=== PATIENT | female | born 1955 | race Caucasian/White ===

== ENCOUNTER → 2017-07-31 | Outpatient (CLI) | payer OTHER ==
--- NOTE | 2017-07-31 10:17 | US ---
EXAMINATION TYPE: US thyroid st tissue head/neck DATE OF EXAM: 07/31/2017 COMPARISON: NONE CLINICAL HISTORY: E04.1 Thyroid Nodule. GLAND SIZE: Right Lobe: 2.4 x 0.8 x 1.2 cm Overall Parenchyma: heterogenous Left Lobe: 3.1 x 1.2 x 1.1 cm Overall Parenchyma: heterogeneous Isthmus Thickness: 0.3 cm NODULES RIGHT: # of nodules measured on right: 1 1. 1.2 X 0.8 x 0.9 cm echogenic solid nodule at the mid pole with well-defined margins; with a soft tissue rim outside the calcification. This nodule is wider than tall and shows intranodular vascula rity. Prior size: no prior LEFT: # of nodules measured on left: 1 1. 0.4 X 0.4 x 0.1 cm echogenic solid nodule at the lower pole with poorly defined margins; with a soft tissue rim outside the calcification. This nodule is calcification and shows no intranodular va scularity. Prior size: no prior ISTHMUS: # of nodules measured in the isthmus: 0 1 Bilateral neck scanned, no evidence of lymphadenopathy. IMPRESSION: Bilateral small thyroid nodules. The largest on the right measures 1.2 x 0.8 x 0.7 cm.
[2017-07-31 11:04] LABS: T4, Free (Free Thyroxine) 0.8 ng/dL (0.78-2.19)
== END | disposition home or self-care (01) ==
LOC: RADUSWWP 09:44
PROVIDERS: ATTEND Obstetrics & Gynecology
DX: E04.2 Nontoxic multinodular goiter (principal)
CPT/HCPCS: 36415; 76536; 84439; 84443

== ENCOUNTER 2017-09-30 12:04 | Emergency (ER) | payer OTHER ==
[2017-09-30 13:35] LABS: Basophils % (A) 0 %; Eosinophils # (A) 0.1 k/uL (0-0.7); Eosinophils % (A) 2 %; HCT 39.9 % (34.0-46.0); HGB 14.4 gm/dL (11.4-16.0); Lymphocytes # (A) 0.7 k/uL (1.0-4.8); Lymphocytes % (A) 10 %; MCH 29.5 pg (25.0-35.0); MCV 81.7 fL (80.0-100.0); Monocytes # (A) 0.2 k/uL (0-1.0); Monocytes % (A) 3 %; Neutrophils # (A) 5.7 k/uL (1.3-7.7); Neutrophils % (A) 84 %; Platelet Count 287 k/uL (150-450); RBC 4.88 m/uL (3.80-5.40); RDW 13.4 % (11.5-15.5); WBC 6.8 k/uL (3.8-10.6)
[2017-09-30 13:36] LABS: Appearance,Urine Clear (Clear); Bilirubin,Urine Negative (Negative); Blood,Urine Negative (Negative); Color,Urine Yellow; Glucose,Urine (UA) Negative (Negative); Ketones,Urine Negative (Negative); Leukocyte Esterase,Urine Negative (Negative); Nitrite,Urine Negative (Negative); Protein,Urine Negative (Negative); Specific Gravity,Urine 1.006 (1.001-1.035); Urobilinogen,Urine <2.0 mg/dL (<2.0)
[2017-09-30 13:45] LABS: Albumin 4.5 g/dL (3.5-5.0); Calcium 10.5 mg/dL (8.4-10.2); Potassium 4.6 mmol/L (3.5-5.1); Total Bilirubin 0.4 mg/dL (0.2-1.3); Total Protein 7.3 g/dL (6.3-8.2)
[2017-09-30] MEDS ORDERED: ACETAMINOPHEN TAB 500 MG TAB PO STA (13:50)
--- NOTE | 2017-09-30 14:12 | CT ---
EXAMINATION TYPE: CT soft tissue neck wo con DATE OF EXAM: 09/30/2017 COMPARISON: NONE HISTORY: Patient complains of upper lip swelling. CT DLP: 450.7 mGycm CONTRAST: CT scan of the neck is performed without contrast. Lack of contrast limits evaluation. Contrast enhanced CT of the neck was performed from the skull base through the lung apices. Mild soft tissue swelling adjacent to the left maxilla. No definite bony destructive process or absce ss. Lack of contrast limits evaluation. AIRWAY: The supraglottic, glottic, and subglottic portions of the airway appear patent and free of mass. SALIVARY GLANDS: The submandibular and parotid glands are free of mass or inflammatory process. THYROID GLAND: No nodules or masses seen. LYMPH NODES: No adenopathy seen greater than 1cm. LUNG APICES: No nodule or mass is seen. OTHER: Vascular structures are patent. No significant degenerative change of the cervical spine. N o abscess seen. IMPRESSION: Mild soft tissue swelling adjacent to the left maxilla. No definite bony destructive process or absce ss. Lack of contrast limits evaluation.
[2017-09-30 14:39] VITALS: BP 132/68; PULSE 84; RESP 18; TEMP 98.4
--- NOTE | 2017-09-30 14:41 | ED ---
ENT HPI - General Chief complaint: Dental/Oral Stated complaint: Lip Swelling Time Seen by Provider: 09/30/17 13:13 Source: patient, RN notes reviewed Mode of arrival: ambulatory Limitations: no limitations - History of Present Illness Initial comments: This a 62-year-old female presents emergency Department chief complaint of facial swelling. Patient states this started earlier this morning approximately 12 hours ago. Patient was seen and [facility] at that time she states it was over her left mandibular region. She states she was given Benadryl, steroids. She states that has not helped and seen worsen. She states she still is swelling to the left mandible region but also her upper lip. She denies any difficulty breathing difficulty swallowing denies any tongue swelling. Patient states that she does take an YONY inhibitor but states she's been taken for several months. Patient did not take it today. Patient denies any chest pain from his breath nausea vomiting diarrhea constipation. Patient does have a fever did not know she had a fever at home. - Related Data Home Medications Medication Instructions Recorded Confirmed Cranberry Fruit Extract [Cranberry] 1,000 mg PO DAILY 08/03/15 09/30/17 Furosemide 40 mg PO DAILY 08/03/15 09/30/17 Gemfibrozil 600 mg PO HS 08/03/15 09/30/17 Mycophenolate Mofetil [Cellcept] 1,000 mg PO BID 08/03/15 09/30/17 Omeprazole 20 mg PO DAILY 08/03/15 09/30/17 Potassium Chloride [Klor-Con 10] 20 meq PO 08/03/15 09/30/17 Potassium Chloride [Klor-Con 10] 30 meq PO [facility] 08/03/15 09/30/17 Simvastatin 20 mg PO 08/03/15 09/30/17 Spironolactone 25 mg PO DAILY 08/03/15 09/30/17 sulfaSALAzine [Azulfidine] 1,500 mg PO BID 08/03/15 09/30/17 Sirolimus [Rapamune] 5 mg PO DAILY 08/17/15 09/30/17 Biotin 5 mg PO DAILY 08/22/15 09/30/17 Lisinopril [Prinivil] 5 mg PO DAILY 09/30/17 09/30/17 diphenhydrAMINE HCL [Benadryl] 25 mg PO Q4H PRN 09/30/17 09/30/17 Previous Rx's Medication Instructions Recorded Aspirin 81 mg PO DAILY #0 08/31/15 Clindamycin HCl 300 mg PO Q6HR #40 cap 09/30/17 Allergies Allergy/AdvReac Type Severity Reaction Status Date / Time No Known Allergies Allergy Verified 09/30/17 13:24 Review of Systems ROS Statement: Those systems with pertinent positive or pertinent negative responses have been documented in the HPI. ROS Other: All systems not noted in ROS Statement are negative. Past Medical History Past Medical History: Diabetes Mellitus, Deep Vein Thrombosis (DVT), GERD/Reflux , Hyperlipidemia, Renal Disease Additional Past Medical History / Comment(s): COLITIS History of Any Multi-Drug Resistant Organisms: None Reported Past Surgical History: Cholecystectomy, Hernia Repair, Tubal Ligation Additional Past Surgical History / Comment(s): KIDNEY TRANSPLANT left. DIALYSIS PORT PLACEMENT AND REMOVAL Past Anesthesia/Blood Transfusion Reactions: No Reported Reaction Past Psychological History: Anxiety Smoking Status: Former smoker Past Alcohol Use History: Occasional Past Drug Use History: None Reported - Past Family History Mother Family Medical History: Myocardial Infarction ([place]) Father Additional Family Medical History / Comment(s): UNK HEART PROBLEMS General Exam Limitations: no limitations General appearance: alert, in no apparent distress Head exam: Present: atraumatic, normocephalic, normal inspection Eye exam: Present: normal appearance, PERRL, EOMI. Absent: scleral icterus, conjunctival injection, periorbital swelling ENT exam: Present: mucous membranes moist, TM's normal bilaterally, normal external ear exam. Absent: normal oropharynx (There is some left mandibular, left maxillary swelling noted along with upper lip swelling, left lower dental fracture) Neck exam: Present: normal inspection, full ROM. Absent: tenderness, meningismus, lymphadenopathy Respiratory exam: Present: normal lung sounds bilaterally. Absent: respiratory distress, wheezes, rales, rhonchi, stridor Cardiovascular Exam: Present: regular rate, normal rhythm, normal heart sounds. Absent: systolic murmur, diastolic murmur, rubs, gallop, clicks Skin exam: Present: warm, dry, intact, normal color. Absent: rash Course Vital Signs 09/30/17 12:47 Temperature 101.3 F H Pulse Rate 104 H Respiratory 20 Rate Blood Pressure 109/73 O2 Sat by Pulse 97 Oximetry Medical Decision Making - Medical Decision Making 62-year-old female presented for facial swelling. Patient appears to have a dental infection. Patient had CT without contrast secondary to renal transplant. There is no evidence of localized abscess. She'll be started on antibiotics. Patient advised to follow-up with oral surgery. Patient does take YONY inhibitor though this is felt less likely is secondary she's been taken for several months. Though she'll discontinue it at this time and follow- up for further direction. - Lab Data Result diagrams: 09/30/17 13:13 09/30/17 13:13 Lab Results 09/30/17 09/30/17 09/30/17 Range/Units 13:13 13:13 13:13 WBC 6.8 (3.8-10.6) k/uL RBC 4.88 (3.80-5.40) m/uL Hgb 14.4 (11.4-16.0) gm/dL Hct 39.9 (34.0-46.0) % MCV 81.7 (80.0-100.0) fL MCH 29.5 (25.0-35.0) pg MCHC 36.0 (31.0-37.0) g/dL RDW 13.4 (11.5-15.5) % Plt Count 287 (150-450) k/uL Neutrophils % 84 % Lymphocytes % 10 % Monocytes % 3 % Eosinophils % 2 % Basophils % 0 % Neutrophils # 5.7 (1.3-7.7) k/uL Lymphocytes # 0.7 L (1.0-4.8) k/uL Monocytes # 0.2 (0-1.0) k/uL Eosinophils # 0.1 (0-0.7) k/uL Basophils # 0.0 (0-0.2) k/uL Sodium 141 (137-145) mmol/L Potassium 4.6 (3.5-5.1) mmol/L Chloride 101 (98-107) mmol/L Carbon Dioxide 24 (22-30) mmol/L Anion Gap 16 mmol/L BUN 14 (7-17) mg/dL Creatinine 0.85 (0.52-1.04) mg/dL Est GFR (CKD-EPI)AfAm 85 (>60 ml/min/1.73 sqM) Est GFR (CKD-EPI)NonAf 73 (>60 ml/min/1.73 sqM) Glucose 176 H (74-99) mg/dL Plasma Lactic Acid Adriano 1.3 (0.7-2.0) mmol/L Calcium 10.5 H (8.4-10.2) mg/dL Total Bilirubin 0.4 (0.2-1.3) mg/dL AST 13 L (14-36) U/L ALT 21 (9-52) U/L Alkaline Phosphatase 65 (38-126) U/L Total Protein 7.3 (6.3-8.2) g/dL Albumin 4.5 (3.5-5.0) g/dL Urine Color Urine Appearance (Clear) Urine pH (5.0-8.0) Ur Specific Burton (1.001-1.035) Urine Protein (Negative) Urine Glucose (UA) (Negative) Urine Ketones (Negative) Urine Blood (Negative) Urine Nitrite (Negative) Urine Bilirubin (Negative) Urine Urobilinogen (<2.0) mg/dL Ur Leukocyte Esterase (Negative) 09/30/17 Range/Units 13:13 WBC (3.8-10.6) k/uL RBC (3.80-5.40) m/uL Hgb (11.4-16.0) gm/dL Hct (34.0-46.0) % MCV (80.0-100.0) fL MCH (25.0-35.0) pg MCHC (31.0-37.0) g/dL RDW (11.5-15.5) % Plt Count (150-450) k/uL Neutrophils % % Lymphocytes % % Monocytes % % Eosinophils % % Basophils % % Neutrophils # (1.3-7.7) k/uL Lymphocytes # (1.0-4.8) k/uL Monocytes # (0-1.0) k/uL Eosinophils # (0-0.7) k/uL Basophils # (0-0.2) k/uL Sodium (137-145) mmol/L Potassium (3.5-5.1) mmol/L Chloride (98-107) mmol/L Carbon Dioxide (22-30) mmol/L Anion Gap mmol/L BUN (7-17) mg/dL Creatinine (0.52-1.04) mg/dL Est GFR (CKD-EPI)AfAm (>60 ml/min/1.73 sqM) Est GFR (CKD-EPI)NonAf (>60 ml/min/1.73 sqM) Glucose (74-99) mg/dL Plasma Lactic Acid Adriano (0.7-2.0) mmol/L Calcium (8.4-10.2) mg/dL Total Bilirubin (0.2-1.3) mg/dL AST (14-36) U/L ALT (9-52) U/L Alkaline Phosphatase (38-126) U/L Total Protein (6.3-8.2) g/dL Albumin (3.5-5.0) g/dL Urine Color Yellow Urine Appearance Clear (Clear) Urine pH 5.0 (5.0-8.0) Ur Specific Burton 1.006 (1.001-1.035) Urine Protein Negative (Negative) Urine Glucose (UA) Negative (Negative) Urine Ketones Negative (Negative) Urine Blood Negative (Negative) Urine Nitrite Negative (Negative) Urine Bilirubin Negative (Negative) Urine Urobilinogen <2.0 (<2.0) mg/dL Ur Leukocyte Esterase Negative (Negative) Disposition Clinical Impression: Facial swelling, Dental infection Disposition: HOME SELF-CARE Condition: Stable Instructions: Dental Abscess (ED) Additional Instructions: Please return to the Emergency Department if symptoms worsen or any other concerns. Prescriptions: Clindamycin HCl 300 mg PO Q6HR #40 cap Referrals: None,Stated [Primary Care Provider] - 1-2 days Jared Forbes DDS [STAFF PHYSICIAN] - 1-2 days Time of Disposition: 14:41
== END 2017-09-30 14:52 | disposition home or self-care (01) ==
LOC: EC 12:04
DX: K04.7 Periapical abscess without sinus (principal); K21.9 Gastro-esophageal reflux disease without esophagitis; E78.5 Hyperlipidemia, unspecified; Z86.718 Personal history of other venous thrombosis and embolism; Z94.0 Kidney transplant status; Z79.899 Other long term (current) drug therapy
CPT/HCPCS: 36415; 70490; 80053; 81003; 83605; 85025; 99284

== ENCOUNTER → 2017-10-09 | Outpatient (CLI) | payer OTHER ==
--- NOTE | 2017-10-10 11:40 | MM ---
Reason for exam: screening (asymptomatic). Last mammogram was performed 1 year and 6 months ago. History: Patient is postmenopausal. Took hormonal contraceptives for 10 years beginning at age 19. Took estrogen for 6 months beginning at age 49. Physical Findings: A clinical breast exam by your physician is recommended on an annual basis and results should be correlated with mammographic findings. MG Screening Mammo w CAD Bilateral CC and MLO view(s) were taken. Prior study comparison: April 16, 2016, right breast MG diagnostic mammo RT w CAD. August 11, 2015, bilateral MG screening mammo w CAD. The breast tissue is almost entirely fat. Finding: There are typically benign skin, grouped/clustered calcifications in the outer quadrant, middle position. No significant changes in finding since April 16, 2016 and August 11, 2015. ASSESSMENT: Benign, BI-RAD 2 RECOMMENDATION: Routine screening mammogram of both breasts in 1 year.
== END | disposition home or self-care (01) ==
LOC: RADMAMWWP 09:47
PROVIDERS: ATTEND Family Medicine
DX: Z12.31 Encounter for screening mammogram for malignant neoplasm of breast (principal)
CPT/HCPCS: 77067

== ENCOUNTER 2018-09-05 17:48 | Inpatient (IN) | payer OTHER ==
[2018-09-05] MEDS: MORPHINE SULFATE 4 MG/ML SYRINGE IVP PRN (20:39)
[2018-09-05] MEDS ORDERED: HYDROmorphone 0.5 MG/0.5 ML SYRINGE IVP PRN (20:48)
[2018-09-05] MEDS ORDERED: NALOXONE 0.4 MG/ML 10 ML VIAL IVP PRN (20:48)
[2018-09-05] MEDS ORDERED: diphenhydrAMINE 25 MG CAP PO PRN (20:49)
[2018-09-05] MEDS ORDERED: NALOXONE 0.4 MG/ML 1 ML VIAL IV PRN (20:51)
[2018-09-05] MEDS ORDERED: sulfaSALAzine 500 MG TAB PO SCH (21:00)
[2018-09-05] MEDS ORDERED: ACETAMINOPHEN TAB 500 MG TAB PO PRN (22:00)
[2018-09-05] MEDS ORDERED: TEMAZEPAM 15 MG CAP PO PRN (22:00)
[2018-09-05] MEDS ORDERED: HYDROcodone/APAP 5-325MG 1 EACH TAB PO PRN (22:00)
[2018-09-05] MEDS ORDERED: hydrALAZINE HCL 20 MG/ML 1 ML VIAL IVP PRN (22:02)
[2018-09-05 22:05] VITALS: BMI 28.8
[2018-09-05] MEDS: sulfaSALAzine 500 MG TAB PO SCH (22:32)
[2018-09-05] MEDS: MYCOPHENOLATE MOFETIL 500 MG TAB PO SCH (22:33)
[2018-09-05] MEDS: FENOFIBRATE 160 MG TAB PO SCH (22:33)
[2018-09-05] MEDS: HEPARIN SODIUM,PORCINE 5,000 UNIT/ML 1 ML VIAL SQ SCH (22:37)
[2018-09-05] MEDS: ATORVASTATIN 10 MG TAB PO SCH (22:48)
[2018-09-05] MEDS: PANTOPRAZOLE 40 MG/10 ML VIAL IVP SCH (23:53)
[2018-09-06 00:05] LABS: ALT 28 U/L (9-52); AST 10 U/L (14-36); Albumin 3.6 g/dL (3.5-5.0); Alkaline Phosphatase 60 U/L (38-126); Amylase 47 U/L (30-110); Anion Gap 8 mmol/L; Blood Urea Nitrogen 8 mg/dL (7-17); Calcium 9.7 mg/dL (8.4-10.2); Carbon Dioxide 26 mmol/L (22-30); Chloride 107 mmol/L (98-107); Glucose 138 mg/dL (74-99); Lipase 61 U/L (23-300); Potassium 4.3 mmol/L (3.5-5.1); Sodium 141 mmol/L (137-145); Total Bilirubin 0.6 mg/dL (0.2-1.3); Total Protein 5.9 g/dL (6.3-8.2)
[2018-09-06] MEDS: POTASSIUM CHLORIDE ER 20 MEQ TAB.ER PO SCH ×2 (00:09→20:33)
[2018-09-06] MEDS: MORPHINE SULFATE 4 MG/ML SYRINGE IVP PRN (00:33)
[2018-09-06] MEDS ORDERED: LORazepam 2 MG/ML INJ IV PRN (00:40)
[2018-09-06] MEDS: HYDROmorphone 0.5 MG/0.5 ML SYRINGE IVP PRN ×4 (02:26→17:02)
[2018-09-06] MEDS: ONDANSETRON 4 MG/2 ML VIAL IVP PRN ×2 (02:59→08:24)
[2018-09-06] MEDS ORDERED: PANTOPRAZOLE 40 MG TABLET PO SCH (07:30)
[2018-09-06] MEDS: SPIRONOLACTONE 25 MG TAB PO SCH (08:20)
[2018-09-06] MEDS: POTASSIUM CHLORIDE ER 10 MEQ TAB.ER.PRT PO SCH (08:20)
[2018-09-06] MEDS: ASPIRIN 81 MG PO SCH (08:20)
[2018-09-06] MEDS: MYCOPHENOLATE MOFETIL 500 MG TAB PO SCH ×2 (08:21→20:33)
[2018-09-06] MEDS: FUROSEMIDE 40 MG TAB PO SCH (08:21)
[2018-09-06] MEDS: sulfaSALAzine 500 MG TAB PO SCH ×2 (08:22→20:33)
[2018-09-06] MEDS: PANTOPRAZOLE 40 MG/10 ML VIAL IVP SCH ×2 (08:23→20:33)
[2018-09-06] MEDS: HEPARIN SODIUM,PORCINE 5,000 UNIT/ML 1 ML VIAL SQ SCH ×2 (08:23→20:32)
[2018-09-06 08:25] LABS: Basophils % (A) 0 %; Eosinophils # (A) 0.1 k/uL (0-0.7); Eosinophils % (A) 1 %; HCT 42.8 % (34.0-46.0); HGB 13.8 gm/dL (11.4-16.0); Lymphocytes # (A) 0.6 k/uL (1.0-4.8); Lymphocytes % (A) 5 %; MCHC 32.1 g/dL (31.0-37.0); MCV 90.4 fL (80.0-100.0); Mean Platelet Volume 7.7; Monocytes # (A) 0.8 k/uL (0-1.0); Monocytes % (A) 6 %; Neutrophils # (A) 11.7 k/uL (1.3-7.7); Neutrophils % (A) 88 %; Platelet Count 320 k/uL (150-450); RBC 4.74 m/uL (3.80-5.40); RDW 14.7 % (11.5-15.5); WBC 13.3 k/uL (3.8-10.6)
[2018-09-06] MEDS: SIROLIMUS 1 MG PO SCH (08:51)
[2018-09-06] MEDS ORDERED: SIROLIMUS PO SCH (09:00)
--- NOTE | 2018-09-06 09:59 | P.GSCN ---
History of Present Illness Consult date: 09/06/18 Reason for Consult: Bowel obstruction History of present illness: Patient is known to our service. Patient underwent repair of an incarcerated recurrent incisional hernia in August 2015. That was repaired with an underlay mesh. Following that the patient developed a bowel obstruction a few weeks post discharge. This resolved on its own. Patient states she also had a perforated ulcer over the last several years although that is not documented in the computer records here at our hospital. She went to the hospital yesterday complaining of nausea vomiting and abdominal pain. CAT scan was performed which showed recurrent small bowel obstruction. Patient still feels quite nauseated. Last bowel movement yesterday. White blood cell count slightly elevated. She is afebrile. No fevers. Patient also has a kidney transplant left pelvis from 14 years ago that is still functioning. Review of Systems The patient denies any acute changes in vision or hearing, no dysphagia or odynophagia, no chest pain or shortness of breath, no dysuria or hematuria, no headache, no runny nose, no rectal bleeding or melena, no unexplained weight loss Past Medical History Past Medical History: Diabetes Mellitus, Deep Vein Thrombosis (DVT), GERD/Reflux , Hyperlipidemia, Renal Disease Additional Past Medical History / Comment(s): COLITIS History of Any Multi-Drug Resistant Organisms: None Reported Past Surgical History: Cholecystectomy, Hernia Repair, Tubal Ligation Additional Past Surgical History / Comment(s): KIDNEY TRANSPLANT left. DIALYSIS PORT PLACEMENT AND REMOVAL Past Anesthesia/Blood Transfusion Reactions: No Reported Reaction Past Psychological History: Anxiety Smoking Status: Former smoker Past Alcohol Use History: Occasional Past Drug Use History: None Reported - Past Family History Mother Family Medical History: Myocardial Infarction ([place]) Father Additional Family Medical History / Comment(s): UNK HEART PROBLEMS Medications and Allergies Home Medications Medication Instructions Recorded Confirmed Type Cranberry Fruit Extract [Cranberry] 1,000 mg PO DAILY 08/03/15 09/06/18 History Furosemide 40 mg PO DAILY 08/03/15 09/06/18 History Gemfibrozil 600 mg PO HS 08/03/15 09/06/18 History Mycophenolate Mofetil [Cellcept] 1,000 mg PO BID 08/03/15 09/06/18 History Omeprazole 20 mg PO DAILY 08/03/15 09/06/18 History Potassium Chloride [Klor-Con 10] 20 meq PO HS 08/03/15 09/06/18 History Potassium Chloride [Klor-Con 10] 30 meq PO QAM 08/03/15 09/06/18 History Simvastatin 20 mg PO HS 08/03/15 09/06/18 History Spironolactone 25 mg PO DAILY 08/03/15 09/06/18 History Sirolimus [Rapamune] 5 mg PO DAILY 08/17/15 09/06/18 History Biotin 5 mg PO DAILY 08/22/15 09/06/18 History Aspirin 81 mg PO DAILY #0 08/31/15 09/06/18 Rx ALPRAZolam [Xanax] 0.25 mg PO DAILY PRN 09/06/18 09/06/18 History Ferrous Sulfate [Feosol] 325 mg PO BID 09/06/18 09/06/18 History Meclizine [Antivert] 25 mg PO DAILY PRN 09/06/18 09/06/18 History sulfaSALAzine [Azulfidine] 2,000 mg PO BID 09/06/18 09/06/18 History Allergies Allergy/AdvReac Type Severity Reaction Status Date / Time lisinopril Allergy Anaphylaxis Verified 09/06/18 08:20 Surgical - Exam Vital Signs Temp Pulse Resp BP Pulse Ox 97.9 F 93 18 126/70 95 09/05/18 00:15 09/05/18 00:15 09/05/18 00:15 09/05/18 00:15 09/05/18 00:15 Physical exam: General: Well-developed, well-nourished HEENT: Normocephalic, sclerae nonicteric Abdomen: Mild distention, mild tenderness Extremities: No edema Neuro: Alert and oriented Results - Labs 09/06/18 07:03 09/05/18 22:44 Abnormal Lab Results - Last 24 Hours (Table) 09/05/18 09/06/18 Range/Units 22:44 07:03 WBC 13.3 H (3.8-10.6) k/uL Neutrophils # 11.7 H (1.3-7.7) k/uL Lymphocytes # 0.6 L (1.0-4.8) k/uL Glucose 138 H (74-99) mg/dL AST 10 L (14-36) U/L Total Protein 5.9 L (6.3-8.2) g/dL Diabetes panel 09/05/18 Range/Units 22:44 Sodium 141 (137-145) mmol/L Potassium 4.3 (3.5-5.1) mmol/L Chloride 107 (98-107) mmol/L Carbon Dioxide 26 (22-30) mmol/L BUN 8 (7-17) mg/dL Creatinine 0.68 (0.52-1.04) mg/dL Glucose 138 H (74-99) mg/dL Calcium 9.7 (8.4-10.2) mg/dL AST 10 L (14-36) U/L ALT 28 (9-52) U/L Alkaline Phosphatase 60 (38-126) U/L Total Protein 5.9 L (6.3-8.2) g/dL Albumin 3.6 (3.5-5.0) g/dL Calcium panel 09/05/18 Range/Units 22:44 Calcium 9.7 (8.4-10.2) mg/dL Albumin 3.6 (3.5-5.0) g/dL Pituitary panel 09/05/18 Range/Units 22:44 Sodium 141 (137-145) mmol/L Potassium 4.3 (3.5-5.1) mmol/L Chloride 107 (98-107) mmol/L Carbon Dioxide 26 (22-30) mmol/L BUN 8 (7-17) mg/dL Creatinine 0.68 (0.52-1.04) mg/dL Glucose 138 H (74-99) mg/dL Calcium 9.7 (8.4-10.2) mg/dL Adrenal panel 09/05/18 Range/Units 22:44 Sodium 141 (137-145) mmol/L Potassium 4.3 (3.5-5.1) mmol/L Chloride 107 (98-107) mmol/L Carbon Dioxide 26 (22-30) mmol/L BUN 8 (7-17) mg/dL Creatinine 0.68 (0.52-1.04) mg/dL Glucose 138 H (74-99) mg/dL Calcium 9.7 (8.4-10.2) mg/dL Total Bilirubin 0.6 (0.2-1.3) mg/dL AST 10 L (14-36) U/L ALT 28 (9-52) U/L Alkaline Phosphatase 60 (38-126) U/L Total Protein 5.9 L (6.3-8.2) g/dL Albumin 3.6 (3.5-5.0) g/dL Assessment and Plan (1) SBO (small bowel obstruction) Narrative/Plan: Patient with recurrent small bowel obstruction likely on the basis of intra- abdominal adhesions. Will place nasogastric tube at this time. Repeat abdominal x-rays tomorrow. Current Visit: No Status: Acute Code(s): K56.69 - OTHER INTESTINAL OBSTRUCTION * DO NOT USE * SNOMED Code(s): 700557312
--- NOTE | 2018-09-06 12:05 | P.HPIM ---
History of Present Illness H&P Date: 09/06/18 Chief Complaint: Abdominal pain This very pleasant 61-year-old female past medical history significant for abdominal surgery in 2016 where she underwent repair of incarcerated recurrent incisional hernia. She said that she was okay until yesterday when she started having pain in the belly which are generalized, all over, it was worsening. She came into the hospital for further urology management. She said that she also started to have nausea vomiting yesterday. She said that she had one bowel movement yesterday morning. She otherwise does not complain of any chest pain, racing heart, no cough, shortness of breath, no tingling numbness of any extremities, no itch or rash, she does not complain of any headache, no loss of vision or blurry vision, no itch no rash. ER course-vitals show temperature 98.4 pulse 82 respiration 18 blood pressure 148/79 satting 98% on room air. Labwork was initial sodium 140 potassium 4.3 bun 8 creatinine 0.68 lipase 61 WBC 13.3 hemoglobin 13.8 platelets 320. Computed tomography scan of the belly showed small obstruction. Patient had NG tube placed and hooked to low intermittent suction. Patient was admitted to the hospitalist service for further evaluation and management with surgery consult Review of Systems All systems: negative Past Medical History Past Medical History: Diabetes Mellitus, Deep Vein Thrombosis (DVT), GERD/Reflux , Hyperlipidemia, Renal Disease Additional Past Medical History / Comment(s): COLITIS History of Any Multi-Drug Resistant Organisms: None Reported Past Surgical History: Cholecystectomy, Hernia Repair, Tubal Ligation Additional Past Surgical History / Comment(s): KIDNEY TRANSPLANT left. DIALYSIS PORT PLACEMENT AND REMOVAL Past Anesthesia/Blood Transfusion Reactions: No Reported Reaction Past Psychological History: Anxiety Smoking Status: Former smoker Past Alcohol Use History: Occasional Past Drug Use History: None Reported - Past Family History Mother Family Medical History: Myocardial Infarction ([place]) Father Additional Family Medical History / Comment(s): UNK HEART PROBLEMS Medications and Allergies Home Medications Medication Instructions Recorded Confirmed Type Cranberry Fruit Extract [Cranberry] 1,000 mg PO DAILY 08/03/15 09/06/18 History Furosemide 40 mg PO DAILY 08/03/15 09/06/18 History Gemfibrozil 600 mg PO HS 08/03/15 09/06/18 History Mycophenolate Mofetil [Cellcept] 1,000 mg PO BID 08/03/15 09/06/18 History Omeprazole 20 mg PO DAILY 08/03/15 09/06/18 History Potassium Chloride [Klor-Con 10] 20 meq PO HS 08/03/15 09/06/18 History Potassium Chloride [Klor-Con 10] 30 meq PO QAM 08/03/15 09/06/18 History Simvastatin 20 mg PO HS 08/03/15 09/06/18 History Spironolactone 25 mg PO DAILY 08/03/15 09/06/18 History Sirolimus [Rapamune] 5 mg PO DAILY 08/17/15 09/06/18 History Biotin 5 mg PO DAILY 08/22/15 09/06/18 History Aspirin 81 mg PO DAILY #0 08/31/15 09/06/18 Rx ALPRAZolam [Xanax] 0.25 mg PO DAILY PRN 09/06/18 09/06/18 History Ferrous Sulfate [Feosol] 325 mg PO BID 09/06/18 09/06/18 History Meclizine [Antivert] 25 mg PO DAILY PRN 09/06/18 09/06/18 History sulfaSALAzine [Azulfidine] 2,000 mg PO BID 09/06/18 09/06/18 History Allergies Allergy/AdvReac Type Severity Reaction Status Date / Time lisinopril Allergy Anaphylaxis Verified 09/06/18 08:20 Physical Exam Vitals: Vital Signs Temp Pulse Resp BP Pulse Ox 09/06/18 08:00 18 09/06/18 07:00 98.1 F 88 18 132/80 93 L 09/05/18 20:20 98.4 F 82 18 148/79 98 Intake and Output 09/05/18 09/06/18 09/06/18 22:59 06:59 14:59 Intake Total 675 Output Total 1000 Balance 675 -1000 Intake: IV 675 0.9 @75 675 Output: Gastric Drainage 1000 Other: Weight 86.183 kg On exam, alert and oriented x3. HEENT: Conjunctivae normal. eyes normal. NECK: No JVD. No thyroid enlargement. No LNs CARDIOVASCULAR: S1, S2 positive RESPIRATION: Breath sounds diminished in the bases. No rhonchi or crackles. No bronchial breathing. ABDOMEN: Soft, tender. No guarding. no masses palpable. No ascites, No hepatosplenomegaly.bowel sounds feeble. LEGS: No edema. no swelling NERVOUS SYSTEM: Cranial N 2-12 grossly normal. Moves all 4 limbs. No focal deficits. No sensory deficit. No signs of cerebellar dysfucntion. Skin: no ulcer no rash Results CBC & Chem 7: 09/06/18 07:03 09/05/18 22:44 Labs: Abnormal Lab Results - Last 24 Hours (Table) 09/05/18 09/06/18 Range/Units 22:44 07:03 WBC 13.3 H (3.8-10.6) k/uL Neutrophils # 11.7 H (1.3-7.7) k/uL Lymphocytes # 0.6 L (1.0-4.8) k/uL Glucose 138 H (74-99) mg/dL AST 10 L (14-36) U/L Total Protein 5.9 L (6.3-8.2) g/dL Thrombosis Risk Factor Assmnt - Choose All That Apply Each Factor Represents 1 point: Obesity (BMI >25) Each Risk Factor Represents 2 Points: Age 61-74 years Each Risk Factor Represents 3 Points: History of DVT/PE Other congenital or acquired thrombophilia - If yes, enter type in comment: No Thrombosis Risk Factor Assessment Total Risk Factor Score: 6 Thrombosis Risk Factor Assessment Level: High Risk Assessment and Plan Assessment: - Small bowel obstruction - History of previous abdominal surgery - History of kidney transplant - History of diabetes mellitus - History of hyperlipidemia - History of DVT - GERD Plan - We'll admit the patient to [facility] with telemetry - Patient will be nothing by mouth, NG tube hooked lower abdomen suction. - Patient surgery recommendations regarding management of small bowel obstruction - Pain control - We'll start her on gentle fluid hydration - Patient can resume home medications when able to - DVT and GI prophylaxis - We will order for lab work in the morning - Expected length of stay is more than 2 midnights - full code Time with Patient: Greater than 30
--- NOTE | 2018-09-06 13:47 | CT ---
EXAMINATION TYPE: CT abdomen pelvis wo con DATE OF EXAM: 09/06/2018 COMPARISON: December 24, 2015 HISTORY: 62-year-old female bowel obstruction CT DLP: 680.7 mGycm. Automated exposure control for dose reduction was used. TECHNIQUE: Contiguous axial scanning of the abdomen and pelvis without IV contrast. Coronal and sagit tatiana reconstructions performed. FINDINGS: Heart normal size without pericardial effusion. Coronary vessel calcifications are present. Strandy a telectasis in the lower lungs without pleural effusion. Tiny hiatal hernia. Noncontrast appearance of the liver, adrenal glands, spleen, and pancreas show no gross abnormality. Marked fluid distention of the stomach. Proximal and mid small bowel loops show variable dilatation w ith some severely dilated loops measuring up to 5.8 cm. Air-fluid levels throughout. Transition point identified at the anterior infraumbilical midline, refer to axial image 58 just deep to the surgerized anterior abdominal wall. Mild mesenteric edema and mild pelvic free fluid. No free air is identified. Mild perihepatic ascites . Atretic [place] kidneys. Left lower quadrant transplant not assessed without contrast. Bladder not distended. Uterus and ovaries visualized. No evident pelvic or abdominal lymphadenopathy identified. Bones: Degenerative changes of the hips. Right L5 hemisacralization. Right sacral alar bone [place] st able. Advanced degenerative disc disease throughout with facet arthropathy and grade 1 anterolisthesi s at L2-L3. Variable spinal canal stenoses mid to lower lumbar spine and moderate to severe foraminal narrowing at L3-L4 and L4-L5. IMPRESSION: 1. High-grade small bowel obstruction. Transition point anterior midline infraumbilical region just deep to the surgerized anterior abdominal wall. Small bowel loops are dilated severely up to 5.8 cm. 2. Trace perihepatic and mild pelvic ascites fluid likely reactive. No free air.
[2018-09-06] MEDS: SODIUM CHLORIDE 0.9% 1,000 ML IV SCH (15:42)
[2018-09-06 16:12] LABS: Amorphous Sediment,Urine Rare /hpf; Appearance,Urine Cloudy (Clear); Bilirubin,Urine Negative (Negative); Blood,Urine Negative (Negative); Color,Urine Dark Yellow; Glucose,Urine (UA) Trace (Negative); Ketones,Urine Negative (Negative); Leukocyte Esterase,Urine Large (Negative); Mucus,Urine Many /hpf; Nitrite,Urine Negative (Negative); PH, Urine 5.5 (5.0-8.0); Protein,Urine 1+ (Negative); RBC,Urine 6 /hpf (0-5); Specific Gravity,Urine 1.028 (1.001-1.035); Squamous Epithelial Cell,Urine 5 /hpf (0-4); Urobilinogen,Urine <2.0 mg/dL (<2.0); WBC,Urine 106 /hpf (0-5)
[2018-09-06 16:53] LABS: Glucose,Whole Blood 114 mg/dL (75-99)
[2018-09-06] MEDS: ATORVASTATIN 10 MG TAB PO SCH (20:32)
[2018-09-06] MEDS: FENOFIBRATE 160 MG TAB PO SCH (20:32)
[2018-09-07] MEDS: ALPRAZolam 0.25 MG TAB PO PRN ×2 (01:38→12:43)
[2018-09-07] MEDS: HYDROmorphone 0.5 MG/0.5 ML SYRINGE IVP PRN ×5 (05:28→21:25)
--- NOTE | 2018-09-07 07:16 | XR ---
EXAMINATION TYPE: XR abdomen 2V DATE OF EXAM: 09/07/2018 6:42 AM CLINICAL HISTORY: Follow-up for small bowel obstruction. TECHNIQUE: Upright and supine images of the abdomen is obtained. COMPARISON: CT dated 09/06/2018 FINDINGS: Centralized air-fluid levels are seen within the dilated small bowel. Small bowel measures up to 5.3 cm, slightly decreased in size from the prior of 5.8 cm. Enteric tube is present with its f enestrated portion at the gastroesophageal junction and should be advanced at least 5 cm for optimal placement. Surgical clips are noted in the right upper quadrant. No pneumoperitoneum is present. Exte nsive degenerative changes are seen of the lumbosacral junction. Lung bases are well aerated. IMPRESSION: Persistent radiographic findings of a small bowel obstruction however caliber of the smal l bowel has slightly decreased in the interim from 5.8 cm to 5.3 cm. Enteric tube should be advanced approximate 5 cm for optimal placement.
[2018-09-07] MEDS: FUROSEMIDE 40 MG TAB PO SCH (08:29)
[2018-09-07] MEDS: MYCOPHENOLATE MOFETIL 500 MG TAB PO SCH ×2 (08:29→21:21)
[2018-09-07] MEDS: sulfaSALAzine 500 MG TAB PO SCH ×2 (08:29→21:21)
[2018-09-07] MEDS: SPIRONOLACTONE 25 MG TAB PO SCH (08:29)
[2018-09-07] MEDS: POTASSIUM CHLORIDE ER 10 MEQ TAB.ER.PRT PO SCH (08:29)
[2018-09-07] MEDS: PANTOPRAZOLE 40 MG/10 ML VIAL IVP SCH ×2 (08:30→21:21)
[2018-09-07] MEDS: ASPIRIN 81 MG PO SCH (08:30)
[2018-09-07] MEDS: SIROLIMUS 1 MG PO SCH (08:30)
[2018-09-07] MEDS: HEPARIN SODIUM,PORCINE 5,000 UNIT/ML 1 ML VIAL SQ SCH ×2 (08:30→21:20)
[2018-09-07 08:49] LABS: Basophils % (A) 1 %; Eosinophils # (A) 0.1 k/uL (0-0.7); Eosinophils % (A) 2 %; HGB 14.3 gm/dL (11.4-16.0); Lymphocytes # (A) 0.4 k/uL (1.0-4.8); Lymphocytes % (A) 6 %; MCH 28.8 pg (25.0-35.0); MCHC 31.8 g/dL (31.0-37.0); MCV 90.6 fL (80.0-100.0); Mean Platelet Volume 6.6; Monocytes # (A) 0.6 k/uL (0-1.0); Monocytes % (A) 7 %; Neutrophils # (A) 6.7 k/uL (1.3-7.7); Neutrophils % (A) 84 %; Platelet Count 300 k/uL (150-450); RBC 4.96 m/uL (3.80-5.40); RDW 14.8 % (11.5-15.5)
[2018-09-07 08:55] LABS: ALT 19 U/L (9-52); AST 10 U/L (14-36); Albumin 3.6 g/dL (3.5-5.0); Alkaline Phosphatase 55 U/L (38-126); Anion Gap 8 mmol/L; Blood Urea Nitrogen 12 mg/dL (7-17); Carbon Dioxide 27 mmol/L (22-30); Chloride 109 mmol/L (98-107); Glucose 136 mg/dL (74-99); Potassium 4.8 mmol/L (3.5-5.1); Sodium 144 mmol/L (137-145); Total Bilirubin 0.5 mg/dL (0.2-1.3)
--- NOTE | 2018-09-07 10:24 | P.PN ---
<Ping Martinez A - Last Filed: 09/07/18 10:18> Subjective Progress Note Date: 09/07/18 CHIEF COMPLAINT: Nausea, vomiting, abdominal pain HISTORY OF PRESENT ILLNESS: Patient examined this morning at the bedside. She reports passing flatus and having a small stool this morning. Patient is NPO, however nursing reports patient is drinking water from the sink in the bathroom. NG tube intact with 600cc output in cannister. Repeat abdominal xray this morning shows persistent findings of small bowel obstruction with small bowel dilation decreasing from 5.8 cm to 5.3 cm. NG tube to be advanced 5 cm per radiology dictation. Nursing aware and will advance NG. PHYSICAL EXAM: VITAL SIGNS: Currently stable. GENERAL: Well-developed in no acute distress. HEENT: NG tube intact with bilious drainage. No sclera icterus. Extraocular movements grossly intact. Moist buccal mucosa. Head is atraumatic, normocephalic. Hears conversational speech. No nasal drainage. NECK: Supple without lymphadenopathy. CHEST: Non-labored respirations and equal bilateral excursions. CARDIOVASCULAR: Regular rate with regular rhythm. Palpable 2+ radial pulses. ABDOMEN: Soft. Nondistended. Minimal tenderness upon palpation. MUSCULOSKELETAL: No clubbing, cyanosis or edema. NEUROLOGIC: No focal or lateralizing signs. Cranial nerves II through XII grossly intact. PSYCH: Appropriate affect. Alert and oriented to person, place and time. SKIN: Well perfused. Good skin turgor. ASSESSMENT: 1. Small bowel obstruction PLAN: Discussed patient case and xray results with Dr. Peraza this am. Continue NG to LIS. Continue NPO. Nursing to advance NG tube for optimal placement. Nurse practitioner note has been reviewed by physician. Signing provider agrees with the documented findings, assessment, and plan of care. Objective - Vital Signs Vital signs: Vital Signs Temp 98.8 F 09/07/18 07:00 Pulse 93 09/07/18 07:00 Resp 12 09/07/18 07:00 BP 128/81 09/07/18 07:00 Pulse Ox 93 L 09/07/18 07:00 Intake & Output 09/06/18 09/07/18 09/07/18 18:59 06:59 18:59 Intake Total 900 Output Total 1800 600 200 Balance -1800 300 -200 Intake: IV 900 0.9 @75 900 Output: Gastric Drainage 1800 600 200 Other: Voiding Method Toilet # Voids 2 - Labs CBC & Chem 7: 09/07/18 08:20 09/07/18 08:20 Labs: Abnormal Lab Results - Last 24 Hours (Table) 09/06/18 09/06/18 09/07/18 Range/Units 15:00 16:50 08:20 Lymphocytes # 0.4 L (1.0-4.8) k/uL Chloride (98-107) mmol/L Glucose (74-99) mg/dL POC Glucose (mg/dL) 114 H (75-99) mg/dL AST (14-36) U/L Total Protein (6.3-8.2) g/dL Urine Appearance Cloudy H (Clear) Urine Protein 1+ H (Negative) Urine Glucose (UA) Trace H (Negative) Ur Leukocyte Esterase Large H (Negative) Urine RBC 6 H (0-5) /hpf Urine WBC 106 H (0-5) /hpf Ur Squamous Epith Cells 5 H (0-4) /hpf Amorphous Sediment Rare H (None) /hpf Urine Mucus Many H (None) /hpf 09/07/18 Range/Units 08:20 Lymphocytes # (1.0-4.8) k/uL Chloride 109 H (98-107) mmol/L Glucose 136 H (74-99) mg/dL POC Glucose (mg/dL) (75-99) mg/dL AST 10 L (14-36) U/L Total Protein 6.0 L (6.3-8.2) g/dL Urine Appearance (Clear) Urine Protein (Negative) Urine Glucose (UA) (Negative) Ur Leukocyte Esterase (Negative) Urine RBC (0-5) /hpf Urine WBC (0-5) /hpf Ur Squamous Epith Cells (0-4) /hpf Amorphous Sediment (None) /hpf Urine Mucus (None) /hpf <Tramaine Peraza - Last Filed: 09/07/18 14:59> Subjective As above. Patient states her pain was minimal yesterday however the pain has come back today. She did have a small bowel movement. Today's x-rays still show persistent small bowel dilation. White blood cell count is normal. She is afebrile. We'll plan repeat abdominal x-rays tomorrow. Keep nasogastric tube to suction. Patient has been drinking from the sink apparently at times including a moderate volume device chips. I stressed to her to try to diminish the oral intake at this time. If the patient's pain increases further or persists may require laparotomy. Objective - Vital Signs Vital signs: Vital Signs Temp 98.8 F 09/07/18 07:00 Pulse 93 09/07/18 07:00 Resp 12 09/07/18 07:00 BP 128/81 09/07/18 07:00 Pulse Ox 93 L 09/07/18 07:00 Intake & Output 09/06/18 09/07/18 09/07/18 18:59 06:59 18:59 Intake Total 900 Output Total 1800 600 200 Balance -1800 300 -200 Intake: IV 900 0.9 @75 900 Output: Gastric Drainage 1800 600 200 Other: Voiding Method Toilet # Voids 2 - Labs CBC & Chem 7: 09/07/18 08:20 09/07/18 08:20 Labs: Abnormal Lab Results - Last 24 Hours (Table) 09/06/18 09/06/18 09/07/18 Range/Units 15:00 16:50 08:20 Lymphocytes # 0.4 L (1.0-4.8) k/uL Chloride (98-107) mmol/L Glucose (74-99) mg/dL POC Glucose (mg/dL) 114 H (75-99) mg/dL AST (14-36) U/L Total Protein (6.3-8.2) g/dL Urine Appearance Cloudy H (Clear) Urine Protein 1+ H (Negative) Urine Glucose (UA) Trace H (Negative) Ur Leukocyte Esterase Large H (Negative) Urine RBC 6 H (0-5) /hpf Urine WBC 106 H (0-5) /hpf Ur Squamous Epith Cells 5 H (0-4) /hpf Amorphous Sediment Rare H (None) /hpf Urine Mucus Many H (None) /hpf 09/07/18 Range/Units 08:20 Lymphocytes # (1.0-4.8) k/uL Chloride 109 H (98-107) mmol/L Glucose 136 H (74-99) mg/dL POC Glucose (mg/dL) (75-99) mg/dL AST 10 L (14-36) U/L Total Protein 6.0 L (6.3-8.2) g/dL Urine Appearance (Clear) Urine Protein (Negative) Urine Glucose (UA) (Negative) Ur Leukocyte Esterase (Negative) Urine RBC (0-5) /hpf Urine WBC (0-5) /hpf Ur Squamous Epith Cells (0-4) /hpf Amorphous Sediment (None) /hpf Urine Mucus (None) /hpf Assessment and Plan (1) SBO (small bowel obstruction) Current Visit: No Status: Acute Code(s): K56.69 - OTHER INTESTINAL OBSTRUCTION * DO NOT USE * SNOMED Code(s): 350945970
--- NOTE | 2018-09-07 11:21 | P.PN ---
Subjective Patient still complaining of abdominal pain. She said that it's not as bad yesterday but still having pain which is radiating to the back. She wants to eat Objective - Vital Signs Vital signs: Vital Signs Temp 98.8 F 09/07/18 07:00 Pulse 93 09/07/18 07:00 Resp 12 09/07/18 07:00 BP 128/81 09/07/18 07:00 Pulse Ox 93 L 09/07/18 07:00 Intake & Output 09/06/18 09/07/18 09/07/18 18:59 06:59 18:59 Intake Total 900 Output Total 1800 600 200 Balance -1800 300 -200 Intake: IV 900 0.9 @75 900 Output: Gastric Drainage 1800 600 200 Other: Voiding Method Toilet # Voids 2 - Exam On exam, alert and oriented x3. HEENT: Conjunctivae normal. eyes normal. NECK: No JVD. No thyroid enlargement. No LNs CARDIOVASCULAR: S1, S2 muffled. No murmur RESPIRATION: Breath sounds diminished in the bases. No rhonchi or crackles. No bronchial breathing. ABDOMEN: Soft, tenderness appreciated all over the belly. There is no rigidity but I felt like she is having slight rebound tenderness. Bowel sounds present in the left low quadrant and feeble rest of the quadrants LEGS: No edema. no swelling NERVOUS SYSTEM: Cranial N 2-12 grossly normal. Moves all 4 limbs. No focal deficits. No sensory deficit. No signs of cerebellar dysfucntion. Skin: no ulcer no rash - Labs CBC & Chem 7: 09/07/18 08:20 09/07/18 08:20 Labs: Abnormal Lab Results - Last 24 Hours (Table) 09/06/18 09/06/18 09/07/18 Range/Units 15:00 16:50 08:20 Lymphocytes # 0.4 L (1.0-4.8) k/uL Chloride (98-107) mmol/L Glucose (74-99) mg/dL POC Glucose (mg/dL) 114 H (75-99) mg/dL AST (14-36) U/L Total Protein (6.3-8.2) g/dL Urine Appearance Cloudy H (Clear) Urine Protein 1+ H (Negative) Urine Glucose (UA) Trace H (Negative) Ur Leukocyte Esterase Large H (Negative) Urine RBC 6 H (0-5) /hpf Urine WBC 106 H (0-5) /hpf Ur Squamous Epith Cells 5 H (0-4) /hpf Amorphous Sediment Rare H (None) /hpf Urine Mucus Many H (None) /hpf 09/07/18 Range/Units 08:20 Lymphocytes # (1.0-4.8) k/uL Chloride 109 H (98-107) mmol/L Glucose 136 H (74-99) mg/dL POC Glucose (mg/dL) (75-99) mg/dL AST 10 L (14-36) U/L Total Protein 6.0 L (6.3-8.2) g/dL Urine Appearance (Clear) Urine Protein (Negative) Urine Glucose (UA) (Negative) Ur Leukocyte Esterase (Negative) Urine RBC (0-5) /hpf Urine WBC (0-5) /hpf Ur Squamous Epith Cells (0-4) /hpf Amorphous Sediment (None) /hpf Urine Mucus (None) /hpf Assessment and Plan Assessment: - Small bowel obstruction - UTI - History of previous abdominal surgery - History of kidney transplant - History of diabetes mellitus - History of hyperlipidemia - History of DVT - GERD Plan - Continue by mouth an NG tube hooked to low intermittent suction as per surgery recommendations - Patient wants to eat and drink. She was explained that the treatment for small bowel obstruction at this stage is nothing by mouth an NG tube and that eating or drinking anything will make the symptoms worse - Pain control -Patient had a kidney transplant. She is on immunosuppressants which are on hold as the patient is nothing by mouth and has NG tube hooked to low intermittent suction. We might have to bring nephrology on board if she remains nothing by mouth for now to get the recommendations - Continue IV fluids - We'll monitor the patient Time with Patient: Greater than 30
[2018-09-07] MEDS ORDERED: ACETAMINOPHEN IV (For NPO) 1,000 MG in EMPTY BAG 1 BAG IVPB PRN (17:11)
[2018-09-07] MEDS: SODIUM CHLORIDE 0.9% 1,000 ML IV SCH (19:05)
[2018-09-07] MEDS: ATORVASTATIN 10 MG TAB PO SCH (21:20)
[2018-09-07] MEDS: FENOFIBRATE 160 MG TAB PO SCH (21:20)
[2018-09-07] MEDS: POTASSIUM CHLORIDE ER 20 MEQ TAB.ER PO SCH (21:21)
[2018-09-07] MEDS: ONDANSETRON 4 MG/2 ML VIAL IVP PRN (21:31)
[2018-09-08] MEDS: HYDROmorphone 0.5 MG/0.5 ML SYRINGE IVP PRN ×5 (02:12→18:48)
[2018-09-08] MEDS: ONDANSETRON 4 MG/2 ML VIAL IVP PRN (04:14)
[2018-09-08] MEDS: ALPRAZolam 0.25 MG TAB PO PRN (04:53)
[2018-09-08] MEDS: MYCOPHENOLATE MOFETIL 500 MG TAB PO SCH ×2 (08:36→20:24)
[2018-09-08] MEDS: PANTOPRAZOLE 40 MG/10 ML VIAL IVP SCH ×2 (08:36→20:24)
[2018-09-08] MEDS: FUROSEMIDE 40 MG TAB PO SCH (08:36)
[2018-09-08] MEDS: ASPIRIN 81 MG PO SCH (08:36)
[2018-09-08] MEDS: HEPARIN SODIUM,PORCINE 5,000 UNIT/ML 1 ML VIAL SQ SCH ×2 (08:36→20:23)
[2018-09-08] MEDS: POTASSIUM CHLORIDE ER 10 MEQ TAB.ER.PRT PO SCH (08:37)
[2018-09-08] MEDS: sulfaSALAzine 500 MG TAB PO SCH ×2 (08:38→20:25)
[2018-09-08] MEDS: SIROLIMUS 1 MG PO SCH (08:38)
[2018-09-08] MEDS: SPIRONOLACTONE 25 MG TAB PO SCH (08:38)
--- NOTE | 2018-09-08 09:22 | XR ---
2 view abdomen HISTORY: Small bowel obstruction 2 views of the abdomen on 3 images correlated to prior abdomen 09/07/2018 NG tube has withdrawn somewhat in the interval, distal tip is within the distal thoracic esophagus. S ubsegmental atelectatic changes are present at the lung bases. Multiple air-fluid levels are again no lawrence. There are overlying cardiac leads. No evident pneumoperitoneum. Surgical clips present in the up per abdomen. Small bowel loops show gaseous distention. Injection granuloma noted incidentally in the gluteal regions, possible vascular calcifications within the pelvis. IMPRESSION: Findings compatible with patient's history small bowel obstruction. NG tube has withdrawn somewhat in the interval. A [place] level critical message alert has been initiated for Joann Lockwood MD via the [employer] Critical Results System on 09/08/2018 9:20 AM. This message alert has been sent to Joann Lockwood MD v ia the preferences provided by the clinician for the receipt of Radiology Critical Findings. Message ID [id number].
--- NOTE | 2018-09-08 10:51 | P.PN ---
Addendum entered and electronically signed by Ping Martinez NP-C 09/08/18 10: 51: Notified by Nursing that patients NG has fallen out. Patient reports having a few small liquid mucus BMs this morning. Patient upset and does not want NG re- inserted. Ok to leave NG out until patient is re-evaluated this afternoon by Dr. Peraza. Patient is to remain NPO at this time. Original Note: <Ping Martinez - Last Filed: 09/08/18 10:51> Subjective Progress Note Date: 09/08/18 CHIEF COMPLAINT: Nausea, vomiting, abdominal pain HISTORY OF PRESENT ILLNESS: Patient examined this morning at the bedside. Patient denies passing flatus. Reports her pain is tolerable at this time. NG tube with 400cc output over last 12 hours. Patient continues to drink water when she has been instructed not to. XR continues to show evidence of bowel obstruction PHYSICAL EXAM: VITAL SIGNS: Currently stable. GENERAL: Well-developed in no acute distress. HEENT: NG tube intact with bilious drainage. No sclera icterus. Extraocular movements grossly intact. Moist buccal mucosa. Head is atraumatic, normocephalic. Hears conversational speech. No nasal drainage. NECK: Supple without lymphadenopathy. CHEST: Non-labored respirations and equal bilateral excursions. CARDIOVASCULAR: Regular rate with regular rhythm. Palpable 2+ radial pulses. ABDOMEN: Soft. Nondistended. Minimal tenderness upon palpation. MUSCULOSKELETAL: No clubbing, cyanosis or edema. NEUROLOGIC: No focal or lateralizing signs. Cranial nerves II through XII grossly intact. PSYCH: Appropriate affect. Alert and oriented to person, place and time. SKIN: Well perfused. Good skin turgor. ASSESSMENT: 1. Small bowel obstruction, partial high grade PLAN: Continue NG to LIS. Continue NPO. Patient instructed again regarding no water. Nurse practitioner note has been reviewed by physician. Signing provider agrees with the documented findings, assessment, and plan of care. Objective - Vital Signs Vital signs: Vital Signs Temp 97.7 F 09/08/18 07:00 Pulse 82 09/08/18 07:00 Resp 16 09/08/18 07:00 BP 128/84 09/08/18 07:00 Pulse Ox 92 L 09/08/18 07:00 Intake & Output 09/07/18 09/08/18 09/08/18 18:59 06:59 18:59 Intake Total 500 Output Total 1000 400 Balance -1000 100 Intake: Intake, IV Titration 500 Amount Sodium Chloride 0.9% 1, 500 000 ml @ 50 mls/hr IV . Q20H SIGIFREDO Rx#:[id number] Output: Gastric Drainage 1000 400 Other: Voiding Method Toilet # Voids 3 - Labs CBC & Chem 7: 09/07/18 08:20 09/07/18 08:20 <Tramaine Peraza - Last Filed: 09/08/18 16:50> Subjective As above. Patient's nasogastric tube came out earlier today. Patient says she feels better however has not had significant bowel function. Patient still has pain but improved from yesterday. Patient is very thirsty and is insisting she be allowed to drink this evening. Abdominal examination still reveals mild tenderness in still some mild distention present. At this time we will allow icewater only in relatively small volume. Will order small bowel series for tomorrow. If small bowel obstruction persists patient will require nasogastric tube replacement and probable laparotomy following that. Patient understands this plan and is in agreement. Objective - Vital Signs Vital signs: Vital Signs Temp 98.2 F 09/08/18 15:00 Pulse 90 09/08/18 15:00 Resp 16 09/08/18 15:00 BP 160/94 09/08/18 15:00 Pulse Ox 93 L 09/08/18 15:00 Intake & Output 09/07/18 09/08/18 09/08/18 18:59 06:59 18:59 Intake Total 500 Output Total 1000 400 Balance -1000 100 Intake: Intake, IV Titration 500 Amount Sodium Chloride 0.9% 1, 500 000 ml @ 50 mls/hr IV . Q20H SIGIFREDO Rx#:[id number] Output: Gastric Drainage 1000 400 Other: Voiding Method Toilet # Voids 3 # Bowel Movements 3 - Labs CBC & Chem 7: 09/07/18 08:20 09/08/18 10:34 Labs: Abnormal Lab Results - Last 24 Hours (Table) 09/08/18 Range/Units 10:34 Glucose 145 H (74-99) mg/dL Assessment and Plan (1) SBO (small bowel obstruction) Current Visit: No Status: Acute Code(s): K56.69 - OTHER INTESTINAL OBSTRUCTION * DO NOT USE * SNOMED Code(s): 482750217
[2018-09-08 11:15] LABS: Sodium 142 mmol/L (137-145)
[2018-09-08 11:17] LABS: Anion Gap 11 mmol/L; Blood Urea Nitrogen 14 mg/dL (7-17); Calcium 10.2 mg/dL (8.4-10.2); Carbon Dioxide 24 mmol/L (22-30); Chloride 107 mmol/L (98-107); Glucose 145 mg/dL (74-99); Potassium 4.3 mmol/L (3.5-5.1)
[2018-09-08] MEDS ORDERED: LORazepam 2 MG/ML INJ IV STA (14:31)
[2018-09-08] MEDS: SODIUM CHLORIDE 0.9% 1,000 ML IV SCH (14:46)
--- NOTE | 2018-09-08 15:13 | P.PN ---
Subjective Patient still complaining of abdominal pain. She said that it's not as bad yesterday but still having pain which is radiating to the back. She wants to eat 09/07/2018 Patient still complains abdominal pain. She is crying and anxious NG tube out as she pulled out while using the restroom Objective - Vital Signs Vital signs: Vital Signs Temp 97.7 F 09/08/18 07:00 Pulse 82 09/08/18 07:00 Resp 16 09/08/18 07:00 BP 128/84 09/08/18 07:00 Pulse Ox 92 L 09/08/18 07:00 Intake & Output 09/07/18 09/08/18 09/08/18 18:59 06:59 18:59 Intake Total 500 Output Total 1000 400 Balance -1000 100 Intake: Intake, IV Titration 500 Amount Sodium Chloride 0.9% 1, 500 000 ml @ 50 mls/hr IV . Q20H SIGIFREDO Rx#:[id number] Output: Gastric Drainage 1000 400 Other: Voiding Method Toilet # Voids 3 - Exam On exam, alert and oriented x3. HEENT: Conjunctivae normal. eyes normal. NECK: No JVD. No thyroid enlargement. No LNs CARDIOVASCULAR: S1, S2 muffled. No murmur RESPIRATION: Breath sounds diminished in the bases. No rhonchi or crackles. No bronchial breathing. ABDOMEN: Belly feels more tender today. She is afebrile bowel sounds there is rebound tenderness appreciated as well LEGS: No edema. no swelling NERVOUS SYSTEM: Cranial N 2-12 grossly normal. Moves all 4 limbs. No focal deficits. No sensory deficit. No signs of cerebellar dysfucntion. Skin: no ulcer no rash - Labs CBC & Chem 7: 09/07/18 08:20 09/08/18 10:34 Labs: Abnormal Lab Results - Last 24 Hours (Table) 09/08/18 Range/Units 10:34 Glucose 145 H (74-99) mg/dL Assessment and Plan Assessment: - Small bowel obstruction - UTI - History of previous abdominal surgery - History of kidney transplant - History of diabetes mellitus - History of hyperlipidemia - History of DVT - GERD Plan - Patient pulled out the NG tube. Dr. Peraza to come and see the patient - Continue pain control - Continue strict nothing by mouth for now - Continue maintenance fluids - We will follow up on the patient Time with Patient: Greater than 30
[2018-09-08] MEDS ORDERED: LORazepam 2 MG/ML INJ IV PRN (16:53)
[2018-09-08] MEDS: FENOFIBRATE 160 MG TAB PO SCH (20:23)
[2018-09-08] MEDS: ATORVASTATIN 10 MG TAB PO SCH (20:23)
[2018-09-08] MEDS: POTASSIUM CHLORIDE ER 20 MEQ TAB.ER PO SCH (20:24)
[2018-09-09] MEDS: HYDROmorphone 0.5 MG/0.5 ML SYRINGE IVP PRN ×5 (01:00→15:08)
[2018-09-09] MEDS: SODIUM CHLORIDE 0.9% 1,000 ML IV SCH ×2 (01:19→13:08)
--- NOTE | 2018-09-09 07:12 | XR ---
EXAMINATION TYPE: XR abdomen 2V DATE OF EXAM: 09/09/2018 CLINICAL HISTORY: Bowel obstruction progress study. TECHNIQUE: Supine and upright views of the abdomen are obtained. COMPARISON: Abdominal x-ray from yesterday and [address] abdomen and pelvis from 3 days ago. FINDINGS: There is interval removal lower superior retraction of nasogastric tube. There is some pauc ity of bowel gas redemonstrated. There are persistent gaseous dilated small bowel loops in the mid to lower abdomen which are slightly more prominent in size from older studies. Cholecystectomy clips ar e again seen. No pneumoperitoneum is evident. Patchy bibasilar atelectasis and/or infiltrate remains present. Degenerative spurring and disc space narrowing mid to lower lumbar spine is again seen. Vasc ular calcification overlies the pelvis. IMPRESSION: Findings consistent with nonresolving or not improving mid to distal small bowel obstruct ion noted as detailed above. Correlate clinically.
[2018-09-09] MEDS: ALPRAZolam 0.25 MG TAB PO PRN (07:44)
[2018-09-09] MEDS: PANTOPRAZOLE 40 MG/10 ML VIAL IVP SCH ×2 (07:45→21:33)
[2018-09-09] MEDS: HEPARIN SODIUM,PORCINE 5,000 UNIT/ML 1 ML VIAL SQ SCH ×2 (07:46→17:23)
[2018-09-09] MEDS: ONDANSETRON 4 MG/2 ML VIAL IVP PRN (07:58)
[2018-09-09] MEDS: MYCOPHENOLATE MOFETIL 500 MG TAB PO SCH ×2 (10:00→21:23)
[2018-09-09] MEDS: ASPIRIN 81 MG PO SCH (10:00)
[2018-09-09] MEDS: FUROSEMIDE 40 MG TAB PO SCH (10:00)
[2018-09-09] MEDS: sulfaSALAzine 500 MG TAB PO SCH ×2 (10:00→21:24)
[2018-09-09] MEDS: POTASSIUM CHLORIDE ER 10 MEQ TAB.ER.PRT PO SCH (10:00)
[2018-09-09] MEDS: SIROLIMUS 1 MG PO SCH (10:00)
[2018-09-09] MEDS: SPIRONOLACTONE 25 MG TAB PO SCH (10:00)
[2018-09-09 10:27] LABS: Basophils % (A) 0 %; Eosinophils # (A) 0.1 k/uL (0-0.7); Eosinophils % (A) 2 %; HCT 41.7 % (34.0-46.0); HGB 13.5 gm/dL (11.4-16.0); Lymphocytes # (A) 0.6 k/uL (1.0-4.8); Lymphocytes % (A) 10 %; MCH 28.8 pg (25.0-35.0); MCHC 32.4 g/dL (31.0-37.0); MCV 88.7 fL (80.0-100.0); Mean Platelet Volume 6.4; Monocytes # (A) 0.5 k/uL (0-1.0); Monocytes % (A) 8 %; Neutrophils # (A) 4.5 k/uL (1.3-7.7); Neutrophils % (A) 78 %; Platelet Count 324 k/uL (150-450); RBC 4.71 m/uL (3.80-5.40); RDW 14.4 % (11.5-15.5); WBC 5.8 k/uL (3.8-10.6)
[2018-09-09 10:39] LABS: ALT 18 U/L (9-52); AST 10 U/L (14-36); Albumin 3.6 g/dL (3.5-5.0); Alkaline Phosphatase 61 U/L (38-126); Anion Gap 12 mmol/L; Blood Urea Nitrogen 17 mg/dL (7-17); Calcium 10.1 mg/dL (8.4-10.2); Carbon Dioxide 27 mmol/L (22-30); Chloride 105 mmol/L (98-107); Glucose 136 mg/dL (74-99); Potassium 4.4 mmol/L (3.5-5.1); Sodium 144 mmol/L (137-145); Total Bilirubin 0.5 mg/dL (0.2-1.3); Total Protein 6.1 g/dL (6.3-8.2)
--- NOTE | 2018-09-09 12:37 | P.PN ---
<Ping Martinez A - Last Filed: 09/09/18 12:29> Subjective Progress Note Date: 09/09/18 CHIEF COMPLAINT: Nausea, vomiting, abdominal pain HISTORY OF PRESENT ILLNESS: Patient examined this morning at the bedside. Patient complains of abdominal pain and rating it 10/10. She reports nausea and an episode of emesis yesterday. She was unable to complete upper GI this morning secondary to nausea. Abdominal x-ray was completed revealing persistent gasous dilated small bowel loops in the mid to lower abdomen which are slightly more prominent in size compared to older studies. Findings consistent with non-resolving or not improving mid to distal small bowel obstruction. PHYSICAL EXAM: VITAL SIGNS: Currently stable. Patient crying and appears to be in obvious pain. GENERAL: Well-developed in no acute distress. HEENT: No sclera icterus. Extraocular movements grossly intact. Moist buccal mucosa. Head is atraumatic, normocephalic. Hears conversational speech. No nasal drainage. NECK: Supple without lymphadenopathy. CHEST: Non-labored respirations and equal bilateral excursions. CARDIOVASCULAR: Regular rate with regular rhythm. Palpable 2+ radial pulses. ABDOMEN: Soft. Distended. Tenderness upon palpation of all 4 quadrants. MUSCULOSKELETAL: No clubbing, cyanosis or edema. NEUROLOGIC: No focal or lateralizing signs. Cranial nerves II through XII grossly intact. PSYCH: Appropriate affect. Alert and oriented to person, place and time. SKIN: Well perfused. Good skin turgor. ASSESSMENT: 1. Small bowel obstruction, partial high grade PLAN: 1. NPO. No ice chips. 2. Re-insert NG tube to LIS 3. Patient to undergo exploratory laparotomy with possible bowel resection this afternoon with Dr. Peraza Nurse practitioner note has been reviewed by physician. Signing provider agrees with the documented findings, assessment, and plan of care. Objective - Vital Signs Vital signs: Vital Signs Temp 97.8 F 09/09/18 07:30 Pulse 86 09/09/18 07:30 Resp 16 09/09/18 07:30 BP 151/94 09/09/18 07:30 Pulse Ox 96 09/09/18 07:30 Intake & Output 09/08/18 09/09/18 09/09/18 18:59 06:59 18:59 Intake Total 600 500 Output Total 1050 Balance 600 -550 Intake: Intake, IV Titration 600 Amount Sodium Chloride 0.9% 1, 600 000 ml @ 50 mls/hr IV . Q20H [facility] Rx#:[id number] Oral 500 Output: Gastric Drainage 850 Emesis 200 Other: Voiding Method Toilet # Voids 2 # Bowel Movements 3 - Labs CBC & Chem 7: 09/09/18 10:05 09/09/18 10:05 Labs: Abnormal Lab Results - Last 24 Hours (Table) 09/09/18 09/09/18 Range/Units 10:05 10:05 Lymphocytes # 0.6 L (1.0-4.8) k/uL Glucose 136 H (74-99) mg/dL AST 10 L (14-36) U/L Total Protein 6.1 L (6.3-8.2) g/dL <Tramaine Peraza - Last Filed: 09/09/18 12:38> Subjective As above. Patient without return of bowel function. Started having vomiting again last night. Patient having more abdominal bloating and cramps today. We' ll hold off on small bowel series and proceed with exploratory laparotomy today. Risks of bleeding, infection, possible need for bowel resection, leak, abscess, hernia, recurrent obstruction, bowel injury, need for nasogastric tube , prolonged ileus reviewed. She understands and wishes to proceed. Objective - Vital Signs Vital signs: Vital Signs Temp 97.8 F 09/09/18 07:30 Pulse 86 09/09/18 07:30 Resp 16 09/09/18 07:30 BP 151/94 09/09/18 07:30 Pulse Ox 96 09/09/18 07:30 Intake & Output 09/08/18 09/09/18 09/09/18 18:59 06:59 18:59 Intake Total 600 500 Output Total 1050 Balance 600 -550 Intake: Intake, IV Titration 600 Amount Sodium Chloride 0.9% 1, 600 000 ml @ 50 mls/hr IV . Q20H [facility] Rx#:[id number] Oral 500 Output: Gastric Drainage 850 Emesis 200 Other: Voiding Method Toilet # Voids 2 # Bowel Movements 3 - Labs CBC & Chem 7: 09/09/18 10:05 09/09/18 10:05 Labs: Abnormal Lab Results - Last 24 Hours (Table) 09/09/18 09/09/18 Range/Units 10:05 10:05 Lymphocytes # 0.6 L (1.0-4.8) k/uL Glucose 136 H (74-99) mg/dL AST 10 L (14-36) U/L Total Protein 6.1 L (6.3-8.2) g/dL Assessment and Plan (1) SBO (small bowel obstruction) Current Visit: No Status: Acute Code(s): K56.69 - OTHER INTESTINAL OBSTRUCTION * DO NOT USE * SNOMED Code(s): 193451737
--- NOTE | 2018-09-09 16:00 | P.PN ---
Subjective Patient still complaining of abdominal pain. She said that it's not as bad yesterday but still having pain which is radiating to the back. She wants to eat 09/08/2018 Patient still complains abdominal pain. She is crying and anxious NG tube out as she pulled out while using the restroom 09/09/2018 Still having abdominal pain and having significant output through suction Objective - Vital Signs Vital signs: Vital Signs Temp 97.4 F L 09/09/18 14:39 Pulse 85 09/09/18 14:39 Resp 16 09/09/18 14:39 BP 145/87 09/09/18 14:39 Pulse Ox 94 L 09/09/18 14:39 Intake & Output 09/08/18 09/09/18 09/09/18 18:59 06:59 18:59 Intake Total 600 500 Output Total 1050 Balance 600 -550 Weight 86.183 kg Intake: Intake, IV Titration 600 Amount Sodium Chloride 0.9% 1, 600 000 ml @ 50 mls/hr IV . Q20H [facility] Rx#:[id number] Oral 500 Output: Gastric Drainage 850 Emesis 200 Other: Voiding Method Toilet # Voids 2 # Bowel Movements 3 - Exam On exam, alert and oriented x3. HEENT: Conjunctivae normal. eyes normal. NECK: No JVD. No thyroid enlargement. No LNs CARDIOVASCULAR: S1, S2 muffled. No murmur RESPIRATION: Breath sounds diminished in the bases. No rhonchi or crackles. No bronchial breathing. ABDOMEN: Belly feels more tender today. She is afebrile bowel sounds there is rebound tenderness appreciated as well LEGS: No edema. no swelling NERVOUS SYSTEM: Cranial N 2-12 grossly normal. Moves all 4 limbs. No focal deficits. No sensory deficit. No signs of cerebellar dysfucntion. Skin: no ulcer no rash - Labs CBC & Chem 7: 09/09/18 10:05 09/09/18 10:05 Labs: Abnormal Lab Results - Last 24 Hours (Table) 09/09/18 09/09/18 Range/Units 10:05 10:05 Lymphocytes # 0.6 L (1.0-4.8) k/uL Glucose 136 H (74-99) mg/dL AST 10 L (14-36) U/L Total Protein 6.1 L (6.3-8.2) g/dL Assessment and Plan Assessment: - Small bowel obstruction - UTI - History of previous abdominal surgery - History of kidney transplant - History of diabetes mellitus - History of hyperlipidemia - History of DVT - GERD Plan - Patient still nothing by mouth with NG tube hooked to low intermittent suction - General surgery service to take her for surgery today - Pain control - continue gentle fluid hydration Time with Patient: Less than 30
[2018-09-09] MEDS ORDERED: IV FLUID CONTINUATION 1,000 ML IV ONE (16:36)
[2018-09-09 16:39] LABS: Glucose,Whole Blood 102 mg/dL (75-99)
[2018-09-09] MEDS ORDERED: fentaNYL (PF) 50 MCG/ML 2 ML AMP IVP ONE (17:12)
[2018-09-09] MEDS ORDERED: MIDAZOLAM 2 MG/2 ML VIAL IVP ONE (17:13)
[2018-09-09] MEDS ORDERED: NALOXONE 0.4 MG/ML 1 ML VIAL IV PRN (17:29)
[2018-09-09] MEDS ORDERED: LIDOCAINE 1% INJ 10MG/ML (20 ML MDV) ONE (17:30)
[2018-09-09] MEDS ORDERED: SUCCINYLCHOLINE CHLORIDE 100 MG/5 ML SYR IV ONE (17:30)
[2018-09-09] MEDS ORDERED: PROPOFOL 10 MG/ML 20 ML VIAL IV ONE (17:30)
[2018-09-09] MEDS ORDERED: ROCURONIUM BROMIDE 10 MG/ML 10 ML VIAL IV ONE (17:30)
[2018-09-09] MEDS ORDERED: NEOSTIGMINE 1 MG/ML 10 ML VIAL ONE (17:30)
[2018-09-09] MEDS ORDERED: fentaNYL (PF) 50 MCG/ML 2 ML AMP ONE (17:30)
[2018-09-09] MEDS ORDERED: ceFAZolin 1,000 MG VIAL ONE (17:30)
[2018-09-09] MEDS ORDERED: GLYCOPYRROLATE 0.2 MG/ML 2 ML VIAL ONE (17:30)
[2018-09-09] MEDS ORDERED: MIDAZOLAM 2 MG/2 ML VIAL ONE (17:30)
[2018-09-09] MEDS ORDERED: PHENYLEPHRINE-0.9% NACL SYG 1 MG/10 ML SYRINGE ONE (17:30)
[2018-09-09] MEDS ORDERED: SODIUM CHLORIDE 0.9% 50 ML with ceFAZolin 2,000 MG IV ONE ×2 (17:40)
[2018-09-09] MEDS ORDERED: LACTATED RINGERS 1,000 ML IV ONE ×4 (18:12→18:38)
--- NOTE | 2018-09-09 19:20 | P.OP ---
Date of Procedure: 09/09/18 Procedure(s) Performed: PREOPERATIVE DIAGNOSIS: Small bowel obstruction POSTOPERATIVE DIAGNOSIS: Small bowel obstruction secondary to internal hernia/ adhesions PROCEDURE: Exploratory laparotomy with extensive lysis of adhesions SURGEON: Karmen EBL: 20 mL ANESTHESIA: General COMPLICATIONS: None OPERATIVE PROCEDURE: Patient placed in the operative table in the supine position. The patient was placed under general anesthesia. The abdomen was prepped and draped in usual sterile fashion. The patient's previous midline incision was re-incised using the scalpel. Dissection through the saphenous fat and fascia took place sharply. The patient's ventral ex mesh was divided sharply as well. The patient had adherent small bowel to the undersurface of the ventral ex mesh. This was able to be lysed using both blunt dissection and sharp dissection. For the most part these adhesions were flimsy however in certain areas they seem slightly more dense. A few small serosal tears were later identified in repaired using 3-0 GI silk Lambert sutures. The patient's proximal small bowel was significantly distended. This was followed at that time to a section in the proximal ileum where there was no internal herniation from a portion of the omentum that was adherent to the abdominal wall in the right lower quadrant. This was creating a narrowing of the bowel and a obstruction of moderate degree. This portion of fat/adhesion was lysed using electrocautery and this portion of fat was excised. The bowel was then followed distally to the ileocecal valve. No other abnormalities were identified. The distended proximal bowel was milked back to the stomach where the contents were evacuated. There was a total of 1.3 additional liters of succus evacuated. Again the small bowel was inspected and no additional serosal tears or enterotomies were seen. The abdomen was irrigated with saline. The fascia was then reapproximated using 3 separate double-stranded #1 PDS sutures. The saphenous tissues were closed using 3-0 Vicryl sutures. The skin was closed using franco. Sterile dressings were applied. DISPOSITION: Stable to recovery room
[2018-09-09] MEDS: ROPIVACAINE 250 MG, fentaNYL (PF) 1,250 MCG in SODIUM CHLORIDE 0.9% 175 ML EPIDURAL PRN (19:51)
[2018-09-09] MEDS: ATORVASTATIN 10 MG TAB PO SCH (21:22)
[2018-09-09] MEDS: FENOFIBRATE 160 MG TAB PO SCH (21:22)
[2018-09-09] MEDS: POTASSIUM CHLORIDE ER 20 MEQ TAB.ER PO SCH (21:24)
[2018-09-09 22:18] LABS: Appearance,Urine Clear (Clear); Bacteria,Urine Occasional /hpf; Bilirubin,Urine Negative (Negative); Blood,Urine Negative (Negative); Color,Urine Dark Yellow; Glucose,Urine (UA) Negative (Negative); Granular Casts,Urine 4 /lpf (0); Hyaline Casts,Urine 1 /lpf (0-2); Ketones,Urine 3+ (Negative); Leukocyte Esterase,Urine Negative (Negative); Mucus,Urine Occasional /hpf; Nitrite,Urine Negative (Negative); Protein,Urine 1+ (Negative); RBC,Urine 9 /hpf (0-5); Specific Gravity,Urine 1.032 (1.001-1.035); Squamous Epithelial Cell,Urine <1 /hpf (0-4); Urobilinogen,Urine <2.0 mg/dL (<2.0)
--- NOTE | 2018-09-10 06:10 | P.PN ---
Progress Note - Text Progress Note Date: 09/10/18 POD 1, catheter day 2 from ex lap. Epidural running at 5 mls. site clean dry, no lower ext weakness. no pruritis, no fever. NO prn Pain meds overnight. continue catheter, call anesthesia if you have any questions.
[2018-09-10] MEDS: SODIUM CHLORIDE 0.9% 1,000 ML IV SCH ×2 (06:15→15:54)
[2018-09-10 08:05] LABS: HCT 42.4 % (34.0-46.0); HGB 13.4 gm/dL (11.4-16.0); MCH 28.4 pg (25.0-35.0); MCHC 31.7 g/dL (31.0-37.0); MCV 89.5 fL (80.0-100.0); Mean Platelet Volume 7.1; Platelet Count 321 k/uL (150-450); RBC 4.74 m/uL (3.80-5.40); RDW 14.6 % (11.5-15.5); WBC 7.1 k/uL (3.8-10.6)
[2018-09-10 08:17] LABS: Blood Urea Nitrogen 13 mg/dL (7-17); Calcium 9.2 mg/dL (8.4-10.2); Carbon Dioxide 22 mmol/L (22-30); Glucose 120 mg/dL (74-99)
[2018-09-10] MEDS: ASPIRIN 81 MG PO SCH (08:17)
[2018-09-10] MEDS: MYCOPHENOLATE MOFETIL 500 MG TAB PO SCH ×2 (08:17→21:05)
[2018-09-10] MEDS: FUROSEMIDE 40 MG TAB PO SCH (08:17)
[2018-09-10] MEDS: POTASSIUM CHLORIDE ER 10 MEQ TAB.ER.PRT PO SCH (08:18)
[2018-09-10] MEDS: sulfaSALAzine 500 MG TAB PO SCH ×2 (08:18→21:06)
[2018-09-10] MEDS: SPIRONOLACTONE 25 MG TAB PO SCH (08:18)
[2018-09-10] MEDS: SIROLIMUS 1 MG PO SCH (08:18)
[2018-09-10 08:22] LABS: Anion Gap 11 mmol/L; Chloride 108 mmol/L (98-107); Potassium 3.9 mmol/L (3.5-5.1); Sodium 141 mmol/L (137-145)
[2018-09-10] MEDS: PANTOPRAZOLE 40 MG/10 ML VIAL IVP SCH ×2 (08:24→21:21)
[2018-09-10] MEDS: HEPARIN SODIUM,PORCINE 5,000 UNIT/ML 1 ML VIAL SQ SCH ×2 (08:24→21:21)
--- NOTE | 2018-09-10 12:03 | P.PN ---
<Ping Martinez A - Last Filed: 09/10/18 11:57> Subjective Progress Note Date: 09/10/18 CHIEF COMPLAINT: Nausea, vomiting, abdominal pain HISTORY OF PRESENT ILLNESS: Patient is status post exploratory laparotomy with extensive lysis of adhesions. POD #1. Patient reports she is feeling much better today. Abdominal pain is controlled with epidural. NG to LIS. Denies passing flatus. She is requesting something to drink. PHYSICAL EXAM: VITAL SIGNS: Currently stable. GENERAL: Well-developed in no acute distress. HEENT: NG to LIS. No sclera icterus. Extraocular movements grossly intact. Moist buccal mucosa. Head is atraumatic, normocephalic. Hears conversational speech. No nasal drainage. NECK: Supple without lymphadenopathy. CHEST: Non-labored respirations and equal bilateral excursions. CARDIOVASCULAR: Regular rate with regular rhythm. Palpable 2+ radial pulses. ABDOMEN: Soft. Non-distended. Dressing with small amount of drainage present. MUSCULOSKELETAL: No clubbing, cyanosis or edema. NEUROLOGIC: No focal or lateralizing signs. Cranial nerves II through XII grossly intact. PSYCH: Appropriate affect. Alert and oriented to person, place and time. SKIN: Well perfused. Good skin turgor. ASSESSMENT: 1. Small bowel obstruction, partial high grade 2. S/P exploratory laparotomy with extensive lysis of adhesions PLAN: 1. Pain control. Continue epidural and ariza. Remove POD #3. 2. Continue NPO until patient is passing flatus, then may begin liquids. Patient has mouth swabs at bedside. 3. Continue NG to LIS 4. Activity as tolerated 5. Incentive spirometry Nurse practitioner note has been reviewed by physician. Signing provider agrees with the documented findings, assessment, and plan of care. Objective - Vital Signs Vital signs: Vital Signs Temp 97.6 F 09/10/18 07:00 Pulse 83 09/10/18 07:00 Resp 20 09/10/18 07:00 BP 132/84 09/10/18 07:00 Pulse Ox 98 09/10/18 07:00 Intake & Output 09/09/18 09/10/18 09/10/18 18:59 06:59 18:59 Intake Total 2650 1000 Output Total 2345 500 Balance 305 500 Weight 86.183 kg Intake: IV 2150 0 Intake, IV Titration 1000 Amount Sodium Chloride 0.9% 1, 1000 000 ml @ 100 mls/hr IV . Q10H [facility] Rx#:[id number] Oral 500 Output: Gastric Drainage 2050 300 Urine 75 200 Emesis 200 Estimated Blood Loss 20 Other: Voiding Method Indwelling Catheter Indwelling Catheter # Bowel Movements 1 - Labs CBC & Chem 7: 09/10/18 07:11 09/10/18 07:11 Labs: Abnormal Lab Results - Last 24 Hours (Table) 09/09/18 09/09/18 09/10/18 Range/Units 16:36 21:44 07:11 Chloride 108 H (98-107) mmol/L Glucose 120 H (74-99) mg/dL POC Glucose (mg/dL) 102 H (75-99) mg/dL Urine Protein 1+ H (Negative) Urine Ketones 3+ H (Negative) Urine RBC 9 H (0-5) /hpf Urine Bacteria Occasional H (None) /hpf Urine Mucus Occasional H (None) /hpf <Tramaine Peraza - Last Filed: 09/10/18 18:57> Subjective As above. Patient doing better today. Pain improved. Keep nasogastric tube to suction. Possibly remove tomorrow. Recheck labs tomorrow. Ambulate. Objective - Vital Signs Vital signs: Vital Signs Temp 97.9 F 09/10/18 14:24 Pulse 83 09/10/18 14:24 Resp 16 09/10/18 14:24 BP 117/76 09/10/18 14:24 Pulse Ox 93 L 09/10/18 14:24 Intake & Output 09/09/18 09/10/18 09/10/18 18:59 06:59 18:59 Intake Total 2650 1000 Output Total 2345 500 1050 Balance 305 500 -1050 Weight 86.183 kg Intake: IV 2150 0 Intake, IV Titration 1000 Amount Sodium Chloride 0.9% 1, 1000 000 ml @ 100 mls/hr IV . Q10H [facility] Rx#:[id number] Oral 500 Output: Gastric Drainage 2050 300 750 Urine 75 200 300 Emesis 200 Estimated Blood Loss 20 Other: Voiding Method Indwelling Catheter Indwelling Catheter # Bowel Movements 1 - Labs CBC & Chem 7: 09/10/18 07:11 09/10/18 07:11 Labs: Abnormal Lab Results - Last 24 Hours (Table) 09/09/18 09/10/18 Range/Units 21:44 07:11 Chloride 108 H (98-107) mmol/L Glucose 120 H (74-99) mg/dL Urine Protein 1+ H (Negative) Urine Ketones 3+ H (Negative) Urine RBC 9 H (0-5) /hpf Urine Bacteria Occasional H (None) /hpf Urine Mucus Occasional H (None) /hpf Assessment and Plan (1) SBO (small bowel obstruction) Current Visit: No Status: Acute Code(s): K56.69 - OTHER INTESTINAL OBSTRUCTION * DO NOT USE * SNOMED Code(s): 294017080
--- NOTE | 2018-09-10 12:38 | P.PN ---
Subjective This is a pleasant 62 years old female who presents because of small bowel obstruction, she is a status post exploratory laparotomy with extensive lysis of adhesions. She is postop day #1. She still have NG tube with about thousand cc of dark fluid drained through the NG tube. She remains nothing by mouth. Her abdominal pain is controlled. She still have this. Patient had CAT scan which shows evidence of spinal stenosis however she denies recent history of back pain or gait difficulty. She has history of kidney transplant and she is on medicine. She's follow up with Dr. Lebron as an outpatient. Her PCP is Dr. Patel Objective - Vital Signs Vital signs: Vital Signs Temp 97.6 F 09/10/18 07:00 Pulse 83 09/10/18 07:00 Resp 20 09/10/18 07:00 BP 132/84 09/10/18 07:00 Pulse Ox 98 09/10/18 07:00 Intake & Output 09/09/18 09/10/18 09/10/18 18:59 06:59 18:59 Intake Total 2650 1000 Output Total 2345 500 500 Balance 305 500 -500 Weight 86.183 kg Intake: IV 2150 0 Intake, IV Titration 1000 Amount Sodium Chloride 0.9% 1, 1000 000 ml @ 100 mls/hr IV . Q10H [facility] Rx#:[id number] Oral 500 Output: Gastric Drainage 2050 300 500 Urine 75 200 Emesis 200 Estimated Blood Loss 20 Other: Voiding Method Indwelling Catheter Indwelling Catheter # Bowel Movements 1 - Exam -GENERAL: The patient is alert and oriented x3, not in any acute distress. NG tube in place HEENT: Pupils are equally reacting to light. EOMI. No scleral icterus. No conjunctival pallor. Normocephalic, atraumatic. No pharyngeal erythema. No thyromegaly. CARDIOVASCULAR: S1 and S2 present. No murmurs, rubs, or gallops. PULMONARY: Chest is clear to auscultation, no wheezing or crackles. -ABDOMEN: Soft, nontender, nondistended, normoactive bowel sounds. No palpable organomegaly. Midline incision closed with no surrounding cellulitis. MUSCULOSKELETAL: No joint swelling or deformity. EXTREMITIES: No cyanosis, clubbing, or pedal edema. NEUROLOGICAL: Gross neurological examination did not reveal any focal deficits. SKIN: No rashes. - Labs CBC & Chem 7: 09/10/18 07:11 09/10/18 07:11 Labs: Abnormal Lab Results - Last 24 Hours (Table) 09/09/18 09/09/18 09/10/18 Range/Units 16:36 21:44 07:11 Chloride 108 H (98-107) mmol/L Glucose 120 H (74-99) mg/dL POC Glucose (mg/dL) 102 H (75-99) mg/dL Urine Protein 1+ H (Negative) Urine Ketones 3+ H (Negative) Urine RBC 9 H (0-5) /hpf Urine Bacteria Occasional H (None) /hpf Urine Mucus Occasional H (None) /hpf Assessment and Plan Assessment: Small bowel obstruction, status post exploratory laparotomy and lysis of adhesions History of kidney transplant of therapy Spinal stenosis, asymptomatic Diabetes mellitus History of GERD Hyperlipidemia
[2018-09-10] MEDS: ATORVASTATIN 10 MG TAB PO SCH (21:04)
[2018-09-10] MEDS: FENOFIBRATE 160 MG TAB PO SCH (21:04)
[2018-09-10] MEDS: POTASSIUM CHLORIDE ER 20 MEQ TAB.ER PO SCH (21:05)
[2018-09-11] MEDS: SODIUM CHLORIDE 0.9% 1,000 ML IV SCH ×3 (04:06→21:19)
[2018-09-11] MEDS: PANTOPRAZOLE 40 MG/10 ML VIAL IVP SCH ×2 (10:03→21:23)
[2018-09-11] MEDS: ASPIRIN 81 MG PO SCH (10:03)
[2018-09-11] MEDS: HEPARIN SODIUM,PORCINE 5,000 UNIT/ML 1 ML VIAL SQ SCH ×2 (10:03→21:24)
[2018-09-11] MEDS: POTASSIUM CHLORIDE ER 10 MEQ TAB.ER.PRT PO SCH (10:03)
[2018-09-11] MEDS: SPIRONOLACTONE 25 MG TAB PO SCH (10:04)
[2018-09-11] MEDS: SIROLIMUS 1 MG PO SCH (10:04)
[2018-09-11] MEDS: FUROSEMIDE 40 MG TAB PO SCH (10:04)
[2018-09-11] MEDS: MYCOPHENOLATE MOFETIL 500 MG TAB PO SCH ×2 (10:04→21:25)
[2018-09-11] MEDS: sulfaSALAzine 500 MG TAB PO SCH ×2 (10:15→21:24)
[2018-09-11 10:26] LABS: Basophils % (A) 1 %; Eosinophils # (A) 0.2 k/uL (0-0.7); Eosinophils % (A) 3 %; HGB 12.7 gm/dL (11.4-16.0); Hypochromasia Slight; Lymphocytes # (A) 0.6 k/uL (1.0-4.8); Lymphocytes % (A) 9 %; MCH 28.2 pg (25.0-35.0); MCV 91.1 fL (80.0-100.0); Mean Platelet Volume 6.7; Monocytes # (A) 0.6 k/uL (0-1.0); Monocytes % (A) 9 %; Neutrophils # (A) 5.3 k/uL (1.3-7.7); Neutrophils % (A) 78 %; Platelet Count 329 k/uL (150-450); RDW 14.8 % (11.5-15.5); WBC 6.7 k/uL (3.8-10.6)
[2018-09-11 10:27] LABS: Anion Gap 13 mmol/L; Blood Urea Nitrogen 11 mg/dL (7-17); Calcium 9.4 mg/dL (8.4-10.2); Carbon Dioxide 21 mmol/L (22-30); Chloride 109 mmol/L (98-107); Glucose 120 mg/dL (74-99); Potassium 4.1 mmol/L (3.5-5.1); Sodium 143 mmol/L (137-145)
--- NOTE | 2018-09-11 11:42 | P.PN ---
<Ping Martinez A - Last Filed: 09/11/18 11:41> Subjective Progress Note Date: 09/11/18 CHIEF COMPLAINT: Nausea, vomiting, abdominal pain HISTORY OF PRESENT ILLNESS: Patient is status post exploratory laparotomy with extensive lysis of adhesions. POD #2. Patient denies pain at this time. She is passing flatus and had a small BM this morning. Tolerating ice chips. PHYSICAL EXAM: VITAL SIGNS: Currently stable. GENERAL: Well-developed in no acute distress. HEENT: NG to LIS. No sclera icterus. Extraocular movements grossly intact. Moist buccal mucosa. Head is atraumatic, normocephalic. Hears conversational speech. No nasal drainage. NECK: Supple without lymphadenopathy. CHEST: Non-labored respirations and equal bilateral excursions. CARDIOVASCULAR: Regular rate with regular rhythm. Palpable 2+ radial pulses. ABDOMEN: Soft. Non-distended. Dressing with small amount of drainage present. MUSCULOSKELETAL: No clubbing, cyanosis or edema. NEUROLOGIC: No focal or lateralizing signs. Cranial nerves II through XII grossly intact. PSYCH: Appropriate affect. Alert and oriented to person, place and time. SKIN: Well perfused. Good skin turgor. ASSESSMENT: 1. Small bowel obstruction, partial high grade 2. S/P exploratory laparotomy with extensive lysis of adhesions PLAN: 1. Pain control. Continue epidural and ariza. Remove POD #3. 2. Begin clear liquid diet 3. Discontinue NG tube 4. Activity as tolerated 5. Incentive spirometry Nurse practitioner note has been reviewed by physician. Signing provider agrees with the documented findings, assessment, and plan of care. Objective - Vital Signs Vital signs: Vital Signs Temp 98 F 09/11/18 07:27 Pulse 72 09/11/18 07:27 Resp 16 09/11/18 07:27 BP 124/77 09/11/18 07:27 Pulse Ox 94 L 09/11/18 07:27 Intake & Output 09/10/18 09/11/18 09/11/18 18:59 06:59 18:59 Output Total 1050 900 600 Balance -1050 -900 -600 Weight 86.183 kg Output: Gastric Drainage 750 400 600 Urine 300 500 Other: Voiding Method Indwelling Catheter Indwelling Catheter Indwelling Catheter - Labs CBC & Chem 7: 09/11/18 09:50 09/11/18 09:50 Labs: Abnormal Lab Results - Last 24 Hours (Table) 09/11/18 09/11/18 Range/Units 09:50 09:50 Lymphocytes # 0.6 L (1.0-4.8) k/uL Chloride 109 H (98-107) mmol/L Carbon Dioxide 21 L (22-30) mmol/L Glucose 120 H (74-99) mg/dL <AleishagalaTramaine - Last Filed: 09/11/18 15:23> Subjective As above. Patient doing well. She had a small bowel movement today. Nasogastric tube will be removed. She'll be started on clear liquids. Increase activity now. Objective - Vital Signs Vital signs: Vital Signs Temp 97.4 F L 09/11/18 14:51 Pulse 74 09/11/18 14:51 Resp 16 09/11/18 14:51 BP 147/84 09/11/18 14:51 Pulse Ox 94 L 09/11/18 14:51 Intake & Output 09/10/18 09/11/18 09/11/18 18:59 06:59 18:59 Output Total 1050 900 900 Balance -1050 -900 -900 Weight 86.183 kg Output: Gastric Drainage 750 400 600 Urine 300 500 300 Other: Voiding Method Indwelling Catheter Indwelling Catheter Indwelling Catheter - Labs CBC & Chem 7: 09/11/18 09:50 09/11/18 09:50 Labs: Abnormal Lab Results - Last 24 Hours (Table) 09/11/18 09/11/18 Range/Units 09:50 09:50 Lymphocytes # 0.6 L (1.0-4.8) k/uL Chloride 109 H (98-107) mmol/L Carbon Dioxide 21 L (22-30) mmol/L Glucose 120 H (74-99) mg/dL Assessment and Plan (1) SBO (small bowel obstruction) Current Visit: No Status: Acute Code(s): K56.69 - OTHER INTESTINAL OBSTRUCTION * DO NOT USE * [employer] TechnologyOMED Code(s): 205509844
--- NOTE | 2018-09-11 20:56 | P.PN ---
Progress Note - Text Progress Note Date: 09/11/18 Postoperative day #2 status post expected laparotomy/epidural catheter placed for postoperative analgesia, patient doing well epidural site okay, patient currently on combination of epidural infusion solution of Ropivacaine 0.0625% and fentanyl the infusion rate at 8 ml per hour , patient had no motor deficit epidural site okay , vital signs stable ,VAS 1 /10 , Assessment and plan= post operative day # 2 patient doing well ,pain well controlled , there is no anesthesia related complications
[2018-09-11] MEDS: ATORVASTATIN 10 MG TAB PO SCH (21:23)
[2018-09-11] MEDS: POTASSIUM CHLORIDE ER 20 MEQ TAB.ER PO SCH (21:23)
[2018-09-11] MEDS: FENOFIBRATE 160 MG TAB PO SCH (21:23)
[2018-09-12] MEDS: ROPIVACAINE 250 MG, fentaNYL (PF) 1,250 MCG in SODIUM CHLORIDE 0.9% 175 ML EPIDURAL PRN (00:29)
[2018-09-12] MEDS: ASPIRIN 81 MG PO SCH (08:37)
[2018-09-12] MEDS: PANTOPRAZOLE 40 MG/10 ML VIAL IVP SCH ×2 (08:38→22:03)
[2018-09-12] MEDS: SPIRONOLACTONE 25 MG TAB PO SCH (08:38)
[2018-09-12] MEDS: HEPARIN SODIUM,PORCINE 5,000 UNIT/ML 1 ML VIAL SQ SCH ×2 (08:38→22:04)
[2018-09-12] MEDS: FUROSEMIDE 40 MG TAB PO SCH (08:38)
[2018-09-12] MEDS: POTASSIUM CHLORIDE ER 10 MEQ TAB.ER.PRT PO SCH (08:38)
[2018-09-12] MEDS: MYCOPHENOLATE MOFETIL 500 MG TAB PO SCH ×2 (08:39→22:04)
[2018-09-12] MEDS: sulfaSALAzine 500 MG TAB PO SCH ×2 (08:39→22:03)
[2018-09-12] MEDS: SIROLIMUS 1 MG PO SCH (08:57)
[2018-09-12] MEDS ORDERED: HYDROcodone/APAP 7.5-325MG 1 EACH TAB PO PRN (09:16)
--- NOTE | 2018-09-12 09:16 | P.PN ---
Progress Note - Text Progress Note Date: 09/12/18 The patient is resting comfortably in her bed. She has had flatus. She is tolerating clears. On exam her vital signs are stable. Her abdomen soft. Incision site is clean dry tach. Status post lysis of adhesions. Patient's epidural catheter will be removed today. She will have her diet advanced. We dysphagia discharge home tomorrow.
[2018-09-12] MEDS: SODIUM CHLORIDE 0.9% 1,000 ML IV SCH ×2 (11:28→22:02)
--- NOTE | 2018-09-12 14:18 | P.PN ---
Subjective Progress Note Date: 09/11/18 Principal diagnosis: SBO status post exploratory laparotomy with extensive lysis of adhesions 62 years old female who presents because of small bowel obstruction, she is a status post exploratory laparotomy with extensive lysis of adhesions. She is postop day #2. She still have NG tube with about thousand cc of dark fluid drained through the NG tube. She remains nothing by mouth. Her abdominal pain is controlled. She still have this. Patient had CAT scan which shows evidence of spinal stenosis however she denies recent history of back pain or gait difficulty. She has history of kidney transplant and she is on medicine. Objective - Vital Signs Vital signs: Vital Signs Temp 98 F 09/11/18 07:27 Pulse 72 09/11/18 07:27 Resp 16 09/11/18 07:27 BP 124/77 09/11/18 07:27 Pulse Ox 94 L 09/11/18 07:27 Intake & Output 09/10/18 09/11/18 09/11/18 18:59 06:59 18:59 Output Total 1050 900 600 Balance -1050 -900 -600 Weight 86.183 kg Output: Gastric Drainage 750 400 600 Urine 300 500 Other: Voiding Method Indwelling Catheter Indwelling Catheter Indwelling Catheter - Exam -GENERAL: The patient is alert and oriented x3, not in any acute distress. NG tube in place HEENT: Pupils are equally reacting to light. EOMI. No scleral icterus. No conjunctival pallor. Normocephalic, atraumatic. No pharyngeal erythema. No thyromegaly. CARDIOVASCULAR: S1 and S2 present. No murmurs, rubs, or gallops. PULMONARY: Chest is clear to auscultation, no wheezing or crackles. -ABDOMEN: Soft, nontender, nondistended, normoactive bowel sounds. No palpable organomegaly. Midline incision closed with no surrounding cellulitis. MUSCULOSKELETAL: No joint swelling or deformity. EXTREMITIES: No cyanosis, clubbing, or pedal edema. NEUROLOGICAL: Gross neurological examination did not reveal any focal deficits. SKIN: No rashes - Labs CBC & Chem 7: 09/11/18 09:50 09/11/18 09:50 Labs: Abnormal Lab Results - Last 24 Hours (Table) 09/11/18 09/11/18 Range/Units 09:50 09:50 Lymphocytes # 0.6 L (1.0-4.8) k/uL Chloride 109 H (98-107) mmol/L Carbon Dioxide 21 L (22-30) mmol/L Glucose 120 H (74-99) mg/dL Assessment and Plan Assessment: Small bowel obstruction, status post exploratory laparotomy and lysis of adhesions History of kidney transplant of therapy Spinal stenosis, asymptomatic Diabetes mellitus History of GERD Hyperlipidemia This is a pleasant 62 years old female who presents with small bowel obstruction, status post bowel resection. Surgery team are following the case. Continue with NG tube. Continue with pain medication.Labs and medication were reviewed.. Continue same treatment. Continue with symptomatic treatment. Resume home medication. Monitor lytes and vitals. DVT and GI prophylaxis. Further recommendations of the clinical course of the patient DVT prophylaxis: Subcutaneous heparin GI Prophylaxis: Ppi Prognosis is guarded Time with Patient: Greater than 30
--- NOTE | 2018-09-12 14:20 | P.PN ---
Subjective Progress Note Date: 09/12/18 Principal diagnosis: SBO status post exploratory laparotomy with extensive lysis of adhesions 62 years old female who presents because of small bowel obstruction, she is a status post exploratory laparotomy with extensive lysis of adhesions. She is postop day #2. She still have NG tube with about thousand cc of dark fluid drained through the NG tube. She remains nothing by mouth. Her abdominal pain is controlled. She still have this. Patient had CAT scan which shows evidence of spinal stenosis however she denies recent history of back pain or gait difficulty. She has history of kidney transplant and she is on medicine. 09/12/2018 Patient is seen and evaluated in the room at bedside; patient is resting comfortably and reports having flatus; NG tube was discontinued yesterday and patient was started on clear liquid diet; patient is tolerating diet well Vital signs are reviewed and are stable Physical examination is unremarkable with dry and clean incision site Surgery is following and recommending to advance diet with anticipation of discharge possibly tomorrow Objective - Vital Signs Vital signs: Vital Signs Temp 98.3 F 09/12/18 07:00 Pulse 77 09/12/18 07:00 Resp 16 09/12/18 07:00 BP 147/87 09/12/18 07:00 Pulse Ox 97 09/12/18 07:00 Intake & Output 09/11/18 09/12/18 09/12/18 18:59 06:59 18:59 Intake Total 920 Output Total 900 Balance -900 920 Weight 86.183 kg Intake: Intake, IV Titration 400 Amount Sodium Chloride 0.9% 50 400 ml @ 0 mls/hr IV .STK-MED ONE with ceFAZolin 2,000 mg Rx#:[id number] Oral 520 Output: Gastric Drainage 600 Urine 300 Other: Voiding Method Indwelling Catheter Indwelling Catheter Indwelling Catheter - Exam -GENERAL: The patient is alert and oriented x3, not in any acute distress. NG tube in place HEENT: Pupils are equally reacting to light. EOMI. No scleral icterus. No conjunctival pallor. Normocephalic, atraumatic. No pharyngeal erythema. No thyromegaly. CARDIOVASCULAR: S1 and S2 present. No murmurs, rubs, or gallops. PULMONARY: Chest is clear to auscultation, no wheezing or crackles. -ABDOMEN: Soft, nontender, nondistended, normoactive bowel sounds. No palpable organomegaly. Midline incision closed with no surrounding cellulitis. MUSCULOSKELETAL: No joint swelling or deformity. EXTREMITIES: No cyanosis, clubbing, or pedal edema. NEUROLOGICAL: Gross neurological examination did not reveal any focal deficits. SKIN: No rashes - Labs CBC & Chem 7: 09/11/18 09:50 09/11/18 09:50 Assessment and Plan Assessment: Small bowel obstruction, status post exploratory laparotomy and lysis of adhesions History of kidney transplant of therapy Spinal stenosis, asymptomatic Diabetes mellitus History of GERD Hyperlipidemia This is a pleasant 62 years old female who presents with small bowel obstruction, status post bowel resection. Surgery team are following the case. Continue with NG tube. Continue with pain medication.Labs and medication were reviewed.. Continue same treatment. Continue with symptomatic treatment. Resume home medication. Monitor lytes and vitals. DVT and GI prophylaxis. Further recommendations of the clinical course of the patient DVT prophylaxis: Subcutaneous heparin GI Prophylaxis: Ppi Prognosis is guarded Time with Patient: Greater than 30
--- NOTE | 2018-09-12 19:15 | P.PN ---
Progress Note - Text Progress Note Date: 09/12/18 Postoperative day 3, and doing very well, epidural catheter discontinued, there is no anesthesia related complications
[2018-09-12] MEDS: ATORVASTATIN 10 MG TAB PO SCH (22:02)
[2018-09-12] MEDS: POTASSIUM CHLORIDE ER 20 MEQ TAB.ER PO SCH (22:02)
[2018-09-12] MEDS: FENOFIBRATE 160 MG TAB PO SCH (22:02)
[2018-09-13 03:58] VITALS: RESP 20
[2018-09-13 07:47] VITALS: BP 146/94; PULSE 83; TEMP 97.5
[2018-09-13] MEDS: SODIUM CHLORIDE 0.9% 1,000 ML IV SCH (08:58)
[2018-09-13] MEDS: FUROSEMIDE 40 MG TAB PO SCH (08:59)
[2018-09-13] MEDS: SPIRONOLACTONE 25 MG TAB PO SCH (08:59)
[2018-09-13] MEDS: ASPIRIN 81 MG PO SCH (08:59)
[2018-09-13] MEDS: POTASSIUM CHLORIDE ER 10 MEQ TAB.ER.PRT PO SCH (08:59)
[2018-09-13] MEDS: HEPARIN SODIUM,PORCINE 5,000 UNIT/ML 1 ML VIAL SQ SCH (08:59)
[2018-09-13] MEDS: PANTOPRAZOLE 40 MG/10 ML VIAL IVP SCH (08:59)
[2018-09-13] MEDS: SIROLIMUS 1 MG PO SCH (09:00)
[2018-09-13] MEDS: MYCOPHENOLATE MOFETIL 500 MG TAB PO SCH (09:01)
--- NOTE | 2018-09-13 11:53 | P.PN ---
Progress Note - Text Progress Note Date: 09/13/18 The patient is a well. She is tolerating her diet. She wants to go home. On exam her vital signs are stable. Her abdomen soft. Incision site is clean dry and intact. Status post lysis of adhesions for small bowel structure. Patient will be discharged home today. She'll follow-up Dr. Peraza next week.
== END 2018-09-13 14:24 | disposition home or self-care (01) | DRG 336 ==
LOC: 4SSUR 20:01
PROVIDERS: ADMIT Hospitalist; ATTEND Hospitalist
PROC: 0DNW0ZZ Release Peritoneum, Open Approach (ICD-10-PCS; principal; 2018-09-09 11:55)
DX: K56.51 Intestinal adhesions [bands], with partial obstruction (principal); N39.0 Urinary tract infection, site not specified; Z94.0 Kidney transplant status; E11.9 Type 2 diabetes mellitus without complications; E78.5 Hyperlipidemia, unspecified; F41.9 Anxiety disorder, unspecified; K21.9 Gastro-esophageal reflux disease without esophagitis; M48.00 Spinal stenosis, site unspecified; Z79.82 Long term (current) use of aspirin; Z79.899 Other long term (current) drug therapy; Z86.718 Personal history of other venous thrombosis and embolism; Z87.891 Personal history of nicotine dependence; Z90.49 Acquired absence of other specified parts of digestive tract; Z87.11 Personal history of peptic ulcer disease; Z88.8 Allergy status to other drugs, medicaments and biological substances; Z82.49 Family history of ischemic heart disease and other diseases of the circulatory system
CPT/HCPCS: 74019; 74176; 80048; 80053; 81001; 82150; 83605; 83690; 83735; 85025; 85027

== ENCOUNTER 2018-11-13 15:26 | Inpatient (IN) | payer OTHER ==
[2018-11-13] MEDS ORDERED: SODIUM CHLORIDE 0.9% 1,000 ML IV STA (16:03)
[2018-11-13] MEDS ORDERED: PANTOPRAZOLE 40 MG/10 ML VIAL IVP STA (16:03)
[2018-11-13] MEDS ORDERED: ONDANSETRON 4 MG/2 ML VIAL IVP STA (16:03)
[2018-11-13] MEDS ORDERED: MORPHINE SULFATE 4 MG/ML SYRINGE IV STA (16:03)
[2018-11-13 16:28] LABS: Appearance,Urine Clear (Clear); Basophils # (A) 0.1 k/uL (0-0.2); Basophils % (A) 1 %; Bilirubin,Urine Negative (Negative); Blood,Urine Negative (Negative); Color,Urine Yellow; Eosinophils # (A) 0.2 k/uL (0-0.7); Eosinophils % (A) 3 %; Glucose,Urine (UA) Negative (Negative); HCT 40.2 % (34.0-46.0); HGB 13.5 gm/dL (11.4-16.0); Ketones,Urine 1+ (Negative); Leukocyte Esterase,Urine Negative (Negative); Lymphocytes # (A) 0.9 k/uL (1.0-4.8); Lymphocytes % (A) 13 %; MCH 30.7 pg (25.0-35.0); MCHC 33.5 g/dL (31.0-37.0); MCV 91.7 fL (80.0-100.0); Mean Platelet Volume 7.1; Monocytes # (A) 0.5 k/uL (0-1.0); Monocytes % (A) 7 %; Neutrophils # (A) 5.4 k/uL (1.3-7.7); Neutrophils % (A) 75 %; Nitrite,Urine Negative (Negative); Platelet Count 346 k/uL (150-450); Protein,Urine Negative (Negative); RBC 4.39 m/uL (3.80-5.40); RDW 15.3 % (11.5-15.5); Urobilinogen,Urine <2.0 mg/dL (<2.0); WBC 7.3 k/uL (3.8-10.6)
[2018-11-13 16:41] LABS: ALT 22 U/L (9-52); AST 10 U/L (14-36); Albumin 4.4 g/dL (3.5-5.0); Alkaline Phosphatase 69 U/L (38-126); Amylase 65 U/L (30-110); Anion Gap 10 mmol/L; Blood Urea Nitrogen 13 mg/dL (7-17); Calcium 10.6 mg/dL (8.4-10.2); Carbon Dioxide 25 mmol/L (22-30); Chloride 103 mmol/L (98-107); Glucose 135 mg/dL (74-99); Lipase 152 U/L (23-300); Potassium 3.9 mmol/L (3.5-5.1); Sodium 138 mmol/L (137-145); Total Bilirubin 0.5 mg/dL (0.2-1.3); Total Protein 6.8 g/dL (6.3-8.2)
--- NOTE | 2018-11-13 17:04 | XR ---
EXAMINATION TYPE: XR abdomen acute w cxr DATE OF EXAM: 11/13/2018 COMPARISON: Abdomen x-ray 09/09/2018 HISTORY: Abdominal pain TECHNIQUE: Chest x-ray with supine and upright abdomen. FINDINGS: There is no heart failure nor confluent pneumonic infiltrate. There is minimal scarring or subsegment al atelectasis at the left lung base. Heart size is normal. There is some dilated gas and fluid-filled small bowel in the mid abdomen. Large bowel is not dilated . There is no sign of free air. There are clips in the right upper quadrant probably from cholecystec gustavo. IMPRESSION: Dilated small bowel suggestive of mechanical small bowel obstruction that is similar to last exam. Sm all bowel is slightly less dilated on today's exam. Minimal subsegmental atelectasis at the left lung base improved compared to last exam. Normal heart.
--- NOTE | 2018-11-13 17:08 | ED ---
Abdominal Pain HPI - General Chief Complaint: Abdominal Pain Stated Complaint: abdominal pain H/O Bowel obstruction Time Seen by Provider: 11/13/18 16:03 Source: patient, RN notes reviewed, old records reviewed Mode of arrival: ambulatory Limitations: no limitations - History of Present Illness Initial Comments: This is a 63-year-old female the ER for evaluation. Patient resents today for evaluation regards to severe abdominal pain abdominal pain with history of bowel obstruction and surgery. Patient has medical history positive for small bowel suction, surgeon is Dr. Garcia. Pain progressed and worsened throughout the day, patient is recent abdomen radiating to her back similar to prior bowel obstruction, mildly worse than prior bowel obstruction MD Complaint: abdominal pain -: hour(s) Location: epigastric Radiation: epigastric, back Migration to: no migration Severity: severe Severity scale (1-10): 9 Quality: stabbing, aching, sharp Consistency: constant Improves With: nothing Worsens With: nothing Context: recent surgery/procedure Associated Symptoms: nausea - Related Data Home Medications Medication Instructions Recorded Confirmed Cranberry Fruit Extract [Cranberry] 1,000 mg PO DAILY 08/03/15 09/06/18 Furosemide 40 mg PO DAILY 08/03/15 09/06/18 Gemfibrozil 600 mg PO 08/03/15 09/06/18 Mycophenolate Mofetil [Cellcept] 1,000 mg PO BID 08/03/15 09/06/18 Omeprazole 20 mg PO DAILY 08/03/15 09/06/18 Potassium Chloride [Klor-Con 10] 20 meq PO 08/03/15 09/06/18 Potassium Chloride [Klor-Con 10] 30 meq PO [facility] 08/03/15 09/06/18 Simvastatin 20 mg PO 08/03/15 09/06/18 Spironolactone 25 mg PO DAILY 08/03/15 09/06/18 Sirolimus [Rapamune] 5 mg PO DAILY 08/17/15 09/06/18 Biotin 5 mg PO DAILY 08/22/15 09/06/18 ALPRAZolam [Xanax] 0.25 mg PO DAILY PRN 09/06/18 09/06/18 Ferrous Sulfate [Feosol] 325 mg PO BID 09/06/18 09/06/18 Meclizine [Antivert] 25 mg PO DAILY PRN 09/06/18 09/06/18 sulfaSALAzine [Azulfidine] 2,000 mg PO BID 09/06/18 09/06/18 Previous Rx's Medication Instructions Recorded Aspirin 81 mg PO DAILY #0 08/31/15 HYDROcodone/APAP 7.5-325MG [Ruso 1 tab PO Q6HR PRN 3 Days #10 tab 09/13/18 7.5-325] Allergies Allergy/AdvReac Type Severity Reaction Status Date / Time lisinopril Allergy Anaphylaxis Verified 11/13/18 15:45 Review of Systems ROS Statement: Those systems with pertinent positive or pertinent negative responses have been documented in the HPI. ROS Other: All systems not noted in ROS Statement are negative. Past Medical History Past Medical History: Diabetes Mellitus, Deep Vein Thrombosis (DVT), GERD/Reflux, Hyperlipidemia, Renal Disease Additional Past Medical History / Comment(s): COLITIS History of Any Multi-Drug Resistant Organisms: None Reported Past Surgical History: Cholecystectomy, Hernia Repair, Tubal Ligation Additional Past Surgical History / Comment(s): KIDNEY TRANSPLANT left. DIALYSIS PORT PLACEMENT AND REMOVAL Past Anesthesia/Blood Transfusion Reactions: No Reported Reaction Past Psychological History: Anxiety Smoking Status: Former smoker Past Alcohol Use History: Occasional Past Drug Use History: None Reported - Past Family History Mother Family Medical History: Myocardial Infarction ([place]) Father Additional Family Medical History / Comment(s): UNK HEART PROBLEMS General Exam Limitations: no limitations General appearance: alert, in no apparent distress Head exam: Present: atraumatic, normocephalic, normal inspection Eye exam: Present: normal appearance, PERRL, EOMI. Absent: scleral icterus, conjunctival injection, periorbital swelling ENT exam: Present: normal exam, mucous membranes moist Neck exam: Present: normal inspection. Absent: tenderness, meningismus, lymphadenopathy Respiratory exam: Present: normal lung sounds bilaterally. Absent: respiratory distress, wheezes, rales, rhonchi, stridor Cardiovascular Exam: Present: regular rate, normal rhythm, normal heart sounds. Absent: systolic murmur, diastolic murmur, rubs, gallop, clicks GI/Abdominal exam: Present: soft, distended, tenderness, guarding (Voluntary), normal bowel sounds. Absent: rebound, rigid Extremities exam: Present: normal inspection, full ROM, normal capillary refill. Absent: tenderness, pedal edema, joint swelling, calf tenderness Back exam: Present: normal inspection Neurological exam: Present: alert, oriented X3, CN II-XII intact Psychiatric exam: Present: normal affect, normal mood Skin exam: Present: warm, dry, intact, normal color. Absent: rash Course Vital Signs 11/13/18 15:40 Temperature 98.6 F Pulse Rate 84 Respiratory 18 Rate Blood Pressure 127/78 O2 Sat by Pulse 97 Oximetry - Reevaluation(s) Reevaluation #1: 11/13/18 17:56 Medical record is reviewed with prior history of small bowel obstruction Reevaluation #2: 11/13/18 17:56 Patient is originally difficult to control, patient's pain is improved after second dose of pain medication Medical Decision Making - Medical Decision Making 63 female the ER with severe abdominal pain. Presenting with recurrent small bowel obstruction, will admit for surgical evaluation and treatment - Lab Data Result diagrams: 11/13/18 15:56 11/13/18 15:56 Lab Results 11/13/18 11/13/18 11/13/18 Range/Units 15:56 15:56 15:56 WBC 7.3 (3.8-10.6) k/uL RBC 4.39 (3.80-5.40) m/uL Hgb 13.5 (11.4-16.0) gm/dL Hct 40.2 (34.0-46.0) % MCV 91.7 (80.0-100.0) fL MCH 30.7 (25.0-35.0) pg MCHC 33.5 (31.0-37.0) g/dL RDW 15.3 (11.5-15.5) % Plt Count 346 (150-450) k/uL Neutrophils % 75 % Lymphocytes % 13 % Monocytes % 7 % Eosinophils % 3 % Basophils % 1 % Neutrophils # 5.4 (1.3-7.7) k/uL Lymphocytes # 0.9 L (1.0-4.8) k/uL Monocytes # 0.5 (0-1.0) k/uL Eosinophils # 0.2 (0-0.7) k/uL Basophils # 0.1 (0-0.2) k/uL Sodium 138 (137-145) mmol/L Potassium 3.9 (3.5-5.1) mmol/L Chloride 103 (98-107) mmol/L Carbon Dioxide 25 (22-30) mmol/L Anion Gap 10 mmol/L BUN 13 (7-17) mg/dL Creatinine 0.72 (0.52-1.04) mg/dL Est GFR (CKD-EPI)AfAm >90 (>60 ml/min/1.73 sqM) Est GFR (CKD-EPI)NonAf 90 (>60 ml/min/1.73 sqM) Glucose 135 H (74-99) mg/dL Plasma Lactic Acid Adriano 1.1 (0.7-2.0) mmol/L Calcium 10.6 H (8.4-10.2) mg/dL Total Bilirubin 0.5 (0.2-1.3) mg/dL AST 10 L (14-36) U/L ALT 22 (9-52) U/L Alkaline Phosphatase 69 (38-126) U/L Total Protein 6.8 (6.3-8.2) g/dL Albumin 4.4 (3.5-5.0) g/dL Amylase 65 (30-110) U/L Lipase 152 (23-300) U/L Urine Color Urine Appearance (Clear) Urine pH (5.0-8.0) Ur Specific [place] (1.001-1.035) Urine Protein (Negative) Urine Glucose (UA) (Negative) Urine Ketones (Negative) Urine Blood (Negative) Urine Nitrite (Negative) Urine Bilirubin (Negative) Urine Urobilinogen (<2.0) mg/dL Ur Leukocyte Esterase (Negative) 11/13/18 Range/Units 15:56 WBC (3.8-10.6) k/uL RBC (3.80-5.40) m/uL Hgb (11.4-16.0) gm/dL Hct (34.0-46.0) % MCV (80.0-100.0) fL MCH (25.0-35.0) pg MCHC (31.0-37.0) g/dL RDW (11.5-15.5) % Plt Count (150-450) k/uL Neutrophils % % Lymphocytes % % Monocytes % % Eosinophils % % Basophils % % Neutrophils # (1.3-7.7) k/uL Lymphocytes # (1.0-4.8) k/uL Monocytes # (0-1.0) k/uL Eosinophils # (0-0.7) k/uL Basophils # (0-0.2) k/uL Sodium (137-145) mmol/L Potassium (3.5-5.1) mmol/L Chloride (98-107) mmol/L Carbon Dioxide (22-30) mmol/L Anion Gap mmol/L BUN (7-17) mg/dL Creatinine (0.52-1.04) mg/dL Est GFR (CKD-EPI)AfAm (>60 ml/min/1.73 sqM) Est GFR (CKD-EPI)NonAf (>60 ml/min/1.73 sqM) Glucose (74-99) mg/dL Plasma Lactic Acid Adriano (0.7-2.0) mmol/L Calcium (8.4-10.2) mg/dL Total Bilirubin (0.2-1.3) mg/dL AST (14-36) U/L ALT (9-52) U/L Alkaline Phosphatase (38-126) U/L Total Protein (6.3-8.2) g/dL Albumin (3.5-5.0) g/dL Amylase (30-110) U/L Lipase (23-300) U/L Urine Color Yellow Urine Appearance Clear (Clear) Urine pH 7.0 (5.0-8.0) Ur Specific [place] 1.010 (1.001-1.035) Urine Protein Negative (Negative) Urine Glucose (UA) Negative (Negative) Urine Ketones 1+ H (Negative) Urine Blood Negative (Negative) Urine Nitrite Negative (Negative) Urine Bilirubin Negative (Negative) Urine Urobilinogen <2.0 (<2.0) mg/dL Ur Leukocyte Esterase Negative (Negative) - EKG Data -: EKG Interpreted by Me (EKG shows sinus rhythm rate of 83, CA 94, QRS 80, QTC 474) - Radiology Data Radiology results: report reviewed (X-ray abdomen series is positive for small bowel suction CT abdomen and pelvis positive for small bowel obstruction), image reviewed Disposition Clinical Impression: SBO (small bowel obstruction) Disposition: ADMITTED IP TO THIS [facility] Condition: Fair Is patient prescribed a controlled substance at d/c from ED?: No Referrals: Tramaine Peraza MD [Primary Care Provider] - 1-2 days
[2018-11-13] MEDS ORDERED: SODIUM CHLORIDE 0.9% 1,000 ML IV ONE (17:50)
[2018-11-13] MEDS ORDERED: HYDROmorphone 1 MG/ML 1 ML SYRINGE IVP STA (17:53)
[2018-11-13] MEDS ORDERED: ONDANSETRON 4 MG/2 ML VIAL IVP PRN (18:01)
--- NOTE | 2018-11-13 19:08 | CT ---
EXAMINATION TYPE: CT abdomen pelvis wo con DATE OF EXAM: 11/13/2018 COMPARISON: 09/06/2018 HISTORY: Abdominal pain radiating to back. CT DLP: 611.8 mGycm Automated exposure control for dose reduction was used. TECHNIQUE: Helical acquisition of images was performed from the lung bases through the pelvis. FINDINGS: There is subsegmental atelectasis at the lung bases. There is no pericardial effusion. There is no pl eural effusion. Stomach appears normal. There are clips from cholecystectomy. Liver shows no focal defect. The bile ducts are not dilated. Sp ricci appears normal. There is no evidence of pancreatic mass. There is no adrenal mass. There is severe renal cortical atrophy. There is transplant kidney in the p amelia on the left side. There is no hydronephrosis. There are some dilated fluid-filled loops of small bowel in the mid abdomen. The distal small bowel i s not dilated. There is apparent transition point in the lower mid abdomen in the midline. Distal sma ll bowel is essentially empty. The fecal pattern of the large bowel is fairly normal. There is no free fluid in the pelvis. Bladder distends smoothly. Uterus is anteverted. There is no as cites. There is no mesenteric edema. There is no sign of free air. There are spondylotic changes in the lumbar spine. There is a minimal L2-3 degenerative spondylolisth esis. There is no compression fracture. There is some osteosclerosis in the vertebral bodies consiste nt with chronic renal failure. IMPRESSION: DILATED SMALL BOWEL CONSISTENT WITH A MECHANICAL MID SMALL BOWEL OBSTRUCTION THAT IS SIMILAR TO THE O LD CT SCAN. THERE IS SIGNIFICANT CLEARING OF THE PATCHY ATELECTASIS AT THE LUNG BASES COMPARED TO OLD EXAM.
[2018-11-13] MEDS: HYDROmorphone 1 MG/ML 1 ML SYRINGE IVP PRN (21:22)
[2018-11-13] MEDS ORDERED: TEMAZEPAM 15 MG CAP PO PRN (23:38)
[2018-11-13] MEDS ORDERED: HYDROcodone/APAP 5-325MG 1 EACH TAB PO PRN (23:38)
[2018-11-13] MEDS ORDERED: ALPRAZolam 0.25 MG TAB PO PRN (23:38)
[2018-11-13] MEDS: MYCOPHENOLATE MOFETIL 500 MG TAB PO SCH (23:43)
[2018-11-14] MEDS: HYDROmorphone 1 MG/ML 1 ML SYRINGE IVP PRN ×6 (00:43→20:40)
[2018-11-14 07:39] LABS: Anion Gap 10 mmol/L; Blood Urea Nitrogen 12 mg/dL (7-17); Calcium 10.1 mg/dL (8.4-10.2); Carbon Dioxide 23 mmol/L (22-30); Chloride 108 mmol/L (98-107); Glucose 125 mg/dL (74-99); Potassium 4.3 mmol/L (3.5-5.1); Sodium 141 mmol/L (137-145)
--- NOTE | 2018-11-14 08:57 | P.GSCN ---
History of Present Illness Consult date: 11/14/18 Reason for Consult: Small bowel obstruction History of present illness: This is a 63-year-old female who was admitted through the emergency room with complaints of a small bowel obstruction. Patient is well-known to Dr. Garcia. She had an exploratory laparotomy with lysis of adhesions for internal hernia approximately 7 weeks ago. Patient states she developed severe crampy pain which is debilitating yesterday. She also had significant nausea. Patient had a CAT scan emergency room shows evidence of a small bowel obstruction. Patient states she feels better today however she did have pain meds approximately 15 minutes ago she denies any nausea currently Past Medical History Past Medical History: Diabetes Mellitus, Deep Vein Thrombosis (DVT), GERD/Reflux, Hyperlipidemia, Renal Disease Additional Past Medical History / Comment(s): COLITIS History of Any Multi-Drug Resistant Organisms: None Reported Past Surgical History: Cholecystectomy, Hernia Repair, Tubal Ligation Additional Past Surgical History / Comment(s): KIDNEY TRANSPLANT left 14 years ago. DIALYSIS PORT PLACEMENT AND REMOVAL Past Anesthesia/Blood Transfusion Reactions: No Reported Reaction Past Psychological History: Anxiety Smoking Status: Former smoker Past Alcohol Use History: Occasional Past Drug Use History: None Reported - Past Family History Mother Family Medical History: Myocardial Infarction ([place]) Father Additional Family Medical History / Comment(s): UNK HEART PROBLEMS Medications and Allergies Home Medications Medication Instructions Recorded Confirmed Type Cranberry Fruit Extract [Cranberry] 1,000 mg PO DAILY 08/03/15 11/13/18 History Furosemide 40 mg PO DAILY 08/03/15 11/13/18 History Gemfibrozil 600 mg PO HS 08/03/15 11/13/18 History Mycophenolate Mofetil [Cellcept] 1,000 mg PO BID 08/03/15 11/13/18 History Omeprazole 20 mg PO DAILY 08/03/15 11/13/18 History Potassium Chloride [Klor-Con 10] 20 meq PO HS 08/03/15 11/13/18 History Potassium Chloride [Klor-Con 10] 30 meq PO QAM 08/03/15 11/13/18 History Simvastatin 20 mg PO HS 08/03/15 11/13/18 History Spironolactone 25 mg PO DAILY 08/03/15 11/13/18 History Sirolimus [Rapamune] 5 mg PO DAILY 08/17/15 11/13/18 History Aspirin 81 mg PO DAILY #0 08/31/15 11/13/18 Rx ALPRAZolam [Xanax] 0.25 mg PO DAILY PRN 09/06/18 11/13/18 History Ferrous Sulfate [Feosol] 325 mg PO BID 09/06/18 11/13/18 History sulfaSALAzine [Azulfidine] 1,500 mg PO BID 09/06/18 11/13/18 History Allergies Allergy/AdvReac Type Severity Reaction Status Date / Time lisinopril Allergy Anaphylaxis Verified 11/13/18 20:26 Surgical - Exam Vital Signs Temp Pulse Resp BP Pulse Ox 98.6 F 84 18 127/78 97 11/13/18 15:40 11/13/18 15:40 11/13/18 15:40 11/13/18 15:40 11/13/18 15:40 - General well developed, well nourished, no distress - Eyes PERRL - ENT normal pinna - Neck no masses - Abdomen Minimal tenderness. There is no rebound or guarding. The abdomen is distended. Abdomen: soft Results - Labs 11/13/18 15:56 11/14/18 07:00 Abnormal Lab Results - Last 24 Hours (Table) 11/13/18 11/13/18 11/13/18 Range/Units 15:56 15:56 15:56 Lymphocytes # 0.9 L (1.0-4.8) k/uL Chloride (98-107) mmol/L Glucose 135 H (74-99) mg/dL Calcium 10.6 H (8.4-10.2) mg/dL AST 10 L (14-36) U/L Urine Ketones 1+ H (Negative) 11/14/18 Range/Units 07:00 Lymphocytes # (1.0-4.8) k/uL Chloride 108 H (98-107) mmol/L Glucose 125 H (74-99) mg/dL Calcium (8.4-10.2) mg/dL AST (14-36) U/L Urine Ketones (Negative) Microbiology - Last 24 Hours (Table) 11/13/18 15:56 Urine Culture - Preliminary Urine,Voided Diabetes panel 11/13/18 11/14/18 Range/Units 15:56 07:00 Sodium 138 141 (137-145) mmol/L Potassium 3.9 4.3 (3.5-5.1) mmol/L Chloride 103 108 H (98-107) mmol/L Carbon Dioxide 25 23 (22-30) mmol/L BUN 13 12 (7-17) mg/dL Creatinine 0.72 0.69 (0.52-1.04) mg/dL Glucose 135 H 125 H (74-99) mg/dL Calcium 10.6 H 10.1 (8.4-10.2) mg/dL AST 10 L (14-36) U/L ALT 22 (9-52) U/L Alkaline Phosphatase 69 (38-126) U/L Total Protein 6.8 (6.3-8.2) g/dL Albumin 4.4 (3.5-5.0) g/dL Calcium panel 11/13/18 11/14/18 Range/Units 15:56 07:00 Calcium 10.6 H 10.1 (8.4-10.2) mg/dL Albumin 4.4 (3.5-5.0) g/dL Pituitary panel 11/13/18 11/14/18 Range/Units 15:56 07:00 Sodium 138 141 (137-145) mmol/L Potassium 3.9 4.3 (3.5-5.1) mmol/L Chloride 103 108 H (98-107) mmol/L Carbon Dioxide 25 23 (22-30) mmol/L BUN 13 12 (7-17) mg/dL Creatinine 0.72 0.69 (0.52-1.04) mg/dL Glucose 135 H 125 H (74-99) mg/dL Calcium 10.6 H 10.1 (8.4-10.2) mg/dL Adrenal panel 11/13/18 11/14/18 Range/Units 15:56 07:00 Sodium 138 141 (137-145) mmol/L Potassium 3.9 4.3 (3.5-5.1) mmol/L Chloride 103 108 H (98-107) mmol/L Carbon Dioxide 25 23 (22-30) mmol/L BUN 13 12 (7-17) mg/dL Creatinine 0.72 0.69 (0.52-1.04) mg/dL Glucose 135 H 125 H (74-99) mg/dL Calcium 10.6 H 10.1 (8.4-10.2) mg/dL Total Bilirubin 0.5 (0.2-1.3) mg/dL AST 10 L (14-36) U/L ALT 22 (9-52) U/L Alkaline Phosphatase 69 (38-126) U/L Total Protein 6.8 (6.3-8.2) g/dL Albumin 4.4 (3.5-5.0) g/dL Assessment and Plan Assessment: History of small bowel obstruction. Patient states she feels better. We will order a CAT scan with oral contrast to evaluate persistent small bowel obstruction. Dr. Garcia will reevaluate her on Friday.
[2018-11-14] MEDS ORDERED: MYCOPHENOLATE MOFETIL 500 MG TAB PO SCH (09:00)
[2018-11-14] MEDS: IOPAMIDOL-300 CONTRAST 30 ML VIAL (ORAL USE) PO PRN ×2 (09:37→10:26)
[2018-11-14 09:50] LABS: Basophils # (A) 0.1 k/uL (0-0.2); Basophils % (A) 1 %; Eosinophils # (A) 0.2 k/uL (0-0.7); Eosinophils % (A) 4 %; HCT 45.2 % (34.0-46.0); HGB 14.5 gm/dL (11.4-16.0); Lymphocytes # (A) 0.6 k/uL (1.0-4.8); Lymphocytes % (A) 10 %; MCH 30.6 pg (25.0-35.0); MCV 95.6 fL (80.0-100.0); Mean Platelet Volume 8.1; Monocytes # (A) 0.4 k/uL (0-1.0); Monocytes % (A) 8 %; Neutrophils # (A) 4.2 k/uL (1.3-7.7); Neutrophils % (A) 75 %; RBC 4.73 m/uL (3.80-5.40); RDW 15.2 % (11.5-15.5); WBC 5.6 k/uL (3.8-10.6)
[2018-11-14 10:00] LABS: Platelet Count 158 k/uL (150-450)
[2018-11-14] MEDS: PANTOPRAZOLE 40 MG/10 ML VIAL IVP SCH (10:21)
[2018-11-14] MEDS: ENOXAPARIN 40 MG/0.4 ML SYRINGE SQ SCH (10:21)
[2018-11-14] MEDS: SODIUM CHLORIDE 0.9% 1,000 ML IV SCH ×2 (11:18→20:01)
--- NOTE | 2018-11-14 11:31 | CT ---
EXAMINATION TYPE: CT abdomen pelvis wo con DATE OF EXAM: 11/14/2018 COMPARISON: Previous study dated 11/13/2018. HISTORY: Small bowel obstruction CT DLP: 700.8 mGycm Automated exposure control for dose reduction was used. FINDINGS: There is atelectatic change present at the lung bases. The heart is mildly enlarged. There is a small hiatal hernia. Within the abdomen, the liver is enlarged measuring 20 cm. The gallbladder has been removed. The sple en appears normal. Both adrenal glands are normal. Both kidneys are atrophic. There is a 6.3 mm stone in the upper pole of the right kidney which is non obstructive. The pancreas is unremarkable. Very little contrast has made it into the small bowel. There are dilated loops of small bowel in the upper abdomen almost identical in appearance to the previous study. The transition point appears to b e in the midabdomen at approximately the level of image 54 on the axial series. The graft There is thickening of the splenic flexure of the colon with some adjacent stranding in the pericolic fat. This extends to the sigmoid region. Right side of the colon is not thickened. No free air is seen. There is a small amount of free fluid. The uterus and ovaries appear unremarkable. The bladder is unremarkable. IMPRESSION: 1. PROXIMAL SMALL BOWEL OBSTRUCTION WITH A TRANSITION POINT AT THE LEVEL OF IMAGE 54 OF THE AXIAL SER IES. 2. MILD 3 FLUID WITHIN THE PELVIS. 3. SMALL HIATAL HERNIA. 4. HEPATOMEGALY. 5. ATROPHIC KIDNEYS. 6. DEGENERATIVE CHANGES WITHIN THE SPINE. 7. THICKENING OF THE MUCOSA OF THE LEFT SIDE OF THE COLON WITH ASSOCIATED STRANDING IN THE PERICOLIC FAT IS SUGGESTIVE OF COLITIS. PLEASE CORRELATE CLINICALLY.
--- NOTE | 2018-11-14 11:58 | HP ---
HISTORY AND PHYSICAL CHIEF COMPLAINT: Abdominal pain. HISTORY OF PRESENT ILLNESS: This 63-year-old woman with a past medical history of multiple medical problems including history of diabetes, history of DVT, GERD, hyperlipidemia, history of renal disease, history of colitis, history of kidney transplant about 14 years ago, history of anxiety recently had in September was exploratory laparotomy and as well as extensive lysis of adhesions for small-bowel obstruction secondary internal hernia and adhesions. Currently the patient today had sudden onset of abdominal pain, which was in the anterior part of the abdomen which subsequently radiated to the back and the patient came to [facility] and admitted for further evaluation and treatment. Dr. Peraza's consultation abdomen pelvis CAT scan and plain x-ray of the abdomen series was also done. The CAT scan showed evidence of dilated small bowel consistent with mechanical mid small bowel obstruction. Significant clearing of atelectasis also noted and the patient admitted for further evaluation and treatment. There is no history of any fever or rigors. No history of headache, loss of consciousness, or seizures. No chest pain or palpitations at this time. PAST MEDICAL HISTORY: History of diabetes, DVT, GERD, hyperlipidemia, renal disease, colitis, kidney transplant. MEDICATIONS: 1. Azulfidine 1500 mg p.o. b.i.d. 2. Aldactone 25 mg daily. 3. Rapamune 5 mg q.h.s. 4. Simvastatin 20 mg q.h.s. 5. Klor-Con 30 mEq q.a.m. and 20 mEq q.h.s. 6. Omeprazole 20 mg p.o. daily. 7. CellCept 1000 mg p.o. b.i.d. 8. Gemfibrozil 600 mg p.o. q.h.s. 9. Lasix 40 mg p.o. daily. 10.Iron sulfate 325 mg p.o. b.i.d. 11.Cranberry 1000 mg p.o. daily. 12.Aspirin 81 mg p.o. daily. 13.Xanax 0.25 daily p.r.n. ALLERGIES: Allergies are LISINOPRIL. FAMILY HISTORY: History of myocardial infarction in the family. SOCIAL HISTORY: Previous history of smoking. No history of current smoking or alcohol intake. REVIEW OF SYSTEMS: ENT: No diminished hearing or diminished vision. CARDIOVASCULAR SYSTEM: As mentioned earlier. RESPIRATORY SYSTEM: As mentioned earlier. GI: As mentioned earlier. : As mentioned earlier. NERVOUS SYSTEM: No numbness or weakness. ALLERGY/IMMUNOLOGY: No asthma or hayfever. MUSCULOSKELETAL: As mentioned earlier. HEMATOLOGY/ONCOLOGY: No history of anemia. ENDOCRINE: No history of dm or hypothyroidism. CONSTITUTIONAL: As mentioned earlier. DERMATOLOGY: Negative. RHEUMATOLOGY: Negative. PSYCHIATRY: As mentioned earlier. PHYSICAL EXAMINATION: The patient is alert and oriented x3. Pulse 65, blood pressure 144/82, respirations 17, temperature 98.3, pulse ox 95% on room air. HEENT: Conjunctivae normal. NECK: No jugular venous distention. CARDIOVASCULAR: S1 and S2 muffled. RESPIRATORY: Breath sounds diminished at the bases. Scattered rhonchi and crackles. ABDOMEN: Soft, mild diffuse discomfort on palpation. Mild diffuse distention present. No guarding. No mass. No ascites. Bowel sounds present. LEGS: No edema. No swelling. NERVOUS SYSTEM: Higher functions as mentioned earlier. Moves all 4 limbs. No focal motor deficit. LYMPHATICS: No lymphadenopathy of the neck, axillae or groin. SKIN: No ulcer, rash or bleeding. JOINTS: No active deforming arthropathy. LABS: CBC within normal limits otherwise sodium is 138, glucose 135, calcium is 10.6. ASSESSMENT: 1. Abdominal pain possibly partial small bowel obstruction. 2. History of exploratory laparotomy with extensive lysis of adhesions for small-bowel obstruction secondary to internal hernia and adhesions recently. 3. History of diabetes mellitus type 2. 4. History of deep venous thrombosis. 5. History of gastroesophageal reflux disease. 6. Hyperlipidemia. 7. History of chronic kidney disease. 8. Colitis. 9. Cholecystectomy. 10.History of hernia repair. 11.History of renal transplant on the left 14 years ago. 12.History of anxiety. 13.Remote history of nicotine dependence. RECOMMENDATIONS AND DISCUSSION: This 63-year-old woman with multiple medical issues, at this time I recommend to continue current medications, continue with symptomatic treatment. Otherwise, closely follow with Dr. Peraza and resume the home medications. Monitor blood sugars closely. Symptomatic treatment. DVT prophylaxis. Prognosis guarded because of multiple complex medical issues. Further recommendations to follow. MMODL / IJN: [id number] / MTDD
--- NOTE | 2018-11-14 14:47 | XR ---
EXAMINATION TYPE: XR abdomen 1V DATE OF EXAM: 11/14/2018 Comparison: CT same day Clinical History: 63-year-old female confirm ng placement Findings: NG tube is looped distally at the level of the GE junction. The tip is located in the lower esophagus . The tube does not enter the stomach. Cholecystectomy clips. Dilated small bowel loops measuring up to 5.5 cm. Impression: NG tube looped up at the level of the GE junction. The tip is in the distal esophagus. The tube does not enter into the stomach. Ongoing high-grade small bowel obstruction with small bowel loops dilated up to 5.5 cm.
[2018-11-14] MEDS: SPIRONOLACTONE 25 MG TAB PO SCH (15:33)
[2018-11-14] MEDS: SIROLIMUS 1 MG PO SCH (15:33)
[2018-11-14] MEDS: FUROSEMIDE 40 MG TAB PO SCH (15:33)
[2018-11-14] MEDS: MYCOPHENOLATE MOFETIL 500 MG TAB PO SCH ×2 (15:34→20:00)
[2018-11-14] MEDS: sulfaSALAzine 500 MG TAB PO SCH ×2 (15:34→20:00)
[2018-11-14 16:43] LABS: Glucose,Whole Blood 141 mg/dL (75-99)
--- NOTE | 2018-11-14 20:04 | PN ---
PROGRESS NOTE DATE OF SERVICE: 11/14/2018 This 63-year-old woman was admitted with abdominal pain with possible partial small bowel obstruction also had persistent bowel obstruction in the the repeat CAT scan and the patient was seen by Dr. Ulrich, recommended a NG tube at this time. No chest pain. No palpitations. No fever. EXAM: Alert and oriented x3. Pulse is 81, blood pressure 143/82, respirations 16, temperature 98 degrees, pulse ox 91 percent on room air. HEENT: Conjunctivae normal. NECK: No jugular venous distention. CARDIOVASCULAR: S1, S2 muffled. RESPIRATORY: Breath sounds diminished in the bases. A few scattered rhonchi. No crackles. ABDOMEN is soft. Mild diffuse discomfort. Mild diffuse distention. LEGS are no edema, no swelling. CENTRAL NERVOUS SYSTEM: No focal deficits. LAB STUDIES: WBC 5.2, hemoglobin 14.5. ASSESSMENT: 1. Abdominal pain possible small-bowel obstruction. 2. History of exploratory laparotomy with extensive lysis of adhesions for small bowel obstruction secondary to internal hernia and as well as adhesions recently. 3. History of diabetes mellitus type 2. 4. History of deep vein thrombosis. 5. History of gastroesophageal reflux disease. 6. Hyperlipidemia. 7. History of chronic kidney disease stage III. 8. Colitis. 9. Cholecystectomy. 10.History of hernia repair. 11.History of renal transplant on the left 14 years ago. 12.History of anxiety. 13.Remote history of nicotine dependence. RECOMMENDATIONS AND DISCUSSION: Recommend to continue current medications, management. Symptomatic treatment. Continue the NG tube. Continue to follow closely with surgery. Guarded prognosis because of multiple complex medical issues. Further recommendations to follow. MMODL / IJN: [id number] /
[2018-11-14 20:08] LABS: Glucose,Whole Blood 120 mg/dL (75-99)
[2018-11-15] MEDS: HYDROmorphone 1 MG/ML 1 ML SYRINGE IVP PRN ×2 (00:40→04:40)
[2018-11-15] MEDS: SODIUM CHLORIDE 0.9% 1,000 ML IV SCH ×2 (05:30→15:46)
[2018-11-15 06:43] LABS: Glucose,Whole Blood 113 mg/dL (75-99)
[2018-11-15 07:29] LABS: Basophils % (A) 1 %; Eosinophils # (A) 0.2 k/uL (0-0.7); Eosinophils % (A) 3 %; HCT 38.9 % (34.0-46.0); HGB 12.8 gm/dL (11.4-16.0); Lymphocytes # (A) 0.6 k/uL (1.0-4.8); Lymphocytes % (A) 9 %; MCH 31.2 pg (25.0-35.0); MCV 94.5 fL (80.0-100.0); Monocytes # (A) 0.5 k/uL (0-1.0); Monocytes % (A) 8 %; Neutrophils # (A) 5.2 k/uL (1.3-7.7); Neutrophils % (A) 78 %; Platelet Count 313 k/uL (150-450); RBC 4.12 m/uL (3.80-5.40); RDW 15.8 % (11.5-15.5); WBC 6.6 k/uL (3.8-10.6)
[2018-11-15 07:49] LABS: Anion Gap 8 mmol/L; Blood Urea Nitrogen 11 mg/dL (7-17); Calcium 9.5 mg/dL (8.4-10.2); Carbon Dioxide 26 mmol/L (22-30); Chloride 107 mmol/L (98-107); Glucose 110 mg/dL (74-99); Potassium 3.8 mmol/L (3.5-5.1); Sodium 141 mmol/L (137-145)
[2018-11-15] MEDS: SIROLIMUS 1 MG PO SCH (09:43)
[2018-11-15] MEDS: ENOXAPARIN 40 MG/0.4 ML SYRINGE SQ SCH (09:43)
[2018-11-15] MEDS: PANTOPRAZOLE 40 MG/10 ML VIAL IVP SCH (09:43)
[2018-11-15] MEDS: SPIRONOLACTONE 25 MG TAB PO SCH (09:43)
[2018-11-15] MEDS: FUROSEMIDE 40 MG TAB PO SCH (09:43)
[2018-11-15] MEDS: MYCOPHENOLATE MOFETIL 500 MG TAB PO SCH ×2 (09:44→20:16)
[2018-11-15] MEDS: sulfaSALAzine 500 MG TAB PO SCH ×2 (09:44→20:16)
--- NOTE | 2018-11-15 11:13 | P.PN ---
Progress Note - Text Progress Note Date: 11/15/18 Patient's CAT scan performed yesterday shows evidence of a definitive small bowel obstruction. She had an NG tube placed yesterday. She actually feels better with her NG tube placed. On exam her vital signs are stable. Her abdomen soft. Recurrent small bowel obstruction. Patient will be reevaluated by Dr. Garcia in the a.m.
[2018-11-15 11:29] LABS: Glucose,Whole Blood 95 mg/dL (75-99)
[2018-11-15 17:05] LABS: Glucose,Whole Blood 102 mg/dL (75-99)
[2018-11-15 20:52] LABS: Glucose,Whole Blood 105 mg/dL (75-99)
--- NOTE | 2018-11-15 21:57 | PN ---
PROGRESS NOTE DATE OF SERVICE: 11/15/2018 This 63 -year-old woman was admitted with abdominal pain, possible small-bowel obstruction is being started on conservative line of treatment with NG tube suction. The patient is feeling slightly better at this time. Dr. Ulrich is following the patient closely. Dr. Peraza will follow the patient tomorrow. No chest pain. No palpitations. No fever. EXAM: Alert and oriented times three. Pulse 79, blood pressure 133/70, respiration 15, temperature 98.3, pulse ox 98% on room air. HEENT: Conjunctivae normal. NECK: No jugular venous distention. CARDIOVASCULAR: S1, S2 muffled. RESPIRATORY: Breath sounds diminished at the bases. No rhonchi. No crackles. ABDOMEN is soft. Mild diffuse distention. Nontender. No mass palpable. LEGS are no edema. No swelling. CENTRAL NERVOUS SYSTEM: No focal deficits. LAB STUDIES: WBC 6.2, hemoglobin 12.8. Accu-Cheks are noted. ASSESSMENT: 1. Abdominal pain with possible small bowel obstruction on conservative line of treatment and NG tube. 2. History of exploratory laparotomy with extensive lysis of adhesions for small-bowel obstruction secondary to internal hernia as well as adhesions recently. 3. History of diabetes type 2. 4. History of deep vein thrombosis. 5. History of gastroesophageal reflux disease. 6. Hyperlipidemia. 7. History of chronic kidney disease stage III. 8. Colitis. 9. History of cholecystectomy. 10.History of hernia repair. 11.History of renal transplant on the left 14 years ago. 12.History of anxiety and depression. 13.Remote history of nicotine dependence. RECOMMENDATIONS AND DISCUSSION: Continue current medications, continue with monitoring, symptomatic treatment. Otherwise, at this time, we will monitor the patient closely. At this time, I recommend continue with conservative line of management. Closely follow with surgery. Further recommendations to follow. MMODL / IJN: [id number] /
[2018-11-16] MEDS: SODIUM CHLORIDE 0.9% 1,000 ML IV SCH ×2 (03:49→17:47)
[2018-11-16 07:56] LABS: Glucose,Whole Blood 85 mg/dL (75-99)
[2018-11-16] MEDS: SIROLIMUS 1 MG PO SCH (08:04)
[2018-11-16] MEDS: FUROSEMIDE 40 MG TAB PO SCH (08:04)
[2018-11-16] MEDS: SPIRONOLACTONE 25 MG TAB PO SCH (08:04)
[2018-11-16] MEDS: ENOXAPARIN 40 MG/0.4 ML SYRINGE SQ SCH (08:05)
[2018-11-16] MEDS: PANTOPRAZOLE 40 MG/10 ML VIAL IVP SCH (08:05)
[2018-11-16] MEDS: MYCOPHENOLATE MOFETIL 500 MG TAB PO SCH ×2 (08:06→22:00)
[2018-11-16] MEDS: sulfaSALAzine 500 MG TAB PO SCH ×2 (08:06→22:00)
[2018-11-16 10:49] LABS: Basophils % (A) 1 %; Eosinophils # (A) 0.2 k/uL (0-0.7); Eosinophils % (A) 4 %; HCT 38.6 % (34.0-46.0); HGB 12.9 gm/dL (11.4-16.0); Lymphocytes # (A) 0.5 k/uL (1.0-4.8); Lymphocytes % (A) 10 %; MCH 30.9 pg (25.0-35.0); MCHC 33.3 g/dL (31.0-37.0); MCV 92.7 fL (80.0-100.0); Monocytes # (A) 0.5 k/uL (0-1.0); Monocytes % (A) 11 %; Neutrophils # (A) 3.7 k/uL (1.3-7.7); Neutrophils % (A) 73 %; Platelet Count 301 k/uL (150-450); RBC 4.17 m/uL (3.80-5.40); RDW 15.5 % (11.5-15.5); WBC 5.1 k/uL (3.8-10.6)
[2018-11-16 10:55] VITALS: BMI 29.0
[2018-11-16 10:58] LABS: Anion Gap 13 mmol/L; Blood Urea Nitrogen 9 mg/dL (7-17); Calcium 9.2 mg/dL (8.4-10.2); Carbon Dioxide 21 mmol/L (22-30); Chloride 107 mmol/L (98-107); Glucose 64 mg/dL (74-99); Potassium 3.4 mmol/L (3.5-5.1); Sodium 141 mmol/L (137-145)
--- NOTE | 2018-11-16 11:28 | P.PN ---
<Ping Martinez - Last Filed: 11/16/18 11:24> Subjective Progress Note Date: 11/16/18 CHIEF COMPLAINT: Small bowel obstruction HISTORY OF PRESENT ILLNESS: Patient seen and examined at the bedside. NG remains in place with 200 mL of output overnight. Patient denies abdominal pain. Denies nausea. She reports passing flatus and having multiple liquid stools overnight. PHYSICAL EXAM: VITAL SIGNS: Reviewed. GENERAL: Well-developed in no acute distress. HEENT: NG to LIS. No sclera icterus. Extraocular movements grossly intact. Moist buccal mucosa. Head is atraumatic, normocephalic. ABDOMEN: Soft. Nondistended. Nontender. Positive bowel sounds x 4 quadrants. NEUROLOGIC: Alert and oriented. Cranial nerves II through XII grossly intact. ASSESSMENT: 1. Small bowel obstruction PLAN: Case discussed with Dr. Peraza. Will repeat abdominal films this morning. Continue NPO. Continue NG tube Further recommendations pending XR results Nurse practitioner note has been reviewed by physician. Signing provider agrees with the documented findings, assessment, and plan of care. Objective - Vital Signs Vital signs: Vital Signs Temp 97.9 F 11/16/18 07:20 Pulse 75 11/16/18 07:20 Resp 15 11/16/18 07:40 BP 155/80 11/16/18 07:20 Pulse Ox 96 11/16/18 07:20 Intake & Output 11/15/18 11/16/18 11/16/18 18:59 06:59 18:59 Intake Total 150 1000 Output Total 1000 200 Balance -850 800 Weight 81.647 kg Intake: Intake, IV Titration 1000 Amount Sodium Chloride 0.9% 1, 1000 000 ml @ 100 mls/hr IV . Q10H [facility] Rx#:[id number] Oral 150 Output: Gastric Drainage 1000 200 Stool 0 Emesis 0 Other: Voiding Method Toilet Toilet # Voids 3 2 # Bowel Movements 1 1 - Labs CBC & Chem 7: 11/16/18 07:27 11/16/18 07:27 Labs: Abnormal Lab Results - Last 24 Hours (Table) 11/15/18 11/15/18 11/16/18 Range/Units 17:04 20:45 07:27 Lymphocytes # 0.5 L (1.0-4.8) k/uL Potassium (3.5-5.1) mmol/L Carbon Dioxide (22-30) mmol/L Glucose (74-99) mg/dL POC Glucose (mg/dL) 102 H 105 H (75-99) mg/dL 11/16/18 Range/Units 07:27 Lymphocytes # (1.0-4.8) k/uL Potassium 3.4 L (3.5-5.1) mmol/L Carbon Dioxide 21 L (22-30) mmol/L Glucose 64 L (74-99) mg/dL POC Glucose (mg/dL) (75-99) mg/dL <Tramaine Peraza - Last Filed: 11/16/18 17:38> Subjective As above. X-rays from today showed the nasogastric tube was not quite far enough in. She is having good bowel function currently. We'll order small bowel series for tomorrow. Objective - Vital Signs Vital signs: Vital Signs Temp 98.2 F 11/16/18 14:46 Pulse 91 11/16/18 14:46 Resp 14 11/16/18 14:46 BP 146/84 11/16/18 14:46 Pulse Ox 98 11/16/18 14:46 Intake & Output 11/15/18 11/16/18 11/16/18 18:59 06:59 18:59 Intake Total 150 1000 Output Total 1000 200 Balance -850 800 Weight 81.647 kg Intake: Intake, IV Titration 1000 Amount Sodium Chloride 0.9% 1, 1000 000 ml @ 100 mls/hr IV . Q10H [facility] Rx#:[id number] Oral 150 Output: Gastric Drainage 1000 200 Stool 0 Emesis 0 Other: Voiding Method Toilet Toilet # Voids 3 2 # Bowel Movements 1 1 - Labs CBC & Chem 7: 11/16/18 07:27 11/16/18 07:27 Labs: Abnormal Lab Results - Last 24 Hours (Table) 11/15/18 11/16/18 11/16/18 Range/Units 20:45 07:27 07:27 Lymphocytes # 0.5 L (1.0-4.8) k/uL Potassium 3.4 L (3.5-5.1) mmol/L Carbon Dioxide 21 L (22-30) mmol/L Glucose 64 L (74-99) mg/dL POC Glucose (mg/dL) 105 H (75-99) mg/dL 11/16/18 Range/Units 16:51 Lymphocytes # (1.0-4.8) k/uL Potassium (3.5-5.1) mmol/L Carbon Dioxide (22-30) mmol/L Glucose (74-99) mg/dL POC Glucose (mg/dL) 105 H (75-99) mg/dL
--- NOTE | 2018-11-16 11:37 | XR ---
2 view abdomen HISTORY: Small bowel obstruction 2 views the abdomen on 3 images correlated to prior exam 11/14/2018 There has been interval repositioning of the NG tube which is present within the distal esophagus. Zuleima ng bases are clear. There are air-fluid levels, bowel distention may be somewhat improved in the inte rval, some distended loops again noted in the left hemiabdomen. Surgical clips again noted in the rig ht upper quadrant. Some calcifications are noted about the hips. Degenerative disc changes in the vis ualized spine. IMPRESSION: There may be some improvement in small bowel distention in the interval. NG tube tip in t he distal esophagus. Results relayed to Mino telephonically at the time of interpretation at exam on 4 S.
[2018-11-16 12:01] LABS: Glucose,Whole Blood 94 mg/dL (75-99)
[2018-11-16 16:53] LABS: Glucose,Whole Blood 105 mg/dL (75-99)
[2018-11-16] MEDS ORDERED: ACETAMINOPHEN IV (For NPO) 1,000 MG in EMPTY BAG 1 BAG IVPB PRN (17:22)
[2018-11-16] MEDS ORDERED: Potassium Replacement Protocol 1 EACH MISC MISCELLANE PRN (19:24)
[2018-11-16 19:56] VITALS: RESP 16
[2018-11-16 20:30] LABS: Glucose,Whole Blood 102 mg/dL (75-99)
--- NOTE | 2018-11-16 21:50 | PN ---
PROGRESS NOTE DATE OF SERVICE: 11/16/2018 This 63-year-old woman who was admitted with abdominal pains with possible small-bowel obstruction is being closely monitored at this time. Dr. Peraza is following the patient closely. Patient still has NG tube. No chest pain. No palpitations. No fever. Plain x-ray of the abdomen was done today which showed some improvement. No chest pain. No palpitations. No fever. EXAM: Alert and oriented x3. Pulse is 91, blood pressure 140/84, respiratory rate 16, temperature 98.2, pulse ox 98% on room air. HEENT: Conjunctivae normal. NECK: No jugular venous distention. CARDIOVASCULAR: S1, S2 muffled. RESPIRATORY: Breath sounds diminished in the bases. No rhonchi. No crackles. ABDOMEN is soft, nontender. No mass palpable. LEGS are no edema, no swelling. CENTRAL NERVOUS SYSTEM: No focal deficits. LABORATORY DATA: CBC within normal limits. Potassium 3.4. Other labs noted. ASSESSMENT: 1. Abdominal pain with possible small-bowel obstruction on conservative line of treatment NG tube, improving. 2. History of exploratory laparotomy with extensive lysis of adhesions for small-bowel obstruction secondary to internal hernia as well as adhesions recently. 3. History of diabetes type 2. 4. History of deep vein thrombosis. 5. History of gastroesophageal reflux disease. 6. Hyperlipidemia. 7. History of chronic kidney disease stage III. 8. Colitis history. 9. History of cholecystectomy. 10.History of hernia repair, history of renal transplant on the left 14 years ago. 11.History of anxiety and depression. 12.Remote history of nicotine dependence. RECOMMENDATIONS AND DISCUSSION: Recommend to continue current medications and monitoring and symptomatic treatment. Otherwise, recommend to monitor closely. We will continue to monitor. Guarded prognosis. Further recommendations to follow. See orders for details. MMODL / IJN: [id number] /
[2018-11-16] MEDS: 0.9% NACL WITH KCL 40 MEQ/L 1,000 ML IV SCH (22:34)
[2018-11-17] MEDS: 0.9% NACL WITH KCL 40 MEQ/L 1,000 ML IV SCH (04:38)
[2018-11-17 09:33] LABS: Basophils % (A) 1 %; Eosinophils # (A) 0.2 k/uL (0-0.7); Eosinophils % (A) 4 %; HCT 40.1 % (34.0-46.0); Lymphocytes # (A) 0.7 k/uL (1.0-4.8); Lymphocytes % (A) 13 %; MCH 29.8 pg (25.0-35.0); MCHC 32.4 g/dL (31.0-37.0); MCV 92.1 fL (80.0-100.0); Mean Platelet Volume 7.5; Monocytes # (A) 0.5 k/uL (0-1.0); Monocytes % (A) 9 %; Neutrophils # (A) 3.5 k/uL (1.3-7.7); Neutrophils % (A) 71 %; Platelet Count 296 k/uL (150-450); RBC 4.35 m/uL (3.80-5.40); RDW 15.2 % (11.5-15.5); WBC 4.9 k/uL (3.8-10.6)
[2018-11-17 10:00] LABS: Anion Gap 13 mmol/L; Blood Urea Nitrogen 8 mg/dL (7-17); Calcium 9.7 mg/dL (8.4-10.2); Carbon Dioxide 18 mmol/L (22-30); Chloride 110 mmol/L (98-107); Glucose 81 mg/dL (74-99); Potassium 3.9 mmol/L (3.5-5.1); Sodium 141 mmol/L (137-145)
--- NOTE | 2018-11-17 11:10 | FL ---
EXAMINATION TYPE: FL small bowel follow through DATE OF EXAM: 11/17/2018 CLINICAL HISTORY: 63-year-old female evaluate degree of small bowel obstruction. TECHNIQUE: A single contrast small bowel follow through is performed utilizing barium. Total fluoroscopy time: 59 seconds. Total images: 22. COMPARISON: 11/16/2018 and 11/14/2018 FINDINGS: Staffing Rec[employer]iter image of the abdomen shows air within the transverse colon. NG tube is present and there are ch olecystectomy clips. 16 ounces of thin barium was administered through the patient's NG tube. Small bowel study shows norm al transit to the colon in less than 1 hour 30 minutes. There is a normal mucosal fold pattern throu ghout the small bowel. A few dilated left and mid abdominal small bowel loops remain measuring up to 4.5 cm. This is in comp arison to 5.0 cm on 11/16/2018 and 5.5 cm on 11/14/2018. Small bowel loops in the right side of the abd omen remain relatively collapsed. There is no obvious stricture or filling defect noted. The terminal ileum is spotted but there is ex cessive bowel overlap limiting adequate visualization. IMPRESSION: 1. Findings suggest interval improvement/resolution of small bowel obstruction. Small bowel transit t hugo of 1 hour 30 minutes is normal. 2. There are some residual distended small bowel loops in the mid and left side of the abdomen. These measure up to 4.5 cm versus 5.0 and 5.5 cm on 11/16/2018 and 11/14/2018, respectively. Some residual d ilatation as a sequela of the patient's recent small bowel obstruction is the likely etiology.
[2018-11-17 11:14] VITALS: BP 145/90; PULSE 81; TEMP 97.4
[2018-11-17] MEDS: FUROSEMIDE 40 MG TAB PO SCH (11:15)
[2018-11-17] MEDS: ENOXAPARIN 40 MG/0.4 ML SYRINGE SQ SCH (11:15)
[2018-11-17] MEDS: SPIRONOLACTONE 25 MG TAB PO SCH (11:15)
[2018-11-17] MEDS: SIROLIMUS 1 MG PO SCH (11:15)
[2018-11-17] MEDS: MYCOPHENOLATE MOFETIL 500 MG TAB PO SCH (11:16)
[2018-11-17] MEDS: sulfaSALAzine 500 MG TAB PO SCH (11:16)
[2018-11-17] MEDS: PANTOPRAZOLE 40 MG/10 ML VIAL IVP SCH (11:16)
[2018-11-17 11:23] LABS: Glucose,Whole Blood 94 mg/dL (75-99)
--- NOTE | 2018-11-17 13:51 | P.PN ---
<Ping Martinez Dilma - Last Filed: 11/17/18 13:48> Subjective Progress Note Date: 11/17/18 CHIEF COMPLAINT: Small bowel obstruction HISTORY OF PRESENT ILLNESS: Patient seen and examined at the bedside. Patient denies abdominal pain. Denies nausea. Reports passing flatus and having bowel movements. Upper GI completed this morning with findings chest pain interval improvement/resolution of small bowel obstruction. Small bowel transit time of 1 hour 30 minutes is normal. WBC 4.9. Hemoglobin 13.0. PHYSICAL EXAM: VITAL SIGNS: Reviewed. GENERAL: Well-developed in no acute distress. HEENT: NG to LIS. No sclera icterus. Extraocular movements grossly intact. Moist buccal mucosa. Head is atraumatic, normocephalic. ABDOMEN: Soft. Nondistended. Nontender. Positive bowel sounds x 4 quadrants. NEUROLOGIC: Alert and oriented. Cranial nerves II through XII grossly intact. ASSESSMENT: 1. Small bowel obstruction, resolved PLAN: Discontinue NG Begin clears If patient tolerates, she may be discharged home today. Patient instructed to follow FULL LIQUID DIET FOR FIVE DAYS. Patient verbalized understanding. Nurse practitioner note has been reviewed by physician. Signing provider agrees with the documented findings, assessment, and plan of care. Objective - Vital Signs Vital signs: Vital Signs Temp 97.4 F L 11/17/18 11:14 Pulse 81 11/17/18 11:14 Resp 16 11/17/18 11:14 BP 145/90 11/17/18 11:14 Pulse Ox 98 11/17/18 11:14 Intake & Output 11/16/18 11/17/18 11/17/18 18:59 06:59 18:59 Intake Total 250 Output Total 300 200 Balance -300 50 Weight 81.647 kg Intake: Intake, IV Titration 200 Amount 0.9% NaCl with KCl 40 Meq 100 /l 1,000 ml @ 100 mls/hr IV .Q10H [facility] Rx#: [id number] ACETAMINOPHEN IV (For NPO 100 ) 1,000 mg In Empty Bag 1 bag @ 400 mls/hr IVPB Q6HR PRN Rx#:[id number] Oral 50 Output: Gastric Drainage 300 200 Other: Voiding Method Toilet Toilet Bedside Commode # Voids 1 # Bowel Movements 2 - Labs CBC & Chem 7: 11/17/18 07:55 11/17/18 07:55 Labs: Abnormal Lab Results - Last 24 Hours (Table) 11/16/18 11/16/18 11/17/18 Range/Units 16:51 20:28 07:55 Lymphocytes # 0.7 L (1.0-4.8) k/uL Chloride (98-107) mmol/L Carbon Dioxide (22-30) mmol/L POC Glucose (mg/dL) 105 H 102 H (75-99) mg/dL 11/17/18 Range/Units 07:55 Lymphocytes # (1.0-4.8) k/uL Chloride 110 H (98-107) mmol/L Carbon Dioxide 18 L (22-30) mmol/L POC Glucose (mg/dL) (75-99) mg/dL <Tramaine Peraza - Last Filed: 11/17/18 18:52> Subjective As above. Patient did well overnight. Still having stools. Today's upper GI shows no definite obstruction. She is very anxious to go home. We'll gradually advanced liquid diet after discharge. Outpatient follow-up if symptoms recur. Objective - Vital Signs Vital signs: Vital Signs Temp 97.4 F L 11/17/18 11:14 Pulse 81 11/17/18 11:14 Resp 16 11/17/18 11:14 BP 145/90 11/17/18 11:14 Pulse Ox 98 11/17/18 11:14 Intake & Output 11/16/18 11/17/18 11/17/18 18:59 06:59 18:59 Intake Total 250 240 Output Total 300 200 Balance -300 50 240 Weight 81.647 kg Intake: Intake, IV Titration 200 Amount 0.9% NaCl with KCl 40 Meq 100 /l 1,000 ml @ 100 mls/hr IV .Q10H [facility] Rx#: [id number] ACETAMINOPHEN IV (For NPO 100 ) 1,000 mg In Empty Bag 1 bag @ 400 mls/hr IVPB Q6HR PRN Rx#:[id number] Oral 50 240 Output: Gastric Drainage 300 200 Other: Voiding Method Toilet Toilet Bedside Commode # Voids 1 2 # Bowel Movements 2 2 - Labs CBC & Chem 7: 11/17/18 07:55 11/17/18 07:55 Labs: Abnormal Lab Results - Last 24 Hours (Table) 11/16/18 11/17/18 11/17/18 Range/Units 20:28 07:55 07:55 Lymphocytes # 0.7 L (1.0-4.8) k/uL Chloride 110 H (98-107) mmol/L Carbon Dioxide 18 L (22-30) mmol/L POC Glucose (mg/dL) 102 H (75-99) mg/dL
--- NOTE | 2018-11-19 10:13 | DS ---
DISCHARGE SUMMARY DATE OF SERVICE: 11/17/2018 FINAL DIAGNOSES: 1. Abdominal pain with possible small bowel obstruction, improved with conservative line of treatment and NG tube. 2. History of exploratory laparotomy with extensive lysis of adhesions for small-bowel obstruction secondary to internal hernia as well as adhesions recently. 3. History of diabetes mellitus type 2. 4. History of deep vein thrombosis. 5. History of gastroesophageal reflux disease. 6. Hyperlipidemia. 7. History of chronic kidney disease stage III. 8. Colitis history. 9. History of cholecystectomy. 10.History of hernia repair. 11.History of renal transplant on the left 14 years ago. 12.History of anxiety, depression. 13.Remote history of nicotine dependence. DISCHARGE DISPOSITION: Patient will be discharged in a stable condition with guarded prognosis. HISTORY OF PRESENT ILLNESS: This is a 63-year-old woman with a past medical history of multiple medical problems was admitted with features of small-bowel obstruction. Surgery, Dr. Peraza and Dr. Ulrich saw the patient and the patient improved significantly. On exam, vitals are stable. CARDIOVASCULAR: S1, S2. ABDOMEN: Soft, nontender. NERVOUS SYSTEM: No focal deficits. Patient discharged in a guarded prognosis. Please note, the patient improved with the NG suction and consult antimanic status. DISCHARGE ADVICE: Diet is cardiac. Activity limited until followup. Follow up with Dr. Peraza as advised. MEDICATIONS ARE: 1. Azulfidine 1500 mg p.o. b.i.d. 2. CellCept 1000 mg p.o. b.i.d. 3. Cranberry 1000 mg p.o. daily. 4. Iron sulfate 320 mg p.o. b.i.d. 5. Lasix 40 mg p.o. daily. 6. Gemfibrozil 600 mg q.h.s. 7. Klor-Con 20 mEq p.o. q.h.s. and 30 mg q.a.m. 8. Omeprazole 20 mg p.o. daily. 9. Rapamune 5 mg p.o. daily. 10.Simvastatin 20 mg q.h.s. 11.Aldactone 25 mg p.o. daily. 12.Xanax 0.5 daily p.r.n. 13.Aspirin 81 mg p.o. daily. 14.Protonix 40 mg p.o. daily. 15.Tylenol 500 mg p.o. q.6 p.r.n. Once again, the patient will be discharged in a stable condition with guarded prognosis. MMBELIA / ALFAN: [id number] /
== END 2018-11-17 16:30 | disposition home or self-care (01) | DRG 389 ==
LOC: EC 15:26 → 4SSUR 17:50
PROVIDERS: ADMIT Hospitalist; ATTEND Hospitalist
PROC: 0D9670Z Drainage of Stomach with Drainage Device, Via Natural or Artificial Opening (ICD-10-PCS; principal; 2018-11-14)
DX: K56.699 Other intestinal obstruction unspecified as to partial versus complete obstruction (principal); Z94.0 Kidney transplant status; E11.22 Type 2 diabetes mellitus with diabetic chronic kidney disease; N18.3 Chronic kidney disease, stage 3 (moderate); E78.5 Hyperlipidemia, unspecified; F41.9 Anxiety disorder, unspecified; F32.9 Major depressive disorder, single episode, unspecified; K21.9 Gastro-esophageal reflux disease without esophagitis; Z79.82 Long term (current) use of aspirin; Z79.899 Other long term (current) drug therapy; Z86.718 Personal history of other venous thrombosis and embolism; Z87.891 Personal history of nicotine dependence; Z90.49 Acquired absence of other specified parts of digestive tract; Z88.8 Allergy status to other drugs, medicaments and biological substances; Z87.19 Personal history of other diseases of the digestive system; Z98.51 Tubal ligation status; Z82.49 Family history of ischemic heart disease and other diseases of the circulatory system
CPT/HCPCS: 36415; 74018; 74019; 74022; 74176; 74250; 80048; 80053; 81003; 82150; 83605; 83690; 85025; 87086; 93005; 96361; 96374; 96375; 99285

== ENCOUNTER → 2019-05-27 | Outpatient (CLI) | payer OTHER ==
--- NOTE | 2019-05-27 10:39 | BD ---
EXAMINATION TYPE: Axial Bone Density DATE OF EXAM: 05/27/2019 COMPARISON: 05.26.2013 CLINICAL HISTORY: 63 YR OLD FEMALE....ICD-10 CODE: M89.9 DISORDER OF BONE Height: 65 Weight: 189 FRAX RISK QUESTIONS: NOTHING ADDITIONAL TO NOTE RISK FACTORS HISTORY OF: Family History of Osteoporosis: NONE KNOWN Active: YES Diet low in dairy products/other sources of calcium: Postmenopausal woman: YES AT AGE 49...BCP FOR 10 YRS, HRT FOR 6 MOS....BOTH IN PAST NOTHING NOW Hyperparathyroidism: NO Adrenal Insufficiency: NO MEDICATIONS: Additional Medications: XANAX PRN, REFLEX MEDS, STATIN FOR CHOLESTEROL, ANTI REJECTION MEDS, VIT D Additional History: DIABETIC, DIET CONTROLED, KIDNEY TRANSPLANT, EXAM MEASUREMENTS: Bone mineral densitometry was performed using the [employer]. Bone mineral density as measured about the Lumbar spine is: ----- L1-L4(G/cm2): 1.658 T Score Values are as follows: ----- L1: 4.1 ----- L2: 3.8 ----- L3: 4.8 ----- L4: 3.2 ----- L1-L4: 4.0 Bone mineral density has: Increased 2.6% since study of: 05.26.2013 Bone mineral density about the R hip (g/cm2): 1.025 Bone mineral density about the L hip (g/cm2): 0.973 T Score values are as follows: -----R Neck: -0.2 -----L Neck: -0.3 -----R Total: 0.1 -----L Total: -0.3 Bone mineral density has: Decreased -10.3% since study of: 05.26.2013 FRAX%s: THERE IS A 6.6% CHANCE FOR A MAJOR OSTEOPOROTIC FX AND A 0.2% FOR HIP.....PROBABILITY FOR FX IN 10 YRS TIME IMPRESSION: No evidence for osteoporosis or osteopenia. NOTE: T-SCORE=SD OF THE YOUNG ADULT MEAN.
--- NOTE | 2019-05-31 09:38 | MM ---
Reason for exam: screening (asymptomatic). Last mammogram was performed 1 year and 8 months ago. History: Patient is postmenopausal. Took hormonal contraceptives for 10 years beginning at age 19. Took estrogen for 6 months beginning at age 49. Physical Findings: A clinical breast exam by your physician is recommended on an annual basis and results should be correlated with mammographic findings. MG 3D Screening Mammo W/Cad Bilateral CC and MLO view(s) were taken. Prior study comparison: October 09, 2017, bilateral MG screening mammo w CAD. April 16, 2016, right breast MG diagnostic mammo RT w CAD. The breast tissue is almost entirely fat. Stable benign calcifications in the left breast. There is no discrete abnormality. No significant changes when compared with prior studies. ASSESSMENT: Benign, BI-RAD 2 RECOMMENDATION: Routine screening mammogram of both breasts in 1 year.
== END | disposition home or self-care (01) ==
LOC: RADMAMWWP 09:34
PROVIDERS: ATTEND Obstetrics & Gynecology
DX: Z12.31 Encounter for screening mammogram for malignant neoplasm of breast (principal); M89.9 Disorder of bone, unspecified
CPT/HCPCS: 77063; 77067; 77080

== ENCOUNTER 2019-07-15 20:42 | Inpatient (IN) | payer OTHER ==
[2019-07-15] MEDS ORDERED: MORPHINE SULFATE 4 MG/ML SYRINGE IV STA (21:03)
[2019-07-15] MEDS ORDERED: ONDANSETRON 4 MG/2 ML VIAL IVP STA (21:03)
[2019-07-15] MEDS ORDERED: SODIUM CHLORIDE 0.9% 500 ML 500 ML IV STA (21:03)
--- NOTE | 2019-07-15 21:41 | ED ---
Abdominal Pain HPI - General Chief Complaint: Abdominal Pain Stated Complaint: Nausea Time Seen by Provider: 07/15/19 20:59 Source: patient Mode of arrival: ambulatory Limitations: no limitations - History of Present Illness Initial Comments: 63-year-old female patient presents to the emergency department today for evaluation of upper abdominal pain and nausea. Patient states she's had pain since this morning. Patient denies any episodes of vomiting but states she has been very nauseated.. States that she has been having normal bowel movements. She does report decreased gas today. Denies fever or chills. Denies any chest pain or shortness of breath. Denies any pain radiating through to her back. She does have history of bowel obstruction and multiple abdominal surgeries. She is concerned she may have another obstruction. Patient denies any recent rash, numbness, tingling, dizziness, weakness, hematuria, dysuria, urinary urgency, urinary frequency, headache, visual changes, or any other complaints. - Related Data Home Medications Medication Instructions Recorded Confirmed Cranberry Fruit Extract [Cranberry] 1,000 mg PO DAILY 08/03/15 11/13/18 Furosemide 40 mg PO DAILY 08/03/15 11/13/18 Gemfibrozil 600 mg PO HS 08/03/15 11/13/18 Mycophenolate Mofetil [Cellcept] 1,000 mg PO BID 08/03/15 11/13/18 Omeprazole 20 mg PO DAILY 08/03/15 11/13/18 Potassium Chloride [Klor-Con 10] 20 meq PO 08/03/15 11/13/18 Potassium Chloride [Klor-Con 10] 30 meq PO QA 08/03/15 11/13/18 Simvastatin 20 mg PO 08/03/15 11/13/18 Spironolactone 25 mg PO DAILY 08/03/15 11/13/18 Sirolimus [Rapamune] 5 mg PO DAILY 08/17/15 11/13/18 ALPRAZolam [Xanax] 0.25 mg PO DAILY PRN 09/06/18 11/13/18 Ferrous Sulfate [Feosol] 325 mg PO BID 09/06/18 11/13/18 sulfaSALAzine [Azulfidine] 1,500 mg PO BID 09/06/18 11/13/18 Previous Rx's Medication Instructions Recorded Aspirin 81 mg PO DAILY #0 08/31/15 Acetaminophen Tab [Tylenol Tab] 500 mg PO Q6H PRN #30 tablet 11/17/18 Pantoprazole Sodium [Protonix] 40 mg PO DAILY #30 tablet. 11/17/18 Allergies Allergy/AdvReac Type Severity Reaction Status Date / Time lisinopril Allergy Anaphylaxis Verified 07/15/19 20:57 Review of Systems ROS Statement: Those systems with pertinent positive or pertinent negative responses have been documented in the HPI. ROS Other: All systems not noted in ROS Statement are negative. Past Medical History Past Medical History: Diabetes Mellitus, Deep Vein Thrombosis (DVT), GERD/Reflux, Hyperlipidemia, Renal Disease Additional Past Medical History / Comment(s): COLITIS History of Any Multi-Drug Resistant Organisms: None Reported Past Surgical History: Cholecystectomy, Hernia Repair, Tubal Ligation Additional Past Surgical History / Comment(s): KIDNEY TRANSPLANT left 14 years ago. DIALYSIS PORT PLACEMENT AND REMOVAL Past Anesthesia/Blood Transfusion Reactions: No Reported Reaction Past Psychological History: Anxiety Smoking Status: Former smoker Past Alcohol Use History: Occasional Past Drug Use History: None Reported - Past Family History Mother Family Medical History: Myocardial Infarction (NM) Father Additional Family Medical History / Comment(s): UNK HEART PROBLEMS General Exam Limitations: no limitations General appearance: alert, in no apparent distress, other (Physical well- developed, well-nourished adult female patient in no acute distress. Vital signs upon presentation are temperature 98.1F, pulse 64, respirations 20, blood pressure 115/75, pulse ox 98% on room air.) Eye exam: Present: normal appearance, PERRL, EOMI. Absent: scleral icterus, conjunctival injection, periorbital swelling ENT exam: Present: normal exam, normal oropharynx, mucous membranes moist Respiratory exam: Present: normal lung sounds bilaterally. Absent: respiratory distress, wheezes, rales, rhonchi, stridor Cardiovascular Exam: Present: regular rate, normal rhythm, normal heart sounds. Absent: systolic murmur, diastolic murmur, rubs, gallop, clicks GI/Abdominal exam: Present: soft, tenderness (Upper abdominal), normal bowel sounds. Absent: distended, guarding, rebound, rigid Back exam: Present: normal inspection. Absent: CVA tenderness (R), CVA tenderness (L) Neurological exam: Present: alert, oriented X3, CN II-XII intact Psychiatric exam: Present: normal affect, normal mood Skin exam: Present: warm, dry, intact, normal color. Absent: rash Course Vital Signs 07/15/19 07/15/19 20:53 23:23 Temperature 98.1 F Pulse Rate 64 78 Respiratory 20 18 Rate Blood Pressure 115/75 112/74 O2 Sat by Pulse 98 95 Oximetry Medical Decision Making - Medical Decision Making 63-year-old female patient presents to the emergency department today for evaluation of upper abdominal pain and nausea. Physical examination did reveal mild upper abdominal tenderness. Labs reviewed and did reveal mildly elevated white blood cell count at 12,000. Remainder of labs are unremarkable. CT abdomen and pelvis was obtained due to patient's persistence of pain and history of obstruction. CT did show an incarcerated ventral hernia as a transition point was small bowel obstruction. Patient is not vomiting, we'll withhold NG tube at this time. She'll be nothing by mouth. We'll start antibiotics, plan is for surgery with Dr. Peraza tomorrow. - Lab Data Result diagrams: 07/15/19 21:30 07/15/19 21:30 Lab Results 07/15/19 07/15/19 07/15/19 Range/Units 21:30 21:30 21:30 WBC 12.4 H (3.8-10.6) k/uL RBC 5.23 (3.80-5.40) m/uL Hgb 15.7 (11.4-16.0) gm/dL Hct 46.5 H (34.0-46.0) % MCV 88.8 (80.0-100.0) fL MCH 30.1 (25.0-35.0) pg MCHC 33.9 (31.0-37.0) g/dL RDW 12.8 (11.5-15.5) % Plt Count 315 (150-450) k/uL Neutrophils % 86 % Lymphocytes % 6 % Monocytes % 5 % Eosinophils % 2 % Basophils % 1 % Neutrophils # 10.6 H (1.3-7.7) k/uL Lymphocytes # 0.7 L (1.0-4.8) k/uL Monocytes # 0.6 (0-1.0) k/uL Eosinophils # 0.2 (0-0.7) k/uL Basophils # 0.2 (0-0.2) k/uL Sodium 136 L (137-145) mmol/L Potassium 4.2 (3.5-5.1) mmol/L Chloride 97 L (98-107) mmol/L Carbon Dioxide 27 (22-30) mmol/L Anion Gap 12 mmol/L BUN 16 (7-17) mg/dL Creatinine 0.79 (0.52-1.04) mg/dL Est GFR (CKD-EPI)AfAm >90 (>60 ml/min/1.73 sqM) Est GFR (CKD-EPI)NonAf 80 (>60 ml/min/1.73 sqM) Glucose 187 H (74-99) mg/dL Calcium 10.7 H (8.4-10.2) mg/dL Total Bilirubin 0.8 (0.2-1.3) mg/dL AST 20 (14-36) U/L ALT 18 (4-34) U/L Alkaline Phosphatase 73 (38-126) U/L Troponin I <0.012 (0.000-0.034) ng/mL Total Protein 7.4 (6.3-8.2) g/dL Albumin 4.7 (3.5-5.0) g/dL Amylase 57 (30-110) U/L Lipase 105 (23-300) U/L Urine Color Urine Appearance (Clear) Urine pH (5.0-8.0) Ur Specific [place] (1.001-1.035) Urine Protein (Negative) Urine Glucose (UA) (Negative) Urine Ketones (Negative) Urine Blood (Negative) Urine Nitrite (Negative) Urine Bilirubin (Negative) Urine Urobilinogen (<2.0) mg/dL Ur Leukocyte Esterase (Negative) Urine RBC (0-5) /hpf Urine WBC (0-5) /hpf Ur Squamous Epith Cells (0-4) /hpf Hyaline Casts (0-2) /lpf Urine Mucus (None) /hpf 07/15/19 Range/Units 22:26 WBC (3.8-10.6) k/uL RBC (3.80-5.40) m/uL Hgb (11.4-16.0) gm/dL Hct (34.0-46.0) % MCV (80.0-100.0) fL MCH (25.0-35.0) pg MCHC (31.0-37.0) g/dL RDW (11.5-15.5) % Plt Count (150-450) k/uL Neutrophils % % Lymphocytes % % Monocytes % % Eosinophils % % Basophils % % Neutrophils # (1.3-7.7) k/uL Lymphocytes # (1.0-4.8) k/uL Monocytes # (0-1.0) k/uL Eosinophils # (0-0.7) k/uL Basophils # (0-0.2) k/uL Sodium (137-145) mmol/L Potassium (3.5-5.1) mmol/L Chloride (98-107) mmol/L Carbon Dioxide (22-30) mmol/L Anion Gap mmol/L BUN (7-17) mg/dL Creatinine (0.52-1.04) mg/dL Est GFR (CKD-EPI)AfAm (>60 ml/min/1.73 sqM) Est GFR (CKD-EPI)NonAf (>60 ml/min/1.73 sqM) Glucose (74-99) mg/dL Calcium (8.4-10.2) mg/dL Total Bilirubin (0.2-1.3) mg/dL AST (14-36) U/L ALT (4-34) U/L Alkaline Phosphatase (38-126) U/L Troponin I (0.000-0.034) ng/mL Total Protein (6.3-8.2) g/dL Albumin (3.5-5.0) g/dL Amylase (30-110) U/L Lipase (23-300) U/L Urine Color Dark Yellow Urine Appearance Clear (Clear) Urine pH 6.0 (5.0-8.0) Ur Specific [place] 1.025 (1.001-1.035) Urine Protein 3+ H (Negative) Urine Glucose (UA) Negative (Negative) Urine Ketones 2+ H (Negative) Urine Blood Negative (Negative) Urine Nitrite Negative (Negative) Urine Bilirubin Negative (Negative) Urine Urobilinogen <2.0 (<2.0) mg/dL Ur Leukocyte Esterase Trace H (Negative) Urine RBC 2 (0-5) /hpf Urine WBC 2 (0-5) /hpf Ur Squamous Epith Cells <1 (0-4) /hpf Hyaline Casts 6 H (0-2) /lpf Urine Mucus Rare H (None) /hpf - EKG Data -: EKG Interpreted by Me EKG Comments: EKG obtained at 2119 shows normal sinus rhythm with ventricular rate of 82, ME interval 118, QRS duration 90, QT 390, QTC 455. No evidence of ST elevation or depression. - Radiology Data Radiology results: report reviewed, image reviewed CT abdomen and pelvis without contrast was obtained. Report reviewed in its entirety. Impression by Dr. Preston shows incarcerated ventral hernia which is transition point of a mechanical small bowel obstruction. No free air. Incarcerated hernia is new compared to old exam. Patchy atelectasis at the lung bases unchanged. Two-view x-ray of the chest is obtained. Report was reviewed in its entirety. Impression by Dr. Mera Alvarado shows no acute process Disposition Clinical Impression: Small bowel obstruction, Incarcerated hernia Disposition: ADMITTED IP TO THIS [facility] Condition: Serious Referrals: Kody Laguna MD [Primary Care Provider] - 1-2 days Decision to Admit Reason: Admit from EC Decision Date: 07/16/19 Decision Time: 00:02
[2019-07-15 21:59] LABS: Basophils # (A) 0.2 k/uL (0-0.2); Basophils % (A) 1 %; Eosinophils # (A) 0.2 k/uL (0-0.7); Eosinophils % (A) 2 %; HCT 46.5 % (34.0-46.0); HGB 15.7 gm/dL (11.4-16.0); Lymphocytes # (A) 0.7 k/uL (1.0-4.8); Lymphocytes % (A) 6 %; MCH 30.1 pg (25.0-35.0); MCHC 33.9 g/dL (31.0-37.0); MCV 88.8 fL (80.0-100.0); Mean Platelet Volume 7.7; Monocytes # (A) 0.6 k/uL (0-1.0); Monocytes % (A) 5 %; Neutrophils # (A) 10.6 k/uL (1.3-7.7); Neutrophils % (A) 86 %; Platelet Count 315 k/uL (150-450); RBC 5.23 m/uL (3.80-5.40); RDW 12.8 % (11.5-15.5); WBC 12.4 k/uL (3.8-10.6)
--- NOTE | 2019-07-15 22:01 | XR ---
EXAMINATION: XR chest 2V DATE AND TIME: 07/15/2019 9:55 PM CLINICAL INDICATION: PHH; abdominal pain TECHNIQUE: AP and lateral COMPARISON: 08/25/2015 FINDINGS: The lungs are clear. The pleural spaces are negative. The cardiac silhouette is not enlarged. The remainder of the mediastinal silhouette is unremarkable. The skeletal structures and soft tissues are negative for acute findings. IMPRESSION: NO ACUTE PROCESS.
--- NOTE | 2019-07-15 22:03 | XR ---
EXAMINATION TYPE: XR KUB supine 2 views DATE OF EXAM: 07/15/2019 9:55 PM CLINICAL HISTORY: Pain TECHNIQUE: Single supine KUB image of the abdomen is obtained. COMPARISON: 11/17/2018 FINDINGS: Scattered gas is seen in non-distended small bowel loops. Gas and fecal material is seen in non-distended colon. No definite acute skeletal or soft tissue findings. Visualized lung bases and pleural spaces are negative. IMPRESSION: NO ACUTE RADIOGRAPHIC PROCESS.
[2019-07-15 22:12] LABS: ALT 18 U/L (4-34); AST 20 U/L (14-36); African American GFR (CKD) >90 (>60 ml/min/1.73 sqM); Albumin 4.7 g/dL (3.5-5.0); Alkaline Phosphatase 73 U/L (38-126); Amylase 57 U/L (30-110); Anion Gap 12 mmol/L; Blood Urea Nitrogen 16 mg/dL (7-17); Calcium 10.7 mg/dL (8.4-10.2); Carbon Dioxide 27 mmol/L (22-30); Chloride 97 mmol/L (98-107); Glucose 187 mg/dL (74-99); Non-African American GFR(CKD) 80 (>60 ml/min/1.73 sqM); Potassium 4.2 mmol/L (3.5-5.1); Sodium 136 mmol/L (137-145); Total Bilirubin 0.8 mg/dL (0.2-1.3); Total Protein 7.4 g/dL (6.3-8.2)
[2019-07-15 22:44] LABS: Appearance,Urine Clear (Clear); Bilirubin,Urine Negative (Negative); Blood,Urine Negative (Negative); Color,Urine Dark Yellow; Glucose,Urine (UA) Negative (Negative); Hyaline Casts,Urine 6 /lpf (0-2); Ketones,Urine 2+ (Negative); Leukocyte Esterase,Urine Trace (Negative); Mucus,Urine Rare /hpf; Nitrite,Urine Negative (Negative); Protein,Urine 3+ (Negative); RBC,Urine 2 /hpf (0-5); Specific Gravity,Urine 1.025 (1.001-1.035); Squamous Epithelial Cell,Urine <1 /hpf (0-4); Urobilinogen,Urine <2.0 mg/dL (<2.0); WBC,Urine 2 /hpf (0-5)
[2019-07-15] MEDS ORDERED: HYDROmorphone 1 MG/ML 1 ML SYRINGE IVP STA (23:23)
--- NOTE | 2019-07-15 23:29 | CT ---
EXAMINATION TYPE: CT abdomen pelvis wo con DATE OF EXAM: 07/15/2019 COMPARISON: 11/14/2018 HISTORY: General Abdominal pain CT DLP: 774.2 mGycm Automated exposure control for dose reduction was used. There is mild subsegmental atelectasis at the lung bases. There is no pleural effusion or pneumothora x. There is no pericardial effusion. Liver appears intact. There are clips from cholecystectomy. Bile ducts are not dilated. Pancreas is i ntact. Spleen is intact. There is advanced renal atrophy. There are multiple dilated fluid-filled loo ps of small bowel in the abdomen. There is midline ventral hernia that contains loop of small bowel. There is apparent incarceration. The distal small bowel is not dilated. Small bowel is dilated up to 5 cm. There is no free air. There is no ascites. There is no mesenteric edema. Bladder distends smoothly. T here is transplant kidney in the pelvis on the left side without hydronephrosis. Lumbar vertebra have normal alignment. There is spurring of the endplates. There is no compression fracture. Bony pelvis is intact. There is narrowing of the lumbar disc spaces. Appendix appears normal. IMPRESSION: Incarcerated ventral hernia which is transition point of a mechanical small bowel obstruction. No odalis e air. Incarcerated hernia is new compared to old exam. Patchy atelectasis at the lung bases unchanged.
[2019-07-15] MEDS ORDERED: ONDANSETRON 4 MG/2 ML VIAL IVP PRN (23:53)
[2019-07-15] MEDS ORDERED: NALOXONE 0.4 MG/ML 1 ML VIAL IV PRN (23:53)
[2019-07-15] MEDS ORDERED: PIPERACILLIN-TAZOBACTAM 3.375 GM in SODIUM CHLORIDE 0.9% 100 ML IVPB STA (23:58)
[2019-07-16] MEDS: SODIUM CHLORIDE 0.9% 1,000 ML IV SCH ×4 (00:23→23:38)
[2019-07-16] MEDS: HYDROmorphone 1 MG/ML 1 ML SYRINGE IVP PRN ×4 (02:45→11:45)
[2019-07-16] MEDS: PIPERACILLIN-TAZOBACTAM 3.375 GM in SODIUM CHLORIDE 0.9% 100 ML IVPB SCH ×3 (07:58→23:55)
[2019-07-16 08:07] LABS: Basophils # (A) 0.1 k/uL (0-0.2); Basophils % (A) 1 %; Eosinophils # (A) 0.2 k/uL (0-0.7); Eosinophils % (A) 2 %; HCT 46.7 % (34.0-46.0); HGB 15.8 gm/dL (11.4-16.0); Lymphocytes # (A) 0.7 k/uL (1.0-4.8); Lymphocytes % (A) 5 %; MCH 30.9 pg (25.0-35.0); MCHC 33.8 g/dL (31.0-37.0); MCV 91.4 fL (80.0-100.0); Monocytes # (A) 0.6 k/uL (0-1.0); Monocytes % (A) 4 %; Neutrophils # (A) 12.3 k/uL (1.3-7.7); Neutrophils % (A) 88 %; Platelet Count 334 k/uL (150-450); RBC 5.11 m/uL (3.80-5.40); RDW 12.7 % (11.5-15.5)
[2019-07-16 08:13] LABS: Albumin 4.7 g/dL (3.5-5.0); Calcium 10.6 mg/dL (8.4-10.2); Total Bilirubin 0.9 mg/dL (0.2-1.3); Total Protein 7.6 g/dL (6.3-8.2)
[2019-07-16] MEDS ORDERED: ONDANSETRON 4 MG/2 ML VIAL IVP PRN (08:41)
--- NOTE | 2019-07-16 08:42 | P.GSHP ---
<Ping Martinez A - Last Filed: 07/16/19 08:40> History of Present Illness H&P Date: 07/16/19 Chief Complaint: abdominal pain CHIEF COMPLAINT: abdominal pain HISTORY OF PRESENT ILLNESS: 63-year-old female who presented to the emergency room a chief complaint abdominal pain. Patient reports she began having abdominal pain yesterday. She reports nausea during the day. When she came to the emergency room she states she began having episodes of bilious emesis. She also reports 2 episodes of emesis this morning. She reports she has been passing flatus and having normal bowel movements at home. Denies fever or chills. PAST MEDICAL HISTORY: See list. PAST SURGICAL HISTORY: See list. SOCIAL HISTORY: No illicit drug use. REVIEW OF SYSTEMS: CONSTITUTIONAL: Denies fever or chills. HEENT: Denies blurred vision, vision changes, or eye pain. Denies hemoptysis CARDIOVASCULAR: Denies chest pain or pressure. RESPIRATORY: No shortness of breath. GASTROINTESTINAL: Refer to HPI for pertinent findings HEMATOLOGIC: Denies bleeding disorders. GENITOURINARY: Denies any blood in urine. SKIN: Denies pruitis. Denies rash. PHYSICAL EXAM: VITAL SIGNS: Reviewed. GENERAL: Well-developed in no acute distress. Does appear mildly uncomfortable due to pain. HEENT: No sclera icterus. Extraocular movements grossly intact. Moist buccal mucosa. Head is atraumatic, normocephalic. ABDOMEN: Soft. Nondistended. Old midline incision. Tenderness with palpation. NEUROLOGIC: Alert and oriented. Cranial nerves II through XII grossly intact. LABORATORY DATA: WBC 14.0. Hemoglobin 15.8. Platelet count 334. Sodium 139. Potassium 4.0. BUN 20. Creatinine 0.94. Lactic acid 1.5. IMAGING: CT abdomen and pelvis: Incarcerated ventral hernia which is transition point of a mechanical small bowel obstruction. No free air. Small bowel dilated up to 5 cm. ASSESSMENT: 1. Abdominal pain 2. Small bowel obstruction secondary to incarcerated hernia 3. History of small bowel obstructions 4. History of exploratory laparotomy with lysis of adhesions secondary to small bowel obstruction secondary to internal hernia/adhesions, September 2018 5. History of cholecystectomy PLAN: NPO. Continue IV fluids at 100cc/hr Monitor WBC. Continue IV Zosyn GI/DVT prophylaxis Continue antiemetics. Increase Zofran to every 6 hours as needed Pain control. Continue IV Dilaudid as needed Consult Dr. Figueroa for medical management Patient scheduled for exploratory laparotomy, possible bowel resection, and repair of recurrent incisional hernia today with Dr. Peraza Nurse practitioner note has been reviewed by physician. Signing provider agrees with the documented findings, assessment, and plan of care. 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 History of Any Multi-Drug Resistant Organisms: None Reported Past Surgical History: Cholecystectomy, Hernia Repair, Tubal Ligation Additional Past Surgical History / Comment(s): KIDNEY TRANSPLANT left 15 years ago. DIALYSIS PORT PLACEMENT AND REMOVAL Past Anesthesia/Blood Transfusion Reactions: No Reported Reaction Past Psychological History: Anxiety Smoking Status: Former smoker Past Alcohol Use History: Occasional Past Drug Use History: None Reported - Past Family History Mother Family Medical History: Myocardial Infarction ([place]) Father Additional Family Medical History / Comment(s): UNK HEART PROBLEMS Medications and Allergies Home Medications Medication Instructions Recorded Confirmed Type Cranberry Fruit Extract [Cranberry] 1,000 mg PO DAILY 08/03/15 11/13/18 History Furosemide 40 mg PO DAILY 08/03/15 11/13/18 History Gemfibrozil 600 mg PO HS 08/03/15 11/13/18 History Mycophenolate Mofetil [Cellcept] 1,000 mg PO BID 08/03/15 11/13/18 History Omeprazole 20 mg PO DAILY 08/03/15 11/13/18 History Potassium Chloride [Klor-Con 10] 20 meq PO HS 08/03/15 11/13/18 History Potassium Chloride [Klor-Con 10] 30 meq PO QA 08/03/15 11/13/18 History Simvastatin 20 mg PO HS 08/03/15 11/13/18 History Spironolactone 25 mg PO DAILY 08/03/15 11/13/18 History Sirolimus [Rapamune] 5 mg PO DAILY 08/17/15 11/13/18 History Aspirin 81 mg PO DAILY #0 08/31/15 11/13/18 Rx ALPRAZolam [Xanax] 0.25 mg PO DAILY PRN 09/06/18 11/13/18 History Ferrous Sulfate [Feosol] 325 mg PO BID 09/06/18 11/13/18 History sulfaSALAzine [Azulfidine] 1,500 mg PO BID 09/06/18 11/13/18 History Acetaminophen Tab [Tylenol Tab] 500 mg PO Q6H PRN #30 tablet 11/17/18 Rx Pantoprazole Sodium [Protonix] 40 mg PO DAILY #30 tablet. 11/17/18 Rx Allergies Allergy/AdvReac Type Severity Reaction Status Date / Time lisinopril Allergy Anaphylaxis Verified 07/15/19 20:57 Surgical - Exam Vital Signs Temp Pulse Resp BP Pulse Ox 98.1 F 64 20 115/75 98 07/15/19 20:53 07/15/19 20:53 07/15/19 20:53 07/15/19 20:53 07/15/19 20:53 Results - Labs 07/16/19 07:15 07/16/19 07:15 Abnormal Lab Results - Last 24 Hours (Table) 07/15/19 07/15/19 07/15/19 Range/Units 21:30 21:30 22:26 WBC 12.4 H (3.8-10.6) k/uL Hct 46.5 H (34.0-46.0) % Neutrophils # 10.6 H (1.3-7.7) k/uL Lymphocytes # 0.7 L (1.0-4.8) k/uL Sodium 136 L (137-145) mmol/L Chloride 97 L (98-107) mmol/L BUN (7-17) mg/dL Glucose 187 H (74-99) mg/dL Calcium 10.7 H (8.4-10.2) mg/dL Urine Protein 3+ H (Negative) Urine Ketones 2+ H (Negative) Ur Leukocyte Esterase Trace H (Negative) Hyaline Casts 6 H (0-2) /lpf Urine Mucus Rare H (None) /hpf 07/16/19 07/16/19 Range/Units 07:15 07:15 WBC 14.0 H (3.8-10.6) k/uL Hct 46.7 H (34.0-46.0) % Neutrophils # 12.3 H (1.3-7.7) k/uL Lymphocytes # 0.7 L (1.0-4.8) k/uL Sodium (137-145) mmol/L Chloride 97 L (98-107) mmol/L BUN 20 H (7-17) mg/dL Glucose 176 H (74-99) mg/dL Calcium 10.6 H (8.4-10.2) mg/dL Urine Protein (Negative) Urine Ketones (Negative) Ur Leukocyte Esterase (Negative) Hyaline Casts (0-2) /lpf Urine Mucus (None) /hpf Diabetes panel 07/15/19 07/16/19 Range/Units 21:30 07:15 Sodium 136 L 139 (137-145) mmol/L Potassium 4.2 4.0 (3.5-5.1) mmol/L Chloride 97 L 97 L (98-107) mmol/L Carbon Dioxide 27 26 (22-30) mmol/L BUN 16 20 H (7-17) mg/dL Creatinine 0.79 0.94 (0.52-1.04) mg/dL Glucose 187 H 176 H (74-99) mg/dL Calcium 10.7 H 10.6 H (8.4-10.2) mg/dL AST 20 21 (14-36) U/L ALT 18 18 (4-34) U/L Alkaline Phosphatase 73 69 (38-126) U/L Total Protein 7.4 7.6 (6.3-8.2) g/dL Albumin 4.7 4.7 (3.5-5.0) g/dL Calcium panel 07/15/19 07/16/19 Range/Units 21:30 07:15 Calcium 10.7 H 10.6 H (8.4-10.2) mg/dL Albumin 4.7 4.7 (3.5-5.0) g/dL Pituitary panel 07/15/19 07/16/19 Range/Units 21:30 07:15 Sodium 136 L 139 (137-145) mmol/L Potassium 4.2 4.0 (3.5-5.1) mmol/L Chloride 97 L 97 L (98-107) mmol/L Carbon Dioxide 27 26 (22-30) mmol/L BUN 16 20 H (7-17) mg/dL Creatinine 0.79 0.94 (0.52-1.04) mg/dL Glucose 187 H 176 H (74-99) mg/dL Calcium 10.7 H 10.6 H (8.4-10.2) mg/dL Adrenal panel 07/15/19 07/16/19 Range/Units 21:30 07:15 Sodium 136 L 139 (137-145) mmol/L Potassium 4.2 4.0 (3.5-5.1) mmol/L Chloride 97 L 97 L (98-107) mmol/L Carbon Dioxide 27 26 (22-30) mmol/L BUN 16 20 H (7-17) mg/dL Creatinine 0.79 0.94 (0.52-1.04) mg/dL Glucose 187 H 176 H (74-99) mg/dL Calcium 10.7 H 10.6 H (8.4-10.2) mg/dL Total Bilirubin 0.8 0.9 (0.2-1.3) mg/dL AST 20 21 (14-36) U/L ALT 18 18 (4-34) U/L Alkaline Phosphatase 73 69 (38-126) U/L Total Protein 7.4 7.6 (6.3-8.2) g/dL Albumin 4.7 4.7 (3.5-5.0) g/dL <Tramaine Peraza - Last Filed: 07/16/19 08:58> History of Present Illness As above. Patient known or history from previous ventral hernia repair. A subfascial mesh was placed at that time. Patient then unfortunately had a bowel obstruction from internal hernia last September. The mesh was divided sharply and the bowel obstruction was corrected. She said about a month or 2 ago she noticed a bulge upper midabdomen. CAT scan now showing incarcerated incisional recurrent hernia containing a small bowel loop as the source of the obstruction. Clinical scenario discussed in detail with the patient. We'll proceed with exploratory laparotomy with possible bowel resection and repair recurrent incisional hernia at this time. Risks of bleeding, infection, recurrence, bladder and bowel injury, numbness, nerve injury, leak, abscess were discussed with the patient. The patient understands and wishes to proceed. Surgical - Exam Vital Signs Temp Pulse Resp BP Pulse Ox 98.1 F 64 20 115/75 98 07/15/19 20:53 07/15/19 20:53 07/15/19 20:53 07/15/19 20:53 07/15/19 20:53 Results - Labs 07/16/19 07:15 07/16/19 07:15 Abnormal Lab Results - Last 24 Hours (Table) 07/15/19 07/15/19 07/15/19 Range/Units 21:30 21:30 22:26 WBC 12.4 H (3.8-10.6) k/uL Hct 46.5 H (34.0-46.0) % Neutrophils # 10.6 H (1.3-7.7) k/uL Lymphocytes # 0.7 L (1.0-4.8) k/uL Sodium 136 L (137-145) mmol/L Chloride 97 L (98-107) mmol/L BUN (7-17) mg/dL Glucose 187 H (74-99) mg/dL Calcium 10.7 H (8.4-10.2) mg/dL Urine Protein 3+ H (Negative) Urine Ketones 2+ H (Negative) Ur Leukocyte Esterase Trace H (Negative) Hyaline Casts 6 H (0-2) /lpf Urine Mucus Rare H (None) /hpf 07/16/19 07/16/19 Range/Units 07:15 07:15 WBC 14.0 H (3.8-10.6) k/uL Hct 46.7 H (34.0-46.0) % Neutrophils # 12.3 H (1.3-7.7) k/uL Lymphocytes # 0.7 L (1.0-4.8) k/uL Sodium (137-145) mmol/L Chloride 97 L (98-107) mmol/L BUN 20 H (7-17) mg/dL Glucose 176 H (74-99) mg/dL Calcium 10.6 H (8.4-10.2) mg/dL Urine Protein (Negative) Urine Ketones (Negative) Ur Leukocyte Esterase (Negative) Hyaline Casts (0-2) /lpf Urine Mucus (None) /hpf Diabetes panel 07/15/19 07/16/19 Range/Units 21:30 07:15 Sodium 136 L 139 (137-145) mmol/L Potassium 4.2 4.0 (3.5-5.1) mmol/L Chloride 97 L 97 L (98-107) mmol/L Carbon Dioxide 27 26 (22-30) mmol/L BUN 16 20 H (7-17) mg/dL Creatinine 0.79 0.94 (0.52-1.04) mg/dL Glucose 187 H 176 H (74-99) mg/dL Calcium 10.7 H 10.6 H (8.4-10.2) mg/dL AST 20 21 (14-36) U/L ALT 18 18 (4-34) U/L Alkaline Phosphatase 73 69 (38-126) U/L Total Protein 7.4 7.6 (6.3-8.2) g/dL Albumin 4.7 4.7 (3.5-5.0) g/dL Calcium panel 07/15/19 07/16/19 Range/Units 21:30 07:15 Calcium 10.7 H 10.6 H (8.4-10.2) mg/dL Albumin 4.7 4.7 (3.5-5.0) g/dL Pituitary panel 07/15/19 07/16/19 Range/Units 21:30 07:15 Sodium 136 L 139 (137-145) mmol/L Potassium 4.2 4.0 (3.5-5.1) mmol/L Chloride 97 L 97 L (98-107) mmol/L Carbon Dioxide 27 26 (22-30) mmol/L BUN 16 20 H (7-17) mg/dL Creatinine 0.79 0.94 (0.52-1.04) mg/dL Glucose 187 H 176 H (74-99) mg/dL Calcium 10.7 H 10.6 H (8.4-10.2) mg/dL Adrenal panel 07/15/19 07/16/19 Range/Units 21:30 07:15 Sodium 136 L 139 (137-145) mmol/L Potassium 4.2 4.0 (3.5-5.1) mmol/L Chloride 97 L 97 L (98-107) mmol/L Carbon Dioxide 27 26 (22-30) mmol/L BUN 16 20 H (7-17) mg/dL Creatinine 0.79 0.94 (0.52-1.04) mg/dL Glucose 187 H 176 H (74-99) mg/dL Calcium 10.7 H 10.6 H (8.4-10.2) mg/dL Total Bilirubin 0.8 0.9 (0.2-1.3) mg/dL AST 20 21 (14-36) U/L ALT 18 18 (4-34) U/L Alkaline Phosphatase 73 69 (38-126) U/L Total Protein 7.4 7.6 (6.3-8.2) g/dL Albumin 4.7 4.7 (3.5-5.0) g/dL
[2019-07-16] MEDS: PANTOPRAZOLE 40 MG/10 ML VIAL IVP SCH (09:09)
[2019-07-16] MEDS ORDERED: IV FLUID CONTINUATION 1,000 ML IV ONE (12:29)
[2019-07-16] MEDS ORDERED: fentaNYL (PF) 50 MCG/ML 2 ML AMP IVP ONE (12:56)
[2019-07-16] MEDS ORDERED: MIDAZOLAM 2 MG/2 ML VIAL IVP ONE (12:56)
[2019-07-16] MEDS ORDERED: PROPOFOL 10 MG/ML 20 ML VIAL IV ONE (13:20)
[2019-07-16] MEDS ORDERED: fentaNYL (PF) 50 MCG/ML 2 ML AMP ONE (13:20)
[2019-07-16] MEDS ORDERED: MIDAZOLAM 2 MG/2 ML VIAL ONE (13:20)
[2019-07-16] MEDS ORDERED: ePHEDrine SULFATE/0.9% NACL/PF 50 MG/5 ML SYRINGE IV ONE (13:20)
[2019-07-16] MEDS ORDERED: PHENYLEPHRINE-0.9% NACL SYG 1 MG/10 ML SYRINGE ONE (13:20)
[2019-07-16] MEDS ORDERED: SUCCINYLCHOLINE CHLORIDE 100 MG/5 ML SYR IV ONE (13:20)
[2019-07-16] MEDS ORDERED: ROCURONIUM BROMIDE 10 MG/ML 5 ML VIAL IV ONE (13:20)
[2019-07-16] MEDS ORDERED: NEOSTIGMINE 1 MG/ML 10 ML VIAL ONE (13:20)
[2019-07-16] MEDS ORDERED: SODIUM CHLORIDE 0.9% 1,000 ML IV ONE (13:20)
[2019-07-16] MEDS ORDERED: GLYCOPYRROLATE 0.2 MG/ML 2 ML VIAL ONE (13:20)
[2019-07-16] MEDS ORDERED: LIDOCAINE 1% INJ 10MG/ML (20 ML MDV) ONE (13:20)
[2019-07-16] MEDS ORDERED: SODIUM CHLORIDE 0.9% 100 ML with ceFAZolin 2,000 MG IV ONE ×2 (14:03)
[2019-07-16] MEDS ORDERED: LACTATED RINGERS 1,000 ML IV ONE ×2 (14:36)
--- NOTE | 2019-07-16 15:25 | P.OP ---
Date of Procedure: 07/16/19 Procedure(s) Performed: PREOPERATIVE DIAGNOSIS: Small bowel obstruction, incarcerated recurrent incisional hernia POSTOPERATIVE DIAGNOSIS: Same PROCEDURE: Repair incarcerated incisional hernia recurrent, small bowel resection SURGEON: Karmen EBL: 20 Radha ANESTHESIA: Gen. anesthesia COMPLICATIONS: None OPERATIVE PROCEDURE: Patient placed in the operative table in a supine position. Nasogastric tube was placed preoperatively. Abdomen was prepped and draped sterilely. The upper midline incision was re-incised sharply. The subcutaneous tissues were divided using electrocautery. The patient's hernia sac was identified and dissected back to the fascia. The hernia sac was then excised. The patient had adhesions between the fascia and the small bowel. This was in the site of a previous subfascial mesh. The mesh was also adhesed here. There did appear to be a narrowing of the bowel where the hernia was located. With the dissection of the bowel away from the hernia sac and the fascia multiple small serosal tears were seen. This portion of bowel did not appear healthy at this point. Small bowel resection was felt to be indicated. The bowel proximal and distal was inspected for a long distance and appeared free of any site of obstruction. The bowel was divided proximal and distal to that disease segment using a linear 75 stapler. The mesentery was divided using a LigaSure device. Following that the antimesenteric portion of the staple line was removed the linear stapler was fired along the antimesenteric border of both portions of bowel. The remaining defect was closed using a TX 60 stapler. The TX 60 stapler and was indicated using interrupted 3-0 GI silk sutures. A 3-0 GI silk crotch stitch was placed. The abdomen was irrigated using saline. No bleeding was seen. I then reapproximated the fascia and the associated adherent mesh using interrupted [id number] 0 Ethibond sutures. The subcutaneous tissues were closed using 3-0 Vicryl sutures and the skin using franco. Sterile dressings were applied. DISPOSITION: Stable to recovery room
[2019-07-16] MEDS: ROPIVACAINE 250 MG, HYDROMORPHONE (PF) 5 MG in SODIUM CHLORIDE 0.9% 200 ML EPIDURAL PRN (15:43)
[2019-07-16] MEDS ORDERED: ACETAMINOPHEN IV (For NPO) 1,000 MG in EMPTY BAG 1 BAG IVPB ONE (16:00)
[2019-07-16] MEDS: HEPARIN SODIUM,PORCINE 5,000 UNIT/ML 1 ML VIAL SQ SCH (17:37)
[2019-07-16] MEDS ORDERED: SODIUM CHLORIDE 0.9% 500 ML 500 ML IV ONE (19:26)
[2019-07-16] MEDS ORDERED: ALPRAZolam 0.25 MG TAB PO PRN (23:37)
--- NOTE | 2019-07-16 23:39 | P.CONS ---
History of Present Illness - Reason for Consult Consult date: 07/16/19 Medical management Requesting physician: Tramaine Peraza - Chief Complaint Abdominal pain - History of Present Illness Consultation: This is a very pleasant [address]. [address] Laguna. Chronic stable medical condition includes diabetes, GERD, kidney stones, kidney transplant anxiety, and chronic ulcerative colitis. At her baseline patient has about 5-6 bowel movements a day. Patient presented with stuttering over progressive nausea yesterday. Her arrival patient did vomit twice. No fever no chills. Patient is of a computed tomography scan in the ER found to have incarcerated ventral hernia. Patient remains in significant pain. Patient did have multiple bowel m ovements yesterday. Admitted by Dr. Perdomo for the same patternto go down to the bone. Patient's pain is controlled with IV morphine. Review of systems: GEN.: Tired EYES: None HEENT: None NECK: None RESPIRATORY: None CARDIOVASCULAR: None GASTROINTESTINAL: [As above GENITOURINARY: None MUSCULOSKELETAL: None LYMPHATICS: None HEMATOLOGICAL: None PSYCHIATRY: Anxious NEUROLOGICAL: None Past medical history to include: Diabetes mellitus, DVT, GERD, kidney disease, ulcerative colitis, kidney trans plant Social history: Patient is present. Did smoke in the past. Alcohol occasionally. Physical examination: VITAL SIGNS: 98.1, 64, 20, 11 5/75, 98% room air GENERAL: BMI 29.8, laying in bed tired. EYES: Pupils equal. Conjunctiva normal. HEENT: External appearance of nose and ears normal, oral cavity dry. NECK: JVD not raised; masses not palpable. HEART: First and second heart sounds are normal; no edema. LUNGS: Respiratory rate normal; clear to auscultation. ABDOMEN: Soft, upper abdominal tenderness, no guarding or rigidity, bowel sounds present, liver spleen not palpable, no masses palpable. PSYCH: [Alert and oriented x3; mood and affect anxious. NEUROLOGICAL: Cranial nerves grossly intact; no facial asymmetry, power and sensation grossly intact. LYMPHATICS: No lymph nodes palpable in the axilla and neck INVESTIGATIONS, reviewed in the clinical context: White count 12.4 hemoglobin 13.7 potassium 4.2 creatinine 0.79 EKG tracing personally reviewed by me-normal sinus rhythm Chest x-ray film personally reviewed by me-borderline cardiomegaly, possible chronic changes on the lung boyd Computed tomography scan of the abdomen and pelvis without contrast-incarcerated ventral hernia which is transition point of a mechanical small bowel obstruction no free air Assessment: -Incarcerated ventral hernia with a transition point in the small bowel. Patient is currently nothing by mouth. Due to go down for surgery this afternoon. -Diabetes mellitus type 2 -GERD -Chronic ulcerative colitis to baseline. 5 bowel movements a day. -Anxiety not otherwise specified Plan: Patient is currently nothing by mouth. Getting IV fluids and pain medications. Patient is due to go down for surgery this afternoon. Accu-Cheks before. Care was discussed with the patient question were answered. Patient's immunosuppressant be resumed. Hold of diuretics for now. Thank you Dr. 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 History of Any Multi-Drug Resistant Organisms: None Reported Past Surgical History: Cholecystectomy, Hernia Repair, Tubal Ligation Additional Past Surgical History / Comment(s): KIDNEY TRANSPLANT left 15 years ago. DIALYSIS PORT PLACEMENT AND REMOVAL Past Anesthesia/Blood Transfusion Reactions: No Reported Reaction Past Psychological History: Anxiety Smoking Status: Former smoker Past Alcohol Use History: Occasional Past Drug Use History: None Reported - Past Family History Mother Family Medical History: Myocardial Infarction ([place]) Father Additional Family Medical History / Comment(s): UNK HEART PROBLEMS Medications and Allergies Home Medications Medication Instructions Recorded Confirmed Type Cranberry Fruit Extract [Cranberry] 1,000 mg PO DAILY 08/03/15 07/16/19 History Furosemide 80 mg PO DAILY 08/03/15 07/16/19 History Gemfibrozil 600 mg PO 08/03/15 07/16/19 History Mycophenolate Mofetil [Cellcept] 1,000 mg PO BID 08/03/15 07/16/19 History Omeprazole 20 mg PO DAILY 08/03/15 07/16/19 History Potassium Chloride [Klor-Con 10] 20 meq PO 08/03/15 07/16/19 History Potassium Chloride [Klor-Con 10] 30 meq PO [facility] 08/03/15 07/16/19 History Simvastatin 20 mg PO 08/03/15 07/16/19 History Spironolactone 25 mg PO DAILY 08/03/15 07/16/19 History Sirolimus [Rapamune] 5 mg PO DAILY 08/17/15 07/16/19 History Aspirin 81 mg PO DAILY #0 08/31/15 07/16/19 Rx ALPRAZolam [Xanax] 0.25 mg PO DAILY PRN 09/06/18 07/16/19 History Ferrous Sulfate [Feosol] 325 mg PO BID 09/06/18 07/16/19 History sulfaSALAzine [Azulfidine] 1,000 mg PO QID 09/06/18 07/16/19 History Acetaminophen Tab [Tylenol Tab] 500 mg PO Q6H PRN #30 tablet 11/17/18 07/16/19 Rx Ergocalciferol (Vitamin D2) 50,000 unit PO Q14D 07/16/19 07/16/19 History [Drisdol] Allergies Allergy/AdvReac Type Severity Reaction Status Date / Time lisinopril Allergy Anaphylaxis Verified 07/15/19 20:57 Physical Exam Vitals: Vital Signs Temp Pulse Pulse Resp BP BP Pulse Ox 07/16/19 07:00 98.4 F 87 16 142/88 96 07/16/19 00:59 98.5 F 67 16 115/76 95 07/15/19 23:23 78 18 112/74 95 07/15/19 20:53 98.1 F 64 20 115/75 98 Intake and Output 07/15/19 07/16/19 07/16/19 22:59 06:59 14:59 Intake Total 1060 Balance 1060 Intake: Intake, IV Titration 1060 Amount Piperacillin-Tazobactam 3 100 .375 gm In Sodium Chloride 0.9% 100 ml @ 25 mls/hr IVPB Q8H [facility] Rx#: [id number] Sodium Chloride 0.9% 1, 960 000 ml @ 80 mls/hr IV . [id number] [facility] Rx#:[id number] Oral 0 Other: Voiding Method Toilet # Voids 1 Weight 88.904 kg 88.904 kg Results CBC & Chem 7: 07/16/19 07:15 07/16/19 07:15 Labs: Abnormal Lab Results - Last 24 Hours (Table) 07/15/19 07/15/19 07/15/19 Range/Units 21:30 21:30 22:26 WBC 12.4 H (3.8-10.6) k/uL Hct 46.5 H (34.0-46.0) % Neutrophils # 10.6 H (1.3-7.7) k/uL Lymphocytes # 0.7 L (1.0-4.8) k/uL Sodium 136 L (137-145) mmol/L Chloride 97 L (98-107) mmol/L BUN (7-17) mg/dL Glucose 187 H (74-99) mg/dL Calcium 10.7 H (8.4-10.2) mg/dL Urine Protein 3+ H (Negative) Urine Ketones 2+ H (Negative) Ur Leukocyte Esterase Trace H (Negative) Hyaline Casts 6 H (0-2) /lpf Urine Mucus Rare H (None) /hpf 07/16/19 07/16/19 Range/Units 07:15 07:15 WBC 14.0 H (3.8-10.6) k/uL Hct 46.7 H (34.0-46.0) % Neutrophils # 12.3 H (1.3-7.7) k/uL Lymphocytes # 0.7 L (1.0-4.8) k/uL Sodium (137-145) mmol/L Chloride 97 L (98-107) mmol/L BUN 20 H (7-17) mg/dL Glucose 176 H (74-99) mg/dL Calcium 10.6 H (8.4-10.2) mg/dL Urine Protein (Negative) Urine Ketones (Negative) Ur Leukocyte Esterase (Negative) Hyaline Casts (0-2) /lpf Urine Mucus (None) /hpf
[2019-07-17] MEDS: ASPIRIN 81 MG PO SCH ×2 (00:09→07:38)
[2019-07-17] MEDS: FENOFIBRATE 160 MG TAB PO SCH ×2 (00:09→21:23)
[2019-07-17] MEDS: MYCOPHENOLATE MOFETIL 500 MG TAB PO SCH ×3 (00:10→21:23)
[2019-07-17] MEDS: sulfaSALAzine 500 MG TAB PO SCH ×5 (00:10→21:23)
[2019-07-17] MEDS: HEPARIN SODIUM,PORCINE 5,000 UNIT/ML 1 ML VIAL SQ SCH ×3 (00:11→15:54)
[2019-07-17] MEDS: SODIUM CHLORIDE 0.9% 1,000 ML IV SCH ×3 (05:39→21:22)
[2019-07-17 06:41] LABS: Basophils % (A) 1 %; Eosinophils # (A) 0.1 k/uL (0-0.7); Eosinophils % (A) 1 %; HCT 41.2 % (34.0-46.0); HGB 13.9 gm/dL (11.4-16.0); Lymphocytes # (A) 0.7 k/uL (1.0-4.8); Lymphocytes % (A) 10 %; MCH 31.2 pg (25.0-35.0); MCHC 33.7 g/dL (31.0-37.0); MCV 92.7 fL (80.0-100.0); Mean Platelet Volume 7.3; Monocytes # (A) 0.5 k/uL (0-1.0); Monocytes % (A) 7 %; Neutrophils # (A) 5.7 k/uL (1.3-7.7); Neutrophils % (A) 81 %; Platelet Count 272 k/uL (150-450); RBC 4.44 m/uL (3.80-5.40)
[2019-07-17 07:03] LABS: Albumin 3.5 g/dL (3.5-5.0); Calcium 8.7 mg/dL (8.4-10.2); Potassium 3.6 mmol/L (3.5-5.1); Total Protein 5.8 g/dL (6.3-8.2)
[2019-07-17] MEDS: PIPERACILLIN-TAZOBACTAM 3.375 GM in SODIUM CHLORIDE 0.9% 100 ML IVPB SCH ×2 (07:39→15:53)
[2019-07-17] MEDS: PANTOPRAZOLE 40 MG/10 ML VIAL IVP SCH (07:40)
--- NOTE | 2019-07-17 08:42 | P.PN ---
Progress Note - Text Progress Note Date: 07/17/19 63 yo female s/p Ex Lap POD#1, epidural catheter day #2. Overall doing well, rate at 3ml/hour. No motor or sensory deficits. No back pain. Epidural site looks clean dry and intact.
[2019-07-17] MEDS ORDERED: PANTOPRAZOLE 40 MG TABLET PO SCH (09:00)
[2019-07-17] MEDS ORDERED: SIROLIMUS PO SCH (09:00)
--- NOTE | 2019-07-17 10:04 | P.PN ---
Subjective Progress Note Date: 07/17/19 Principal diagnosis: Bowel obstruction Patient said she did well overnight. Denies pain. Blood pressure was slightly low. He did respond to IV bolus and decreasing epidural rate. Labs show a white blood cell count of 7 and a hemoglobin of 13.9. Still with 600 mL bilious output overnight. Objective - Vital Signs Vital signs: Vital Signs Temp 98.1 F 07/17/19 07:00 Pulse 83 07/17/19 07:00 Resp 18 07/17/19 08:00 BP 107/70 07/17/19 07:00 Pulse Ox 90 L 07/17/19 07:00 Intake & Output 07/16/19 07/17/19 07/17/19 18:59 06:59 18:59 Intake Total 1400 1010 Output Total 125 1100 Balance 1275 -90 Weight 88.904 kg Intake: IV 1400 Intake, IV Titration 900 Amount Piperacillin-Tazobactam 3 100 .375 gm In Sodium Chloride 0.9% 100 ml @ 25 mls/hr IVPB Q8H [facility] Rx#: [id number] Sodium Chloride 0.9% 1, 300 000 ml @ 100 mls/hr IV . Q10H [facility] Rx#:[id number] Sodium Chloride 0.9% 500 500 ml 500 ml @ 999 mls/hr IV .Q31M [facility] Rx#:[id number] Oral 110 Output: Gastric Drainage 600 Urine 100 500 Uretheral (Contreras) 500 Estimated Blood Loss 25 Other: Voiding Method Toilet - Exam Abdomen: Soft, mild distention, dressing clean and dry, mild tenderness - Labs CBC & Chem 7: 07/17/19 06:10 07/17/19 06:10 Labs: Abnormal Lab Results - Last 24 Hours (Table) 07/17/19 07/17/19 Range/Units 06:10 06:10 Lymphocytes # 0.7 L (1.0-4.8) k/uL Carbon Dioxide 32 H (22-30) mmol/L BUN 21 H (7-17) mg/dL Glucose 164 H (74-99) mg/dL Total Protein 5.8 L (6.3-8.2) g/dL Assessment and Plan (1) SBO (small bowel obstruction) Narrative/Plan: Patient doing fairly well postoperative. Keep epidural going. Increase activity. Stay nothing by mouth with nasogastric tube to suction. Current Visit: Yes Status: Acute Code(s): K56.69 - OTHER INTESTINAL OBSTRUCTION * DO NOT USE * SNOMED Code(s): 765750251
[2019-07-17] MEDS: SIROLIMUS 1 MG PO SCH (11:33)
--- NOTE | 2019-07-17 23:14 | P.PN ---
Progress Note - Text Progress Note Date: 07/17/19 - Chief Complaint Abdominal pain interval history: This is a very pleasant 59[address] Laguna. Chronic stable medical condition includes diabetes, GERD, kidney stones, kidney transplant anxiety, and chronic ulcerative colitis. At her baseline patient has about 5-6 bowel movements a day. Patient presented with stuttering over progressive nausea yesterday. Her arrival patient did vomit twice. No fever no chills. Patient is of a computed tomography scan in the ER found to have incarcerated ventral hernia. on July 16 this and underwent repair of incarcerated incisional hernia,midportion of small bowel resected. Today-NG tube in place. Some pain is present. Not positive flatus. Laying in bed. Abdominal binder in place Review of systems: Was done for constitutional, cardiovascular, GI, pulmonary. relevant finding as above Active Medications Alprazolam (Xanax) 0.25 mg PO DAILY PRN PRN Reason: ANXIETY Aspirin (Aspirin) 81 mg PO DAILY [facility] Last Admin: 07/17/19 07:38 Dose: 81 mg Documented by: Fenofibrate (Lofibra) 160 mg PO HS [facility] Last Admin: 07/17/19 21:23 Dose: 160 mg Documented by: Heparin Sodium (Porcine) (Heparin) 5,000 unit SQ Q8HR [facility] Last Admin: 07/17/19 15:54 Dose: 5,000 unit Documented by: Hydromorphone HCl (Dilaudid) 1 mg IVP Q3HR PRN PRN Reason: Severe Pain Last Admin: 07/16/19 11:45 Dose: 1 mg Documented by: Piperacillin Sod/Tazobactam (Sod 3.375 gm/ Sodium Chloride) 100 mls @ 25 mls/hr IVPB Q8H [facility] Last Admin: 07/17/19 15:53 Dose: 25 mls/hr Documented by: Sodium Chloride (Saline 0.9%) 1,000 mls @ 100 mls/hr IV .Q10H [facility] Last Admin: 07/17/19 21:22 Dose: 100 mls/hr Documented by: Ropivacaine 250 mg/Hydromorphone HCl 5 mg/ Sodium Chloride 250 mls @ 0 mls/hr EPIDURAL .Q0M PRN; Protocol PRN Reason: Pain Control Last Admin: 07/16/19 15:43 Dose: 0 mls Documented by: Mycophenolate Mofetil (Cellcept) 1,000 mg PO BID [facility] Last Admin: 07/17/19 21:23 Dose: 1,000 mg Documented by: Naloxone HCl (Narcan) 0.2 mg IV Q2M PRN PRN Reason: Opioid Reversal Non Formulary Drug ( Sirolimus [Rapamune] 1 Mg Tab) 5 mg PO DAILY [facility] Last Admin: 07/17/19 11:33 Dose: 5 mg Documented by: Ondansetron HCl (Zofran) 4 mg IVP Q6HR PRN PRN Reason: Nausea And Vomiting Last Admin: 07/16/19 09:07 Dose: 4 mg Documented by: Pantoprazole Sodium (Protonix) 40 mg IVP DAILY [facility] Last Admin: 07/17/19 07:40 Dose: 40 mg Documented by: Sulfasalazine (Azulfidine) 1,000 mg PO QID [facility] Stop: 10/24/19 00:01 Last Admin: 07/17/19 21:23 Dose: 1,000 mg Documented by: Physical examination: VITAL SIGNS: 98.1, 83, 18, 107/70, 90% room air GENERAL: laying in bed, awake EYES: Pupils equal. Conjunctiva normal. HEENT: External appearance of nose and ears normal, oral cavity dry, NG tube in place. NECK: JVD not raised; masses not palpable. HEART: First and second heart sounds are normal; no edema. LUNGS: Respiratory rate normal; clear to auscultation. ABDOMEN: Soft, abdominal binder in places, no guarding or rigidity, bowel sounds absent, liver spleen not palpable, no masses palpable. PSYCH: [Alert and oriented x3; mood and affect anxious. INVESTIGATIONS, reviewed in the clinical context: White count 7 hemoglobin 13.9 potassium 3.6 creatinine 1.0 to Previous testing White count 12.4 hemoglobin 13.7 potassium 4.2 creatinine 0.79 EKG tracing personally reviewed by me-normal sinus rhythm Chest x-ray film personally reviewed by me-borderline cardiomegaly, possible chronic changes on the lung boyd Computed tomography scan of the abdomen and pelvis without contrast-incarcerated ventral hernia which is transition point of a mechanical small bowel obstruction no free air Assessment: -Incarcerated ventral hernia with a transition point in the small bowel. repair incarcerated incisional hernia recurrent, small bowel resection -Diabetes mellitus type 2 -GERD -Chronic ulcerative colitis at baseline has 5 bowel movements a day. -Anxiety not otherwise specified Plan: patient getting IV fluids, IV Zosyn. NG tube in place. Care was discussed with the patient. Follow Thank you Dr. Peraza
[2019-07-18] MEDS: PIPERACILLIN-TAZOBACTAM 3.375 GM in SODIUM CHLORIDE 0.9% 100 ML IVPB SCH ×4 (01:07→23:21)
[2019-07-18] MEDS: HEPARIN SODIUM,PORCINE 5,000 UNIT/ML 1 ML VIAL SQ SCH ×4 (01:08→23:21)
[2019-07-18 06:42] LABS: Basophils # (A) 0.1 k/uL (0-0.2); Basophils % (A) 1 %; Eosinophils # (A) 0.2 k/uL (0-0.7); Eosinophils % (A) 3 %; HCT 36.9 % (34.0-46.0); HGB 12.2 gm/dL (11.4-16.0); Lymphocytes # (A) 0.8 k/uL (1.0-4.8); Lymphocytes % (A) 11 %; MCH 30.5 pg (25.0-35.0); MCHC 33.1 g/dL (31.0-37.0); MCV 92.4 fL (80.0-100.0); Mean Platelet Volume 7.3; Monocytes # (A) 0.6 k/uL (0-1.0); Monocytes % (A) 8 %; Neutrophils # (A) 5.5 k/uL (1.3-7.7); Neutrophils % (A) 76 %; Platelet Count 244 k/uL (150-450); RBC 3.99 m/uL (3.80-5.40); WBC 7.2 k/uL (3.8-10.6)
[2019-07-18 06:55] LABS: African American GFR (CKD) >90 (>60 ml/min/1.73 sqM); Anion Gap 9 mmol/L; Blood Urea Nitrogen 14 mg/dL (7-17); Calcium 8.4 mg/dL (8.4-10.2); Carbon Dioxide 25 mmol/L (22-30); Chloride 106 mmol/L (98-107); Glucose 104 mg/dL (74-99); Non-African American GFR(CKD) 80 (>60 ml/min/1.73 sqM); Potassium 3.4 mmol/L (3.5-5.1); Sodium 140 mmol/L (137-145)
[2019-07-18] MEDS: MYCOPHENOLATE MOFETIL 500 MG TAB PO SCH ×2 (07:57→21:20)
[2019-07-18] MEDS: ASPIRIN 81 MG PO SCH (07:57)
[2019-07-18] MEDS: PANTOPRAZOLE 40 MG/10 ML VIAL IVP SCH (07:57)
[2019-07-18] MEDS: sulfaSALAzine 500 MG TAB PO SCH ×4 (07:57→21:20)
[2019-07-18] MEDS: SIROLIMUS 1 MG PO SCH (07:58)
--- NOTE | 2019-07-18 10:14 | P.PN ---
Subjective Progress Note Date: 07/18/19 Principal diagnosis: Bowel obstruction Patient did well last night. Denies pain currently. White blood cell count 7.2, hemoglobin stable. Patient had 2 bowel moments yesterday. Objective - Vital Signs Vital signs: Vital Signs Temp 97.4 F L 07/18/19 07:00 Pulse 82 07/18/19 07:00 Resp 16 07/18/19 07:00 BP 122/79 07/18/19 07:00 Pulse Ox 96 07/18/19 07:00 Intake & Output 07/17/19 07/18/19 07/18/19 18:59 06:59 18:59 Intake Total 1130 Output Total 400 710 Balance -400 420 Intake: Intake, IV Titration 1130 Amount Piperacillin-Tazobactam 3 100 .375 gm In Sodium Chloride 0.9% 100 ml @ 25 mls/hr IVPB Q8H [facility] Rx#: [id number] Ropivacaine 250 mg 30 Hydromorphone (Pf) 5 mg In Sodium Chloride 0.9% 200 ml @ Per Protocol EPIDURAL .Q0M PRN Rx#: [id number] Sodium Chloride 0.9% 1, 1000 000 ml @ 100 mls/hr IV . Q10H [facility] Rx#:[id number] Output: Gastric Drainage 400 300 Urine 410 Other: Voiding Method Toilet Indwelling Catheter Indwelling Catheter - Exam Abdomen: Soft, mild distention, dressing clean and dry - Labs CBC & Chem 7: 07/18/19 06:26 07/18/19 06:26 Labs: Abnormal Lab Results - Last 24 Hours (Table) 07/18/19 07/18/19 Range/Units 06:26 06:26 Lymphocytes # 0.8 L (1.0-4.8) k/uL Potassium 3.4 L (3.5-5.1) mmol/L Glucose 104 H (74-99) mg/dL Assessment and Plan (1) SBO (small bowel obstruction) Narrative/Plan: Overall patient doing fairly well. We'll remove nasogastric tube at this time. Continue with sips of liquids only. Ambulate. Remove epidural and [place] tomorrow. Current Visit: Yes Status: Acute Code(s): K56.69 - OTHER INTESTINAL OBSTRUC TION * DO NOT USE * SNOMED Code(s): 484644414
[2019-07-18] MEDS: SODIUM CHLORIDE 0.9% 1,000 ML IV SCH ×3 (11:40→23:24)
[2019-07-18] MEDS: FENOFIBRATE 160 MG TAB PO SCH (21:20)
--- NOTE | 2019-07-18 22:43 | P.PN ---
Progress Note - Text Progress Note Date: 07/18/19 - Chief Complaint Abdominal pain interval history: This is a very pleasant 63-year-old. Patient of Dr. Laguna. Chronic stable medical condition includes diabetes, GERD, kidney stones, kidney transplant anxiety, and chronic ulcerative colitis. At her baseline patient has about 5-6 bowel movements a day. Patient presented with progressive nausea yesterday. Upon arrival patient did vomit twice. No fever no chills. computed tomography scan in the ER found to have incarcerated ventral hernia. on July 16 underwent repair of incarcerated incisional hernia, small portion of small bowel resected Today-NG tube discontinued. Epidural remains in place. Did have a bowel movement. Was nothing by mouth this morning Review of systems: Was done for constitutional, cardiovascular, GI, pulmonary. relevant finding as above Active Medications Alprazolam (Xanax) 0.25 mg PO DAILY PRN PRN Reason: ANXIETY Aspirin (Aspirin) 81 mg PO DAILY [facility] Last Admin: 07/18/19 07:57 Dose: 81 mg Documented by: Fenofibrate (Lofibra) 160 mg PO HS [facility] Last Admin: 07/18/19 21:20 Dose: 160 mg Documented by: Heparin Sodium (Porcine) (Heparin) 5,000 unit SQ Q8HR [facility] Last Admin: 07/18/19 16:14 Dose: 5,000 unit Documented by: Hydromorphone HCl (Dilaudid) 1 mg IVP Q3HR PRN PRN Reason: Severe Pain Last Admin: 07/16/19 11:45 Dose: 1 mg Documented by: Piperacillin Sod/Tazobactam (Sod 3.375 gm/ Sodium Chloride) 100 mls @ 25 mls/hr IVPB Q8H [facility] Last Admin: 07/18/19 16:14 Dose: 25 mls/hr Documented by: Sodium Chloride (Saline 0.9%) 1,000 mls @ 100 mls/hr IV .Q10H [facility] Last Admin: 07/18/19 21:24 Dose: 100 mls/hr Documented by: Ropivacaine 250 mg/Hydromorphone HCl 5 mg/ Sodium Chloride 250 mls @ 0 mls/hr EPIDURAL .Q0M PRN; Protocol PRN Reason: Pain Control Last Admin: 07/16/19 15:43 Dose: 0 mls Documented by: Mycophenolate Mofetil (Cellcept) 1,000 mg PO BID [facility] Last Admin: 07/18/19 21:20 Dose: 1,000 mg Documented by: Naloxone HCl (Narcan) 0.2 mg IV Q2M PRN PRN Reason: Opioid Reversal Non Formulary Drug ( Sirolimus [Rapamune] 1 Mg Tab) 5 mg PO DAILY [facility] Last Admin: 07/18/19 07:58 Dose: 5 mg Documented by: Ondansetron HCl (Zofran) 4 mg IVP Q6HR PRN PRN Reason: Nausea And Vomiting Last Admin: 07/16/19 09:07 Dose: 4 mg Documented by: Pantoprazole Sodium (Protonix) 40 mg IVP DAILY [facility] Last Admin: 07/18/19 07:57 Dose: 40 mg Documented by: Sulfasalazine (Azulfidine) 1,000 mg PO QID [facility] Stop: 10/24/19 00:01 Last Admin: 07/18/19 21:20 Dose: 1,000 mg Documented by: Physical examination: VITAL SIGNS: 97.4, 82, 16, 122/79, 96% room air GENERAL: laying in bed, comfortable EYES: Pupils equal. Conjunctiva normal. HEENT: External appearance of nose and ears normal, oral cavity dry, NG tube discontinued NECK: JVD not raised; masses not palpable. HEART: First and second heart sounds are normal; no edema. LUNGS: Respiratory rate normal; clear to auscultation. ABDOMEN: Soft, abdominal binder in places, no guarding or rigidity, bowel sounds absent, liver spleen not palpable, no masses palpable. PSYCH: [Alert and oriented x3; mood and affect anxious. INVESTIGATIONS, reviewed in the clinical context: White count 7.2 hemoglobin 12.2 potassium 3.4 creatinine 0.79 Previous testing White count 12.4 hemoglobin 13.7 potassium 4.2 creatinine 0.79 EKG tracing personally reviewed by me-normal sinus rhythm Chest x-ray film personally reviewed by me-borderline cardiomegaly, possible chronic changes on the lung boyd Computed tomography scan of the abdomen and pelvis without contrast-incarcerated ventral hernia which is transition point of a mechanical small bowel obstruction no free air Assessment: -Incarcerated ventral hernia with a transition point in the small bowel. repair incarcerated incisional hernia recurrent, small bowel resection, NG tube discontinued today -Diabetes mellitus type 2 -GERD -Chronic ulcerative colitis at baseline has 5 bowel movements a day. -Anxiety not otherwise specified Plan: Clinically improving. Diet to be commenced with clear liquids if okay with Dr. Peraza. Other medications to continue. Thank you Dr. Peraza
[2019-07-19] MEDS: ROPIVACAINE 250 MG, HYDROMORPHONE (PF) 5 MG in SODIUM CHLORIDE 0.9% 200 ML EPIDURAL PRN (01:06)
[2019-07-19 08:00] LABS: Basophils % (A) 1 %; Eosinophils # (A) 0.3 k/uL (0-0.7); Eosinophils % (A) 6 %; HCT 33.6 % (34.0-46.0); HGB 11.6 gm/dL (11.4-16.0); Lymphocytes # (A) 0.8 k/uL (1.0-4.8); Lymphocytes % (A) 14 %; MCH 31.2 pg (25.0-35.0); MCHC 34.6 g/dL (31.0-37.0); MCV 90.4 fL (80.0-100.0); Mean Platelet Volume 7.6; Monocytes # (A) 0.3 k/uL (0-1.0); Monocytes % (A) 5 %; Neutrophils # (A) 4.1 k/uL (1.3-7.7); Neutrophils % (A) 73 %; Platelet Count 256 k/uL (150-450); RBC 3.72 m/uL (3.80-5.40); RDW 12.7 % (11.5-15.5); WBC 5.6 k/uL (3.8-10.6)
[2019-07-19 08:14] LABS: African American GFR (CKD) >90 (>60 ml/min/1.73 sqM); Anion Gap 6 mmol/L; Blood Urea Nitrogen 11 mg/dL (7-17); Calcium 8.4 mg/dL (8.4-10.2); Carbon Dioxide 26 mmol/L (22-30); Chloride 107 mmol/L (98-107); Glucose 86 mg/dL (74-99); Non-African American GFR(CKD) >90 (>60 ml/min/1.73 sqM); Potassium 4.1 mmol/L (3.5-5.1); Sodium 139 mmol/L (137-145)
[2019-07-19] MEDS: HEPARIN SODIUM,PORCINE 5,000 UNIT/ML 1 ML VIAL SQ SCH ×3 (08:34→23:18)
[2019-07-19] MEDS: PANTOPRAZOLE 40 MG/10 ML VIAL IVP SCH (08:34)
[2019-07-19] MEDS: PIPERACILLIN-TAZOBACTAM 3.375 GM in SODIUM CHLORIDE 0.9% 100 ML IVPB SCH ×3 (08:35→23:18)
[2019-07-19] MEDS: SIROLIMUS 1 MG PO SCH (08:35)
[2019-07-19] MEDS: ASPIRIN 81 MG PO SCH (08:35)
[2019-07-19] MEDS: MYCOPHENOLATE MOFETIL 500 MG TAB PO SCH ×2 (08:36→20:59)
[2019-07-19] MEDS: sulfaSALAzine 500 MG TAB PO SCH ×4 (08:36→20:59)
[2019-07-19] MEDS ORDERED: HYDROcodone/APAP 5-325MG 1 EACH TAB PO PRN (11:38)
--- NOTE | 2019-07-19 12:15 | P.PN ---
<Ping Martinez Dilma - Last Filed: 07/19/19 12:13> Subjective Progress Note Date: 07/19/19 CHIEF COMPLAINT: abdominal pain HISTORY OF PRESENT ILLNESS: Patient is status post repair of incarcerated incisional hernia and small bowel resection performed on 07/16/2019. Patient examined this morning at the bedside. NG tube was discontinued yesterday. Patient reports she is passing flatus and had a bowel movement this morning. She has been tolerating sips of clear liquids. WBC 5.6. Hemoglobin 11.6 PHYSICAL EXAM: VITAL SIGNS: Reviewed. GENERAL: Well-developed in no acute distress. Does appear mildly uncomfortable due to pain. HEENT: No sclera icterus. Extraocular movements grossly intact. Moist buccal mucosa. Head is atraumatic, normocephalic. ABDOMEN: Soft. Nondistended. Dressing clean dry intact. NEUROLOGIC: Alert and oriented. Cranial nerves II through XII grossly intact. ASSESSMENT: 1. Abdominal pain 2. Small bowel obstruction secondary to incarcerated hernia 3. History of small bowel obstructions 4. History of exploratory laparotomy with lysis of adhesions secondary to small bowel obstruction secondary to internal hernia/adhesions, September 2018 5. History of cholecystectomy PLAN: Begin clear liquid diet Pain control. DC epidural today. [place] PRN Discontinue ariza catheter Incentive spirometer Increase activity as tolerated Nurse practitioner note has been reviewed by physician. Signing provider agrees with the documented findings, assessment, and plan of care. Objective - Vital Signs Vital signs: Vital Signs Temp 97.8 F 07/19/19 07:00 Pulse 66 07/19/19 07:00 Resp 21 07/19/19 07:00 BP 129/75 07/19/19 07:00 Pulse Ox 92 L 07/19/19 07:00 Intake & Output 07/18/19 07/19/19 07/19/19 18:59 06:59 18:59 Output Total 700 400 Balance -700 -400 Output: Urine 700 400 Other: Voiding Method Indwelling Catheter Indwelling Catheter Indwelling Catheter # Voids 3 # Bowel Movements 2 - Labs CBC & Chem 7: 07/19/19 06:48 07/19/19 06:48 Labs: Abnormal Lab Results - Last 24 Hours (Table) 07/19/19 Range/Units 06:48 RBC 3.72 L (3.80-5.40) m/uL Hct 33.6 L (34.0-46.0) % Lymphocytes # 0.8 L (1.0-4.8) k/uL <Tramaine Peraza - Last Filed: 07/19/19 16:56> Subjective As above. Patient feels better today. Still having bowel activity. Tolerating diet. Feels somewhat bloated. Agree with full liquid diet. Reevaluate tomorrow. Objective - Vital Signs Vital signs: Vital Signs Temp 98 F 07/19/19 15:00 Pulse 65 07/19/19 15:00 Resp 12 07/19/19 15:00 BP 145/86 07/19/19 15:00 Pulse Ox 96 07/19/19 15:00 Intake & Output 07/18/19 07/19/19 07/19/19 18:59 06:59 18:59 Output Total 700 400 Balance -700 -400 Weight 88.904 kg Output: Urine 700 400 Other: Voiding Method Indwelling Catheter Indwelling Catheter Indwelling Catheter # Voids 3 # Bowel Movements 2 1 - Labs CBC & Chem 7: 07/19/19 06:48 07/19/19 06:48 Labs: Abnormal Lab Results - Last 24 Hours (Table) 07/19/19 Range/Units 06:48 RBC 3.72 L (3.80-5.40) m/uL Hct 33.6 L (34.0-46.0) % Lymphocytes # 0.8 L (1.0-4.8) k/uL Assessment and Plan (1) SBO (small bowel obstruction) Current Visit: Yes Status: Acute Code(s): K56.69 - OTHER INTESTINAL OBSTRUCTION * DO NOT USE * SNOMED Code(s): 392229092
--- NOTE | 2019-07-19 12:16 | P.PN ---
Progress Note - Text Progress Note Date: 07/19/19 Patient seen for this progress note on 07/18/2019 at 6:30 AM. 63 yo female s/p Ex Lap POD#2, epidural catheter day #3. Overall doing well, rate at 3ml/hour. No motor or sensory deficits. No back pain. Epidural site looks clean dry and intact.
--- NOTE | 2019-07-19 12:17 | P.PN ---
Progress Note - Text Progress Note Date: 07/19/19 63 yo female s/p Ex Lap POD#3, epidural catheter day #4. Overall doing well, rate at 3ml/hour. No motor or sensory deficits. No back pain. Epidural site looks clean dry and intact. Patient received a dose of subcu heparin today at 6:30. We'll remove epidural catheter at 12:30 today.
[2019-07-19 12:48] VITALS: BMI 29.7
[2019-07-19] MEDS: SODIUM CHLORIDE 0.9% 1,000 ML IV SCH (16:45)
[2019-07-19] MEDS: FENOFIBRATE 160 MG TAB PO SCH (20:59)
--- NOTE | 2019-07-20 00:23 | P.PN ---
Progress Note - Text Progress Note Date: 07/19/19 - Chief Complaint Abdominal pain interval history: This is a very pleasant 63-year-old. Patient of Dr. Laguna. Chronic stable medical condition includes diabetes, GERD, kidney stones, kidney transplant anxiety, and chronic ulcerative colitis. At her baseline patient has about 5-6 bowel movements a day. Patient presented with progressive nausea yesterday. Upon arrival patient did vomit twice. No fever no chills. computed tomography scan in the ER found to have incarcerated ventral hernia. on July 16 underwent repair of incarcerated incisional hernia, small portion of small bowel resected. August 05 NG tube was discontinued Today: NG tube has been out. Has been having bowel movement. No abdominal pain. No nausea vomiting.on clear liquid diet. Epidural in place. Active Medications Hydrocodone Bitart/Acetaminophen ([place] 5-325) 1 each PO Q4HR PRN PRN Reason: MODERATE Pain Alprazolam (Xanax) 0.25 mg PO DAILY PRN PRN Reason: ANXIETY Aspirin (Aspirin) 81 mg PO DAILY [facility] Last Admin: 07/19/19 08:35 Dose: 81 mg Documented by: Fenofibrate (Lofibra) 160 mg PO HS [facility] Last Admin: 07/19/19 20:59 Dose: 160 mg Documented by: Furosemide (Lasix) 80 mg PO DAILY [facility] Heparin Sodium (Porcine) (Heparin) 5,000 unit SQ Q8HR [facility] Last Admin: 07/19/19 23:18 Dose: 5,000 unit Documented by: Hydromorphone HCl (Dilaudid) 1 mg IVP Q3HR PRN PRN Reason: Severe Pain Last Admin: 07/16/19 11:45 Dose: 1 mg Documented by: Piperacillin Sod/Tazobactam (Sod 3.375 gm/ Sodium Chloride) 100 mls @ 25 mls/hr IVPB Q8H [facility] Last Admin: 07/19/19 23:18 Dose: 25 mls/hr Documented by: Sodium Chloride (Saline 0.9%) 1,000 mls @ 100 mls/hr IV .Q10H [facility] Last Admin: 07/19/19 16:45 Dose: 100 mls/hr Documented by: Mycophenolate Mofetil (Cellcept) 1,000 mg PO BID [facility] Last Admin: 07/19/19 20:59 Dose: 1,000 mg Documented by: Naloxone HCl (Narcan) 0.2 mg IV Q2M PRN PRN Reason: Opioid Reversal Non Formulary Drug ( Sirolimus [Rapamune] 1 Mg Tab) 5 mg PO DAILY [facility] Last Admin: 07/19/19 08:35 Dose: 5 mg Documented by: Ondansetron HCl (Zofran) 4 mg IVP Q6HR PRN PRN Reason: Nausea And Vomiting Last Admin: 07/16/19 09:07 Dose: 4 mg Documented by: Pantoprazole Sodium (Protonix) 40 mg IVP DAILY [facility] Last Admin: 07/19/19 08:34 Dose: 40 mg Documented by: Spironolactone (Aldactone) 25 mg PO DAILY [facility] Sulfasalazine (Azulfidine) 1,000 mg PO QID [facility] Stop: 10/24/19 00:01 Last Admin: 07/19/19 20:59 Dose: 1,000 mg Documented by: Physical examination: VITAL SIGNS: 97.8, 66, 21, 129/75, 92% room air GENERAL: laying in bed, comfortable EYES: Pupils equal. Conjunctiva normal. HEENT: External appearance of nose and ears normal, oral cavity dry, NG tube discontinued NECK: JVD not raised; masses not palpable. HEART: First and second heart sounds are normal; no edema. LUNGS: Respiratory rate normal; clear to auscultation. ABDOMEN: Soft, abdominal binder in places, no guarding or rigidity, bowel sounds absent, liver spleen not palpable, no masses palpable. PSYCH: [Alert and oriented x3; mood and affect anxious. INVESTIGATIONS, reviewed in the clinical context: white count 5.6 hemoglobin 11.6 creatinine 0.65 potassium 4.1 Previous testing White count 12.4 hemoglobin 13.7 potassium 4.2 creatinine 0.79 EKG tracing personally reviewed by me-normal sinus rhythm Chest x-ray film personally reviewed by me-borderline cardiomegaly, possible chronic changes on the lung boyd Computed tomography scan of the abdomen and pelvis without contrast-incarcerated ventral hernia which is transition point of a mechanical small bowel obstruction no free air Assessment: -Incarcerated ventral hernia with a transition point in the small bowel. repair incarcerated incisional hernia recurrent, small bowel resection, NG tube discontinued on -Diabetes mellitus type 2 -GERD -Chronic ulcerative colitis at baseline has 5 bowel movements a day. -Anxiety not otherwise specified Plan: continues to improve. If okay with surgery group advanced to full liquid diet. already had bowel movement. Doing well. Thank you Dr. Peraza
[2019-07-20] MEDS: SODIUM CHLORIDE 0.9% 1,000 ML IV SCH ×2 (03:25→12:42)
[2019-07-20 07:55] VITALS: TEMP 98.1
[2019-07-20] MEDS: PIPERACILLIN-TAZOBACTAM 3.375 GM in SODIUM CHLORIDE 0.9% 100 ML IVPB SCH ×2 (08:34→17:32)
[2019-07-20] MEDS: SIROLIMUS 1 MG PO SCH (08:34)
[2019-07-20] MEDS: PANTOPRAZOLE 40 MG/10 ML VIAL IVP SCH (08:34)
[2019-07-20] MEDS: HEPARIN SODIUM,PORCINE 5,000 UNIT/ML 1 ML VIAL SQ SCH ×2 (08:34→17:32)
[2019-07-20] MEDS: ASPIRIN 81 MG PO SCH (08:34)
[2019-07-20] MEDS: MYCOPHENOLATE MOFETIL 500 MG TAB PO SCH (08:35)
[2019-07-20] MEDS: sulfaSALAzine 500 MG TAB PO SCH ×2 (08:35→13:15)
[2019-07-20] MEDS ORDERED: FUROSEMIDE 80 MG TAB PO SCH (09:00)
[2019-07-20] MEDS ORDERED: SPIRONOLACTONE 25 MG TAB PO SCH (09:00)
--- NOTE | 2019-07-20 11:08 | P.PN ---
<Ping Martinez Dilma - Last Filed: 07/20/19 11:07> Subjective Progress Note Date: 07/20/19 CHIEF COMPLAINT: abdominal pain HISTORY OF PRESENT ILLNESS: Patient is status post repair of incarcerated incisional hernia and small bowel resection performed on 07/16/2019. Patient examined this morning at the bedside. Patient is tolerating full liquid diet without nausea or vomiting. Patient reports she is passing flatus and had a bowel movement this morning. Vital signs are stable. She is afebrile. PHYSICAL EXAM: VITAL SIGNS: Reviewed. GENERAL: Well-developed in no acute distress. HEENT: No sclera icterus. Extraocular movements grossly intact. Moist buccal mucosa. Head is atraumatic, normocephalic. ABDOMEN: Soft. Nondistended. Dressing clean dry intact. NEUROLOGIC: Alert and oriented. Cranial nerves II through XII grossly intact. ASSESSMENT: 1. Abdominal pain 2. Small bowel obstruction secondary to incarcerated hernia 3. History of small bowel obstructions 4. History of exploratory laparotomy with lysis of adhesions secondary to small bowel obstruction secondary to internal hernia/adhesions, September 2018 5. History of cholecystectomy PLAN: Advance diet Pain control. [place] PRN Incentive spirometer Increase activity as tolerated Possible discharge this afternoon when evaluated by Dr. Peraza versus tomorrow Nurse practitioner note has been reviewed by physician. Signing provider agrees with the documented findings, assessment, and plan of care. Objective - Vital Signs Vital signs: Vital Signs Temp 98.1 F 07/20/19 07:00 Pulse 80 07/20/19 07:00 Resp 18 07/20/19 07:00 BP 139/73 07/20/19 07:00 Pulse Ox 94 L 07/20/19 07:00 Intake & Output 07/19/19 07/20/19 07/20/19 18:59 06:59 18:59 Intake Total 1350 Balance 1350 Weight 88.904 kg Intake: Intake, IV Titration 1350 Amount Piperacillin-Tazobactam 3 200 .375 gm In Sodium Chloride 0.9% 100 ml @ 25 mls/hr IVPB Q8H [facility] Rx#: [id number] Sodium Chloride 0.9% 1, 1150 000 ml @ 100 mls/hr IV . Q10H [facility] Rx#:[id number] Other: Voiding Method Indwelling Catheter Indwelling Catheter # Voids 3 # Bowel Movements 1 - Labs CBC & Chem 7: 07/19/19 06:48 07/19/19 06:48 <Tramaine Peraza - Last Filed: 07/20/19 18:37> Objective - Vital Signs Vital signs: Vital Signs Temp 98.1 F 07/20/19 15:00 Pulse 101 H 07/20/19 15:00 Resp 16 07/20/19 15:00 BP 157/94 07/20/19 15:00 Pulse Ox 99 07/20/19 15:00 Intake & Output 07/19/19 07/20/19 07/20/19 18:59 06:59 18:59 Intake Total 1350 Balance 1350 Weight 88.904 kg Intake: Intake, IV Titration 1350 Amount Piperacillin-Tazobactam 3 200 .375 gm In Sodium Chloride 0.9% 100 ml @ 25 mls/hr IVPB Q8H [facility] Rx#: [id number] Sodium Chloride 0.9% 1, 1150 000 ml @ 100 mls/hr IV . Q10H [facility] Rx#:[id number] Other: Voiding Method Indwelling Catheter Indwelling Catheter # Voids 3 # Bowel Movements 1 - Labs CBC & Chem 7: 07/19/19 06:48 07/19/19 06:48 Assessment and Plan (1) SBO (small bowel obstruction) Current Visit: Yes Status: Acute Code(s): K56.69 - OTHER INTESTINAL OBSTRUCTION * DO NOT USE * SNOMED Code(s): 052315621
[2019-07-20 15:34] VITALS: BP 157/94; PULSE 101; RESP 16
--- NOTE | 2019-07-20 18:38 | P.DS ---
Providers Date of admission: 07/15/19 23:51 Expected date of discharge: 07/20/19 Attending physician: Tramaine Peraza Consults: 07/15/19 23:56 Consult Physician Routine Consulting Provider: Toan Figueroa Consult Reason/Comments: Medical Management Do you want consulting provider notified?: Yes Primary care physician: Kody Laguna - Discharge Diagnosis(es) (1) SBO (small bowel obstruction) Patient admitted with small bowel obstruction. Patient has a history of previous hernia repair. CAT scan shows incarcerated recurrent hernia with bowel obstruction. Underwent exploratory laparotomy and repair recurrent hernia with small bowel resection. Postoperatively has done well. Today she is tolerating her diet and would like home. Incision is clean and dry. We'll discharge. Follow-up one week. Please refer to chart for full details. Current Visit: Yes Status: Acute Patient Condition at Discharge: Serious Plan - Discharge Summary Discharge Rx Participant: Yes New Discharge Prescriptions: New Hydrocodone/Acetaminophen [[place] 5-325] 1 tab PO Q6HR PRN 3 Days #12 tab PRN Reason: Pain No Action Cranberry Fruit Extract [Cranberry] 1,000 mg PO DAILY Furosemide 80 mg PO DAILY Potassium Chloride [Klor-Con 10] 20 meq PO HS Omeprazole 20 mg PO DAILY Gemfibrozil 600 mg PO HS Simvastatin 20 mg PO HS Potassium Chloride [Klor-Con 10] 30 meq PO QAM Spironolactone 25 mg PO DAILY Mycophenolate Mofetil [Cellcept] 1,000 mg PO BID Sirolimus [Rapamune] 5 mg PO DAILY Aspirin 81 mg PO DAILY #0 ALPRAZolam [Xanax] 0.25 mg PO DAILY PRN PRN Reason: ANXIETY Ferrous Sulfate [Feosol] 325 mg PO BID sulfaSALAzine [Azulfidine] 1,000 mg PO QID Acetaminophen Tab [Tylenol Tab] 500 mg PO Q6H PRN #30 tablet PRN Reason: Pain Ergocalciferol (Vitamin D2) [Drisdol] 50,000 unit PO Q14D Discharge Medication List Cranberry Fruit Extract [Cranberry] 1,000 mg PO DAILY 08/03/15 [History] Furosemide 80 mg PO DAILY 08/03/15 [History] Gemfibrozil 600 mg PO HS 08/03/15 [History] Mycophenolate Mofetil [Cellcept] 1,000 mg PO BID 08/03/15 [History] Omeprazole 20 mg PO DAILY 08/03/15 [History] Potassium Chloride [Klor-Con 10] 20 meq PO HS 08/03/15 [History] Potassium Chloride [Klor-Con 10] 30 meq PO QAM 08/03/15 [History] Simvastatin 20 mg PO HS 08/03/15 [History] Spironolactone 25 mg PO DAILY 08/03/15 [History] Sirolimus [Rapamune] 5 mg PO DAILY 08/17/15 [History] Aspirin 81 mg PO DAILY #0 08/31/15 [Rx] ALPRAZolam [Xanax] 0.25 mg PO DAILY PRN 09/06/18 [History] Ferrous Sulfate [Feosol] 325 mg PO BID 09/06/18 [History] sulfaSALAzine [Azulfidine] 1,000 mg PO QID 09/06/18 [History] Acetaminophen Tab [Tylenol Tab] 500 mg PO Q6H PRN #30 tablet 11/17/18 [Rx] Ergocalciferol (Vitamin D2) [Drisdol] 50,000 unit PO Q14D 07/16/19 [History] Hydrocodone/Acetaminophen [[place] 5-325] 1 tab PO Q6HR PRN 3 Days #12 tab 07/20/19 [Rx] Follow up Appointment(s)/Referral(s): Tramaine Peraza MD [Medical Doctor] - 1 Week Kody Laguna MD [Primary Care Provider] - 1-2 days Patient Instructions/Handouts: Bowel Obstruction (DC), Incisional Hernia (DC) Activity/Diet/Wound Care/Special Instructions: No driving while taking [place] No lifting over 10 pounds You may shower. No soaking or tub baths Very light activity until you are reevaluated at your follow up appointment with your surgeon
--- NOTE | 2019-07-21 00:31 | P.PN ---
Progress Note - Text Progress Note Date: 07/20/19 - Chief Complaint Abdominal pain interval history: This is a very pleasant 63-year-old. Patient of Dr. Laguna. Chronic stable medical condition includes diabetes, GERD, kidney stones, kidney transplant anxiety, and chronic ulcerative colitis. At her baseline patient has about 5-6 bowel movements a day. Patient presented with progressive nausea yesterday. Upon arrival patient did vomit twice. No fever no chills. computed tomography scan in the ER found to have incarcerated ventral hernia. on July 16 underwent repair of incarcerated incisional hernia, small portion of small bowel resected. August 05 NG tube was discontinued Today: doing well. Tolerating a regular diet. Had a bowel movement. no pain. Ambulating. Review of systems: Was done for constitutional, cardiovascular, GI, pulmonary. relevant finding as above Current medications reviewed in today's electronic records Physical examination: VITAL SIGNS: 98.1, 80, 18, 139/73, 94% GENERAL:sitting up, comfortable EYES: Pupils equal. Conjunctiva normal. HEENT: External appearance of nose and ears normal, oral cavity dry, NG tube discontinued NECK: JVD not raised; masses not palpable. HEART: First and second heart sounds are normal; no edema. LUNGS: Respiratory rate normal; clear to auscultation. ABDOMEN: Soft, abdominal binder in places, no guarding or rigidity, bowel sounds present, liver spleen not palpable, no masses palpable. PSYCH: [Alert and oriented x3; mood and affect anxious. INVESTIGATIONS, reviewed in the clinical context: white count 5.6 hemoglobin 11.6 creatinine 0.65 potassium 4.1 Previous testing White count 12.4 hemoglobin 13.7 potassium 4.2 creatinine 0.79 EKG tracing personally reviewed by me-normal sinus rhythm Chest x-ray film personally reviewed by me-borderline cardiomegaly, possible chronic changes on the lung boyd Computed tomography scan of the abdomen and pelvis without contrast-incarcerated ventral hernia which is transition point of a mechanical small bowel obstruction no free air Assessment: -Incarcerated ventral hernia with a transition point in the small bowel. repair incarcerated incisional hernia recurrent, small bowel resection, doing well -Diabetes mellitus type 2 -GERD -Chronic ulcerative colitis at baseline has 5 bowel movements a day. -Anxiety not otherwise specified Plan: tolerating diet. Up and about. Doing well. If discharged to follow with family doctor. Thank you Dr. Peraza
[2019-07-21] MEDS ORDERED: PANTOPRAZOLE 40 MG TABLET PO SCH (09:00)
--- NOTE | 2019-07-22 14:24 | CDI ---
Documentation Clarification Form Date: 07/22/19 From: Lindsey Castaneda Phone: If you have a question about this query, please contact Shirley Florence, Film Painter at [phone] between 8am and 5pm. Admit Date: 07/15/19 Discharge Date:07/20/19 Patient Name: Mary Marroquin Visit Number: [id number] ATTENTION: The Clinical Documentation Specialists (CDI) and [facility] Coding Staff appreciate your assistance in clarifying documentation. Please respond to the clarification below the line at the bottom and electronically sign. The CDI & [facility] Coding staff will review the response and follow-up if needed. Please note: Queries are made part of the Legal Health Record. If you have any questions, please contact the author of this message via ITS. Dear Dr. Peraza The final diagnosis of the pathology report states: Small bowel segmental resection: early acute ischemic enteritis and subserosal scar/fibrosis. Documentation states: Incarcerated recurrent incisional hernia. Small bowel obstruction. No mention of acute bowel ischemia. Patient history/risk factors: Recurrent incisional hernia, previous hernia repair, adhesions Clinical Indicators: Abdominal pain, small bowel obstruction due to ventral hernia with incarceration Treatment: Small bowel resection and hernia repair In your professional opinion, do you agree with the pathology report specifying the small bowel having acute ischemia? Yes No Other (please specify) Unable to determine yes small bowel had some evidence of acute ischemia. MTDD
== END 2019-07-20 18:58 | disposition home or self-care (01) | DRG 329 ==
LOC: EC 20:42 → 4SSUR 23:51
PROVIDERS: ADMIT Surgery; ATTEND Surgery
PROC: 0WQF0ZZ Repair Abdominal Wall, Open Approach (ICD-10-PCS; 2019-07-16)
PROC: 0DB80ZZ Excision of Small Intestine, Open Approach (ICD-10-PCS; principal; 2019-07-16 09:15)
DX: K43.6 Other and unspecified ventral hernia with obstruction, without gangrene (principal); K55.019 Acute (reversible) ischemia of small intestine, extent unspecified; K51.90 Ulcerative colitis, unspecified, without complications; Z94.0 Kidney transplant status; E11.9 Type 2 diabetes mellitus without complications; E78.5 Hyperlipidemia, unspecified; F41.9 Anxiety disorder, unspecified; K21.9 Gastro-esophageal reflux disease without esophagitis; N20.0 Calculus of kidney; Z79.82 Long term (current) use of aspirin; Z79.899 Other long term (current) drug therapy; Z87.891 Personal history of nicotine dependence; Z88.8 Allergy status to other drugs, medicaments and biological substances; Z86.718 Personal history of other venous thrombosis and embolism; Z90.49 Acquired absence of other specified parts of digestive tract; Z98.51 Tubal ligation status; Z82.49 Family history of ischemic heart disease and other diseases of the circulatory system
CPT/HCPCS: 36415; 71046; 74018; 74176; 80048; 80053; 81001; 82150; 83605; 83690; 84484; 85025; 88302; 88307; 93005; 96361; 96374; 96375; 99285

== ENCOUNTER 2020-04-15 13:52 | Inpatient (IN) | payer OTHER, MEDICARE ==
[2020-04-15] MEDS ORDERED: MORPHINE SULFATE 4 MG/ML SYRINGE IVP STA (14:01)
[2020-04-15 14:02] LABS: Glucose,Whole Blood 178 mg/dL (75-99)
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
[2020-04-15 14:44] LABS: Basophils # (A) 0.1 k/uL (0-0.2); Basophils % (A) 1 %; Eosinophils # (A) 0.1 k/uL (0-0.7); Eosinophils % (A) 1 %; HCT 42.8 % (34.0-46.0); Lymphocytes # (A) 0.7 k/uL (1.0-4.8); Lymphocytes % (A) 8 %; MCH 31.7 pg (25.0-35.0); MCHC 35.1 g/dL (31.0-37.0); MCV 90.3 fL (80.0-100.0); Mean Platelet Volume 7.6; Monocytes # (A) 0.7 k/uL (0-1.0); Monocytes % (A) 8 %; Neutrophils # (A) 7.4 k/uL (1.3-7.7); Neutrophils % (A) 81 %; Platelet Count 242 k/uL (150-450); RBC 4.74 m/uL (3.80-5.40); RDW 13.7 % (11.5-15.5); WBC 9.1 k/uL (3.8-10.6)
[2020-04-15 14:59] LABS: ALT 16 U/L (4-34); AST 24 U/L (14-36); African American GFR (CKD) >90 (>60 ml/min/1.73 sqM); Albumin 4.3 g/dL (3.5-5.0); Alcohol <10 mg/dL; Alkaline Phosphatase 80 U/L (38-126); Anion Gap 9 mmol/L; Blood Urea Nitrogen 15 mg/dL (7-17); Calcium 10.1 mg/dL (8.4-10.2); Carbon Dioxide 23 mmol/L (22-30); Chloride 102 mmol/L (98-107); Creatine Kinase 492 U/L (30-135); Glucose 168 mg/dL (74-99); Non-African American GFR(CKD) 86 (>60 ml/min/1.73 sqM); Potassium 4.2 mmol/L (3.5-5.1); Sodium 134 mmol/L (137-145); Total Bilirubin 0.5 mg/dL (0.2-1.3); Total Protein 6.8 g/dL (6.3-8.2)
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
[2020-04-15] MEDS ORDERED: HYDROmorphone 1 MG/ML 1 ML SYRINGE IVP STA (15:46)
[2020-04-15] MEDS ORDERED: NALOXONE 0.4 MG/ML 1 ML VIAL IV PRN (16:09)
[2020-04-15 16:39] LABS: INR 0.9 (<1.2); Partial Thromboplastin Time 21.6 sec (22.0-30.0); Prothrombin Time 9.7 sec (9.0-12.0)
[2020-04-15] MEDS: HYDROmorphone 1 MG/ML 1 ML SYRINGE IVP PRN ×2 (18:44→21:27)
[2020-04-15] MEDS: SODIUM CHLORIDE 0.9% 1,000 ML IV SCH (18:49)
[2020-04-15] MEDS ORDERED: bisacodyL 5 MG TABLET.DR PO PRN (19:37)
[2020-04-15] MEDS ORDERED: CALCIUM CARBONATE 500 MG CHEWABLE PO PRN (19:37)
[2020-04-15] MEDS ORDERED: MAGNESIUM HYDROXIDE 2,400 MG/10 ML CUP PO PRN (19:37)
[2020-04-15] MEDS ORDERED: ONDANSETRON 4 MG/2 ML VIAL IVP PRN (19:37)
[2020-04-15] MEDS ORDERED: PROCHLORPERAZINE 5 MG TAB PO PRN (19:37)
[2020-04-15] MEDS ORDERED: LORazepam 2 MG/ML INJ IV PRN (19:37)
[2020-04-15] MEDS ORDERED: DOCUSATE 100 MG CAP PO PRN (19:37)
--- NOTE | 2020-04-15 20:27 | XR ---
EXAMINATION TYPE: XR Femur LT 1 View DATE OF EXAM: 04/15/2020 COMPARISON: NONE HISTORY: Pain TECHNIQUE: 2 views FINDINGS: I see no fracture nor dislocation. Hip joint is intact. Femoral shaft is intact. There is v ascular calcification. There are small calcifications adjacent to the greater trochanter that could b e injection granulomas. IMPRESSION: No acute abnormality of the left femur. No fracture seen.
--- NOTE | 2020-04-15 20:29 | XR ---
EXAMINATION TYPE: XR ankle limited LT DATE OF EXAM: 04/15/2020 COMPARISON: NONE HISTORY: Pain TECHNIQUE: 2 views FINDINGS: Ankle mortise is anatomic. There is plantar calcaneal spurring. I see no fracture nor dislo cation. Multiple calcifications in the soft tissues of the posterior calf. This could relate to venou s stasis. 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 IMPRESSION: No acute abnormality of the left ankle.
--- NOTE | 2020-04-15 20:30 | XR ---
EXAMINATION TYPE: XR knee limited LT DATE OF EXAM: 04/15/2020 COMPARISON: NONE HISTORY: Pain TECHNIQUE: 2 views FINDINGS: There is no evidence of fracture nor dislocation. There is no definite knee joint effusion. Joint spaces are fairly normal. IMPRESSION: Negative left knee exam. No fracture seen.
[2020-04-15] MEDS: ATORVASTATIN 10 MG TAB PO SCH (20:56)
[2020-04-15] MEDS: sulfaSALAzine 500 MG TAB PO SCH (20:57)
[2020-04-15] MEDS: POTASSIUM CHLORIDE ER 20 MEQ TAB.ER PO SCH (20:57)
[2020-04-15] MEDS: FENOFIBRATE 160 MG TAB PO SCH (20:57)
[2020-04-15] MEDS: FERROUS SULFATE 325 MG TAB PO SCH (20:57)
[2020-04-15] MEDS: ACETAMINOPHEN TAB 325 MG TAB PO SCH (23:39)
[2020-04-16] MEDS: HYDROmorphone 1 MG/ML 1 ML SYRINGE IVP PRN ×5 (00:21→22:25)
[2020-04-16] MEDS: ACETAMINOPHEN TAB 325 MG TAB PO SCH ×3 (05:35→17:29)
[2020-04-16 07:27] LABS: Appearance,Urine Cloudy (Clear); Bilirubin,Urine Negative (Negative); Blood,Urine Small (Negative); Color,Urine Dark Yellow; Glucose,Urine (UA) 1+ (Negative); Ketones,Urine Trace (Negative); Leukocyte Esterase,Urine Large (Negative); Mucus,Urine Rare /hpf; Nitrite,Urine Negative (Negative); Protein,Urine 1+ (Negative); RBC,Urine 7 /hpf (0-5); Specific Gravity,Urine 1.029 (1.001-1.035); Squamous Epithelial Cell,Urine 2 /hpf (0-4); Urobilinogen,Urine <2.0 mg/dL (<2.0); WBC,Urine 117 /hpf (0-5)
[2020-04-16 07:38] LABS: Amphetamine Screen,Urine Not Detected (NotDetected); Barbiturate Screen,Urine Not Detected (NotDetected); Benzodiazepines Screen,Urine Not Detected (NotDetected); Cocaine Screen,Urine Not Detected (NotDetected); Methadone Screen, Urine Not Detected (NotDetected); Opiate Screen,Urine Detected (NotDetected); Oxycodone Screen, Urine Not Detected (NotDetected); Phencyclidine Screen,Urine Not Detected (NotDetected); Tricyclic Antidepressant,Urine Not Detected (NotDetected); Urn Cannabinoid Scrn Not Detected (NotDetected)
[2020-04-16 08:09] LABS: Basophils % (A) 1 %; Eosinophils # (A) 0.3 k/uL (0-0.7); Eosinophils % (A) 5 %; HCT 37.5 % (34.0-46.0); HGB 12.6 gm/dL (11.4-16.0); Lymphocytes # (A) 0.9 k/uL (1.0-4.8); Lymphocytes % (A) 14 %; MCHC 33.6 g/dL (31.0-37.0); MCV 92.3 fL (80.0-100.0); Mean Platelet Volume 7.2; Monocytes # (A) 0.6 k/uL (0-1.0); Monocytes % (A) 10 %; Neutrophils # (A) 4.2 k/uL (1.3-7.7); Neutrophils % (A) 69 %; Platelet Count 269 k/uL (150-450); RBC 4.06 m/uL (3.80-5.40); RDW 13.9 % (11.5-15.5); WBC 6.1 k/uL (3.8-10.6)
[2020-04-16] MEDS: ASPIRIN 81 MG PO SCH (08:12)
[2020-04-16] MEDS: POTASSIUM CHLORIDE ER 10 MEQ TAB.ER.PRT PO SCH (08:12)
[2020-04-16] MEDS: FERROUS SULFATE 325 MG TAB PO SCH ×2 (08:12→22:04)
[2020-04-16] MEDS: ENOXAPARIN 40 MG/0.4 ML SYRINGE SQ SCH (08:12)
[2020-04-16] MEDS: sulfaSALAzine 500 MG TAB PO SCH ×2 (08:14→22:05)
[2020-04-16] MEDS: SIROLIMUS 1 MG PO SCH (08:21)
[2020-04-16 08:25] LABS: African American GFR (CKD) >90 (>60 ml/min/1.73 sqM); Anion Gap 6 mmol/L; Blood Urea Nitrogen 13 mg/dL (7-17); Calcium 9.1 mg/dL (8.4-10.2); Carbon Dioxide 27 mmol/L (22-30); Chloride 103 mmol/L (98-107); Glucose 128 mg/dL (74-99); Non-African American GFR(CKD) >90 (>60 ml/min/1.73 sqM); Potassium 4.1 mmol/L (3.5-5.1); Sodium 136 mmol/L (137-145)
[2020-04-16 08:55] LABS: Creatine Kinase 1364 U/L (30-135)
[2020-04-16] MEDS ORDERED: SPIRONOLACTONE 25 MG TAB PO SCH (09:00)
[2020-04-16] MEDS ORDERED: PANTOPRAZOLE 40 MG/10 ML VIAL IV SCH (09:00)
[2020-04-16] MEDS ORDERED: NON FORMULARY DRUG (Omeprazole [Omeprazole] 20 MG Tablet.Dr) PO SCH (09:00)
[2020-04-16] MEDS ORDERED: FUROSEMIDE 80 MG TAB PO SCH (09:00)
[2020-04-16] MEDS ORDERED: NON FORMULARY DRUG (Biotin [Biotin] 5 MG Capsule) PO SCH (09:00)
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
[2020-04-16] MEDS ORDERED: SODIUM CHLORIDE 0.9% 2,000 ML IV ONE (11:10)
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
[2020-04-16] MEDS: SODIUM CHLORIDE 0.9% 1,000 ML IV SCH (15:35)
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
[2020-04-16] MEDS: ATORVASTATIN 10 MG TAB PO SCH (22:04)
[2020-04-16] MEDS: POTASSIUM CHLORIDE ER 20 MEQ TAB.ER PO SCH (22:04)
[2020-04-16] MEDS: FENOFIBRATE 160 MG TAB PO SCH (22:06)
[2020-04-17] MEDS: ACETAMINOPHEN TAB 325 MG TAB PO SCH ×4 (00:58→17:04)
[2020-04-17] MEDS: HYDROcodone/APAP 5-325MG 1 EACH TAB PO PRN ×3 (03:25→22:33)
[2020-04-17] MEDS: POTASSIUM CHLORIDE ER 10 MEQ TAB.ER.PRT PO SCH (07:36)
[2020-04-17] MEDS: FERROUS SULFATE 325 MG TAB PO SCH ×2 (07:36→21:09)
[2020-04-17] MEDS: ASPIRIN 81 MG PO SCH (07:36)
[2020-04-17] MEDS: ENOXAPARIN 40 MG/0.4 ML SYRINGE SQ SCH (07:36)
[2020-04-17] MEDS: PANTOPRAZOLE 40 MG TABLET PO SCH (07:36)
[2020-04-17] MEDS: SIROLIMUS 1 MG PO SCH (07:37)
[2020-04-17] MEDS: SODIUM CHLORIDE 0.9% 1,000 ML IV SCH (07:37)
[2020-04-17 08:15] LABS: African American GFR (CKD) >90 (>60 ml/min/1.73 sqM); Anion Gap 7 mmol/L; Blood Urea Nitrogen 10 mg/dL (7-17); Carbon Dioxide 23 mmol/L (22-30); Chloride 105 mmol/L (98-107); Creatine Kinase 895 U/L (30-135); Glucose 144 mg/dL (74-99); Non-African American GFR(CKD) >90 (>60 ml/min/1.73 sqM); Potassium 3.8 mmol/L (3.5-5.1); Sodium 135 mmol/L (137-145)
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
[2020-04-17] MEDS: sulfaSALAzine 500 MG TAB PO SCH ×2 (10:17→21:39)
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
[2020-04-17] MEDS ORDERED: SODIUM CHLORIDE 0.9% 1,000 ML IV ONE (19:00)
[2020-04-17] MEDS: FENOFIBRATE 160 MG TAB PO SCH (21:09)
[2020-04-17] MEDS: ATORVASTATIN 10 MG TAB PO SCH (21:09)
[2020-04-17] MEDS: POTASSIUM CHLORIDE ER 20 MEQ TAB.ER PO SCH (21:09)
[2020-04-18] MEDS: ACETAMINOPHEN TAB 325 MG TAB PO SCH ×3 (01:37→11:58)
[2020-04-18] MEDS: HYDROcodone/APAP 5-325MG 1 EACH TAB PO PRN ×2 (02:48→08:34)
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
[2020-04-18 08:07] VITALS: RESP 18
[2020-04-18] MEDS: ASPIRIN 81 MG PO SCH (08:27)
[2020-04-18] MEDS: ENOXAPARIN 40 MG/0.4 ML SYRINGE SQ SCH (08:27)
[2020-04-18] MEDS: PANTOPRAZOLE 40 MG TABLET PO SCH (08:28)
[2020-04-18] MEDS: FERROUS SULFATE 325 MG TAB PO SCH (08:28)
[2020-04-18] MEDS: POTASSIUM CHLORIDE ER 10 MEQ TAB.ER.PRT PO SCH (08:28)
[2020-04-18] MEDS: sulfaSALAzine 500 MG TAB PO SCH (08:28)
[2020-04-18] MEDS: SIROLIMUS 1 MG PO SCH (09:01)
[2020-04-18] MEDS ORDERED: MAGNESIUM SULFATE-D5W PMX 1 GM in DEXTROSE/WATER 1 100ML.BAG IVPB ONE (11:30)
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
[2020-04-18] MEDS ORDERED: MAGNESIUM OXIDE 400 MG TAB PO ONE (12:00)
[2020-04-18 12:50] VITALS: BP 89/64; PULSE 76; TEMP 98.1
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
== END 2020-04-18 14:37 | disposition home health service (06) | DRG 563 ==
LOC: EC 13:52 → 1SOBS 16:09 → OBSVTOIN 04-17 10:40 → 4SSUR 04-17 19:32
PROVIDERS: ADMIT Surgery Plastic and Reconstructive Surgery; ATTEND Surgery Plastic and Reconstructive Surgery
DX: S82.142A Displaced bicondylar fracture of left tibia, initial encounter for closed fracture (principal); E87.1 Hypo-osmolality and hyponatremia; K51.90 Ulcerative colitis, unspecified, without complications; Z94.0 Kidney transplant status; E11.40 Type 2 diabetes mellitus with diabetic neuropathy, unspecified; S62.300A Unspecified fracture of second metacarpal bone, right hand, initial encounter for closed fracture; E83.42 Hypomagnesemia; F41.9 Anxiety disorder, unspecified; M10.9 Gout, unspecified; S40.212A Abrasion of left shoulder, initial encounter; Y92.410 Unspecified street and highway as the place of occurrence of the external cause; Z79.82 Long term (current) use of aspirin; Z79.899 Other long term (current) drug therapy; Z82.49 Family history of ischemic heart disease and other diseases of the circulatory system; E86.1 Hypovolemia; Z90.49 Acquired absence of other specified parts of digestive tract; Z88.8 Allergy status to other drugs, medicaments and biological substances; R74.8 Abnormal levels of other serum enzymes; Z98.51 Tubal ligation status; M51.36 Other intervertebral disc degeneration, lumbar region; M43.16 Spondylolisthesis, lumbar region; Z86.718 Personal history of other venous thrombosis and embolism; V29.9XXA Motorcycle rider (driver) (passenger) injured in unspecified traffic accident, initial encounter
CPT/HCPCS: 36415; 70450; 71045; 71250; 72125; 72128; 72131; 72170; 74176; 80048; 80053; 80306; 80320; 81001; 82550; 83605; 83735; 84484; 85025; 85610; 85730; 93005; 96374; 96375; 99285

== ENCOUNTER 2020-07-17 09:19 | Day surgery (SDC) | payer MEDICARE, OTHER ==
[2020-07-11 12:05] VITALS: BMI 28.1
[~2020-07-17 09:19] MED LIST: ACETAMINOPHEN TAB 500 MG TAB PO PRN; DEXAMETHASONE SOD PHOSPHATE 4 MG/ML 1 ML VIAL IV ONE; HEPARIN SODIUM,PORCINE 5,000 UNIT/ML 1 ML VIAL SQ PRN; HYDROmorphone 0.5 MG/0.5 ML SYRINGE IVP PRN; LACTATED RINGERS 1,000 ML IV SCH; ONDANSETRON 4 MG/2 ML VIAL IVP ONE
--- NOTE | 2020-07-17 09:30 | P.GSHP ---
History of Present Illness H&P Date: 07/17/20 Chief Complaint: Recurrent reducible incisional hernia Patient here today for elective repair recurrent incisional hernia. Patient had previous exploratory laparotomy for bowel obstruction. Following that underwent repair of a incisional hernia with subfascial mesh placement. In July of last year patient underwent repair of an incarcerated recurrent incisional hernia which required bowel resection and partial mesh removal. Patient recently noticed an increasing bulge. She is interested in proceeding with repair of a recurrent hernia. Mild pain at times. Hernia is increasing in size. 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 History of Any Multi-Drug Resistant Organisms: None Reported Past Surgical History: Cholecystectomy, Hernia Repair, Tubal Ligation Additional Past Surgical History / Comment(s): KIDNEY TRANSPLANT left 15 years ago. DIALYSIS PORT PLACEMENT AND REMOVAL Past Anesthesia/Blood Transfusion Reactions: No Reported Reaction, Motion Sickness Smoking Status: Former smoker - Past Family History Mother Family Medical History: Myocardial Infarction (SD) Additional Family Medical History / Comment(s): Father Additional Family Medical History / Comment(s): UNK HEART PROBLEMS Medications and Allergies Home Medications Medication Instructions Recorded Confirmed Type Furosemide 40 mg PO Q48H 08/03/15 07/11/20 History Omeprazole 20 mg PO DAILY 08/03/15 07/11/20 History Potassium Chloride [Klor-Con 10] 20 meq PO HS 08/03/15 07/11/20 History Potassium Chloride [Klor-Con 10] 30 meq PO DAILY 08/03/15 07/11/20 History Simvastatin 20 mg PO HS 08/03/15 07/11/20 History Spironolactone 25 mg PO DAILY 08/03/15 07/11/20 History gemfibroziL [Gemfibrozil] 600 mg PO HS 08/03/15 07/11/20 History mycophenolate mofetiL [Cellcept] 1,000 mg PO BID 08/03/15 07/11/20 History Sirolimus [Rapamune] 5 mg PO DAILY 08/17/15 07/11/20 History Ferrous Sulfate [Feosol] 325 mg PO BID 09/06/18 07/11/20 History sulfaSALAzine [Azulfidine] 2,000 mg PO BID 09/06/18 07/11/20 History Aspirin EC [Ecotrin Low Dose] 81 mg PO DAILY 04/15/20 07/11/20 History Biotin 5 mg PO DAILY 04/15/20 07/11/20 History Cranberry 850mg 850 mg PO DAILY 04/15/20 07/11/20 History Ascorbic Acid [Vitamin C] 1,000 mg PO DAILY 07/11/20 07/11/20 History Cholecalciferol [Vitamin D3 (25 2,000 unit PO DAILY 07/11/20 07/11/20 History Mcg = 1000 Iu)] Furosemide [Lasix] 80 mg PO Q48H 07/11/20 07/11/20 History Vitamin B Complex 1 each PO DAILY 07/11/20 07/11/20 History Zinc 50 mg PO DAILY 07/11/20 07/11/20 History Allergies Allergy/AdvReac Type Severity Reaction Status Date / Time lisinopril Allergy Anaphylaxis Verified 07/11/20 11:45 Surgical - Exam Physical exam: General: Well-developed, well-nourished HEENT: Normocephalic, sclerae nonicteric Abdomen: Nontender, nondistended, midline incision with recurrent reducible hernia to the left of midline epigastric location Extremities: No edema Neuro: Alert and oriented Assessment and Plan (1) Recurrent incisional hernia Narrative/Plan: Will proceed with repair recurrent reducible incisional hernia with mesh. Risks of bleeding, infection, recurrence, bladder and bowel injury, numbness, nerve injury were discussed with the patient. The patient understands and wishes to proceed. Current Visit: Yes Status: Acute Code(s): K43.2 - INCISIONAL HERNIA WITHOUT OBSTRUCTION OR GANGRENE SNOMED Code(s): 158946068
[2020-07-17 10:05] LABS: Glucose,Whole Blood 127 mg/dL (75-99)
[2020-07-17] MEDS ORDERED: LIDOCAINE 1% (10MG/ML) FOR IV START INTRADERMA ONE (10:14)
[2020-07-17] MEDS ORDERED: MIDAZOLAM 2 MG/2 ML VIAL IVP ONE (10:40)
[2020-07-17] MEDS ORDERED: SUCCINYLCHOLINE CHLORIDE 100 MG/5 ML SYR IV ONE (10:47)
[2020-07-17] MEDS ORDERED: NEOSTIGMINE 1 MG/ML 10 ML VIAL ONE (10:47)
[2020-07-17] MEDS ORDERED: fentaNYL (PF) 50 MCG/ML 2 ML AMP ONE (10:47)
[2020-07-17] MEDS ORDERED: PROPOFOL 10 MG/ML 20 ML VIAL IV ONE (10:47)
[2020-07-17] MEDS ORDERED: LIDOCAINE 1% INJ 10MG/ML (20 ML MDV) ONE (10:47)
[2020-07-17] MEDS ORDERED: ROCURONIUM 10 MG/ML (10 ML VIAL) IV ONE (10:47)
[2020-07-17] MEDS ORDERED: GLYCOPYRROLATE 0.2 MG/ML 2 ML VIAL ONE (10:47)
[2020-07-17] MEDS ORDERED: BUPIVACAINE (PF) 0.25% 30 ML VIAL SQ ONE ×2 (11:07)
[2020-07-17] MEDS ORDERED: METOCLOPRAMIDE 5 MG/ML 2 ML VIAL IVP PRN (12:30)
[2020-07-17] MEDS ORDERED: ONDANSETRON 4 MG/2 ML VIAL IVP PRN (12:30)
[2020-07-17] MEDS ORDERED: traMADol 50 MG TAB PO PRN (12:30)
[2020-07-17] MEDS ORDERED: NALOXONE 0.4 MG/ML 1 ML VIAL IV PRN (12:30)
--- NOTE | 2020-07-17 12:49 | P.OP ---
Date of Procedure: 07/17/20 Procedure(s) Performed: PREOPERATIVE DIAGNOSIS: Recurrent reducible incisional hernia POSTOPERATIVE DIAGNOSIS: Same PROCEDURE: Incisional hernia repair with mesh SURGEON: Karmen EBL: Minimal ANESTHESIA: Gen. COMPLICATIONS: None OPERATIVE PROCEDURE: Patient placed on the operating table in the supine position. The previous incision was re-incised. Dissection through the subcutaneous tissues took place using electrocautery. A moderate sized hernia was identified. The hernia sac was carefully dissected down to the level of the fascia where it was excised. The patient had a total one large fascial defect measuring 4 x 5 cm. No additional defects were seen. There were some adhesions between the edge of the fascia and the small bowel that were lysed using both blunt dissection and sharp dissection. The omentum was also adherent to the fascia circumferentially around the hernia itself. This was mobilized using electrocautery and blunt dissection. Once we had the peritoneum freed up circumferentially and the fascia was cleared of overlying fatty tissues the 8 cm ventral ex mesh was placed beneath the fascial defect. This was sutured in place using interrupted trans-fascial 0 Ethibond sutures. The defect was then closed vertically using interrupted 0 Ethibond sutures in a vest over pants mattress technique. The folding edge was also sutured down using interrupted 0 Ethibond sutures. A drain was placed anterior to the fascial closure exiting through the right lower quadrant. This was sutured to the skin using a 3-0 silk stitch. The subcutaneous tissues were closed using 3-0 Vicryl sutures. The skin was closed using franco. Sterile dressings were applied. DISPOSITION: Stable to recovery room
[2020-07-17] MEDS ORDERED: D5-0.45% NACL WITH KCL 20MEQ/L 1,000 ML IV SCH (14:00)
--- NOTE | 2020-07-17 14:13 | P.ANPRN ---
Procedure Note - Anesthesia - Nerve Block Performed Bilateral Rectus Abdominis Single Time Out Performed: Yes Date of Procedure: 07/17/20 Procedure Start Time: 10:39 Procedure Stop Time: 10:47 Location of Patient: PreOp Indication: Acute Post-Operative Pain, Requested by Surgeon Sedation Type: Sedate with meaningful contact maintained Preparation: Sterile Prep Position: Supine Needle Types: Pajunk Needle Gauge: 21 Ultrasound used to visualize needle placement: Yes Ultrasound used to observe medication spread: Yes Blood Aspirated: No Pain Paresthesia on Injection Noted: No Resistance on Injection: Normal Image Stored and Saved: Yes Events: Uneventful and Well Tolerated (ropi .5% 20cc plus dexamethasone 4mg bilaterally)
[2020-07-17] MEDS: HEPARIN SODIUM,PORCINE 5,000 UNIT/ML 1 ML VIAL SQ SCH ×2 (16:45→23:26)
[2020-07-17] MEDS: IBUPROFEN 600 MG TAB PO SCH ×2 (16:47→21:12)
[2020-07-17] MEDS: ACETAMINOPHEN TAB 325 MG TAB PO SCH ×2 (18:30→23:26)
--- NOTE | 2020-07-17 18:36 | P.CONS ---
History of Present Illness - Reason for Consult Consult date: 07/17/20 Medical management - Chief Complaint Repair of incisional hernia - History of Present Illness Patient is a 64-year-old female with a known history of diabetes type 2 mostly diet controlled, GERD, hyperlipidemia and history of renal transplant and prior history of incisional hernia and previous history of laparotomy for bowel obstruction/resection was admitted to the hospital due to recurrent incisional hernia and mesh placement. Patient is status post procedure and currently lying in the bed comfortably. Pain is controlled. No complaints of chest pain or shortness of breath. No nausea vomiting. Patient did have a small bowel movement. No fever no chills. Postoperatively blood pressure is elevated at 168/98 and heart rate 69 and pulse ox is 94% on 2 L oxygen via nasal cannula. Blood sugar is 127 Review of Systems Constitutional: Patient denies any fever or chills . No generalized weakness or weight loss. Abdomen: Patient denied nausea vomiting and diarrhea and abdominal pain. Cardiovascular: Patient denies any chest pain or short of breath no palpitations. Respiratory: patient denied any cough is from production. No shortness of breath Neurologic: Patient denied any numbness or tingling headache. Musculoskeletal: Patient denies any complaints of joint swelling or deformity. Skin: Negative Psychiatric: Negative Endocrine: No heat or cold intolerance. No recent weight gain. Genitourinary: No dysuria or hematuria. All other 14 point ROS negative except the above Past Medical History Past Medical History: Diabetes Mellitus, Deep Vein Thrombosis (DVT), GERD/Reflux, Renal Disease Additional Past Medical History / Comment(s): COLITIS, DM TYPE 2 AFTER KIDNEY TRANSPLANT DIET CONTROLLED. History of Any Multi-Drug Resistant Organisms: None Reported Past Surgical History: Cholecystectomy, Hernia Repair, Tubal Ligation Additional Past Surgical History / Comment(s): KIDNEY TRANSPLANT left 15 years ago. DIALYSIS PORT PLACEMENT AND REMOVAL Past Anesthesia/Blood Transfusion Reactions: No Reported Reaction, Motion Sickness Past Psychological History: Anxiety Smoking Status: Former smoker Past Alcohol Use History: Occasional Additional Past Alcohol Use History / Comment(s): smoker 35 years quit 2004 Past Drug Use History: None Reported - Past Family History Mother Family Medical History: Myocardial Infarction (DC) Additional Family Medical History / Comment(s): Father Additional Family Medical History / Comment(s): UNK HEART PROBLEMS Medications and Allergies Home Medications Medication Instructions Recorded Confirmed Type Furosemide 40 mg PO Q48H 08/03/15 07/11/20 History Omeprazole 20 mg PO DAILY 08/03/15 07/11/20 History Potassium Chloride [Klor-Con 10] 20 meq PO HS 08/03/15 07/11/20 History Potassium Chloride [Klor-Con 10] 30 meq PO DAILY 08/03/15 07/11/20 History Simvastatin 20 mg PO HS 08/03/15 07/11/20 History Spironolactone 25 mg PO DAILY 08/03/15 07/11/20 History gemfibroziL [Gemfibrozil] 600 mg PO HS 08/03/15 07/11/20 History mycophenolate mofetiL [Cellcept] 1,000 mg PO BID 08/03/15 07/11/20 History Sirolimus [Rapamune] 5 mg PO DAILY 08/17/15 07/11/20 History Ferrous Sulfate [Feosol] 325 mg PO BID 09/06/18 07/11/20 History sulfaSALAzine [Azulfidine] 2,000 mg PO BID 09/06/18 07/17/20 History Aspirin EC [Ecotrin Low Dose] 81 mg PO DAILY 04/15/20 07/17/20 History Biotin 5 mg PO DAILY 04/15/20 07/11/20 History Cranberry 850mg 850 mg PO DAILY 04/15/20 07/11/20 History Ascorbic Acid [Vitamin C] 1,000 mg PO DAILY 07/11/20 07/11/20 History Cholecalciferol [Vitamin D3 (25 2,000 unit PO DAILY 07/11/20 07/11/20 History Mcg = 1000 Iu)] Furosemide [Lasix] 80 mg PO Q48H 07/11/20 07/11/20 History Vitamin B Complex 1 each PO DAILY 07/11/20 07/11/20 History Zinc 50 mg PO DAILY 07/11/20 07/11/20 History Allergies Allergy/AdvReac Type Severity Reaction Status Date / Time lisinopril Allergy Anaphylaxis Verified 07/11/20 11:45 Physical Exam Vitals: Vital Signs Temp Pulse Pulse Resp BP Pulse Ox 07/17/20 16:40 65 16 144/87 94 L 07/17/20 16:25 70 16 154/90 94 L 07/17/20 15:15 69 16 168/98 94 L 07/17/20 14:45 71 16 133/87 94 L 07/17/20 14:30 68 16 148/89 94 L 07/17/20 14:15 70 16 164/95 95 07/17/20 14:00 63 16 152/89 94 L 07/17/20 13:29 63 16 160/87 96 07/17/20 13:13 61 16 160/87 96 07/17/20 12:57 59 L 16 166/94 96 07/17/20 12:45 69 16 167/99 96 07/17/20 12:27 98 F 69 16 175/94 96 07/17/20 10:49 63 16 200/106 99 07/17/20 10:30 74 16 197/112 07/17/20 09:43 98.0 F 84 16 187/110 97 Intake and Output 07/17/20 07/17/20 07/17/20 06:59 14:59 22:59 Intake Total 850 Output Total 30 Balance 820 Intake: IV 850 Output: Drainage 20 Right Lower Abdomen 20 Estimated Blood Loss 10 Other: # Voids 1 # Bowel Movements 1 Weight 88 kg PHYSICAL EXAMINATION: Patient is lying in the bed comfortably, no acute distress, awake alert and oriented.. HEENT: Normocephalic. Neck is supple. Pupils reactive. Nostrils clear. Oral cavity is moist. Ears reveal no drainage. Neck reveals no JVD, carotid bruits, or thyromegaly. CHEST EXAMINATION: Trachea is central. Symmetrical expansion. Lung boyd clear to auscultation and percussion. CARDIAC: Normal S1, S2 with no gallops. No murmurs ABDOMEN: Soft. Bowel sounds present. Surgical site intact.. No organomegaly. No abdominal bruits. Extremities: reveal no edema. No clubbing or cyanosis Neurologically awake, alert, oriented x3 with well-coordinated movements. No focal deficits noted Skin: No rash or skin lesions. Psychiatric: Coperative. Nonsuicidal Musculoskeletal: No joint swelling or deformity. Normal range of motion. Results Labs: Abnormal Lab Results - Last 24 Hours (Table) 07/17/20 Range/Units 09:56 POC Glucose (mg/dL) 127 H (75-99) mg/dL Assessment and Plan Assessment: Status post recurrent incisional hernia repair postoperative day 0 Previous history of expiratory laparotomy due to incarcerated hernia requiring bowel resection in July 2019 Diabetes type 2 diet-controlled at this time Hypertension Hyperlipidemia History of renal transplant 15 years ago Previous history of smoking History of DVT GERD DVT prophylaxis with heparin subcu Plan: Patient will be continued on IV hydration, pain management and bowel regimen. DVT prophylaxis. Patient does take Lasix and spironolactone at home. will start back on home blood pressure medications and titrate as needed. Continue with immunosuppressive therapy due to prior history of renal transplant. GI and DVT prophylaxis. CBC and BMP will be ordered for tomorrow morning. Continue the current management and further recommendations based on the clinical course. will follow with you next and Thank you for your consult. Time with Patient: Greater than 30
[2020-07-17] MEDS: SODIUM CHLORIDE 0.9% 1,000 ML IV SCH (19:45)
[2020-07-17] MEDS ORDERED: ATORVASTATIN 10 MG TAB PO SCH (21:00)
[2020-07-17] MEDS ORDERED: FENOFIBRATE 160 MG TAB PO SCH (21:00)
[2020-07-17] MEDS: DOCUSATE 100 MG CAP PO SCH (21:14)
[2020-07-17] MEDS: FAMOTIDINE 20 MG TAB PO SCH (21:15)
[2020-07-17] MEDS: sulfaSALAzine 500 MG TAB PO SCH (21:15)
[2020-07-18 02:19] VITALS: PULSE 72
[2020-07-18] MEDS: IBUPROFEN 600 MG TAB PO SCH ×2 (02:55→08:15)
[2020-07-18] MEDS: SODIUM CHLORIDE 0.9% 1,000 ML IV SCH (04:30)
[2020-07-18] MEDS: ACETAMINOPHEN TAB 325 MG TAB PO SCH (05:45)
[2020-07-18 06:12] LABS: Basophils % (A) 0 %; Eosinophils # (A) 0.1 k/uL (0-0.7); Eosinophils % (A) 1 %; HCT 37.5 % (34.0-46.0); HGB 12.6 gm/dL (11.4-16.0); Lymphocytes # (A) 1.2 k/uL (1.0-4.8); Lymphocytes % (A) 15 %; MCH 30.5 pg (25.0-35.0); MCHC 33.6 g/dL (31.0-37.0); MCV 90.7 fL (80.0-100.0); Mean Platelet Volume 7.4; Monocytes # (A) 0.6 k/uL (0-1.0); Monocytes % (A) 7 %; Neutrophils # (A) 6.1 k/uL (1.3-7.7); Neutrophils % (A) 75 %; Platelet Count 244 k/uL (150-450); RBC 4.13 m/uL (3.80-5.40); RDW 13.3 % (11.5-15.5); WBC 8.1 k/uL (3.8-10.6)
[2020-07-18 06:22] LABS: African American GFR (CKD) >90 (>60 ml/min/1.73 sqM); Anion Gap 2 mmol/L; Blood Urea Nitrogen 13 mg/dL (7-17); Calcium 9.4 mg/dL (8.4-10.2); Carbon Dioxide 29 mmol/L (22-30); Chloride 105 mmol/L (98-107); Glucose 143 mg/dL (74-99); Non-African American GFR(CKD) >90 (>60 ml/min/1.73 sqM); Potassium 4.3 mmol/L (3.5-5.1); Sodium 136 mmol/L (137-145)
[2020-07-18] MEDS ORDERED: PANTOPRAZOLE 40 MG TABLET PO SCH (07:30)
[2020-07-18 08:20] VITALS: BP 155/92; RESP 18; TEMP 98.3
[2020-07-18] MEDS: DOCUSATE 100 MG CAP PO SCH (08:30)
[2020-07-18] MEDS: FAMOTIDINE 20 MG TAB PO SCH (08:30)
[2020-07-18] MEDS: HEPARIN SODIUM,PORCINE 5,000 UNIT/ML 1 ML VIAL SQ SCH (08:31)
[2020-07-18] MEDS: sulfaSALAzine 500 MG TAB PO SCH (08:34)
[2020-07-18] MEDS ORDERED: SPIRONOLACTONE 25 MG TAB PO SCH (09:00)
[2020-07-18] MEDS ORDERED: ASCORBIC ACID 500 MG TAB PO SCH (09:45)
[2020-07-18] MEDS ORDERED: CHOLECALCIFEROL 1,000 UNIT TAB PO SCH (09:45)
[2020-07-18] MEDS ORDERED: NON FORMULARY DRUG (Vitamin B Complex [Vitamin B Complex] 1 EACH Capsule) PO SCH (09:45)
--- NOTE | 2020-07-18 11:06 | P.DS ---
<Sendy Randle - Last Filed: 07/18/20 11:04> Providers Expected date of discharge: 07/18/20 Hospital Course: Discharge diagnosis 1. Incisional hernia repair with mesh Hospital course This is a 64-year-old female with a known recurrent incisional hernia. She is status post incisional hernia repair with mesh. She tolerated surgery well. She reports her pain is controlled. She is tolerating diet. She is up and ambulating. She is afebrile. She is stable for discharge. Physician Remittance Clerk note has been reviewed by physician. Signing provider agrees with the documented findings, assessment, and plan of care. Patient Condition at Discharge: Stable Plan - Discharge Summary Discharge Rx Participant: Yes New Discharge Prescriptions: New Acetaminophen Tab [Tylenol] 650 mg PO Q6HR tab Docusate [Colace] 100 mg PO BID #30 capsule traMADol HCL [Ultram] 50 mg PO Q6HR PRN 3 Days #12 tab PRN Reason: Pain Continue Furosemide 40 mg PO Q48H Potassium Chloride [Klor-Con 10] 20 meq PO HS Omeprazole 20 mg PO DAILY gemfibroziL [Gemfibrozil] 600 mg PO HS Simvastatin 20 mg PO HS Potassium Chloride [Klor-Con 10] 30 meq PO DAILY Spironolactone 25 mg PO DAILY mycophenolate mofetiL [Cellcept] 1,000 mg PO BID Sirolimus [Rapamune] 5 mg PO DAILY Ferrous Sulfate [Feosol] 325 mg PO BID sulfaSALAzine [Azulfidine] 2,000 mg PO BID Biotin 5 mg PO DAILY Aspirin EC [Ecotrin Low Dose] 81 mg PO DAILY Cranberry 850mg 850 mg PO DAILY Zinc 50 mg PO DAILY Ascorbic Acid [Vitamin C] 1,000 mg PO DAILY Cholecalciferol [Vitamin D3 (25 Mcg = 1000 Iu)] 2,000 unit PO DAILY Furosemide [Lasix] 80 mg PO Q48H Vitamin B Complex 1 each PO DAILY Discharge Medication List Furosemide 40 mg PO Q48H 08/03/15 [History] Omeprazole 20 mg PO DAILY 08/03/15 [History] Potassium Chloride [Klor-Con 10] 20 meq PO HS 08/03/15 [History] Potassium Chloride [Klor-Con 10] 30 meq PO DAILY 08/03/15 [History] Simvastatin 20 mg PO HS 08/03/15 [History] Spironolactone 25 mg PO DAILY 08/03/15 [History] gemfibroziL [Gemfibrozil] 600 mg PO HS 08/03/15 [History] mycophenolate mofetiL [Cellcept] 1,000 mg PO BID 08/03/15 [History] Sirolimus [Rapamune] 5 mg PO DAILY 08/17/15 [History] Ferrous Sulfate [Feosol] 325 mg PO BID 09/06/18 [History] sulfaSALAzine [Azulfidine] 2,000 mg PO BID 09/06/18 [History] Aspirin EC [Ecotrin Low Dose] 81 mg PO DAILY 04/15/20 [History] Biotin 5 mg PO DAILY 04/15/20 [History] Cranberry 850mg 850 mg PO DAILY 04/15/20 [History] Ascorbic Acid [Vitamin C] 1,000 mg PO DAILY 07/11/20 [History] Cholecalciferol [Vitamin D3 (25 Mcg = 1000 Iu)] 2,000 unit PO DAILY 07/11/20 [History] Furosemide [Lasix] 80 mg PO Q48H 07/11/20 [History] Vitamin B Complex 1 each PO DAILY 07/11/20 [History] Zinc 50 mg PO DAILY 07/11/20 [History] Acetaminophen Tab [Tylenol] 650 mg PO Q6HR tab 07/18/20 [Rx] Docusate [Colace] 100 mg PO BID #30 capsule 07/18/20 [Rx] traMADol HCL [Ultram] 50 mg PO Q6HR PRN 3 Days #12 tab 07/18/20 [Rx] Follow up Appointment(s)/Referral(s): Tramaine Peraza MD [Medical Doctor] - 07/26/20 3:15 pm Patient Instructions/Handouts: [facility] Drain Care (DC), Incisional Hernia (DC) Activity/Diet/Wound Care/Special Instructions: Medicine to complete Med rec No driving while taking [place] No lifting over 10 pounds You may shower. No soaking or tub baths for 2 weeks Very light activity until you are reevaluated at your follow up appointment with your surgeon Keep a log of KAYE drain output and bring with you to your follow-up appointment Milk/strip drains 2-3 times a day Diet Regular Follow up as directed, call for problems or concerns ie.. fever, chills, foul or unusual drainage from kaye or incisional site. Pain not controlled by meds, inability to keep down food or fluids. Discharge Disposition: HOME SELF-CARE <Tramaine Peraza - Last Filed: 07/18/20 12:30> Providers Attending physician: Tramaine Peraza Consults: 07/17/20 12:33 Consult Physician Routine Consulting Provider: Joann Lockwood Consult Reason/Comments: Medical management Do you want consulting provider notified?: Yes Primary care physician: Kody Laguna - Discharge Diagnosis(es) (1) Recurrent incisional hernia Current Visit: Yes Status: Acute Hospital Course: Patient doing well today. Minimal drainage from drain tube. She would like to go home. We'll discharge. Follow-up one week.
--- NOTE | 2020-07-18 11:47 | P.PN ---
Subjective Progress Note Date: 07/18/20 - Reason for Consult Consult date: 07/17/20 Medical management - Chief Complaint Repair of incisional hernia - History of Present Illness Patient is a 64-year-old female with a known history of diabetes type 2 mostly diet controlled, GERD, hyperlipidemia and history of renal transplant and prior history of incisional hernia and previous history of laparotomy for bowel obstruction/resection was admitted to the hospital due to recurrent incisional hernia and mesh placement. Patient is status post procedure and currently lying in the bed comfortably. Pain is controlled. No complaints of chest pain or shortness of breath. No nausea vomiting. Patient did have a small bowel movement. No fever no chills. Postoperatively blood pressure is elevated at 168/98 and heart rate 69 and pulse ox is 94% on 2 L oxygen via nasal cannula. Blood sugar is 127 07/18/2020 Patient is seen and evaluated in follow-up status post incisional hernia repair and is being closely monitored. Home medications have been resumed although patient does take Lasix and this was held and will resume home medications today. Sodium today is 136, potassium is 4.3, current creatinine is 0.69 and blood sugars are being closely monitored. Hemoglobin A1c was ordered and pending at this time. Patient states she controls her blood sugars through diet. Patient does see Dr. Kody Laguna in the outpatient setting and will follow-up upon discharge. Patient states she is passing gas and having bowel movements and has been urinating with no difficulties or retention noted. Patient is tolerating diet with no nausea or vomiting noted as well. Patient denies any chest pain or shortness of breath and requesting to be sent home. Review of systems: Constitutional: No reports of fatigue, fever, or chills Cardiovascular: No reports of chest pain or palpitations Respiratory: No reports of shortness of breath or cough GI: No reports of nausea, vomiting, or diarrhea : No reports of dysuria or retention Neurovascular: No reports of weakness or numbness All medications have been reviewed Objective - Vital Signs Vital signs: Vital Signs Temp 98.3 F 07/18/20 08:02 Pulse 72 07/18/20 08:02 Resp 18 07/18/20 08:02 BP 155/92 07/18/20 08:02 Pulse Ox 94 L 07/18/20 08:02 Intake & Output 07/17/20 07/18/20 07/18/20 18:59 06:59 18:59 Intake Total 850 800 Output Total 30 25 20 Balance 820 775 -20 Weight 88 kg Intake: IV 850 Oral 800 Output: Drainage 20 25 20 Right Lower Abdomen 20 25 20 Estimated Blood Loss 10 Other: Voiding Method Toilet Toilet # Voids 1 3 1 # Bowel Movements 1 - Exam Patient is sitting up in the bed comfortably, no acute distress, awake alert and oriented. HEENT: Normocephalic. Neck is supple. Pupils reactive. Nostrils clear. Oral cavity is moist. Ears reveal no drainage. Neck reveals no JVD, carotid bruits, or thyromegaly. CHEST EXAMINATION: Trachea is central. Symmetrical expansion. Lung boyd clear to auscultation and percussion. CARDIAC: Normal S1, S2 with no gallops. No murmurs ABDOMEN: Soft. Bowel sounds present. Surgical site intact. No organomegaly. No abdominal bruits. Nontender Extremities: reveal no edema. No clubbing or cyanosis Neurologically awake, alert, oriented x3 with well-coordinated movements. No focal deficits noted Skin: No rash or skin lesions. Psychiatric: Cooperative. Non-suicidal Musculoskeletal: No joint swelling or deformity. Normal range of motion. - Labs CBC & Chem 7: 07/18/20 05:49 07/18/20 05:49 Labs: Abnormal Lab Results - Last 24 Hours (Table) 07/18/20 Range/Units 05:49 Sodium 136 L (137-145) mmol/L Glucose 143 H (74-99) mg/dL Assessment and Plan Assessment: Status post recurrent incisional hernia repair postoperative day 1 Previous history of exploratory laparotomy due to incarcerated hernia requiring bowel resection in July 2019 Diabetes type 2 diet-controlled at this time Hypertension Hyperlipidemia History of renal transplant 15 years ago Previous history of smoking History of DVT GERD DVT prophylaxis with heparin subcu Plan: Continue with current medications, management, and symptomatic treatment. Instructed the patient to increase activity as tolerated. Patient is tolerating consistent carb diet with no reported nausea or vomiting noted. Patient is passing gas and having bowel movements and has been urinating with no difficulties. Blood sugars being monitored and instructed the patient to continue monitoring blood sugars in the outpatient setting as she is diet controlled. Hemoglobin A1c is pending at this time and instructed patient to follow-up with primary care provider once discharged. Home medications have been resumed. Repeat a.m. labs within normal limits. We will continue to follow with surgery during hospitalization. Thank you for this consult. Further recommendations to follow. Patient states she is being discharged today.
== END 2020-07-18 14:35 | disposition home or self-care (01) ==
LOC: OR 09:19 → 6PED 13:11 → OR 07-18 14:35
PROVIDERS: ATTEND Surgery
DX: K43.2 Incisional hernia without obstruction or gangrene (principal); I10 Essential (primary) hypertension; E11.9 Type 2 diabetes mellitus without complications; K21.9 Gastro-esophageal reflux disease without esophagitis; K52.9 Noninfective gastroenteritis and colitis, unspecified; E78.5 Hyperlipidemia, unspecified; Z94.0 Kidney transplant status; Z87.891 Personal history of nicotine dependence; Z86.718 Personal history of other venous thrombosis and embolism; Z88.8 Allergy status to other drugs, medicaments and biological substances; Z99.2 Dependence on renal dialysis; Z79.82 Long term (current) use of aspirin; Z79.899 Other long term (current) drug therapy; Z98.51 Tubal ligation status; Z90.49 Acquired absence of other specified parts of digestive tract; Z98.890 Other specified postprocedural states; Z82.49 Family history of ischemic heart disease and other diseases of the circulatory system; F41.9 Anxiety disorder, unspecified
CPT/HCPCS: 64486; 80048; 85025; 88302; 83036; 49565; 49568; C1781; J2250; J1644 ×2; J1100; J0690; J2405; J7517 ×2

== ENCOUNTER 2020-09-27 15:45 | Inpatient (IN) | payer MEDICARE, MEDICAID ==
[2020-09-27 18:08] LABS: Appearance,Urine Clear (Clear); Bacteria,Urine Rare /hpf; Bilirubin,Urine Negative (Negative); Blood,Urine Trace (Negative); Color,Urine Dark Yellow; Glucose,Urine (UA) Negative (Negative); Hyaline Casts,Urine 11 /lpf (0-2); Ketones,Urine Negative (Negative); Leukocyte Esterase,Urine Small (Negative); Mucus,Urine Rare /hpf; Nitrite,Urine Negative (Negative); Protein,Urine 2+ (Negative); RBC,Urine 2 /hpf (0-5); Specific Gravity,Urine 1.017 (1.001-1.035); Squamous Epithelial Cell,Urine 2 /hpf (0-4); Urobilinogen,Urine <2.0 mg/dL (<2.0); WBC,Urine 11 /hpf (0-5)
--- NOTE | 2020-09-27 18:16 | ED ---
General Adult HPI - General Chief complaint: Psychiatric Symptoms Stated complaint: mental health Time Seen by Provider: 09/27/20 17:41 Source: patient Mode of arrival: ambulatory Limitations: no limitations - History of Present Illness Initial comments: 65-year-old female patient presents to the emergency department today for evaluation of depression. Patient states that she the last week or 2 has been quite depressed, states she has no motivation. 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 States that she did see her physician was started on Xanax and Lexapro. She denies any suicidal or homicidal ideation. Denies hallucinations. States she does not feel like eating and has no appetite. She states she does sleep well. Denies hallucinations. Denies alcohol or drug use. Denies any current physical symptoms or concerns. Patient denies any recent rash, fever, chills, cough, shortness of breath, chest pain, abdominal pain, nausea, vomiting, diarrhea, constipation, back pain, numbness, tingling, dizziness, weakness, hematuria, dysuria, urinary urgency, urinary frequency, headache, visual changes, or any other complaints. - Related Data Home Medications Medication Instructions Recorded Confirmed Furosemide 80 mg PO DAILY 08/03/15 09/27/20 Potassium Chloride [Klor-Con 10] 20 meq PO HS 08/03/15 09/27/20 Potassium Chloride [Klor-Con 10] 30 meq PO DAILY 08/03/15 09/27/20 Simvastatin 20 mg PO HS 08/03/15 09/27/20 Spironolactone 50 mg PO DAILY 08/03/15 09/27/20 gemfibroziL [Gemfibrozil] 600 mg PO ACHS 08/03/15 09/27/20 mycophenolate mofetiL [Cellcept] 1,000 mg PO BID 08/03/15 09/27/20 Sirolimus [Rapamune] 5 mg PO DAILY 08/17/15 09/27/20 Ferrous Sulfate [Feosol] 325 mg PO BID 09/06/18 09/27/20 sulfaSALAzine [Azulfidine] 1,000 mg PO QID 09/06/18 09/27/20 Aspirin EC [Ecotrin Low Dose] 81 mg PO DAILY 04/15/20 09/27/20 Zinc 50 mg PO DAILY 07/11/20 09/27/20 ALPRAZolam [Xanax] 0.25 mg PO DAILY PRN 09/27/20 09/27/20 Carvedilol [Coreg] 6.25 mg PO BID 09/27/20 09/27/20 Escitalopram [Lexapro] 10 mg PO DAILY 09/27/20 09/27/20 Magnesium Oxide [Mag-Ox] 250 mg PO DAILY 09/27/20 09/27/20 Allergies Allergy/AdvReac Type Severity Reaction Status Date / Time lisinopril Allergy Anaphylaxis Verified 09/27/20 18:46 Review of Systems ROS Statement: Those systems with pertinent positive or pertinent negative responses have been documented in the HPI. ROS Other: All systems not noted in ROS Statement are negative. 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 History of Any Multi-Drug Resistant Organisms: None Reported Past Surgical History: Cholecystectomy, Hernia Repair, Tubal Ligation Additional Past Surgical History / Comment(s): KIDNEY TRANSPLANT left 15 years ago. DIALYSIS PORT PLACEMENT AND REMOVAL Past Anesthesia/Blood Transfusion Reactions: No Reported Reaction, Motion Sickness Past Psychological History: Anxiety, Depression Smoking Status: Former smoker Past Alcohol Use History: Occasional Past Drug Use History: None Reported - Past Family History Mother Family Medical History: Myocardial Infarction (SD) Additional Family Medical History / Comment(s): Father Additional Family Medical History / Comment(s): UNK HEART PROBLEMS General Exam Limitations: no limitations General appearance: alert, in no apparent distress, other (Physical well- developed, well-nourished adult female patient in no acute distress. Vital signs upon presentation are temperature 99.6F, pulse 102, respirations 20, bloo d pressure 98/67, pulse ox 95% on room air.) Eye exam: Present: normal appearance, PERRL, EOMI. Absent: scleral icterus, conjunctival injection, periorbital swelling ENT exam: Present: normal exam, normal oropharynx, mucous membranes moist Respiratory exam: Present: normal lung sounds bilaterally. Absent: respiratory distress, wheezes, rales, rhonchi, stridor Cardiovascular Exam: Present: regular rate, normal rhythm, normal heart sounds. Absent: systolic murmur, diastolic murmur, rubs, gallop, clicks GI/Abdominal exam: Present: soft, normal bowel sounds. Absent: distended, tenderness, guarding, rebound, rigid Neurological exam: Present: alert, oriented X3, CN II-XII intact Psychiatric exam: Present: normal affect, normal mood Skin exam: Present: warm, dry, intact, normal color. Absent: rash Course Vital Signs 09/27/20 17:19 Temperature 99.6 F Pulse Rate 102 H Respiratory 20 Rate Blood Pressure 98/67 O2 Sat by Pulse 95 Oximetry Medical Decision Making - Medical Decision Making 65 year-old female patient who presented to the emergency department today with complaints of depression. Physical examination is unremarkable. She was cleared medically, evaluated by emergency psychiatric services. She will be admitted to the mental health unit for further evaluation and treatment. Patient is agreeable to this plan. My attending is Dr. Blount. - Lab Data Result diagrams: 09/27/20 22:47 09/27/20 22:47 Lab Results 09/27/20 09/27/20 09/27/20 Range/Units 17:58 21:52 22:47 WBC 3.7 L (3.8-10.6) k/uL RBC 5.35 (3.80-5.40) m/uL Hgb 15.6 (11.4-16.0) gm/dL Hct 43.8 (34.0-46.0) % MCV 81.8 (80.0-100.0) fL MCH 29.1 (25.0-35.0) pg MCHC 35.6 (31.0-37.0) g/dL RDW 13.2 (11.5-15.5) % Plt Count 176 (150-450) k/uL MPV 7.5 Neutrophils % 69 % Lymphocytes % 21 % Monocytes % 7 % Eosinophils % 1 % Basophils % 1 % Neutrophils # 2.6 (1.3-7.7) k/uL Lymphocytes # 0.8 L (1.0-4.8) k/uL Monocytes # 0.3 (0-1.0) k/uL Eosinophils # 0.0 (0-0.7) k/uL Basophils # 0.1 (0-0.2) k/uL Sodium (137-145) mmol/L Potassium (3.5-5.1) mmol/L Chloride (98-107) mmol/L Carbon Dioxide (22-30) mmol/L Anion Gap mmol/L BUN (7-17) mg/dL Creatinine (0.52-1.04) mg/dL Est GFR (CKD-EPI)AfAm (>60 ml/min/1.73 sqM) Est GFR (CKD-EPI)NonAf (>60 ml/min/1.73 sqM) Glucose (74-99) mg/dL Calcium (8.4-10.2) mg/dL Total Bilirubin (0.2-1.3) mg/dL AST (14-36) U/L ALT (4-34) U/L Alkaline Phosphatase (38-126) U/L Total Protein (6.3-8.2) g/dL Albumin (3.5-5.0) g/dL Urine Color Dark Yellow Urine Appearance Clear (Clear) Urine pH 6.0 (5.0-8.0) Ur Specific [place] 1.017 (1.001-1.035) Urine Protein 2+ H (Negative) Urine Glucose (UA) Negative (Negative) Urine Ketones Negative (Negative) Urine Blood Trace H (Negative) Urine Nitrite Negative (Negative) Urine Bilirubin Negative (Negative) Urine Urobilinogen <2.0 (<2.0) mg/dL Ur Leukocyte Esterase Small H (Negative) Urine RBC 2 (0-5) /hpf Urine WBC 11 H (0-5) /hpf Ur Squamous Epith Cells 2 (0-4) /hpf Urine Bacteria Rare H (None) /hpf Hyaline Casts 11 H (0-2) /lpf Urine Mucus Rare H (None) /hpf Urine Opiates Screen Not Detected (NotDetected) Ur Oxycodone Screen Not Detected (NotDetected) Urine Methadone Screen Not Detected (NotDetected) Ur Propoxyphene Screen Not Detected (NotDetected) Ur Barbiturates Screen Not Detected (NotDetected) U Tricyclic Antidepress Not Detected (NotDetected) Ur Phencyclidine Scrn Not Detected (NotDetected) Ur Amphetamines Screen Not Detected (NotDetected) U Methamphetamines Scrn Not Detected (NotDetected) U Benzodiazepines Scrn Detected H (NotDetected) Urine Cocaine Screen Not Detected (NotDetected) U Marijuana (THC) Screen Not Detected (NotDetected) Coronavirus (PCR) Not Detected (Not Detectd) 09/27/20 Range/Units 22:47 WBC (3.8-10.6) k/uL RBC (3.80-5.40) m/uL Hgb (11.4-16.0) gm/dL Hct (34.0-46.0) % MCV (80.0-100.0) fL MCH (25.0-35.0) pg MCHC (31.0-37.0) g/dL RDW (11.5-15.5) % Plt Count (150-450) k/uL MPV Neutrophils % % Lymphocytes % % Monocytes % % Eosinophils % % Basophils % % Neutrophils # (1.3-7.7) k/uL Lymphocytes # (1.0-4.8) k/uL Monocytes # (0-1.0) k/uL Eosinophils # (0-0.7) k/uL Basophils # (0-0.2) k/uL Sodium 132 L (137-145) mmol/L Potassium 3.4 L (3.5-5.1) mmol/L Chloride 95 L (98-107) mmol/L Carbon Dioxide 24 (22-30) mmol/L Anion Gap 13 mmol/L BUN 21 H (7-17) mg/dL Creatinine 0.89 (0.52-1.04) mg/dL Est GFR (CKD-EPI)AfAm 78 (>60 ml/min/1.73 sqM) Est GFR (CKD-EPI)NonAf 68 (>60 ml/min/1.73 sqM) Glucose 156 H (74-99) mg/dL Calcium 9.4 (8.4-10.2) mg/dL Total Bilirubin 0.5 (0.2-1.3) mg/dL AST 26 (14-36) U/L ALT 16 (4-34) U/L Alkaline Phosphatase 81 (38-126) U/L Total Protein 6.9 (6.3-8.2) g/dL Albumin 4.0 (3.5-5.0) g/dL Urine Color Urine Appearance (Clear) Urine pH (5.0-8.0) Ur Specific [place] (1.001-1.035) Urine Protein (Negative) Urine Glucose (UA) (Negative) Urine Ketones (Negative) Urine Blood (Negative) Urine Nitrite (Negative) Urine Bilirubin (Negative) Urine Urobilinogen (<2.0) mg/dL Ur Leukocyte Esterase (Negative) Urine RBC (0-5) /hpf Urine WBC (0-5) /hpf Ur Squamous Epith Cells (0-4) /hpf Urine Bacteria (None) /hpf Hyaline Casts (0-2) /lpf Urine Mucus (None) /hpf Urine Opiates Screen (NotDetected) Ur Oxycodone Screen (NotDetected) Urine Methadone Screen (NotDetected) Ur Propoxyphene Screen (NotDetected) Ur Barbiturates Screen (NotDetected) U Tricyclic Antidepress (NotDetected) Ur Phencyclidine Scrn (NotDetected) Ur Amphetamines Screen (NotDetected) U Methamphetamines Scrn (NotDetected) U Benzodiazepines Scrn (NotDetected) Urine Cocaine Screen (NotDetected) U Marijuana (THC) Screen (NotDetected) Coronavirus (PCR) (Not Detectd) Disposition Clinical Impression: Depression Disposition: ADMITTED IP TO THIS [facility] Condition: Serious Decision to Admit Reason: Admit from EC Decision Date: 09/28/20 Decision Time: 00:01
[2020-09-27 18:18] LABS: Amphetamine Screen,Urine Not Detected (NotDetected); Cocaine Screen,Urine Not Detected (NotDetected); Opiate Screen,Urine Not Detected (NotDetected); Phencyclidine Screen,Urine Not Detected (NotDetected); Urn Cannabinoid Scrn Not Detected (NotDetected)
[2020-09-27 18:19] LABS: Barbiturate Screen,Urine Not Detected (NotDetected); Benzodiazepines Screen,Urine Detected (NotDetected); Methadone Screen, Urine Not Detected (NotDetected); Oxycodone Screen, Urine Not Detected (NotDetected); Tricyclic Antidepressant,Urine Not Detected (NotDetected)
[2020-09-27 22:50] LABS: Basophils # (A) 0.1 k/uL (0-0.2); Basophils % (A) 1 %; Eosinophils % (A) 1 %; HCT 43.8 % (34.0-46.0); HGB 15.6 gm/dL (11.4-16.0); Lymphocytes # (A) 0.8 k/uL (1.0-4.8); Lymphocytes % (A) 21 %; MCH 29.1 pg (25.0-35.0); MCHC 35.6 g/dL (31.0-37.0); MCV 81.8 fL (80.0-100.0); Mean Platelet Volume 7.5; Monocytes # (A) 0.3 k/uL (0-1.0); Monocytes % (A) 7 %; Neutrophils # (A) 2.6 k/uL (1.3-7.7); Neutrophils % (A) 69 %; Platelet Count 176 k/uL (150-450); RBC 5.35 m/uL (3.80-5.40); RDW 13.2 % (11.5-15.5); WBC 3.7 k/uL (3.8-10.6)
[2020-09-27 23:41] LABS: Calcium 9.4 mg/dL (8.4-10.2); Potassium 3.4 mmol/L (3.5-5.1); Total Bilirubin 0.5 mg/dL (0.2-1.3); Total Protein 6.9 g/dL (6.3-8.2)
[2020-09-27] MEDS ORDERED: ACETAMINOPHEN TAB 325 MG TAB PO PRN (23:58)
[2020-09-27] MEDS ORDERED: MAG HYDROX/AL HYDROX/SIMETH 30 ML CUP PO PRN (23:58)
[2020-09-27] MEDS ORDERED: MAGNESIUM HYDROXIDE 2,400 MG/10 ML CUP PO PRN (23:58)
[2020-09-28] MEDS ORDERED: HALOPERIDOL LACTATE 5 MG/ML 1 ML VIAL IM PRN (00:12)
[2020-09-28] MEDS ORDERED: LORazepam 2 MG/ML INJ IM PRN (00:12)
[2020-09-28] MEDS ORDERED: LORazepam 1 MG TAB PO PRN (00:12)
[2020-09-28] MEDS: FERROUS SULFATE 325 MG TAB PO SCH ×2 (08:32→22:06)
[2020-09-28] MEDS: ESCITALOPRAM 10 MG TAB PO SCH (08:33)
[2020-09-28] MEDS: MAGNESIUM OXIDE 400 MG TAB PO SCH (08:33)
[2020-09-28] MEDS: SPIRONOLACTONE 25 MG TAB PO SCH (08:33)
[2020-09-28] MEDS: sulfaSALAzine 500 MG TAB PO SCH ×4 (08:33→22:07)
[2020-09-28] MEDS: POTASSIUM CITRATE 10 MEQ TABLET.ER PO SCH (08:34)
[2020-09-28] MEDS: FENOFIBRATE 160 MG TAB PO SCH (08:34)
[2020-09-28] MEDS: FUROSEMIDE 80 MG TAB PO SCH (08:34)
[2020-09-28] MEDS: carvediloL 6.25 MG TAB PO SCH ×2 (08:34→22:12)
[2020-09-28] MEDS: ASPIRIN 81 MG PO SCH (08:35)
[2020-09-28] MEDS: ZINC SULFATE 220 MG CAP PO SCH (08:35)
[2020-09-28] MEDS: NICOTINE 14MG/24HR PATCH TRANSDERM SCH (08:35)
[2020-09-28] MEDS ORDERED: SIROLIMUS 1 MG PO SCH (09:00)
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
[2020-09-28 13:44] LABS: T4, Free (Free Thyroxine) 1.18 ng/dL (0.78-2.19)
[2020-09-28 15:20] LABS: Hemoglobin A1C 7.4 % (4.0-6.0)
[2020-09-28] MEDS ORDERED: ATORVASTATIN 10 MG TAB PO SCH (21:00)
[2020-09-28 21:52] LABS: Folate, Serum >24.0 ng/mL
[2020-09-28] MEDS: POTASSIUM CHLORIDE ER 10 MEQ TAB.ER.PRT PO SCH (22:06)
[2020-09-28] MEDS: MIRTAZAPINE 15 MG TAB PO SCH (22:11)
[2020-09-29] MEDS: ZINC SULFATE 220 MG CAP PO SCH (09:23)
[2020-09-29] MEDS: POTASSIUM CITRATE 10 MEQ TABLET.ER PO SCH (09:24)
[2020-09-29] MEDS: SPIRONOLACTONE 25 MG TAB PO SCH (09:24)
[2020-09-29] MEDS: FENOFIBRATE 160 MG TAB PO SCH (09:24)
[2020-09-29] MEDS: carvediloL 6.25 MG TAB PO SCH ×3 (09:24→21:07)
[2020-09-29] MEDS: FUROSEMIDE 80 MG TAB PO SCH (09:25)
[2020-09-29] MEDS: FERROUS SULFATE 325 MG TAB PO SCH ×2 (09:25→20:54)
[2020-09-29] MEDS: ASPIRIN 81 MG PO SCH (09:25)
[2020-09-29] MEDS: sulfaSALAzine 500 MG TAB PO SCH ×2 (09:25→20:57)
[2020-09-29] MEDS: ESCITALOPRAM 10 MG TAB PO SCH (09:25)
[2020-09-29] MEDS: MAGNESIUM OXIDE 400 MG TAB PO SCH (09:25)
[2020-09-29] MEDS: NICOTINE 14MG/24HR PATCH TRANSDERM SCH (09:31)
[2020-09-29 09:45] LABS: Potassium 4.8 mmol/L (3.5-5.1)
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
--- NOTE | 2020-09-29 10:24 | P.CONS ---
History of Present Illness - History of Present Illness This is a pleasant 63 years old female with past medical history of diabetes mellitus, gastroesophageal reflux disease, status post kidney transplant. Anxiety and depression. She was admitted to the mental health unit for signs symptoms of depression with recurrent severe symptoms. Medical consult was requested for routine medical management. Patient was found walking in the room with no difficulty. She denies chest pain or dyspnea. No blurred vision or weakness or headache. No abdominal pain or nausea vomiting. No change in urine or bowel habits. No fever. She denies smoking, alcohol or illicit drugs to me. Hemodynamically stable. Labs noted With CBC showing WBC 3.7K, sodium 132, potassium 3.4, creatinine 0.8. Liver enzymes are not elevated. Vitamin B12 is 413. Folate is more than 24. TSH slightly high at 5.2 and free T4 is normal at 1.18. Urine Analysis is suspicious of infection and showing urine protein 2+. Urine drug screen is positive for benzodiazepine. Coronary first not detected Review of Systems CONSTITUTIONAL: No fever, no malaise, no fatigue. HEENT: No recent visual problems or hearing problems. Denied any sore throat. CARDIOVASCULAR: No orthopnea, PND, no palpitations, no syncope. PULMONARY: No shortness of breath, no cough, no hemoptysis. GASTROINTESTINAL: No diarrhea, no nausea, no vomiting, no abdominal pain. Normoactive bowel sounds. NEUROLOGICAL: No headaches, no weakness, no numbness. HEMATOLOGICAL: Denies any bleeding or petechiae. GENITOURINARY: Denies any burning micturition, frequency, or urgency. MUSCULOSKELETAL/RHEUMATOLOGICAL: Denies any joint pain, swelling, or any muscle pain. ENDOCRINE: Denies any polyuria or polydipsia. 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 History of Any Multi-Drug Resistant Organisms: None Reported Past Surgical History: Cholecystectomy, Hernia Repair, Tubal Ligation Additional Past Surgical History / Comment(s): KIDNEY TRANSPLANT left 15 years ago. DIALYSIS PORT PLACEMENT AND REMOVAL Past Anesthesia/Blood Transfusion Reactions: No Reported Reaction, Motion Sickness Past Psychological History: Anxiety, Depression Smoking Status: Former smoker Past Alcohol Use History: Occasional Past Drug Use History: None Reported - Past Family History Mother Family Medical History: Myocardial Infarction ([place]) Additional Family Medical History / Comment(s): Father Additional Family Medical History / Comment(s): UNK HEART PROBLEMS Medications and Allergies Home Medications Medication Instructions Recorded Confirmed Type Furosemide 80 mg PO DAILY 08/03/15 09/28/20 History Potassium Chloride [Klor-Con 10] 20 meq PO HS 08/03/15 09/28/20 History Potassium Chloride [Klor-Con 10] 30 meq PO DAILY 08/03/15 09/28/20 History Simvastatin 20 mg PO HS 08/03/15 09/28/20 History Spironolactone 50 mg PO DAILY 08/03/15 09/28/20 History gemfibroziL [Gemfibrozil] 600 mg PO ACHS 08/03/15 09/28/20 History mycophenolate mofetiL [Cellcept] 1,000 mg PO BID 08/03/15 09/28/20 History Sirolimus [Rapamune] 5 mg PO DAILY 08/17/15 09/28/20 History sulfaSALAzine [Azulfidine] 1,000 mg PO QID 09/06/18 09/28/20 History Aspirin EC [Ecotrin Low Dose] 81 mg PO DAILY 04/15/20 09/28/20 History Zinc 50 mg PO DAILY 07/11/20 09/28/20 History Carvedilol [Coreg] 6.25 mg PO BID 09/27/20 09/28/20 History Magnesium Oxide [Mag-Ox] 250 mg PO DAILY 09/27/20 09/28/20 History Escitalopram [Lexapro] 10 mg PO DAILY 30 Days tab 09/29/20 Rx Mirtazapine [Remeron] 7.5 mg PO HS 30 Days tab 09/29/20 Rx Allergies Allergy/AdvReac Type Severity Reaction Status Date / Time lisinopril Allergy Anaphylaxis Verified 09/28/20 17:18 Physical Exam Vitals: Vital Signs Temp Pulse Pulse Resp BP BP Pulse Ox 09/28/20 01:03 99.0 F 94 18 112/81 92 L 09/27/20 17:19 99.6 F 102 H 20 98/67 95 Intake and Output 09/27/20 09/28/20 09/28/20 22:59 06:59 14:59 Other: Weight 77.111 kg GENERAL: The patient is alert and oriented x3, not in any acute distress. Well developed, well nourished. HEENT: Pupils are round and equally reacting to light. EOMI. No scleral icterus. No conjunctival pallor. Normocephalic, atraumatic. No pharyngeal erythema. No thyromegaly. CARDIOVASCULAR: S1 and S2 present. No murmurs, rubs, or gallops. PULMONARY: Chest is clear to auscultation, no wheezing or crackles. ABDOMEN: Soft, nontender, nondistended, normoactive bowel sounds. No palpable organomegaly. MUSCULOSKELETAL: No joint swelling or deformity. EXTREMITIES: No cyanosis, clubbing, or pedal edema. NEUROLOGICAL: Gross neurological examination did not reveal any focal deficits. SKIN: No rashes. No petechiae Results CBC & Chem 7: 09/27/20 22:47 09/29/20 08:57 Labs: Abnormal Lab Results - Last 24 Hours (Table) 09/27/20 09/27/20 09/27/20 Range/Units 17:58 22:47 22:47 WBC 3.7 L (3.8-10.6) k/uL Lymphocytes # 0.8 L (1.0-4.8) k/uL Sodium 132 L (137-145) mmol/L Potassium 3.4 L (3.5-5.1) mmol/L Chloride 95 L (98-107) mmol/L BUN 21 H (7-17) mg/dL Glucose 156 H (74-99) mg/dL TSH (0.465-4.680) mIU/L Urine Protein 2+ H (Negative) Urine Blood Trace H (Negative) Ur Leukocyte Esterase Small H (Negative) Urine WBC 11 H (0-5) /hpf Urine Bacteria Rare H (None) /hpf Hyaline Casts 11 H (0-2) /lpf Urine Mucus Rare H (None) /hpf U Benzodiazepines Scrn Detected H (NotDetected) 09/27/20 Range/Units 22:47 WBC (3.8-10.6) k/uL Lymphocytes # (1.0-4.8) k/uL Sodium (137-145) mmol/L Potassium (3.5-5.1) mmol/L Chloride (98-107) mmol/L BUN (7-17) mg/dL Glucose (74-99) mg/dL TSH 5.240 H (0.465-4.680) mIU/L Urine Protein (Negative) Urine Blood (Negative) Ur Leukocyte Esterase (Negative) Urine WBC (0-5) /hpf Urine Bacteria (None) /hpf Hyaline Casts (0-2) /lpf Urine Mucus (None) /hpf U Benzodiazepines Scrn (NotDetected) Microbiology - Last 24 Hours (Table) 09/27/20 17:58 Urine Culture - Preliminary Urine,Clean Catch Assessment and Plan Assessment: -Severe recurrent depression and other psychiatric illnesses, management as per sec primary team -2 diabetes mellitus, continue same medication -Mild hypokalemia, replaced -Mild hyponatremia, deep monitoring as an outpatient -History of esophageal reflux disease, continue same medication -Subclinical hypothyroidism, recommended to recheck that function tests as an outpatient in 1-2 months DVT prophylaxis. The early mobilization GI prophylaxis: No need We recommend patient follow up with PCP in one week after discharge Thank you for consulting us, we will see the patient on as needed basis, please call for questions
[2020-09-29 13:30] LABS: Glucose,Whole Blood 134 mg/dL (75-99)
[2020-09-29 13:32] LABS: Albumin 4.2 g/dL (3.5-5.0); Calcium 9.9 mg/dL (8.4-10.2); Total Bilirubin 0.5 mg/dL (0.2-1.3)
[2020-09-29 13:40] LABS: Basophils % (A) 1 %; Eosinophils % (A) 1 %; HCT 44.8 % (34.0-46.0); HGB 15.5 gm/dL (11.4-16.0); Lymphocytes # (A) 0.8 k/uL (1.0-4.8); Lymphocytes % (A) 18 %; MCH 28.5 pg (25.0-35.0); MCHC 34.5 g/dL (31.0-37.0); MCV 82.7 fL (80.0-100.0); Monocytes # (A) 0.6 k/uL (0-1.0); Monocytes % (A) 13 %; Neutrophils # (A) 3.2 k/uL (1.3-7.7); Neutrophils % (A) 67 %; Platelet Count 213 k/uL (150-450); RBC 5.42 m/uL (3.80-5.40); RDW 13.6 % (11.5-15.5); WBC 4.8 k/uL (3.8-10.6)
[2020-09-29 15:12] LABS: HGB 15.6 gm/dL (11.4-16.0); MCH 28.3 pg (25.0-35.0); MCHC 34.7 g/dL (31.0-37.0); MCV 81.6 fL (80.0-100.0); Mean Platelet Volume 7.6; Platelet Count 186 k/uL (150-450); RBC 5.51 m/uL (3.80-5.40); RDW 13.6 % (11.5-15.5); WBC 6.5 k/uL (3.8-10.6)
[2020-09-29 15:26] LABS: Calcium 9.6 mg/dL (8.4-10.2); Magnesium 1.9 mg/dL (1.6-2.3); Potassium 4.3 mmol/L (3.5-5.1)
[2020-09-29] MEDS: MIRTAZAPINE 15 MG TAB PO SCH (20:55)
[2020-09-29] MEDS: POTASSIUM CHLORIDE ER 10 MEQ TAB.ER.PRT PO SCH (20:56)
[2020-09-29] MEDS ORDERED: ATORVASTATIN 20 MG TAB PO SCH (21:00)
[2020-09-30 06:57] VITALS: TEMP 97.9
[2020-09-30] MEDS: sulfaSALAzine 500 MG TAB PO SCH (08:07)
[2020-09-30] MEDS: carvediloL 6.25 MG TAB PO SCH (08:08)
[2020-09-30] MEDS: ZINC SULFATE 220 MG CAP PO SCH (08:08)
[2020-09-30] MEDS: ASPIRIN 81 MG PO SCH (08:09)
[2020-09-30] MEDS: SPIRONOLACTONE 25 MG TAB PO SCH (08:09)
[2020-09-30] MEDS: ESCITALOPRAM 10 MG TAB PO SCH (08:09)
[2020-09-30] MEDS: FUROSEMIDE 80 MG TAB PO SCH (08:09)
[2020-09-30] MEDS: MAGNESIUM OXIDE 400 MG TAB PO SCH (08:09)
[2020-09-30] MEDS: POTASSIUM CITRATE 10 MEQ TABLET.ER PO SCH (08:09)
[2020-09-30] MEDS: FENOFIBRATE 160 MG TAB PO SCH (08:10)
[2020-09-30] MEDS: FERROUS SULFATE 325 MG TAB PO SCH (08:10)
[2020-09-30] MEDS: NICOTINE 14MG/24HR PATCH TRANSDERM SCH (09:10)
[2020-09-30] MEDS ORDERED: SODIUM CHLORIDE 0.9% 1,000 ML IV ONE (09:35)
[2020-09-30] MEDS ORDERED: SODIUM CHLORIDE TAB 1 GM TAB PO SCH (09:45)
--- NOTE | 2020-09-30 10:08 | P.PN ---
Subjective This is a pleasant 63 years old female with past medical history of diabetes mellitus, gastroesophageal reflux disease, status post kidney transplant. Anxiety and depression. She was admitted to the mental health unit for signs symptoms of depression with recurrent severe symptoms. Medical consult was requested for routine medical management. Patient was found walking in the room with no difficulty. She denies chest pain or dyspnea. No blurred vision or weakness or headache. No abdominal pain or nausea vomiting. No change in urine or bowel habits. No fever. She denies smoking, alcohol or illicit drugs to me. Hemodynamically stable. Labs noted With CBC showing WBC 3.7K, sodium 132, potassium 3.4, creatinine 0.8. Liver enzymes are not elevated. Vitamin B12 is 413. Folate is more than 24. TSH slightly high at 5.2 and free T4 is normal at 1.18. Urine Analysis is suspicious of infection and showing urine protein 2+. Urine d rug screen is positive for benzodiazepine. Coronary first not detected 09/30/2020 History the patient was about to be discharged and she was walking in the hallway when suddenly felt dizziness and she describes her dizziness as presyncope and She remembers she was in the chair that the proximal 1-2 minutes as per staff who held her and did not look to her fall to the ground/floor. Patient woke up immediately with no confusion, no tongue biting or seizure-like activity, no urine or bowel incontinence, patient denies chest pain or palpitation or headache or numbness or weakness at that time or currently. Patient states that she is back to her normal self after that and today currently she denies any other symptoms vision, no slurred speech, no GI or urinary symptoms. Orthostatic vitals were checked and it was positive with a drop in blood pressure 122/76 down to 95/65 Labs were checked showing no change in CBC and BMP, WBC 6.5K, hemoglobin 15.6, sodium 132, creatinine 0.8. Glucose was 73. Magnesium 1.9. Troponin 2 are negative. EKG no ischemic significant ST-T changes Patient also reports poor oral intake for the last week, her trunk and mucous membranes looks dehydrated and she has delayed skin turgor Review of Systems CONSTITUTIONAL: No fever, no malaise, no fatigue. HEENT: No recent visual problems or hearing problems. Denied any sore throat. CARDIOVASCULAR: No orthopnea, PND, no palpitations, no syncope. PULMONARY: No shortness of breath, no cough, no hemoptysis. GASTROINTESTINAL: No diarrhea, no nausea, no vomiting, no abdominal pain. Normoactive bowel sounds. NEUROLOGICAL: No headaches, no weakness, no numbness. Active Medications Generic Name Dose Route Start Last Admin Trade Name Freq PRN Reason Stop Dose Admin Acetaminophen 650 mg 09/27/20 23:58 Acetaminophen Tab 325 Mg Tab PO Q4HR PRN Pain/Discomfort Al Hydroxide/Mg Hydroxide 30 ml 09/27/20 23:58 Mag Hydrox/Al Hydrox/Simeth 30 Ml Cup PO Q4HR PRN GI Upset Aspirin 81 mg 09/28/20 09:00 09/30/20 08:09 Aspirin 81 Mg PO 81 mg DAILY SIGIFREDO Administration Atorvastatin Calcium 40 mg 09/30/20 21:00 Atorvastatin 40 Mg Tab PO HS SIGIFREDO Carvedilol 6.25 mg 09/28/20 09:00 09/30/20 08:08 Carvedilol 6.25 Mg Tab PO 6.25 mg BID SIGIFREDO Administration Escitalopram Oxalate 10 mg 09/28/20 09:00 09/30/20 08:09 Escitalopram 10 Mg Tab PO 10 mg DAILY SIGIFREDO Administration Fenofibrate 160 mg 09/28/20 09:00 09/30/20 08:10 Fenofibrate 160 Mg Tab PO 160 mg DAILY SIGIFREDO Administration Ferrous Sulfate 325 mg 09/28/20 09:00 09/30/20 08:10 Ferrous Sulfate 325 Mg Tab PO 325 mg BID SIGIFREDO Administration Furosemide 80 mg 09/28/20 09:00 09/30/20 08:09 Furosemide 80 Mg Tab PO 80 mg DAILY SIGIFREDO Administration Haloperidol 4 mg 09/28/20 00:12 Haloperidol 2 Mg Tab PO Q6H PRN Agitation or Acute Anxiety Haloperidol Lactate 4 mg 09/28/20 00:12 Haloperidol Lactate 5 Mg/Ml 1 Ml Vial IM Q6HR PRN Agitation or Acute Psychosis Sodium Chloride 1,000 mls @ 999 mls/hr 09/30/20 09:35 Saline 0.9% IV 09/30/20 10:35 .Q1H1M ONE Lorazepam 1 mg 09/28/20 00:12 Lorazepam 2 Mg/Ml Inj IM TID PRN Anxiety Lorazepam 1 mg 09/28/20 00:12 Lorazepam 1 Mg Tab PO TID PRN Anxiety Magnesium Hydroxide 2,400 mg 03/24/21 23:58 Magnesium Hydroxide 2,400 Mg/10 Ml Cup PO DAILY PRN Constipation Magnesium Oxide 400 mg 09/28/20 09:00 09/30/20 08:09 Magnesium Oxide 400 Mg Tab PO 400 mg DAILY SIGIFREDO Administration Mirtazapine 7.5 mg 09/28/20 21:00 09/29/20 20:55 Mirtazapine 15 Mg Tab PO 7.5 mg HS SIGIFREDO Administration Mycophenolate Mofetil 1,000 mg 09/28/20 09:00 09/30/20 08:08 Mycophenolate Mofetil 500 Mg Tab PO 1,000 mg BID SIGIFREDO Administration Nicotine 1 patch 09/28/20 09:00 09/30/20 09:10 Nicotine 14mg/24hr Patch TRANSDERM Not Given DAILY SIGIFREDO Sirolimus [Rapamune] 5 mg 09/28/20 10:00 09/30/20 08:10 1 Mg Tablet PO 5 mg DAILY SIGIFREDO Administration Potassium Chloride 20 meq 09/28/20 21:00 09/29/20 20:56 Potassium Chloride Er 10 Meq Tab.Er.Prt PO 20 meq HS SIGIFREDO Administration Potassium Citrate 30 meq 09/28/20 09:00 09/30/20 08:09 Potassium Citrate 10 Meq Tablet.Er PO 30 meq DAILY SIGIFREDO Administration Sodium Chloride 1 gm 09/30/20 09:45 09/30/20 09:54 Sodium Chloride Tab 1 Gm Tab PO 1 gm TID SIGIFREDO Administration Spironolactone 50 mg 09/28/20 09:00 09/30/20 08:09 Spironolactone 25 Mg Tab PO 50 mg DAILY SIGIFREDO Administration Sulfasalazine 2,000 mg 09/28/20 21:00 09/30/20 08:07 Sulfasalazine 500 Mg Tab PO 01/05/21 21:01 2,000 mg BID SIGIFREDO Administration Zinc Sulfate 220 mg 09/28/20 09:00 09/30/20 08:08 Zinc Sulfate 220 Mg Cap PO 220 mg DAILY SIGIFREDO Administration Objective - Vital Signs Vital signs: Vital Signs Temp 97.9 F 09/30/20 06:49 Pulse 78 09/30/20 06:49 Resp 16 09/30/20 06:49 BP 113/70 09/30/20 06:49 Pulse Ox 95 09/29/20 15:04 - Exam GENERAL: The patient is alert and oriented x3, not in any acute distress. Well developed, well nourished. HEENT: Pupils are round and equally reacting to light. EOMI. No scleral icterus. No conjunctival pallor. Normocephalic, atraumatic. No pharyngeal erythema. No thyromegaly. CARDIOVASCULAR: S1 and S2 present. No murmurs, rubs, or gallops. PULMONARY: Chest is clear to auscultation, no wheezing or crackles. ABDOMEN: Soft, nontender, nondistended, normoactive bowel sounds. No palpable organomegaly. MUSCULOSKELETAL: No joint swelling or deformity. EXTREMITIES: No cyanosis, clubbing, or pedal edema. NEUROLOGICAL: Gross neurological examination did not reveal any focal deficits. SKIN: No rashes. no petechiae. - Labs CBC & Chem 7: 09/29/20 14:36 09/29/20 14:36 Labs: Abnormal Lab Results - Last 24 Hours (Table) 09/29/20 09/29/20 09/29/20 Range/Units 08:57 09:57 13:15 RBC 5.42 H (3.80-5.40) m/uL Lymphocytes # 0.8 L (1.0-4.8) k/uL Sodium 132 L (137-145) mmol/L Chloride 93 L (98-107) mmol/L BUN 21 H (7-17) mg/dL Glucose 185 H (74-99) mg/dL POC Glucose (mg/dL) 134 H (75-99) mg/dL Triglycerides 183 H (<150) mg/dL Cholesterol 248 H (<200) mg/dL LDL Cholesterol, Calc 176 H (0-99) mg/dL HDL Cholesterol 35 L (40-60) mg/dL 09/29/20 09/29/20 Range/Units 14:36 14:36 RBC 5.51 H (3.80-5.40) m/uL Lymphocytes # (1.0-4.8) k/uL Sodium 132 L (137-145) mmol/L Chloride 91 L (98-107) mmol/L BUN 25 H (7-17) mg/dL Glucose 173 H (74-99) mg/dL POC Glucose (mg/dL) (75-99) mg/dL Triglycerides (<150) mg/dL Cholesterol (<200) mg/dL LDL Cholesterol, Calc (0-99) mg/dL HDL Cholesterol (40-60) mg/dL Assessment and Plan Assessment: -Dizziness and syncope secondary to postural hypotension and dehydration. It was recommended give her a bolus of normal saline 1 L and check orthostatics after that mixture is negative before she would be discharged. The meantime start her on salt tablets as there is difficulty of providing IV hydration and psych unit. . Patient does not have cardiac symptoms however given her risk factors for example eX-smoker for 35 years, high cholesterol and her age then we will recommend cardiology evaluation -Severe recurrent depression and other psychiatric illnesses, management as per sec primary team -2 diabetes mellitus, continue same medication -Mild hypokalemia, replaced -Mild hyponatremia, deep monitoring as an outpatient -History of esophageal reflux disease, continue same medication -Subclinical hypothyroidism, recommended to recheck that function tests as an outpatient in 1-2 months DVT prophylaxis. The early mobilization GI prophylaxis: No need We recommend patient follow up with PCP in one week after discharge also we recommend patient to follow-up with language instructor for example Dr. Brown or Dr. Rollins in 1 week after discharge and patient was instructed with the same Thank you for consulting us, we will see the patient on as needed basis, please call for questions
--- NOTE | 2020-09-30 12:26 | P.PN ---
Progress Note - Text Progress Note Date: 09/30/20 I met with this patient and she told me that she was admitted to Hospital on Friday because she was not feeling "herself". I met with the staff nurse and was told that her EKG has come back to normal. She does not show any QTC prolongation. Patient was seen by the applications sales consultant again today. Patient is being recommended for an echocardiogram and was not medically cleared. Patient is on Lexapro and will wait for medical clearance before she could be discharged. As of today she is not medically stable.
[2020-09-30 13:12] VITALS: RESP 18
[2020-09-30 13:14] VITALS: BP 100/71; PULSE 87
--- NOTE | 2020-09-30 13:46 | P.CRDCN ---
History of Present Illness Consult reason: sycope History of present illness: The patient is a 65-year-old female with past medical history of diabetes mellitus, acid reflux, and prior kidney transplant, who is currently admitted to the mental unit with depression. The patient was recently started on additional antihypertensives, as well as Lexapro. When standing at the nurses station yesterday going over discharge paperwork, she had a witnessed syncopal episode in front of the nursing staff. She was assisted into a chair to avoid hitting the ground. Nursing staff states she got pale and diaphoretic before going almost completely limp. According to the patient she states she did have dizziness, which she described as a visual tunneling, prior to briefly losing consciousness. She states she could hear the nursing staff yell for help. She states she has never had a syncopal episode like this previously, although after recently being placed on carvedilol 12-1/2 mg twice daily she did develop some visual disturbances and it was subsequently reduced to 6.25. Medical records reviewed and her antihypertensives are prescribed by her senior lead software engineer. According to records she should be taking carvedilol 6.25 twice daily, amlodipine 10 mg, 50 mg of spironolactone, and 80 mg of furosemide. She has not been taking the amlodipine during this admission. She denies any chest pain or chest pressure. No dyspnea, orthopnea, or palpitations. DIAGNOSTICS: EKG shows sinus mechanism with normal WA, narrow QRS and QT interval less than 420 ms Laboratory data shows WBC 6.5, hemoglobin 15.6, hematocrit 45.0, platelet 186, sodium 132, potassium 4.3, BUN 25, creatinine 0.84 Vital signs show blood pressure 100/71, pulse rate at 87, temperature 97.9F Positive orthostatic blood pressure changes with a drop from 137/83 supine to 100/71 standing PAST MEDICAL HISTORY: Status post renal transplant, diabetes, GERD, hypertension REVIEW OF SYSTEMS: No fever or chills. No cough or expectoration. No diaphoresis. Patient denies headache, double vision. Patient denies any stomach discomfort. No nausea, vomiting. No hematochezia. No hematemesis. Denies any black stools or blood in his stools. Denies dysuria or hematuria. No muscle weakness or numbness. No chest pain or chest pressure. No dyspnea or orthopnea PHYSICAL EXAMINATION: This is a 65-year-old male in no apparent distress at the time of my examination. HEENT: Head is atraumatic, normocephalic. Pupils are equal, round. Sclerae anicteric. Conjunctivae are clear. Mucous membranes of the mouth are moist. Neck is supple. There is no jugular venous distention. No carotid bruit is heard. CHEST EXAMINATION: Lungs are clear to auscultation. No chest wall tenderness is noted on palpation or with deep breathing. HEART EXAMINATION: Heart regular rate and rhythm. S1, S2 heard. No murmurs, gallops or rub. ABDOMEN: Soft, nontender. Bowel sounds are heard. No organomegaly noted. EXTREMITIES: 2+ peripheral pulses with no evidence of peripheral edema and no calf tenderness noted. NEUROLOGIC EXAMINATION: Patient is awake, alert and oriented x3. FINAL ASSESSMENT AND PLAN: Syncope, likely orthostatic intolerance Orthostatic hypotension, reduce furosemide Hyponatremia Hypokalemia PLAN: Reduce furosemide to 40 mg daily Reduce potassium; discontinue potassium chloride at discharge to avoid hypokalemia Do not resume amlodipine at discharge Follow-up with cardiology in 2-3 weeks for echocardiogram and arrhythmia monitoring The patient has been seen and evaluated. Plan of care has been reviewed and agreed upon by Dr Oviedo. 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 History of Any Multi-Drug Resistant Organisms: None Reported Past Surgical History: Cholecystectomy, Hernia Repair, Tubal Ligation Additional Past Surgical History / Comment(s): KIDNEY TRANSPLANT left 15 years ago. DIALYSIS PORT PLACEMENT AND REMOVAL Past Anesthesia/Blood Transfusion Reactions: No Reported Reaction, Motion Sickness Past Psychological History: Anxiety, Depression Smoking Status: Former smoker Past Alcohol Use History: Occasional Past Drug Use History: None Reported - Past Family History Mother Family Medical History: Myocardial Infarction ([place]) Additional Family Medical History / Comment(s): Father Additional Family Medical History / Comment(s): UNK HEART PROBLEMS Medications and Allergies Home Medications Medication Instructions Recorded Confirmed Type Furosemide 80 mg PO DAILY 08/03/15 09/28/20 History Potassium Chloride [Klor-Con 10] 20 meq PO HS 08/03/15 09/28/20 History Potassium Chloride [Klor-Con 10] 30 meq PO DAILY 08/03/15 09/28/20 History Simvastatin 20 mg PO HS 08/03/15 09/28/20 History Spironolactone 50 mg PO DAILY 08/03/15 09/28/20 History gemfibroziL [Gemfibrozil] 600 mg PO ACHS 08/03/15 09/28/20 History mycophenolate mofetiL [Cellcept] 1,000 mg PO BID 08/03/15 09/28/20 History Sirolimus [Rapamune] 5 mg PO DAILY 08/17/15 09/28/20 History sulfaSALAzine [Azulfidine] 1,000 mg PO QID 09/06/18 09/28/20 History Aspirin EC [Ecotrin Low Dose] 81 mg PO DAILY 04/15/20 09/28/20 History Zinc 50 mg PO DAILY 07/11/20 09/28/20 History Carvedilol [Coreg] 6.25 mg PO BID 09/27/20 09/28/20 History Magnesium Oxide [Mag-Ox] 250 mg PO DAILY 09/27/20 09/28/20 History Escitalopram [Lexapro] 10 mg PO DAILY 30 Days tab 09/29/20 Rx Mirtazapine [Remeron] 7.5 mg PO HS 30 Days tab 09/29/20 Rx Allergies Allergy/AdvReac Type Severity Reaction Status Date / Time lisinopril Allergy Anaphylaxis Verified 09/28/20 17:18 Physical Exam Vitals: Vital Signs Temp Pulse Pulse Pulse Resp BP BP 09/30/20 12:17 87 100/71 09/30/20 12:16 75 110/73 09/30/20 12:15 69 18 09/30/20 06:49 97.9 F 78 16 09/29/20 21:08 76 16 09/29/20 15:04 88 18 95/65 09/29/20 15:02 88 77 BP Pulse Ox 09/30/20 12:17 09/30/20 12:16 09/30/20 12:15 137/83 09/30/20 06:49 113/70 09/29/20 21:08 126/80 09/29/20 15:04 95 09/29/20 15:02 122/76 Intake and Output 09/29/20 09/30/20 09/30/20 22:59 06:59 14:59 Intake Total 1000 Balance 1000 Intake: IV 1000 Invasive Line 1 1000 Results 09/29/20 14:36 09/29/20 14:36 Cardiac Enzymes 09/29/20 09/29/20 Range/Units 14:36 21:02 Troponin I <0.012 <0.012 (0.000-0.034) ng/mL CBC 09/29/20 09/29/20 Range/Units 09:57 14:36 WBC 4.8 6.5 (3.8-10.6) k/uL RBC 5.42 H 5.51 H (3.80-5.40) m/uL Hgb 15.5 15.6 (11.4-16.0) gm/dL Hct 44.8 45.0 (34.0-46.0) % Plt Count 213 186 (150-450) k/uL Comprehensive Metabolic Panel 09/29/20 Range/Units 14:36 Sodium 132 L (137-145) mmol/L Potassium 4.3 (3.5-5.1) mmol/L Chloride 91 L (98-107) mmol/L Carbon Dioxide 30 (22-30) mmol/L BUN 25 H (7-17) mg/dL Creatinine 0.84 (0.52-1.04) mg/dL Glucose 173 H (74-99) mg/dL Calcium 9.6 (8.4-10.2) mg/dL Current Medications Generic Name Dose Route Start Last Admin Trade Name Freq PRN Reason Stop Dose Admin Acetaminophen 650 mg 09/27/20 23:58 Acetaminophen Tab 325 Mg Tab PO Q4HR PRN Pain/Discomfort Al Hydroxide/Mg Hydroxide 30 ml 09/27/20 23:58 Mag Hydrox/Al Hydrox/Simeth 30 Ml Cup PO Q4HR PRN GI Upset Aspirin 81 mg 09/28/20 09:00 09/30/20 08:09 Aspirin 81 Mg PO 81 mg DAILY SIGIFREDO Administration Atorvastatin Calcium 40 mg 09/30/20 21:00 Atorvastatin 40 Mg Tab PO HS [facility] Carvedilol 6.25 mg 09/28/20 09:00 09/30/20 08:08 Carvedilol 6.25 Mg Tab PO 6.25 mg BID SIGIFREDO Administration Escitalopram Oxalate 10 mg 09/28/20 09:00 09/30/20 08:09 Escitalopram 10 Mg Tab PO 10 mg DAILY SIGIFREDO Administration Fenofibrate 160 mg 09/28/20 09:00 09/30/20 08:10 Fenofibrate 160 Mg Tab PO 160 mg DAILY SIGIFREDO Administration Ferrous Sulfate 325 mg 09/28/20 09:00 09/30/20 08:10 Ferrous Sulfate 325 Mg Tab PO 325 mg BID SIGIFREDO Administration Furosemide 40 mg 10/01/20 09:00 Furosemide 80 Mg Tab PO DAILY SIGIFREDO Haloperidol 4 mg 09/28/20 00:12 Haloperidol 2 Mg Tab PO Q6H PRN Agitation or Acute Anxiety Haloperidol Lactate 4 mg 09/28/20 00:12 Haloperidol Lactate 5 Mg/Ml 1 Ml Vial IM Q6HR PRN Agitation or Acute Psychosis Lorazepam 1 mg 09/28/20 00:12 Lorazepam 2 Mg/Ml Inj IM TID PRN Anxiety Lorazepam 1 mg 09/28/20 00:12 Lorazepam 1 Mg Tab PO TID PRN Anxiety Magnesium Hydroxide 2,400 mg 09/27/20 23:58 Magnesium Hydroxide 2,400 Mg/10 Ml Cup PO DAILY PRN Constipation Magnesium Oxide 400 mg 09/28/20 09:00 09/30/20 08:09 Magnesium Oxide 400 Mg Tab PO 400 mg DAILY SIGIFREDO Administration Mirtazapine 7.5 mg 09/28/20 21:00 09/29/20 20:55 Mirtazapine 15 Mg Tab PO 7.5 mg HS SIGIFREDO Administration Mycophenolate Mofetil 1,000 mg 09/28/20 09:00 09/30/20 08:08 Mycophenolate Mofetil 500 Mg Tab PO 1,000 mg BID SIGIFREDO Administration Nicotine 1 patch 09/28/20 09:00 09/30/20 09:10 Nicotine 14mg/24hr Patch TRANSDERM Not Given DAILY [facility] Sirolimus [Rapamune] 5 mg 09/28/20 10:00 09/30/20 08:10 1 Mg Tablet PO 5 mg DAILY SIGIFREDO Administration Potassium Chloride 20 meq 09/28/20 21:00 09/29/20 20:56 Potassium Chloride Er 10 Meq Tab.Er.Prt PO 20 meq HS SIGIFREDO Administration Potassium Citrate 30 meq 09/28/20 09:00 09/30/20 08:09 Potassium Citrate 10 Meq Tablet.Er PO 30 meq DAILY SIGIFREDO Administration Sodium Chloride 1 gm 09/30/20 09:45 09/30/20 09:54 Sodium Chloride Tab 1 Gm Tab PO 1 gm TID SIGIFREDO Administration Spironolactone 50 mg 09/28/20 09:00 09/30/20 08:09 Spironolactone 25 Mg Tab PO 50 mg DAILY SIGIFREDO Administration Sulfasalazine 2,000 mg 09/28/20 21:00 09/30/20 08:07 Sulfasalazine 500 Mg Tab PO 01/05/21 21:01 2,000 mg BID SIGIFREDO Administration Zinc Sulfate 220 mg 09/28/20 09:00 09/30/20 08:08 Zinc Sulfate 220 Mg Cap PO 220 mg DAILY SIGIFREDO Administration Intake and Output 09/29/20 09/30/20 09/30/20 22:59 06:59 14:59 Intake Total 1000 Balance 1000 Intake: IV 1000 Invasive Line 1 1000 09/29/20 14:36 09/29/20 14:36
[2020-09-30] MEDS ORDERED: ATORVASTATIN 40 MG TAB PO SCH (21:00)
[2020-09-30] MEDS ORDERED: POTASSIUM CHLORIDE ER 10 MEQ TAB.ER.PRT PO SCH (21:00)
[2020-10-01] MEDS ORDERED: POTASSIUM CITRATE 5 MEQ TABLET.ER PO SCH (09:00)
[2020-10-01] MEDS ORDERED: FUROSEMIDE 40 MG TAB PO SCH (09:00)
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
== END 2020-09-30 16:58 | disposition home or self-care (01) | DRG 885 ==
LOC: EC 15:45 → 3MHU 23:56
PROVIDERS: ADMIT Psychiatry & Neurology Psychiatry; ATTEND Psychiatry & Neurology Psychiatry
DX: F33.1 Major depressive disorder, recurrent, moderate (principal); E87.1 Hypo-osmolality and hyponatremia; Z94.0 Kidney transplant status; E11.9 Type 2 diabetes mellitus without complications; Z20.822 Contact with and (suspected) exposure to COVID-19; K21.9 Gastro-esophageal reflux disease without esophagitis; E86.0 Dehydration; E87.6 Hypokalemia; E03.9 Hypothyroidism, unspecified; F41.9 Anxiety disorder, unspecified; I10 Essential (primary) hypertension; I95.1 Orthostatic hypotension; H53.9 Unspecified visual disturbance; Z79.82 Long term (current) use of aspirin; Z79.899 Other long term (current) drug therapy; Z98.51 Tubal ligation status; Z90.49 Acquired absence of other specified parts of digestive tract; Z87.891 Personal history of nicotine dependence; Z86.718 Personal history of other venous thrombosis and embolism; Z87.19 Personal history of other diseases of the digestive system; Z98.890 Other specified postprocedural states; Z82.49 Family history of ischemic heart disease and other diseases of the circulatory system; Z88.8 Allergy status to other drugs, medicaments and biological substances; Z91.411 Personal history of adult psychological abuse; Z91.410 Personal history of adult physical and sexual abuse
CPT/HCPCS: 36415; 80048; 80053; 80061; 80306; 81001; 82075; 82607; 82746; 83036; 83735; 84439; 84443; 84484; 85025; 85027; 87086; 87635; 93005; 99285

== ENCOUNTER 2021-03-11 20:57 | Emergency (ER) | payer MEDICARE, OTHER ==
[2021-03-11 21:04] VITALS: TEMP 98.6
[2021-03-11 21:05] VITALS: PULSE 89
[2021-03-11] MEDS ORDERED: SODIUM CHLORIDE 0.9% 1,000 ML IV STA (21:33)
[2021-03-11] MEDS ORDERED: LORazepam 2 MG/ML INJ IV STA (21:33)
[2021-03-11] MEDS ORDERED: ONDANSETRON 4 MG/2 ML VIAL IVP STA (21:33)
[2021-03-11] MEDS ORDERED: LABETALOL 5 MG/ML VIAL MDV IVP STA (21:33)
--- NOTE | 2021-03-11 21:45 | ED ---
Headache HPI - General Chief Complaint: Headache Stated Complaint: NVD Time Seen by Provider: 03/11/21 21:17 Source: RN notes reviewed, old records reviewed Mode of arrival: EMS Limitations: no limitations - History of Present Illness Initial Comments: This is a 65-year-old female to the emergency room today. Patient Dese for evaluation multiple complaints persistent nausea vomiting, current headache, severe anxiety. Patient herself states that she is having severe anxiety and has not taken her meds secondary to persistent nausea and vomiting. Patient denying current chest pain no headache no shortness of breath no abdominal pain. MD Complaint: headache, other (Anxiety with nausea and vomiting) -: days(s) Onset Description: gradual Location: frontal Severity: moderate Severity scale (1-10): 4 Quality: aching, throbbing Consistency: constant Improves With: nothing Worsens With: none Context: other (none) Associated Symptoms: nausea, vomiting Other Symptoms: other (none) Treatments Prior to Arrival: none - Related Data Home Medications Medication Instructions Recorded Confirmed Furosemide 80 mg PO DAILY 08/03/15 03/11/21 Potassium Chloride [Klor-Con 10] 10 meq PO HS 08/03/15 03/11/21 Spironolactone 50 mg PO DAILY 08/03/15 03/11/21 mycophenolate mofetiL [Cellcept] 1,000 mg PO BID 08/03/15 03/11/21 Sirolimus [Rapamune] 5 mg PO DAILY 08/17/15 03/11/21 sulfaSALAzine [Azulfidine] 1,000 mg PO QID 09/06/18 03/11/21 Aspirin EC [Ecotrin Low Dose] 81 mg PO DAILY 04/15/20 03/11/21 Carvedilol [Coreg] 6.25 mg PO BID 09/27/20 03/11/21 Ferrous Sulfate [Feosol] 325 mg PO DAILY 03/11/21 03/11/21 Loratadine [Claritin] 10 mg PO DAILY 03/11/21 03/11/21 Omeprazole 20 mg PO DAILY 03/11/21 03/11/21 Potassium Chloride ER [K-Dur 10] 15 meq PO DAILY 03/11/21 03/11/21 Previous Rx's Medication Instructions Recorded Escitalopram [Lexapro] 10 mg PO DAILY 30 Days tab 09/29/20 Atorvastatin [Lipitor] 40 mg PO HS #30 tab 09/30/20 Allergies Allergy/AdvReac Type Severity Reaction Status Date / Time lisinopril Allergy Anaphylaxis Verified 03/11/21 21:34 Review of Systems ROS Statement: Those systems with pertinent positive or pertinent negative responses have been documented in the HPI. ROS Other: All systems not noted in ROS Statement are negative. 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 History of Any Multi-Drug Resistant Organisms: None Reported Past Surgical History: Cholecystectomy, Hernia Repair, Tubal Ligation Additional Past Surgical History / Comment(s): KIDNEY TRANSPLANT left 15 years ago. DIALYSIS PORT PLACEMENT AND REMOVAL Past Anesthesia/Blood Transfusion Reactions: No Reported Reaction, Motion Sickness Past Psychological History: Anxiety, Depression Smoking Status: Former smoker Past Alcohol Use History: Occasional Past Drug Use History: None Reported - Past Family History Mother Family Medical History: Myocardial Infarction ([place]) Additional Family Medical History / Comment(s): Father Additional Family Medical History / Comment(s): UNK HEART PROBLEMS General Exam Limitations: no limitations General appearance: alert, in no apparent distress Head exam: Present: atraumatic, normocephalic, normal inspection Eye exam: Present: normal appearance, PERRL, EOMI. Absent: scleral icterus, co njunctival injection, periorbital swelling ENT exam: Present: normal exam, mucous membranes moist Neck exam: Present: normal inspection. Absent: tenderness, meningismus, lymphadenopathy Respiratory exam: Present: normal lung sounds bilaterally. Absent: respiratory distress, wheezes, rales, rhonchi, stridor Cardiovascular Exam: Present: regular rate, normal rhythm, normal heart sounds. Absent: systolic murmur, diastolic murmur, rubs, gallop, clicks GI/Abdominal exam: Present: soft, normal bowel sounds. Absent: distended, tenderness, guarding, rebound, rigid Extremities exam: Present: normal inspection, full ROM, normal capillary refill. Absent: tenderness, pedal edema, joint swelling, calf tenderness Back exam: Present: normal inspection Neurological exam: Present: alert, oriented X3, CN II-XII intact Psychiatric exam: Present: normal affect, normal mood Skin exam: Present: warm, dry, intact, normal color. Absent: rash Course Vital Signs 03/11/21 03/11/21 03/11/21 20:58 21:05 22:25 Temperature 98.6 F Pulse Rate 96 89 89 Respiratory 18 18 19 Rate Blood Pressure 195/123 196/120 176/119 O2 Sat by Pulse 99 98 99 Oximetry 03/11/21 22:45 Temperature Pulse Rate 89 Respiratory 18 Rate Blood Pressure 161/108 O2 Sat by Pulse 98 Oximetry - Reevaluation(s) Reevaluation #1: 03/11/21 22:49 Medical record is reviewed Reevaluation #2: 03/11/21 22:49 Blood pressures improved Reevaluation #3: 03/11/21 23:17 Patient continues to feel better here in the ER prefers discharged home Medical Decision Making - Medical Decision Making 65 female with nausea vomiting and headache. Headache is resolved here in the ER nausea and vomiting are resolved here in the ER blood pressures improved here in the emergency room. Lab values are normal patient. Prefers to be discharged home - Lab Data Result diagrams: 03/11/21 22:00 03/11/21 22:04 Lab Results 03/11/21 03/11/21 03/11/21 Range/Units 22:00 22:04 22:04 WBC 9.1 (3.8-10.6) k/uL RBC 5.42 H (3.80-5.40) m/uL Hgb 16.1 H (11.4-16.0) gm/dL Hct 46.8 H (34.0-46.0) % MCV 86.3 (80.0-100.0) fL MCH 29.6 (25.0-35.0) pg MCHC 34.3 (31.0-37.0) g/dL RDW 14.6 (11.5-15.5) % Plt Count 298 (150-450) k/uL MPV 7.2 Neutrophils % 84 % Lymphocytes % 8 % Monocytes % 6 % Eosinophils % 0 % Basophils % 1 % Neutrophils # 7.6 (1.3-7.7) k/uL Lymphocytes # 0.8 L (1.0-4.8) k/uL Monocytes # 0.5 (0-1.0) k/uL Eosinophils # 0.0 (0-0.7) k/uL Basophils # 0.1 (0-0.2) k/uL PT 10.6 (9.0-12.0) sec INR 1.0 (<1.2) APTT 19.1 L (22.0-30.0) sec Sodium 135 L (137-145) mmol/L Potassium 3.5 (3.5-5.1) mmol/L Chloride 97 L (98-107) mmol/L Carbon Dioxide 24 (22-30) mmol/L Anion Gap 14 mmol/L BUN 19 H (7-17) mg/dL Creatinine 0.70 (0.52-1.04) mg/dL Est GFR (CKD-EPI)AfAm >90 (>60 ml/min/1.73 sqM) Est GFR (CKD-EPI)NonAf >90 (>60 ml/min/1.73 sqM) Glucose 244 H (74-99) mg/dL Calcium 10.2 (8.4-10.2) mg/dL Phosphorus 2.4 L (2.5-4.5) mg/dL Magnesium 2.0 (1.6-2.3) mg/dL Total Bilirubin 0.7 (0.2-1.3) mg/dL AST 18 (14-36) U/L ALT 17 (4-34) U/L Alkaline Phosphatase 85 (38-126) U/L Creatine Kinase 63 (30-135) U/L Total Protein 7.5 (6.3-8.2) g/dL Albumin 4.5 (3.5-5.0) g/dL - EKG Data -: EKG Interpreted by Me (EKG shows sinus rhythm 71 NV 144 QRS 92 QTC 470) Disposition Clinical Impression: Headache, Nausea & vomiting, Hypertension Disposition: ADMITTED IP TO THIS [facility] Condition: Good Instructions (If sedation given, give patient instructions): Acute Headache (ED) Is patient prescribed a controlled substance at d/c from ED?: No Referrals: Kody Laguna MD [Primary Care Provider] - 1-2 days
[2021-03-11 22:42] LABS: Basophils # (A) 0.1 k/uL (0-0.2); Basophils % (A) 1 %; Eosinophils % (A) 0 %; HCT 46.8 % (34.0-46.0); HGB 16.1 gm/dL (11.4-16.0); Lymphocytes # (A) 0.8 k/uL (1.0-4.8); Lymphocytes % (A) 8 %; MCH 29.6 pg (25.0-35.0); MCHC 34.3 g/dL (31.0-37.0); MCV 86.3 fL (80.0-100.0); Mean Platelet Volume 7.2; Monocytes # (A) 0.5 k/uL (0-1.0); Monocytes % (A) 6 %; Neutrophils # (A) 7.6 k/uL (1.3-7.7); Neutrophils % (A) 84 %; Platelet Count 298 k/uL (150-450); RBC 5.42 m/uL (3.80-5.40); RDW 14.6 % (11.5-15.5); WBC 9.1 k/uL (3.8-10.6)
[2021-03-11 22:45] VITALS: BP 161/108; RESP 18
[2021-03-11 22:55] LABS: ALT 17 U/L (4-34); AST 18 U/L (14-36); African American GFR (CKD) >90 (>60 ml/min/1.73 sqM); Albumin 4.5 g/dL (3.5-5.0); Alkaline Phosphatase 85 U/L (38-126); Anion Gap 14 mmol/L; Blood Urea Nitrogen 19 mg/dL (7-17); Calcium 10.2 mg/dL (8.4-10.2); Carbon Dioxide 24 mmol/L (22-30); Chloride 97 mmol/L (98-107); Creatine Kinase 63 U/L (30-135); Glucose 244 mg/dL (74-99); Non-African American GFR(CKD) >90 (>60 ml/min/1.73 sqM); Phosphorus 2.4 mg/dL (2.5-4.5); Potassium 3.5 mmol/L (3.5-5.1); Sodium 135 mmol/L (137-145); Total Bilirubin 0.7 mg/dL (0.2-1.3); Total Protein 7.5 g/dL (6.3-8.2)
[2021-03-11 22:57] LABS: Prothrombin Time 10.6 sec (9.0-12.0)
[2021-03-11 23:04] LABS: Partial Thromboplastin Time 19.1 sec (22.0-30.0)
== END 2021-03-12 00:28 | disposition other institution (70) ==
LOC: EC 20:57
DX: R11.2 Nausea with vomiting, unspecified (principal); R51.9 Headache, unspecified; I10 Essential (primary) hypertension; E11.9 Type 2 diabetes mellitus without complications; K21.9 Gastro-esophageal reflux disease without esophagitis; F41.9 Anxiety disorder, unspecified; F32.9 Major depressive disorder, single episode, unspecified; Z79.82 Long term (current) use of aspirin; Z88.8 Allergy status to other drugs, medicaments and biological substances; Z94.0 Kidney transplant status; Z99.2 Dependence on renal dialysis; Z90.49 Acquired absence of other specified parts of digestive tract; Z86.718 Personal history of other venous thrombosis and embolism; Z87.891 Personal history of nicotine dependence; Z79.899 Other long term (current) drug therapy
CPT/HCPCS: 99285; 96374; 96375 ×2; 96361; 93005; 83880; 80053; 82550; 83735; 84100; 84484; 85025; 85610; 85730; J2060; J2405

== ENCOUNTER 2021-03-14 15:45 | Emergency (ER) | payer MEDICARE, OTHER ==
[2021-03-14] MEDS ORDERED: SODIUM CHLORIDE 0.9% 1,000 ML IV STA ×2 (16:55→18:41)
--- NOTE | 2021-03-14 17:21 | XR ---
EXAMINATION TYPE: XR chest 2V DATE OF EXAM: 03/14/2021 COMPARISON: NONE HISTORY: Weakness. TECHNIQUE: Frontal and lateral views of the chest are obtained. FINDINGS: There is minimal bibasilar streaky opacity compatible with atelectasis/scarring. No signif icant patchy airspace opacity, pleural effusion, or pneumothorax seen. The cardiac silhouette size i s within normal limits. The osseous structures are intact. IMPRESSION: No acute cardiopulmonary process.
[2021-03-14 17:58] LABS: Albumin 4.8 g/dL (3.5-5.0); Calcium 10.6 mg/dL (8.4-10.2); Magnesium 2.1 mg/dL (1.6-2.3); Potassium 3.1 mmol/L (3.5-5.1); Total Bilirubin 1.1 mg/dL (0.2-1.3)
[2021-03-14 18:04] LABS: Basophils # (A) 0.1 k/uL (0-0.2); Basophils % (A) 0 %; Eosinophils # (A) 0.1 k/uL (0-0.7); Eosinophils % (A) 1 %; HCT 53.1 % (34.0-46.0); HGB 18.5 gm/dL (11.4-16.0); Lymphocytes # (A) 0.8 k/uL (1.0-4.8); Lymphocytes % (A) 5 %; MCH 30.3 pg (25.0-35.0); MCHC 34.9 g/dL (31.0-37.0); MCV 86.8 fL (80.0-100.0); Mean Platelet Volume 7.4; Monocytes # (A) 0.9 k/uL (0-1.0); Monocytes % (A) 5 %; Neutrophils # (A) 13.9 k/uL (1.3-7.7); Neutrophils % (A) 88 %; Platelet Count 334 k/uL (150-450); Prothrombin Time 10.5 sec (9.0-12.0); RBC 6.12 m/uL (3.80-5.40); RDW 14.2 % (11.5-15.5); WBC 15.8 k/uL (3.8-10.6)
[2021-03-14 18:19] LABS: Partial Thromboplastin Time 21.8 sec (22.0-30.0)
[2021-03-14 18:43] LABS: Appearance,Urine Clear (Clear); Bilirubin,Urine Negative (Negative); Blood,Urine Negative (Negative); Color,Urine Yellow; Glucose,Urine (UA) Trace (Negative); Ketones,Urine Trace (Negative); Leukocyte Esterase,Urine Negative (Negative); Nitrite,Urine Negative (Negative); PH, Urine 6.5 (5.0-8.0); Protein,Urine Trace (Negative); Specific Gravity,Urine 1.006 (1.001-1.035); Urobilinogen,Urine <2.0 mg/dL (<2.0)
[2021-03-14 18:53] LABS: Amphetamine Screen,Urine Not Detected (NotDetected); Barbiturate Screen,Urine Not Detected (NotDetected); Benzodiazepines Screen,Urine Not Detected (NotDetected); Cocaine Screen,Urine Not Detected (NotDetected); Methadone Screen, Urine Not Detected (NotDetected); Opiate Screen,Urine Not Detected (NotDetected); Oxycodone Screen, Urine Not Detected (NotDetected); Phencyclidine Screen,Urine Not Detected (NotDetected); Tricyclic Antidepressant,Urine Not Detected (NotDetected); Urn Cannabinoid Scrn Not Detected (NotDetected)
[2021-03-14] MEDS ORDERED: POTASSIUM CHLORIDE ER 20 MEQ TAB.ER PO STA (19:24)
--- NOTE | 2021-03-14 19:27 | ED ---
General Adult HPI - General Chief complaint: Weakness Stated complaint: Weakness Time Seen by Provider: 03/14/21 16:44 Source: patient, RN notes reviewed Mode of arrival: wheelchair Limitations: no limitations - History of Present Illness Initial comments: Patient is a 65-year-old female that presents to the emergency department complaining of not feeling well, under the weather and weakness for the past week. She was seen here several days ago for nausea vomiting diarrhea. She noted that she was not feeling well but cannot describe what was wrong. She notes that she wanted to her head down in some blankets as she was tired. She noted that she was unable to drink any fluids today and was dehydrated. She was otherwise a well-appearing 65-year-old female in no apparent distress or pain. She denied any chest pain shortness of breath headache diarrhea constipation fever fatigue chills. - Related Data Home Medications Medication Instructions Recorded Confirmed Furosemide 80 mg PO DAILY 08/03/15 03/14/21 Potassium Chloride [Klor-Con 10] 10 meq PO HS 08/03/15 03/14/21 Spironolactone 50 mg PO DAILY 08/03/15 03/14/21 mycophenolate mofetiL [Cellcept] 1,000 mg PO BID 08/03/15 03/14/21 Sirolimus [Rapamune] 5 mg PO DAILY 08/17/15 03/14/21 sulfaSALAzine [Azulfidine] 1,000 mg PO QID 09/06/18 03/14/21 Aspirin EC [Ecotrin Low Dose] 81 mg PO DAILY 04/15/20 03/14/21 Carvedilol [Coreg] 6.25 mg PO BID 09/27/20 03/14/21 Ferrous Sulfate [Feosol] 325 mg PO DAILY 03/11/21 03/14/21 Loratadine [Claritin] 10 mg PO DAILY 03/11/21 03/14/21 Omeprazole 20 mg PO DAILY 03/11/21 03/14/21 Potassium Chloride ER [K-Dur 10] 15 meq PO DAILY 03/11/21 03/14/21 Previous Rx's Medication Instructions Recorded Escitalopram [Lexapro] 10 mg PO DAILY 30 Days tab 09/29/20 Atorvastatin [Lipitor] 40 mg PO HS #30 tab 09/30/20 Allergies Allergy/AdvReac Type Severity Reaction Status Date / Time lisinopril Allergy Anaphylaxis Verified 03/14/21 17:40 Review of Systems ROS Statement: Those systems with pertinent positive or pertinent negative responses have been documented in the HPI. ROS Other: All systems not noted in ROS Statement are negative. 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 History of Any Multi-Drug Resistant Organisms: None Reported Past Surgical History: Cholecystectomy, Hernia Repair, Tubal Ligation Additional Past Surgical History / Comment(s): KIDNEY TRANSPLANT left 15 years ago. DIALYSIS PORT PLACEMENT AND REMOVAL Past Anesthesia/Blood Transfusion Reactions: No Reported Reaction, Motion Sickn ess Past Psychological History: Anxiety, Depression Smoking Status: Former smoker Past Alcohol Use History: Occasional Past Drug Use History: None Reported - Past Family History Mother Family Medical History: Myocardial Infarction ([place]) Additional Family Medical History / Comment(s): Father Additional Family Medical History / Comment(s): UNK HEART PROBLEMS General Exam Limitations: no limitations General appearance: alert, in no apparent distress Head exam: Present: atraumatic, normocephalic, normal inspection Eye exam: Present: normal appearance, PERRL, EOMI. Absent: scleral icterus, conjunctival injection, periorbital swelling Neck exam: Present: normal inspection Respiratory exam: Present: normal lung sounds bilaterally. Absent: respiratory distress, wheezes, rales, rhonchi, stridor Cardiovascular Exam: Present: regular rate, normal rhythm, normal heart sounds. Absent: systolic murmur, diastolic murmur, rubs, gallop, clicks GI/Abdominal exam: Present: soft, normal bowel sounds. Absent: distended, tenderness, guarding, rebound, rigid Extremities exam: Present: normal inspection, full ROM, normal capillary refill. Absent: tenderness, pedal edema, joint swelling, calf tenderness Neurological exam: Present: alert, oriented X3 Psychiatric exam: Present: normal affect, normal mood Skin exam: Present: warm, dry, intact, normal color. Absent: rash Course Vital Signs 03/14/21 16:21 Temperature 98.0 F Pulse Rate 97 Respiratory 18 Rate Blood Pressure 102/77 O2 Sat by Pulse 94 L Oximetry EKG Findings - EKG Comments: EKG Findings:: Ventricular rate 66 bpm, OH interval 122 ms, QRS duration 104 ms, QTC 436 ms, PRT axis 22/57/206. Normal sinus rhythm, ST and T wave abnormality consider inferior ischemia, ST and T wave abnormality consider anterior lateral ischemia, abnormal ECG. Procedures - [facility] Protocol (Time Out) Nurse: Ghada Key Medical Decision Making - Medical Decision Making 65-year-old female complaining of weakness and not feeling well. Labs, EKG, chest x-ray, urine drug screen, Covid test ordered. Labs: White blood cells 15.8 hemoglobin 18.5, hematocrit 53.1 most likely a dehydration. Potassium 3.1, lactic acid 2.3 1 more liter of saline, 20 mEq of potassium ordered. EKG similar to previous. Chest x-ray negative for any acute process. Case discussed with Dr. Hatfield, patient can discharge home. - Lab Data Result diagrams: 03/14/21 17:36 03/14/21 17:36 Lab Results 03/14/21 03/14/21 03/14/21 Range/Units 17:36 17:36 17:36 WBC 15.8 H (3.8-10.6) k/uL RBC 6.12 H (3.80-5.40) m/uL Hgb 18.5 H (11.4-16.0) gm/dL Hct 53.1 H (34.0-46.0) % MCV 86.8 (80.0-100.0) fL MCH 30.3 (25.0-35.0) pg MCHC 34.9 (31.0-37.0) g/dL RDW 14.2 (11.5-15.5) % Plt Count 334 (150-450) k/uL MPV 7.4 Neutrophils % 88 % Lymphocytes % 5 % Monocytes % 5 % Eosinophils % 1 % Basophils % 0 % Neutrophils # 13.9 H (1.3-7.7) k/uL Lymphocytes # 0.8 L (1.0-4.8) k/uL Monocytes # 0.9 (0-1.0) k/uL Eosinophils # 0.1 (0-0.7) k/uL Basophils # 0.1 (0-0.2) k/uL PT 10.5 (9.0-12.0) sec INR 1.0 (<1.2) APTT 21.8 L (22.0-30.0) sec Sodium 134 L (137-145) mmol/L Potassium 3.1 L (3.5-5.1) mmol/L Chloride 92 L (98-107) mmol/L Carbon Dioxide 26 (22-30) mmol/L Anion Gap 16 mmol/L BUN 26 H (7-17) mg/dL Creatinine 1.00 (0.52-1.04) mg/dL Est GFR (CKD-EPI)AfAm 68 (>60 ml/min/1.73 sqM) Est GFR (CKD-EPI)NonAf 59 (>60 ml/min/1.73 sqM) Glucose 265 H (74-99) mg/dL Plasma Lactic Acid Adriano (0.7-2.0) mmol/L Calcium 10.6 H (8.4-10.2) mg/dL Magnesium 2.1 (1.6-2.3) mg/dL Total Bilirubin 1.1 (0.2-1.3) mg/dL AST 24 (14-36) U/L ALT 23 (4-34) U/L Alkaline Phosphatase 95 (38-126) U/L Troponin I (0.000-0.034) ng/mL Total Protein 8.0 (6.3-8.2) g/dL Albumin 4.8 (3.5-5.0) g/dL Urine Color Urine Appearance (Clear) Urine pH (5.0-8.0) Ur Specific [place] (1.001-1.035) Urine Protein (Negative) Urine Glucose (UA) (Negative) Urine Ketones (Negative) Urine Blood (Negative) Urine Nitrite (Negative) Urine Bilirubin (Negative) Urine Urobilinogen (<2.0) mg/dL Ur Leukocyte Esterase (Negative) Urine Opiates Screen (NotDetected) Ur Oxycodone Screen (NotDetected) Urine Methadone Screen (NotDetected) Ur Propoxyphene Screen (NotDetected) Ur Barbiturates Screen (NotDetected) U Tricyclic Antidepress (NotDetected) Ur Phencyclidine Scrn (NotDetected) Ur Amphetamines Screen (NotDetected) U Methamphetamines Scrn (NotDetected) U Benzodiazepines Scrn (NotDetected) Urine Cocaine Screen (NotDetected) U Marijuana (THC) Screen (NotDetected) Coronavirus (PCR) (Not Detectd) 03/14/21 03/14/21 03/14/21 Range/Units 17:36 17:36 18:28 WBC (3.8-10.6) k/uL RBC (3.80-5.40) m/uL Hgb (11.4-16.0) gm/dL Hct (34.0-46.0) % MCV (80.0-100.0) fL MCH (25.0-35.0) pg MCHC (31.0-37.0) g/dL RDW (11.5-15.5) % Plt Count (150-450) k/uL MPV Neutrophils % % Lymphocytes % % Monocytes % % Eosinophils % % Basophils % % Neutrophils # (1.3-7.7) k/uL Lymphocytes # (1.0-4.8) k/uL Monocytes # (0-1.0) k/uL Eosinophils # (0-0.7) k/uL Basophils # (0-0.2) k/uL PT (9.0-12.0) sec INR (<1.2) APTT (22.0-30.0) sec Sodium (137-145) mmol/L Potassium (3.5-5.1) mmol/L Chloride (98-107) mmol/L Carbon Dioxide (22-30) mmol/L Anion Gap mmol/L BUN (7-17) mg/dL Creatinine (0.52-1.04) mg/dL Est GFR (CKD-EPI)AfAm (>60 ml/min/1.73 sqM) Est GFR (CKD-EPI)NonAf (>60 ml/min/1.73 sqM) Glucose (74-99) mg/dL Plasma Lactic Acid Adriano 2.3 H* (0.7-2.0) mmol/L Calcium (8.4-10.2) mg/dL Magnesium (1.6-2.3) mg/dL Total Bilirubin (0.2-1.3) mg/dL AST (14-36) U/L ALT (4-34) U/L Alkaline Phosphatase (38-126) U/L Troponin I 0.016 (0.000-0.034) ng/mL Total Protein (6.3-8.2) g/dL Albumin (3.5-5.0) g/dL Urine Color Yellow Urine Appearance Clear (Clear) Urine pH 6.5 (5.0-8.0) Ur Specific [place] 1.006 (1.001-1.035) Urine Protein Trace H (Negative) Urine Glucose (UA) Trace H (Negative) Urine Ketones Trace H (Negative) Urine Blood Negative (Negative) Urine Nitrite Negative (Negative) Urine Bilirubin Negative (Negative) Urine Urobilinogen <2.0 (<2.0) mg/dL Ur Leukocyte Esterase Negative (Negative) Urine Opiates Screen (NotDetected) Ur Oxycodone Screen (NotDetected) Urine Methadone Screen (NotDetected) Ur Propoxyphene Screen (NotDetected) Ur Barbiturates Screen (NotDetected) U Tricyclic Antidepress (NotDetected) Ur Phencyclidine Scrn (NotDetected) Ur Amphetamines Screen (NotDetected) U Methamphetamines Scrn (NotDetected) U Benzodiazepines Scrn (NotDetected) Urine Cocaine Screen (NotDetected) U Marijuana (THC) Screen (NotDetected) Coronavirus (PCR) (Not Detectd) 03/14/21 03/14/21 Range/Units 18:28 18:32 WBC (3.8-10.6) k/uL RBC (3.80-5.40) m/uL Hgb (11.4-16.0) gm/dL Hct (34.0-46.0) % MCV (80.0-100.0) fL MCH (25.0-35.0) pg MCHC (31.0-37.0) g/dL RDW (11.5-15.5) % Plt Count (150-450) k/uL MPV Neutrophils % % Lymphocytes % % Monocytes % % Eosinophils % % Basophils % % Neutrophils # (1.3-7.7) k/uL Lymphocytes # (1.0-4.8) k/uL Monocytes # (0-1.0) k/uL Eosinophils # (0-0.7) k/uL Basophils # (0-0.2) k/uL PT (9.0-12.0) sec INR (<1.2) APTT (22.0-30.0) sec Sodium (137-145) mmol/L Potassium (3.5-5.1) mmol/L Chloride (98-107) mmol/L Carbon Dioxide (22-30) mmol/L Anion Gap mmol/L BUN (7-17) mg/dL Creatinine (0.52-1.04) mg/dL Est GFR (CKD-EPI)AfAm (>60 ml/min/1.73 sqM) Est GFR (CKD-EPI)NonAf (>60 ml/min/1.73 sqM) Glucose (74-99) mg/dL Plasma Lactic Acid Adriano (0.7-2.0) mmol/L Calcium (8.4-10.2) mg/dL Magnesium (1.6-2.3) mg/dL Total Bilirubin (0.2-1.3) mg/dL AST (14-36) U/L ALT (4-34) U/L Alkaline Phosphatase (38-126) U/L Troponin I (0.000-0.034) ng/mL Total Protein (6.3-8.2) g/dL Albumin (3.5-5.0) g/dL Urine Color Urine Appearance (Clear) Urine pH (5.0-8.0) Ur Specific [place] (1.001-1.035) Urine Protein (Negative) Urine Glucose (UA) (Negative) Urine Ketones (Negative) Urine Blood (Negative) Urine Nitrite (Negative) Urine Bilirubin (Negative) Urine Urobilinogen (<2.0) mg/dL Ur Leukocyte Esterase (Negative) Urine Opiates Screen Not Detected (NotDetected) Ur Oxycodone Screen Not Detected (NotDetected) Urine Methadone Screen Not Detected (NotDetected) Ur Propoxyphene Screen Not Detected (NotDetected) Ur Barbiturates Screen Not Detected (NotDetected) U Tricyclic Antidepress Not Detected (NotDetected) Ur Phencyclidine Scrn Not Detected (NotDetected) Ur Amphetamines Screen Not Detected (NotDetected) U Methamphetamines Scrn Not Detected (NotDetected) U Benzodiazepines Scrn Not Detected (NotDetected) Urine Cocaine Screen Not Detected (NotDetected) U Marijuana (THC) Screen Not Detected (NotDetected) Coronavirus (PCR) Not Detected (Not Detectd) - EKG Data -: EKG Interpreted by Me EKG shows normal: sinus rhythm Rate: normal EKG Comments: Ventricular rate 66 bpm, OH interval 122 ms, QRS duration 104 ms, QTC 436 ms, PRT axis 22/57/206. Normal sinus rhythm, ST and T wave abnormality consider inferior ischemia, ST and T wave abnormality consider anterior lateral ischemia, abnormal ECG. - Radiology Data Radiology results: report reviewed, image reviewed Chest x-ray: No acute cardiopulmonary process. Disposition Clinical Impression: Weakness, Dehydration, Hypokalemia Disposition: HOME SELF-CARE Condition: Stable Instructions (If sedation given, give patient instructions): Weakness (ED) Additional Instructions: Please return to the Emergency Department if symptoms worsen or any other concerns. Follow-up primary care 1-2 days. Increase oral fluids. Is patient prescribed a controlled substance at d/c from ED?: No Referrals: Kody Laguna MD [Primary Care Provider] - 1-2 days Time of Disposition: 19:44
[2021-03-14] MEDS ORDERED: ACETAMINOPHEN TAB 325 MG TAB PO STA (20:10)
[2021-03-14 20:23] VITALS: BP 127/69; PULSE 72; RESP 16; TEMP 97.9
== END 2021-03-14 20:23 | disposition home or self-care (01) ==
LOC: EC 15:45
DX: R53.1 Weakness (principal); E86.0 Dehydration; E87.6 Hypokalemia; E11.9 Type 2 diabetes mellitus without complications; K21.9 Gastro-esophageal reflux disease without esophagitis; F41.9 Anxiety disorder, unspecified; F32.9 Major depressive disorder, single episode, unspecified; Z79.82 Long term (current) use of aspirin; Z86.718 Personal history of other venous thrombosis and embolism; Z90.49 Acquired absence of other specified parts of digestive tract; Z98.51 Tubal ligation status; Z87.891 Personal history of nicotine dependence; Z88.8 Allergy status to other drugs, medicaments and biological substances; Z20.822 Contact with and (suspected) exposure to COVID-19; Z94.0 Kidney transplant status; Z99.2 Dependence on renal dialysis; Z79.899 Other long term (current) drug therapy
CPT/HCPCS: 36415; 71046; 80053; 80306; 81003; 83605; 83735; 84484; 85025; 85610; 85730; 87635; 93005; 96360; 96361; 99285

== ENCOUNTER 2021-08-16 09:02 | Day surgery (SDC) | payer MEDICARE, OTHER ==
[~2021-08-16 09:02] MED LIST changes: -ACETAMINOPHEN TAB 500 MG TAB PO PRN; +ALPRAZolam 0.25 MG TAB PO PRN; +ALPRAZolam 0.5 MG TAB PO PRN; +ASPIRIN 325 MG TAB PO STA; +ATORVASTATIN 80 MG TAB PO STA; -DEXAMETHASONE SOD PHOSPHATE 4 MG/ML 1 ML VIAL IV ONE; +HEPARIN SODIUM,PORCINE 10,000 UNIT in SODIUM CHLORIDE 0.9% 1,000 ML IRRIGATION PRN; +HEPARIN SODIUM,PORCINE 2,500 UNIT in SODIUM CHLORIDE 0.9% 250 ML IRRIGATION PRN; -HEPARIN SODIUM,PORCINE 5,000 UNIT/ML 1 ML VIAL SQ PRN; -HYDROmorphone 0.5 MG/0.5 ML SYRINGE IVP PRN; -LACTATED RINGERS 1,000 ML IV SCH; +NITROGLYCERIN SL TABS 0.4 MG TAB SUBLINGUAL PRN; -ONDANSETRON 4 MG/2 ML VIAL IVP ONE
[2021-08-16 09:29] LABS: Glucose,Whole Blood 217 mg/dL (75-99)
[2021-08-16] MEDS: SODIUM CHLORIDE 0.9% 1,000 ML in EMPTY BAG 1 BAG IV SCH ×3 (09:29→22:46)
[2021-08-16 09:37] LABS: Basophils % (A) 1 %; Eosinophils # (A) 0.3 k/uL (0-0.7); Eosinophils % (A) 5 %; HCT 41.7 % (34.0-46.0); HGB 13.9 gm/dL (11.4-16.0); Lymphocytes # (A) 0.9 k/uL (1.0-4.8); Lymphocytes % (A) 17 %; MCH 29.5 pg (25.0-35.0); MCHC 33.3 g/dL (31.0-37.0); MCV 88.6 fL (80.0-100.0); Mean Platelet Volume 7.7; Monocytes # (A) 0.4 k/uL (0-1.0); Monocytes % (A) 7 %; Neutrophils # (A) 3.8 k/uL (1.3-7.7); Neutrophils % (A) 69 %; Platelet Count 247 k/uL (150-450); RDW 14.3 % (11.5-15.5); WBC 5.6 k/uL (3.8-10.6)
[2021-08-16] MEDS: INSULIN ASPART (NovoLOG) 100 UNIT/ML VIAL SQ SCH ×3 (09:53→22:19)
[2021-08-16] MEDS ORDERED: HEPARIN SODIUM 1,000 UN/ML (10ML VL) ONE (10:54)
[2021-08-16] MEDS ORDERED: LIDOCAINE 1% INJ 10MG/ML (20 ML MDV) ONE (10:54)
[2021-08-16] MEDS ORDERED: VERAPAMIL 2.5 MG/ML 2 ML AMP ONE (10:54)
[2021-08-16] MEDS ORDERED: fentaNYL (PF) 50 MCG/ML 2 ML AMP ONE (10:55)
[2021-08-16] MEDS ORDERED: fentaNYL (PF) 50 MCG/ML 2 ML AMP IV ONE (11:17)
[2021-08-16] MEDS ORDERED: MIDAZOLAM 2 MG/2 ML VIAL IV ONE ×2 (11:17)
[2021-08-16] MEDS ORDERED: LIDOCAINE 1% INJ 10MG/ML (20 ML MDV) SQ ONE (11:19)
[2021-08-16] MEDS ORDERED: VERAPAMIL SYRINGE (5 MG/10 ML) INTRAARTER ONE (11:22)
[2021-08-16] MEDS: HEPARIN SODIUM 1,000 UN/ML (10ML VL) IV ONE ×3 (11:30→12:39)
[2021-08-16] MEDS ORDERED: CLOPIDOGREL 75 MG TAB PO ONE (12:29)
--- NOTE | 2021-08-16 12:45 | CC ---
CARDIAC CATHETERIZATION REPORT DATE OF SERVICE: 08/16/2021 INDICATION: Syncope with abnormal stress test. PROCEDURE NOTE: After obtaining informed consent, left heart catheterization and coronary angiogram were performed via the right radial artery using standard Michela catheters. The right coronary artery was engaged using a size 4 Michela catheter. We obtained subselective images with a 3-1/2 and we also used a Juanis catheter. Left coronary artery was engaged using a size 3-1/2 Michela catheter. Left ventricular pressures were obtained with the Michela. Patient tolerated the procedure well without any obvious immediate complications. Right radial artery access was obtained using a micropuncture technique, and under fluoroscopic guidance catheters and wires were manipulated into the ascending aorta, where catheters were exchanged. Patient received 5 mg of verapamil and 4000 units of heparin as per protocol. Patient received moderate conscious sedation. Total sedation time was 29 minutes. FINDINGS: HEMODYNAMICS: Left ventricular end-diastolic pressure is 5 mm. There is no significant gradient across the aortic valve. LEFT VENTRICULOGRAM: Left ventriculogram was not performed. ANGIOGRAPHIC DATA: Right coronary artery. Right coronary artery is a large dominant vessel that shows irregular ectatic areas involving the mid RCA with a proximal 60% stenosis and in mid RCA showing a focal 70% to 80% stenosis. Left main coronary artery is a normal-sized vessel and is free of stenosis. It divides into left anterior descending coronary artery and circumflex coronary artery. LAD shows mild nonobstructive disease. The first diagonal branch appears diffusely diseased. Circumflex coronary artery is a nondominant vessel. In the AV groove circumflex shows a 70% stenosis in its ostial portion and there is an irregular ectatic area in the mid circumflex coronary artery. CONCLUSION: Focal stenosis of 80% in the mid RCA, 70% stenosis involving the ostial portion of the AV groove circumflex. PLAN: I am going to review angiographic data with Dr. Brown, the on-call storage worker, and we will consider revascularization of the RCA. MMODL / IJN: [id number] /
--- NOTE | 2021-08-16 12:45 | LTR ---
August 16, 2021 To: Dr. Laguna Re: Mary Marroquin (53) Dear Dr. Laguna, I performed cardiac catheterization on Dayanna Marroquin. A detailed catheterization note is enclosed for your records. In brief, this 65-year-old lady initially presented to us having had an episode of syncope. It took her some time in getting a stress test done that showed ischemia in the anteroapical wall, and after discussing with her career representative, she decided to proceed with cardiac catheterization. Cardiac catheterization revealed a focal significant obstructive disease in the right coronary artery. Hopefully the patient can proceed with angioplasty and stent placement of the same. Thank you for giving me the privilege of participating in the care of this pleasant lady. Sincerely, Roberto Rollins M.D. AV / MIGUEL: [id number] /
[2021-08-16] MEDS ORDERED: HEPARIN SODIUM 1,000 UN/ML (10ML VL) IV ONE (12:48)
[2021-08-16] MEDS ORDERED: IOPAMIDOL-370 125ML BTL INJ ONE (12:50)
[2021-08-16] MEDS ORDERED: NITROGLYCERIN SL TABS 0.4 MG TAB SUBLINGUAL PRN (13:03)
[2021-08-16] MEDS ORDERED: RX INFO: IV CONTRAST WAS GIVEN 1 EACH MISC MISCELLANE PRN (13:03)
[2021-08-16] MEDS ORDERED: ATROPINE SULFATE 0.1 MG/ML 10ML SYRINGE IV PRN (13:03)
[2021-08-16] MEDS ORDERED: MAG HYDROX/AL HYDROX/SIMETH 30 ML CUP PO PRN (13:03)
[2021-08-16] MEDS ORDERED: ZOLPIDEM 5 MG TAB PO PRN (13:03)
[2021-08-16] MEDS ORDERED: IOPAMIDOL-370 100ML BTL INJ ONE (13:07)
--- NOTE | 2021-08-16 13:11 | P.CARDCATH ---
Date of Procedure: 08/16/21 Description of Procedure: PERCUTANEOUS TRANSLUMINAL CORONARY ANGIOPLASTY CLINICAL INFORMATION: The patient is a 65-year-old female with known history of hypertension and hyperlipidemia prior history of renal transplant who was evaluated by Dr. Rollins and had an abnormal MPI. She underwent cardiac catheter ization that showed critical stenosis in the mid RCA. Recommendation made regarding angioplasty and stenting, the procedure as well as the risk and the complications were discussed with the patient who was in full understanding and agreement. PROCEDURE: A 6 [place] Michela 4 guiding catheter was introduced into the system. After cannulating the right coronary artery, a 0.014 balanced medium J-wire was advanced across the lesion and positioned distally. Another similar wire was introduced next to the first one in a annita fashion. Following that a 3.25 x 28 mm Xience [place] stent was deployed. It was dilated at 16. After the last inflation, after appropriate wait, the balloon and the guidewire were withdrawn back into the guiding catheter. Images were obtained and repeated. Those images reveal stable successful stenting. At that point, the guiding catheter, the balloon, and guidewire were removed. The sheath was removed, hemostasis was obtained with deployment of the TR band . There were no immediate complications. The patient was returned to the room in stable condition. Of note, the patient received 11,000 units of heparin as well as Plavix. she had no significant EKG changes or symptoms with the inflations. RESULTS: Successful stenting of the mid RCA with reduction of stenosis from 80 % to 0 %. RECOMMENDATIONS: The patient will be continued on dual antiplatelets treatment for at least 6 months. Depending on her symptoms further recommendations will be made. The findings and the recommendations were discussed with the patient and her family over the phone, they are in full understanding and agreement. Duration of sedation 25 minutes
[2021-08-16] MEDS ORDERED: SODIUM CHLORIDE 0.9% 1,000 ML in EMPTY BAG 1 BAG IV SCH (13:15)
[2021-08-16 17:03] LABS: Glucose,Whole Blood 204 mg/dL (75-99)
[2021-08-16] MEDS: carvediloL 6.25 MG TAB PO SCH (18:00)
[2021-08-16] MEDS ORDERED: ATORVASTATIN 80 MG TAB PO SCH (21:00)
[2021-08-16] MEDS: sulfaSALAzine 500 MG TAB PO SCH (22:21)
[2021-08-17 02:40] VITALS: PULSE 68
[2021-08-17] MEDS ORDERED: PANTOPRAZOLE 40 MG TABLET PO SCH (07:30)
[2021-08-17 07:51] VITALS: BP 164/94; RESP 18; TEMP 97.8
[2021-08-17] MEDS: INSULIN ASPART (NovoLOG) 100 UNIT/ML VIAL SQ SCH (08:02)
[2021-08-17] MEDS: sulfaSALAzine 500 MG TAB PO SCH (08:03)
[2021-08-17] MEDS: carvediloL 6.25 MG TAB PO SCH (08:03)
[2021-08-17 08:10] LABS: Glucose,Whole Blood 215 mg/dL (75-99)
[2021-08-17] MEDS ORDERED: ASPIRIN 81 MG PO SCH (09:00)
[2021-08-17] MEDS ORDERED: CLOPIDOGREL 75 MG TAB PO SCH (09:00)
[2021-08-17] MEDS ORDERED: ESCITALOPRAM 10 MG TAB PO SCH (09:00)
[2021-08-17] MEDS ORDERED: SIROLIMUS PO SCH (09:00)
--- NOTE | 2021-08-17 10:14 | DS ---
DISCHARGE SUMMARY DATE OF ADMISSION: 08/16/2021. DATE OF DISCHARGE: 08/17/2021. PROCEDURES PERFORMED: 1. Cardiac catheterization. 2. Angioplasty of the right coronary artery. Mary is a 65-year-old lady with history of renal transplant who presented to us having had an episode of syncope and had an abnormal stress test. She underwent cardiac catheterization that revealed a focal critical stenosis in the right coronary artery, for which she underwent angioplasty with stent placement. This morning she is doing well and she is hemodynamically stable. Oxygen saturation is 93% on room air. Chest exam reveals good air entry bilaterally. Heart exam reveals first and second heart sounds. No gallop. No murmur. Abdomen is soft. Examination of extremities did not reveal any edema. Right radial artery access site is free of bleeding, hematoma or ecchymosis. The patient had somewhat of an unstable gait yesterday transiently when she first got up, but subsequently it resolved and this morning she is doing well, ambulating without any problems and does not have any symptoms. Medications at the time of discharge include aspirin, Plavix 75 mg daily, Lipitor 40 daily, Coreg 6.25 b.i.d., Lexapro, iron, Lasix, spironolactone, CellCept, azulfidine, K- Dur and omeprazole. She is ALLERGIC TO LISINOPRIL. Follow-up EKG is pending this morning. FOLLOWUP: She will be followed up in my office in 2 weeks' time. MMADAMSL / ALFAN: [id number] /
[2021-08-17 13:49] VITALS: BMI 31.2
== END 2021-08-17 13:45 | disposition home or self-care (01) ==
LOC: CATHCVL 09:02 → 6NMEDSUR 13:19 → CATHCVL 08-17 13:45
PROVIDERS: ATTEND Internal Medicine Cardiovascular Disease
DX: I25.10 Atherosclerotic heart disease of native coronary artery without angina pectoris (principal); I10 Essential (primary) hypertension; E78.5 Hyperlipidemia, unspecified; Z94.0 Kidney transplant status; Z20.822 Contact with and (suspected) exposure to COVID-19
CPT/HCPCS: 93458; 85025; 87635; C9600; C1769 ×2; C1887; C1894; C1874; J2250; J2001; J3010; J7517 ×2; J1644; Q9967 ×2

== ENCOUNTER → 2022-05-09 | Outpatient (CLI) | payer MEDICARE, OTHER ==
--- NOTE | 2022-05-09 16:12 | US ---
EXAMINATION TYPE: US kidneys/renal and bladder DATE OF EXAM: 05/09/2022 COMPARISON: NONE CLINICAL HISTORY: 66-year-old female Z94.0 KIDNEY TRANSPLANT. Transplant left kidney. Technique: Multiple sonographic images of the kidneys and bladder are obtained. FINDINGS: [place] kidneys: Atrophied. Transplanted left pelvic Kidney: 11.3 x 4.4 x 4.6 cm. No hydronephrosis. Adjacent abutting bowel loop s are present. Bladder: No gross abnormality. Bilateral Jets seen: no IMPRESSION: 1. Atrophic [place] kidneys. 2. Left pelvic transplant kidney shows no hydronephrosis.
--- NOTE | 2022-05-10 08:12 | MM ---
Reason for Exam: Screening (asymptomatic). Last mammogram was performed 3 year(s) and 0 month(s) ago. Patient History: Menarche at age 11. First Full-Term at age 26. Postmenopausal. Estrogen for 6 months from age 49 until age 49. Hormonal Contraceptives, starting at age 19 for 10 years. Risk Values: [place] 5 year model risk: 1.9%. NCI Lifetime model risk: 6.4%. Prior Study Comparison: 04/16/2016 Right Diagnostic Mammogram, [facility]. 10/09/2017 Bilateral Screening Mammogram, [facility]. 05/27/2019 Bilateral Screening Mammogram, [facility]. Tissue Density: There are scattered fibroglandular densities. Findings: Analyzed By CAD. There is no suspicious group of microcalcifications or new suspicious mass in either breast. Overall Assessment: Benign, BI-RAD 2 Management: Screening Mammogram of both breasts in 1 year. A clinical breast exam by your physician is recommended on an annual basis and results should be correlated with mammographic findings. Electronically signed and approved by: Hakeem Villeda M.D. Radiologis
== END | disposition home or self-care (01) ==
LOC: RADUSWWP 10:48
PROVIDERS: ATTEND Internal Medicine
DX: Z12.31 Encounter for screening mammogram for malignant neoplasm of breast (principal); N26.1 Atrophy of kidney (terminal); Z78.0 Asymptomatic menopausal state; Z94.0 Kidney transplant status
CPT/HCPCS: 76770; 77067